=== PATIENT | male | born 1945 | race Caucasian/White ===

== ENCOUNTER → 2016-10-14 | Outpatient (CLI) | payer BC ==
[~2016-10-14] MED LIST: ACET-1256 PO; ATOR10TA88 PO; B-CO1CAP17 PO; CALC500C70 PO; CALCTAB5 PO; CARV6.252 PO; CEPH500C2 PO; CHOL1000 PO; CLON0.5T3 PO; DAPA1TAB2 PO; FENO145T26 PO; FISHOIL PO; FLUV100T12 PO; FRCT/ PO; HYOS1TAB PO; LCTX PO; MELA1TAB7 PO; OLME1TAB11 PO; OXYC-57 PO; PLV75 PO; PRED-301 PO; PRLSR20 PO; RIFA550T2 PO; SITA100T3 PO; SITA1TAB27 PO; TOPI1CAP PO; TRAM-10 PO
[2016-10-14 11:16] LABS: BASO % 0.6 %; BASO ABS # 0.04 K/uL (0-0.2); COMPLETE YES; EOS % 3.9 %; HEMATOCRIT 40.8 % (42-52); IG% 0.3 %; LYMPH % 34.9 %; LYMPH ABS # 2.16 K/uL (1.2-3.4); MEAN CORPUSCULAR HEMOGLOBIN 32.5 pg (25-34); MEAN CORPUSCULAR HGB CONC 33.8 g/dl (32-36); MEAN PLATELET VOLUME 11.2 fL (7.4-10.4); MONO % 11.6 %; NEUT % 48.7 %; PLATELET COUNT 189 K/uL (130-400); RED BLOOD COUNT 4.25 M/uL (4.7-6.1); WHITE BLOOD COUNT 6.19 K/uL (4.8-10.8)
[2016-10-14 11:25] LABS: ESTIMATED AVERAGE GLUCOSE 137 mg/dl; HA1C FLAG Normal (Normal)
[2016-10-14 11:30] LABS: BLOOD UREA NITROGEN 20 mg/dl (7-18); CREATININE 0.86 mg/dl (0.60-1.40); GLUCOSE 144 mg/dl (70-99)
[2016-10-14 11:31] LABS: ALT/SGPT 34 U/L (12-78); AST/SGOT 14 U/L (15-37); BUN/CREATININE RATIO 23.3 (10-20); CALCIUM 8.8 mg/dl (8.5-10.1); CARBON DIOXIDE 23 mmol/L (21-32); CHLORIDE 106 mmol/L (98-107); POTASSIUM 4.1 mmol/L (3.5-5.1); SODIUM 139 mmol/L (136-145)
[2016-10-14 11:49] LABS: ALB/GLOB RATIO 1.1 (0.9-2); ALKALINE PHOSPHATASE 41 U/L (45-117); CHOLESTEROL 157 mg/dl (0-200); CHOLESTEROL/HDL RATIO 2.9; HDL CHOLESTEROL 55 mg/dl; LDL CHOLESTEROL CALCULATED 62 mg/dl; PHOSPHORUS 3.7 mg/dl (2.5-4.9); TRIGLYCERIDES 202 mg/dl (0-150); URIC ACID 5.6 mg/dl (2.6-7.2); VERY LOW DENSITY LIPOPROT CALC 40 mg/dl
[2016-10-15 09:43] LABS: C-REACTIVE PROT HIGHSEN 2.4 MG/L
--- NOTE | 2016-10-18 12:34 | CODING QUERY MEDICAL NECESSITY ---
SUPPORTING DIAGNOSIS NEEDED A supporting diagnosis is required for the test/procedure performed on this patient in order for us to be reimbursed by the patient's insurance. Please provide a supporting diagnosis for the following test/procedure listed below next to the test name along with your signature. *If there is no additional diagnosis for this patient that would support the following test/procedure please document that below next to the test/procedure. Test(s)/Procedure(s) that require a supporting diagnosis: * VIT D 25, HYDROXY DIAGNOSIS: * VIT V-12 LEVEL DIAGNOSIS: * C REACTIVE PROTEIN DIAGNOSIS: * DOS: 10/14/16 Provider Signature: Date: Thank you Anu Kay [facility] Information Management Once completed, please kindly fax back to [phone] For questions please call [phone]
== END | disposition home or self-care (01) ==
LOC: C.LABBC 08:35
PROVIDERS: ATTEND Family Medicine
DX: E11.9 Type 2 diabetes mellitus without complications (principal)

== ENCOUNTER → 2016-11-19 | Outpatient (CLI) | payer BC ==
--- NOTE | 2016-11-19 11:30 | DIAGNOSTIC IMAGING REPORT ---
Limited abdominal ultrasound ABDOMEN FOR HERNIA CLINICAL HISTORY: LEFT INGUINAL HERNIA hernia TECHNIQUE: Real-time ultrasound COMPARISON STUDY: None FINDINGS: Small fat-containing left inguinal hernia. This is reducible. No evidence of bowel containment or incarceration. IMPRESSION: Reducible fat-containing left inguinal hernia. No evidence of bowel containment. Electronically signed by: Luis Mock M.D. 11/19/2016 11:28 AM Dictated Date/Time: 11/19/2016 11:28 AM
== END | disposition home or self-care (01) ==
LOC: C.ULTRBC 11:04
PROVIDERS: ATTEND Family Medicine
DX: K40.90 Unilateral inguinal hernia, without obstruction or gangrene, not specified as recurrent (principal)

== ENCOUNTER → 2016-12-06 | Outpatient (CLI) | payer BC ==
[~2016-12-06] MED LIST changes: +OPTIRAY 320 IV PRN
--- NOTE | 2016-12-06 09:16 | DIAGNOSTIC IMAGING REPORT ---
CT ABD/PELVIS IV AND ORAL CONT CLINICAL HISTORY: Umbilical hernia, left groin pain. COMPARISON STUDY: 08/11/2012 TECHNIQUE: Following the IV administration of 116 mL of Optiray-320, CT scan of the abdomen and pelvis was performed from the lung bases to the proximal femurs. Images are reviewed in the axial, sagittal, and coronal planes. IV contrast was administered without complication. CT DOSE: 1067.89 mGycm FINDINGS: Lower chest: There is evidence of pulmonary emphysema. There are no pleural effusions. Liver: There is a stable 5 mm hypodensity with thin the left lobe of the liver. There is no ductal dilatation. The portal veins appear patent. Gallbladder: Cholelithiasis Spleen: Normal in size and attenuation. Pancreas: Unremarkable. Adrenal glands: Unremarkable. Kidneys: There is a 27 mm left renal cyst. There is a 4 mm right renal cyst. Bowel: There are no transition zones to indicate bowel obstruction. The appendix appears normal. There is no acute diverticulitis. Peritoneum: There is no intraperitoneal free air or abdominal ascites. There is a small fat-containing umbilical hernia. There are small fat-containing inguinal hernias versus lipomatous inguinal canals. These remain unchanged the prior study. Vasculature: The abdominal aorta is normal in course and caliber. Adenopathy: None. Pelvic viscera: The bladder, and pelvic viscera are unremarkable. Skeletal structures: No destructive osseous lesions are seen. IMPRESSION: 1. Fat-containing umbilical hernia 2. Small fat-containing inguinal hernias versus lipomatous inguinal canals, unchanged from 2012 3. Cholelithiasis 4. No evidence of bowel obstruction. No evidence of free air 5. Normal appendix. No evidence of diverticulitis. Electronically signed by: Dylan Hobbs M.D. 12/06/2016 9:15 AM Dictated Date/Time: 12/06/2016 9:10 AM
== END | disposition home or self-care (01) ==
LOC: C.CTS 08:25
PROVIDERS: ATTEND Surgery
DX: K42.9 Umbilical hernia without obstruction or gangrene (principal); K80.20 Calculus of gallbladder without cholecystitis without obstruction

== ENCOUNTER 2017-02-04 07:45 | Day surgery (SDC) | payer BC ==
[2017-01-09 09:05] VITALS: BMI 31.0
--- NOTE | 2017-01-09 09:45 | PAT Medication Instructions ---
Service Date Jan 09, 2017. Current Home Medication List Acetamin/Butalbital/Caffeine (Fioricet), 2 TAB PO Q4-6HR PRN Acetaminophen (Tylenol), 1,000 MG PO Q8 PRN for HEADACHE Atorvastatin (Lipitor), 10 MG PO HS Carvedilol (Coreg), 6.25 MG PO BID Cholecalciferol (Vitamin D3), 1 TAB PO QAM Clonazepam (Klonopin), 1.5 TAB PO HS PRN Dapagliflozin Propanediol (Farxiga), 5 MG PO QAM Fenofibrate (Tricor), 145 MG PO HS Fluvoxamine Maleate (Luvox), 100 MG PO HS Hyoscyamine Sulfate (Levsin), 0.125 MG PO Q6 PRN for prn Lactobacillus Acidophilus (Lactinex), 1 TAB PO BID Melatonin-Pyridoxine (Melatin), 1 TAB PO HS PRN for Insomnia Olmesartan Medoxomil (Benicar), 20 MG PO QPM Omeprazole (Prilosec), 20 MG PO DAILY Prednisone (Prednisone), 5 MG PO UD PRN for PRN Rifaximin (Xifaxan), 550 MG PO QAM Topiramate (Trokendi Xr), 25 MG PO QAM Medication Instructions For Your Scheduled Surgery Acetamin/Butalbital/Caffeine (Fioricet), 2 TAB PO Q4-6HR PRN (Check with surgeon for instructions) Rifaximin (Xifaxan), 550 MG PO QAM (no longer taking per patient) - Hold the following medications the morning of surgery: Cholecalciferol (Vitamin D3), 1 TAB PO QAM Dapagliflozin Propanediol (Farxiga), 5 MG PO QAM Lactobacillus Acidophilus (Lactinex), 1 TAB PO BID Hyoscyamine Sulfate (Levsin), 0.125 MG PO Q6 PRN for prn - Take the following medications the morning of surgery with a sip of water: Topiramate (Trokendi Xr), 25 MG PO QAM Prednisone (Prednisone), 5 MG PO UD PRN for PRN Omeprazole (Prilosec), 20 MG PO DAILY Keflex 500mg PO DAILY Carvedilol (Coreg), 6.25 MG PO BID Acetaminophen (Tylenol), 1,000 MG PO Q8 PRN for HEADACHE - Hold the following medications as scheduled the night before surgery: Olmesartan Medoxomil (Benicar), 20 MG PO QPM Fenofibrate (Tricor), 145 MG PO HS - Take the following medications as scheduled the night before surgery: Prednisone (Prednisone), 5 MG PO UD PRN for PRN Melatonin-Pyridoxine (Melatin), 1 TAB PO HS PRN for Insomnia Clonazepam (Klonopin), 1.5 TAB PO HS PRN Carvedilol (Coreg), 6.25 MG PO BID Fluvoxamine Maleate (Luvox), 100 MG PO HS Acetaminophen (Tylenol), 1,000 MG PO Q8 PRN for HEADACHE Atorvastatin (Lipitor), 10 MG PO HS Lactobacillus Acidophilus (Lactinex), 1 TAB PO BID Hyoscyamine Sulfate (Levsin), 0.125 MG PO Q6 PRN for prn If you have any questions please call us at [phone] (Ashwini Helton PA-C) or [phone] or [phone]
--- NOTE | 2017-01-09 10:28 | DIAGNOSTIC IMAGING REPORT ---
CERVICAL SPINE 3 view VIEWS HISTORY: Preoperative evaluation. PREOP, RHEUMATOID ARTHRITIS COMPARISON: None. FINDINGS: The cervical spine is visualized from C1 through the superior endplate of T1. There is no fracture. No subluxation. Disc spaces are preserved. Prevertebral soft tissues and the atlantodens interval are intact. Mild degenerative disc change. No evidence for positional subluxation IMPRESSION: No evidence for positional subluxation. Electronically signed by: Luis Mock M.D. 01/09/2017 10:26 AM Dictated Date/Time: 01/09/2017 10:25 AM
[2017-01-09 10:32] LABS: BASO % 0.4 %; BASO ABS # 0.03 K/uL (0-0.2); COMPLETE YES; EOS % 2.3 %; HEMATOCRIT 43.2 % (42-52); IG% 0.3 %; LYMPH % 28.5 %; LYMPH ABS # 1.98 K/uL (1.2-3.4); MEAN CELL VOLUME 94.7 fL (80-100); MEAN CORPUSCULAR HEMOGLOBIN 31.6 pg (25-34); MEAN CORPUSCULAR HGB CONC 33.3 g/dl (32-36); MEAN PLATELET VOLUME 10.6 fL (7.4-10.4); MONO % 8.8 %; NEUT % 59.7 %; PLATELET COUNT 177 K/uL (130-400); RED BLOOD COUNT 4.56 M/uL (4.7-6.1); WHITE BLOOD COUNT 6.95 K/uL (4.8-10.8)
--- NOTE | 2017-01-09 10:34 | DIAGNOSTIC IMAGING REPORT ---
CHEST PREADMISSION(PA/LAT) HISTORY: Preop. COMPARISON: Chest 08/13/2012. FINDINGS: Punctate calcified granuloma within the left lung base. Otherwise, the lungs are clear. No pleural effusions. No pneumothorax. The heart is normal in size. IMPRESSION: No acute process. Electronically signed by: Lemuel Hernandez M.D. 01/09/2017 10:31 AM Dictated Date/Time: 01/09/2017 10:30 AM
[2017-01-09 11:21] LABS: ALT/SGPT 25 U/L (12-78); AST/SGOT 12 U/L (15-37); BLOOD UREA NITROGEN 19 mg/dl (7-18); CALCIUM 8.6 mg/dl (8.5-10.1); CARBON DIOXIDE 22 mmol/L (21-32); CHLORIDE 106 mmol/L (98-107); CREATININE 0.98 mg/dl (0.60-1.40); GLUCOSE 149 mg/dl (70-99); POTASSIUM 4.2 mmol/L (3.5-5.1); SODIUM 138 mmol/L (136-145)
[2017-01-09 11:23] LABS: ALKALINE PHOSPHATASE 47 U/L (45-117)
[~2017-02-04] VITALS: Ht 172.7 cm; Wt 94.5 kg
[~2017-02-04 07:45] MED LIST changes: +ATOR10TA82 PO; -ATOR10TA88 PO; -B-CO1CAP17 PO; -CALC500C70 PO; -CALCTAB5 PO; -DAPA1TAB2 PO; +DAPA1TAB8 PO; -FISHOIL PO; +LACTATED RINGER'S 1000ML 1,000 ML IV SCH; -OPTIRAY 320 IV PRN; -OXYC-57 PO; -PLV75 PO; -RIFA550T2 PO; -SITA100T3 PO; -SITA1TAB27 PO; -TRAM-10 PO
[2017-02-04] MEDS ORDERED: CALC500C70 PO (08:33)
[2017-02-04 08:40] VITALS: BP 137/69; PULSE 55; TEMP 36.7; O2SAT 97; Ht 172.7 cm; Wt 94.5 kg
[2017-02-04] MEDS ORDERED: PROPOFOL IV EMULSION 10 MG/ML 20 ML VIAL IV ONE (09:13)
[2017-02-04] MEDS ORDERED: ROCURONIUM BROMIDE 10 MG/ML 5 ML VIAL ONE ×2 (09:13→11:08)
[2017-02-04] MEDS ORDERED: GLYCOPYRROLATE INJ 0.2 MG/ML VIAL ONE (09:13)
[2017-02-04] MEDS ORDERED: MIDAZOLAM HCL 1 MG/ML 2ML VIAL ONE (09:13)
[2017-02-04] MEDS ORDERED: FENTANYL CITRATE INJ 50 MCG/1 ML 2 ML VIAL ONE (09:13)
[2017-02-04] MEDS ORDERED: LIDOCAINE HCL 2% 2 ML VIAL (20MG/ML) ONE (09:13)
[2017-02-04] MEDS ORDERED: NEOSTIGMINE METHYLSULFATE 5 MG/5 ML SYR ONE (09:13)
[2017-02-04] MEDS ORDERED: DEXAMETHASONE SOD INJ 4 MG/ML VIAL ONE (09:14)
[2017-02-04] MEDS ORDERED: ONDANSETRON INJ 2 MG/ML 2 ML VIAL ONE (09:14)
--- NOTE | 2017-02-04 09:46 | History and Physical ---
History & Physical Date February 04, 2017. History of Present Illness The patient is a 71 year old male with complaints of ccc and umbilical hernia seen in office annabelle 1 month ago and no chnage in h and p as documented in chart Past Medical/Surgical History Medical Problems: (1) Airway compromise (2) Cellulitis (3) DIVERTICULOSIS COLON (W/O MENT OF HEMORRHAGE) (4) HYPERLIPIDEMIA NEC/NOS (5) HYPERTENSION NOS (6) IMPAIRED GLUCOSE TOLERANCE TEST (ORAL) (7) Tonsillar abscess Additional History Hepatic Disease: No Endocrine Disorder: No Kidney Disease: No Hypertension: Yes Heart Disease: No Bleeding Tendencies: No Infectious Diseases: No Allergies Coded Allergies: Latex1 -Allergic Contact Dermititis (Verified Allergy, Mild, CONTACT DERMATITIS, 02/04/17) Home Medications Scheduled Acetamin/Butalbital/Caffeine (Fioricet), 2 TAB PO Q4-6HR PRN Atorvastatin (Lipitor), 10 MG PO HS Calcium/Vitamin D (Os-Mikel 500 Plus D), 1 TAB PO DAILY Carvedilol (Coreg), 6.25 MG PO BID Cephalexin Monohydrate (Keflex), 500 MG PO QAM Cholecalciferol (Vitamin D3), 1 TAB PO QAM Clonazepam (Klonopin), 1.5 TAB PO HS PRN Dapagliflozin Propanediol (Farxiga), 5 MG PO QAM Fenofibrate (Tricor), 145 MG PO HS Fluvoxamine Maleate (Luvox), 100 MG PO HS Lactobacillus Acidophilus (Lactinex), 1 TAB PO BID Olmesartan Medoxomil (Benicar), 20 MG PO QPM Topiramate (Trokendi Xr), 25 MG PO QAM Scheduled PRN Hyoscyamine Sulfate (Levsin), 0.125 MG PO Q6 PRN for prn Melatonin-Pyridoxine (Melatin), 1 TAB PO HS PRN for Insomnia Omeprazole (Prilosec), 20 MG PO DAILY PRN for Indigestion Prednisone (Prednisone), 5 MG PO UD PRN for PRN Physical Examination Skin: warm/dry, no rash Eyes: sclerae normal ENT: normal ENT inspection Head: normocephalic Neck: supple, trachea midline (carotid without bruit) Respiratory/Chest: normal breath sounds Cardiovascular: regular rate, rhythm, no murmur Abdomen / GI: non tender (partially reducible umbilical hernia) Extremities: normal inspection, normal range of motion Neurologic/Psych: alert, oriented x 3 Diagnosis symptomatic ccc and umbilical hernia Plan of Treatment laparoscopic trevor oden umbilical hernia repair
[2017-02-04] MEDS ORDERED: OXYC-57 PO (09:51)
--- NOTE | 2017-02-04 09:52 | Discharge Instructions ---
Discharge Instructions Date of Service February 04, 2017. Visit Reason for Visit: Cholelithiasis, Umbilical Hernia Discharge Discharge Diagnosis / Problem: laparoscopic cholecystectomy Discharge Goals Goal(s): Decrease discomfort Activity Recommendations Activity Limitations: as noted below Lifting Limitations: no more than 10 pounds Shower/Bathe: tomorrow (ok to shower with drain) Driving or Machine Use: resume 3 days after discharge (if not taking Percocety) Anesthesia . Post Anesthesia Instructions: If you have had General Anesthesia or IV Sedation: * Do not drive today. * Resume driving when surgeon permits. * Do not make important decisions or sign legal documents today. * Call surgeon for: 1. Temperature elevations greater than 101 degrees F. 2. Uncontrollable pain. 3. Excessive bleeding. 4. Persistent nausea and vomiting. 5. Medication intolerance (nausea, vomiting or rash). * For nausea and vomiting use only clear liquids such as: tea, soda, bouillon until nausea subsides, then gradually increase diet as tolerated. * If you have any concerns or questions, call your surgeon's office. If physician is unavailable and it is an emergency, call 911 or go to the nearest emergency room. . Instructions / Follow-Up Instructions / Follow-Up Dr. Estrada in 3-4 days ( or Fri) to have drain removed call [phone] to schedule if you do not already have an appt Empty drain 2-3 times daily as needed Diet Recommendations Recommended Home Diet: no limitations Pending Studies Studies pending at discharge: no Medical Emergencies . Who to Call and When: Medical Emergencies: If at any time you feel your situation is an emergency, please call 911 immediately. . Non-Emergent Contact Non-Emergency issues call your: Surgeon Call Non-Emergent contact if: you have a fever, temperature is above 101.5, your pain is not controlled . . "Provider Documentation" section prepared by Donis Feng. .
[2017-02-04] MEDS ORDERED: LIDOCAINE/EPINEPHRINE 1% 20 ML VIAL ONE (09:54)
[2017-02-04] MEDS ORDERED: CONRAY 60% 50 ML VIAL ONE (09:54)
[2017-02-04] MEDS ORDERED: BACITRACIN 50000 UNIT VIAL ONE (10:07)
[2017-02-04] MEDS ORDERED: LABETALOL HCL IV 5 MG/ML 20ML IV ONE (11:01)
--- NOTE | 2017-02-04 11:21 | DIAGNOSTIC IMAGING REPORT ---
INTRAOPERATIVE CHOLANGIOGRAM CLINICAL HISTORY: Cholangiogram. COMPARISON STUDY: CT of the abdomen and pelvis December 06, 2016. FLUOROSCOPY TIME: Resections. FINDINGS: 4 fluoroscopic images were obtained during an intraoperative cholangiogram. There is contrast within the duodenum. No biliary ductal dilatation is evident. No filling defect is identified to suggest choledocholithiasis. IMPRESSION: No evidence of choledocholithiasis. Electronically signed by: Angel Brown M.D. 02/04/2017 11:20 AM Dictated Date/Time: 02/04/2017 11:19 AM
--- NOTE | 2017-02-04 11:39 | [facility] Operative Report ---
Operative Report Operative Date February 04, 2017. Pre-Operative Diagnosis Chronic Cholelithiasis, Umbilical Hernia both symp Post-Operative Diagnosis same Procedure(s) Performed lap cholecystectomy, trevor, umbilical hernia repair Surgeon Dr. Estrada Dry Transfer Man Surgeon(s) VALERIE Szymanski Estimated Blood Loss 5 ml Findings significant adhesion to gallbladder and incarcerated umbilical hernia total defect annabelle 2 cm Specimens Routine culture and anaerobic cultures gallbladder bed sent to lab at 1128 Drains #19 ivory I attest to the content of the Intraoperative Record and any orders documented therein. Any exceptions are noted below.
[2017-02-04] MEDS ORDERED: MoRPHine SULFATE 2 MG/ML CARP ONE (11:44)
[2017-02-04] MEDS ORDERED: LACTATED RINGER'S 1000ML 1,000 ML IV SCH (11:46)
[2017-02-04] MEDS ORDERED: OXYCODONE/ACETAMINOPHEN 5-325 TAB PO PRN (12:00)
[2017-02-04] MEDS ORDERED: EpHEDrine SULFATE INJ 50 MG/ML AMP IV PRN (12:00)
[2017-02-04] MEDS ORDERED: PHENYLEPHRINE 100MCG/ML 5ML SYR IV PRN (12:00)
[2017-02-04] MEDS ORDERED: ATROPINE SULFATE 0.1 MG/ML 5ML SYR IV PRN (12:00)
[2017-02-04] MEDS ORDERED: HYDROmorphone INJ 2 MG/ML SYR/VIAL IV PRN (12:00)
[2017-02-04] MEDS ORDERED: MoRPHine SULFATE 4 MG/ML 1 ML CARP\\VIAL IV PRN (12:00)
[2017-02-04] MEDS ORDERED: ONDANSETRON INJ 2 MG/ML 2 ML VIAL IV PRN ×2 (12:00)
[2017-02-04] MEDS ORDERED: HYDROmorphone INJ 2 MG/ML SYR/VIAL ONE (12:02)
[2017-02-04] MEDS ORDERED: HYDROmorphone INJ 1 MG/ML SYR ONE (12:02)
--- NOTE | 2017-02-04 12:28 | Anesthesiology Progress Note ---
Anesthesia Post Op Note Date & Time February 04, 2017 at 12:28 Vital Signs Pain Intensity: 5 Vital Signs Past 12 Hours Date Time Temp Pulse Resp B/P Pulse Ox O2 Delivery O2 Flow Rate FiO2 02/04/17 12:20 67 13 139/68 93 Room Air 02/04/17 12:10 58 13 145/76 95 Mask 10 02/04/17 12:00 62 12 165/79 100 Mask 10 02/04/17 11:50 36.2 65 15 173/93 99 Mask 10 02/04/17 08:40 36.7 55 20 137/69 97 Room Air Notes Mental Status: alert / awake / arousable, participated in evaluation Pt Amnestic to Procedure: Yes Nausea / Vomiting: adequately controlled Pain: adequately controlled Airway Patency, RR, SpO2: stable & adequate BP & HR: stable & adequate Hydration State: stable & adequate Anesthetic Complications: no major complications apparent
[2017-02-04 13:00] VITALS: BP 149/63; PULSE 59; TEMP 37; O2SAT 95
[2017-02-04 13:30] VITALS: BP 140/68; PULSE 53; TEMP 36.6; O2SAT 92
[2017-02-04 14:00] VITALS: BP 150/63; PULSE 53; TEMP 36.4; O2SAT 92
--- NOTE | 2017-02-04 16:48 | OPERATIVE REPORT ---
DATE OF OPERATION: 02/04/2017 SURGEON: Dr. Estrada. AERIAL INSTALLER: Jm Feng. PREOPERATIVE DIAGNOSES: Chronic cholecystitis, cholelithiasis, symptomatic umbilical hernia. POSTOPERATIVE DIAGNOSES: Same with incarcerated umbilical hernia. PROCEDURE: Laparoscopic cholecystectomy, intraoperative cholangiogram and repair of incarcerated umbilical hernia. SUMMARY: The patient was brought into the operating room under general anesthesia, the patient was prepped with scrubbing solution and properly draped. Time-out was had and I made a small incision about transversely the umbilicus deep into subcutaneous tissue. We found incarcerated preperitoneal fat into the hernial sac, which once we freed it up from the umbilical tissue, we identified the defect approximately 2 cm. I used 0 Vicryl sutures to control the pneumoperitoneum as we entered the peritoneal cavity, we reduced all the incarcerated tissue into the abdomen and then CO2 insufflated, the stay sutures to control the pneumoperitoneum. CO2 insufflated, scope followed, point of entry inspected and no injury identified. Under direct visualization, we then turned our attention to right upper quadrant, we placed a 5 mm epigastric, two 5 mm subcostal ports with preemptive local analgesia 1% Xylocaine. The liver was round edged. We did not see the gallbladder, it was seen to be in the mid portion where we thought the gallbladder fossa would be. The omental adhesions to the liver were quite significant. We took these down using electrocautery as we took it off the liver edge and then we were able to identify the gallbladder, which we placed under track. There were significant adhesions of fatty tissue to the gallbladder on the undersurface of surrounding it. With the dissection took it all the way down to the neck of the gallbladder. We identified the cystic duct, created a window posteriorly to it, clipped it proximally. A #4 urethral catheter was brought into the abdominal wall to do a cholangiogram. We opened the cystic duct, some debris that came out of it, even though the size of the duct was small. We placed a cholangiocath flushed out more of what looked like a bilirubinate type of debris. Cholangiocath was then performed that showed a dilated duodenum. I was not sure what are the pictures may have been, either a filling defect or an artifact, in the distal common bile duct. Therefore, I irrigated again significantly and then took another cholangiogram which at this time I do not see any obstruction. There was free flow into the duodenum and no other evidence of any filling defect. The cholangiocath was then removed that was doubly clipped and divided. The artery was similarly identified, double clipped and divided. Gallbladder was taken out in antegrade fashion using the posterior peritoneum as much as possible using electrocautery. A few areas on the liver was quite adherent to be controlled. Once the gallbladder was removed from the liver bed, we placed in an Endopouch and taken out intact through the epigastric port. The patient had a one solitary significant stone. The patient had another some cholesterolosis of the gallbladder. I elected to drain the subhepatic area, which we did using a 19 Beka, taken out medially, taken out laterally subcostal port. We placed the scope in the subcostal area to visualize the umbilical opening, we identified that the fatty tissue that we returned intraabdominally, there was just an adhesion of the omentum coming into that area, but there were no other evidence of any bowel. At this point, individual trocars removed and lastly the umbilical trocar, the fascial defects on the umbilical area was then closed in the umbilical opening with interrupted [id number] #1 PDS x2, and I similarly used the same suture to close the epigastric area. 4-0 Monocryl, Steri-Strips applied. The procedure was tolerated well by the patient. Estimated blood loss approximately 5 mL. The patient was taken to recovery room in good condition. I attest to the content of the Intraoperative Record and any orders documented therein. Any exceptio ns are noted below.
[2017-02-18] MEDS ORDERED: SITA100T3 PO (11:23)
[2017-02-18] MEDS ORDERED: FRCT/ PO (11:31)
[2017-02-21] MEDS ORDERED: TRAM-10 PO (11:04)
== END 2017-02-04 16:15 | disposition home or self-care (01) ==
LOC: C.ACU 07:45
PROVIDERS: ATTEND Surgery
DX: K80.10 Calculus of gallbladder with chronic cholecystitis without obstruction (principal); K42.0 Umbilical hernia with obstruction, without gangrene; E78.5 Hyperlipidemia, unspecified; I10 Essential (primary) hypertension

== ENCOUNTER 2017-02-05 22:25 | Inpatient (IN) | payer BC, OTHER ==
[~2017-02-05] VITALS: Ht 172.7 cm; Wt 89.3 kg
[~2017-02-05 22:25] MED LIST changes: -ACET-1256 PO; +CALC500C70 PO; -FRCT/ PO; -LACTATED RINGER'S 1000ML 1,000 ML IV SCH; +OXYC-57 PO
[2017-02-05] MEDS ORDERED: SODIUM CHLORIDE 0.9% 1000ML 1,000 ML IV STA (23:09)
--- NOTE | 2017-02-05 23:21 | EMERGENCY ROOM VISIT NOTE ---
History Report prepared by Anna: Tee Timmons Under the Supervision of: Dr. Adela Fernandez M.D. First contact with patient: 23:07 Chief Complaint: NEURO SYMPTOMS Stated Complaint: S/P SURGERY, CONFUSION, STROKE LIKE SX Nursing Triage Summary: Pt arrives with family. c/o confusion, headache, vomiting last night. Ongoing since yesterday when pt was brought home from hospital. Pt had gallbladder removal, hernia repair yesterday. report taking pain meds, but not providing relief, "it makes me sick". Right hand "wants to try and do everything backwards", having difficulty doing everyday tasks like holding a cup. History of Present Illness The patient is a 71 year old male who presents to the Emergency Room with complaints of constant neuro symptoms starting yesterday around 1600. The patient states that he had a cholecystectomy, and he left the hospital yesterday , and after that he went home, and he states that he was acting funny. He states that he was mumbling, and he could not form full thoughts. Additionally, he states that he cannot remember things very well like he used to. He also states that his right hand has been acting "backwards" and is going the wrong way. He denies any trouble with walking. Source of History: patient Onset: yesterday around 1600 Position: other (global) Quality: other (neuro symptoms) Timing: constant Note: Associated symptoms: Mumbling, could not form thoughts, hand acting backwards Review of Systems See HPI for pertinent positives & negatives. A total of 10 systems reviewed and were otherwise negative. Past Medical & Surgical Medical Problems: (1) Acute CVA (cerebrovascular accident) (2) Acute right-sided weakness (3) Airway compromise (4) Cellulitis (5) DIVERTICULOSIS COLON (W/O MENT OF HEMORRHAGE) (6) HYPERLIPIDEMIA NEC/NOS (7) HYPERTENSION NOS (8) IMPAIRED GLUCOSE TOLERANCE TEST (ORAL) (9) Tonsillar abscess Social History Smoking Status: Current Every Day Smoker Drug Use: none Marital Status: Housing Status: lives with family Occupation Status: retired Current/Historical Medications Scheduled Atorvastatin (Lipitor), 10 MG PO HS Calcium/Vitamin D (Os-Mikel 500 Plus D), 1 TAB PO DAILY Carvedilol (Coreg), 6.25 MG PO BID Cephalexin Monohydrate (Keflex), 500 MG PO QAM Cholecalciferol (Vitamin D3), 1 TAB PO QAM Clonazepam (Klonopin), 1.5 TAB PO HS PRN Dapagliflozin Propanediol (Farxiga), 5 MG PO QAM Fenofibrate (Tricor), 145 MG PO HS Fluvoxamine Maleate (Luvox), 100 MG PO HS Lactobacillus Acidophilus (Lactinex), 1 TAB PO BID Olmesartan Medoxomil (Benicar), 20 MG PO QPM Topiramate (Trokendi Xr), 25 MG PO QAM Scheduled PRN Hyoscyamine Sulfate (Levsin), 0.125 MG PO Q6 PRN for prn Melatonin-Pyridoxine (Melatin), 1 TAB PO HS PRN for Insomnia Omeprazole (Prilosec), 20 MG PO DAILY PRN for Indigestion Oxycodone/Acetaminophen 5MG/325MG (Percocet 5MG/325MG), 1-2 TABLETS PO Q4H PRN for Pain Prednisone (Prednisone), 5 MG PO UD PRN for PRN Allergies Coded Allergies: Latex1 -Allergic Contact Dermititis (Verified Allergy, Mild, CONTACT DERMATITIS, 02/05/17) Physical Exam Vital Signs Date Time Temp Pulse Resp B/P Pulse Ox O2 Delivery O2 Flow Rate FiO2 02/06/17 01:30 54 17 143/70 02/06/17 01:25 63 17 02/06/17 01:20 64 16 02/06/17 01:15 32 17 82 02/06/17 01:10 63 16 02/06/17 01:05 61 17 02/06/17 01:00 64 20 148/90 02/06/17 00:55 61 16 02/06/17 00:50 69 20 02/06/17 00:45 59 15 02/06/17 00:40 62 22 02/06/17 00:35 52 16 94 02/06/17 00:30 54 18 161/66 92 02/06/17 00:25 55 17 95 02/06/17 00:20 59 17 96 02/06/17 00:10 58 17 95 02/06/17 00:05 63 14 95 02/06/17 00:01 151/67 02/06/17 00:00 66 20 02/05/17 23:55 63 19 02/05/17 23:52 165/70 5/10/17 23:40 62 16 02/05/17 23:35 64 21 02/05/17 23:31 151/84 02/05/17 23:30 61 26 02/05/17 23:25 59 25 02/05/17 23:21 66 02/05/17 23:20 61 21 02/05/17 23:15 73 18 02/05/17 23:15 94 Room Air 02/05/17 23:11 155/68 02/05/17 22:30 37.2 65 18 190/106 94 Room Air Physical Exam Vital signs reviewed. General: Well-appearing male, in no significant distress. HEENT: No scleral icterus, PERRLA, neck supple. Atraumatic. Cardiovascular: Regular rate and rhythm, no extra sounds. Pulmonary: Clear to auscultation bilaterally, normal work of breathing. Abdomen: Soft, nontender, nondistended, positive bowel sounds. Musculoskeletal: Atraumatic, no peripheral edema. Neurologic: Patient awake alert and oriented x 3, full strength in all 4 extremities. Patient does have subtle word finding difficulties. Cranial nerves 2 through 12 grossly intact. Skin: Warm, dry, no rash Medical Decision & Procedures ER Provider Diagnostic Interpretation: X-ray results as stated below per interpretation by me: Chest 1 View: Linear consolidation in the left mid lung main obscuring the heart border. Likely atelectasis. No evidence of failure. No pneumothorax. No free air under the diaphragm. Radiology results as stated below per my review and radiologist interpretation: CT HEAD: Comparison: MRI dated 08/11/2009. Recent appearing (acute of subacute) infarcts in the left parietal and left occipital lobes. Largest area of infarct measures approximately 3.3cm in greatest dimension. MRI can be obtained for further evaluation. No acute intracranial hemorrhage, mass effect or midline shift. Paranasal sinus disease. Laboratory Results 02/05/17 23:00 Red Blood Count 4.20, Mean Corpuscular Volume 96.9, Mean Corpuscular Hemoglobin 31.9, Mean Corpuscular Hemoglobin Concent 32.9, Mean Platelet Volume 11.0, Neutrophils (%) (Auto) 61.3, Lymphocytes (%) (Auto) 24.7, Monocytes (%) (Auto) 13.4, Eosinophils (%) (Auto) 0.3, Basophils (%) (Auto) 0.1, Neutrophils # (Auto ) 5.77, Lymphocytes # (Auto) 2.32, Monocytes # (Auto) 1.26, Eosinophils # (Auto ) 0.03, Basophils # (Auto) 0.01 02/05/17 23:00 Test 02/05/17 23:00 02/05/17 23:29 02/05/17 23:30 02/06/17 00:05 White Blood Count 9.41 K/uL (4.8-10.8) Red Blood Count 4.20 M/uL (4.7-6.1) Hemoglobin 13.4 g/dL (14.0-18.0) Hematocrit 40.7 % (42-52) Mean Corpuscular Volume 96.9 fL (80-100) Mean Corpuscular Hemoglobin 31.9 pg (25-34) Mean Corpuscular Hemoglobin Concent 32.9 g/dl (32-36) Platelet Count 190 K/uL (130-400) Mean Platelet Volume 11.0 fL (7.4-10.4) Neutrophils (%) (Auto) 61.3 % Lymphocytes (%) (Auto) 24.7 % Monocytes (%) (Auto) 13.4 % Eosinophils (%) (Auto) 0.3 % Basophils (%) (Auto) 0.1 % Neutrophils # (Auto) 5.77 K/uL (1.4-6.5) Lymphocytes # (Auto) 2.32 K/uL (1.2-3.4) Monocytes # (Auto) 1.26 K/uL (0.11-0.59) Eosinophils # (Auto) 0.03 K/uL (0-0.5) Basophils # (Auto) 0.01 K/uL (0-0.2) RDW Standard Deviation 48.5 fL (36.4-46.3) RDW Coefficient of Variation 13.7 % (11.5-14.5) Immature Granulocyte % (Auto) 0.2 % Immature Granulocyte # (Auto) 0.02 K/uL (0.00-0.02) Prothrombin Time 11.1 SECONDS (9.0-12.0) Prothromb Time International Ratio 1.0 (0.9-1.1) Activated Partial Thromboplast Time 25.4 SECONDS (21.0-31.0) Partial Thromboplastin Ratio 1.0 Anion Gap 8.0 mmol/L (3-11) Est Creatinine Clear Calc Drug Dose 99.4 ml/min Estimated GFR () 105.4 Estimated GFR (Non- 91.0 BUN/Creatinine Ratio 19.1 (10-20) Calcium Level 8.7 mg/dl (8.5-10.1) Total Creatine Kinase 177 U/L (39-308) Creatine Kinase MB < 0.5 ng/ml (0.5-3.6) Creatine Kinase MB Ratio (0-3.0) Troponin I < 0.015 ng/ml (0-0.045) Bedside Glucose 114 mg/dl (70-99) Bedside Prothrombin Time INR 1.1 (0.9-1.1) Urine Color YELLOW Urine Appearance CLEAR (CLEAR) Urine pH 6.5 (4.5-7.5) Urine Specific [place] 1.011 (1.000-1.030) Urine Protein NEG (NEG) Urine Glucose (UA) NEG (NEG) Urine Ketones NEG (NEG) Urine Occult Blood NEG (NEG) Urine Nitrite NEG (NEG) Urine Bilirubin NEG (NEG) Urine Urobilinogen NEG (NEG) Urine Leukocyte Esterase NEG (NEG) Laboratory results per my review. Medications Administered Medications (Trade) Dose Ordered Sig/Tin Route Start Time Stop Time Status Last Admin Dose Admin Sodium Chloride (Nss 1000ml) 1,000 ml @ 150 mls/hr Q6H40M STAT IV 02/05/17 23:09 02/06/17 04:46 DC 02/05/17 23:09 150 MLS/HR Morphine Sulfate (MoRPHine SULFATE INJ) 4 mg NOW STAT IV 02/06/17 00:56 02/06/17 00:58 DC 02/06/17 01:12 4 MG ECG Indication: other (neuro symptoms) Rate (beats per minute): 63 Rhythm: sinus rhythm Findings: PAC, no acute ischemic change ED Course 2307: Past medical records reviewed. The patient was evaluated in room B10. A complete history and physical examination was performed. 2309: Sodium Chloride 1000 ml @ 150 mls/hr IV 0030: I reevaluated the patient, and updated him on the treatment plan, and he is agreeable. 0042: I discussed the patient's case with Dr. Ramirez. He is going to evaluate the patient for further treatment 0056: Morphine Sulfate 4mg IV Medical Decision Differential diagnosis: Etiologies such as metabolic, infection, hypo/hyperglycemia, electrolyte abnormalities, cardiac sources, intracerebral event, toxicologic, neurologic, as well as others were entertained. This patient was evaluated and appeared to be in no significant distress. Physical examination is fairly unrevealing. The patient has very subtle word finding difficulties and a questionable dysarthria. CT scan of the head was performed and reveals several infarcts. The onset of the symptoms was yesterday , he is outside of the window for TPA. He was hydrated with normal saline solution. He was given morphine for pain. The patient was discussed with the hospitalist service for admission and further management. He is aware of the plan and agrees. Consults Time Called: 34 Consulting Physician: Dr. Ramirez Returned Call: 41 I discussed the patient's case with Dr. Ramirez. He is going to evaluate the patient for further treatment Impression Primary Impression: Stroke Scribe Attestation The scribe's documentation has been prepared under my direction and personally reviewed by me in its entirety. I confirm that the note above accurately reflects all work, treatment, procedures, and medical decision making performed by me. Departure Information Dispostion Being Evaluated By Hospitalist Referrals Wing William M.D. (PCP) Stroke History Stroke t-PA Criteria Reviewed Does NOT meet criteria for t-PA Reason t-PA Not Given Treatment not indicated (outside 3-4.5 hr window, infarcts seen on CT)
[2017-02-05 23:44] LABS: BASO % 0.1 %; BASO ABS # 0.01 K/uL (0-0.2); COMPLETE YES; EOS % 0.3 %; HEMATOCRIT 40.7 % (42-52); IG% 0.2 %; LYMPH % 24.7 %; LYMPH ABS # 2.32 K/uL (1.2-3.4); MEAN CELL VOLUME 96.9 fL (80-100); MEAN CORPUSCULAR HEMOGLOBIN 31.9 pg (25-34); MEAN CORPUSCULAR HGB CONC 32.9 g/dl (32-36); MONO % 13.4 %; NEUT % 61.3 %; PLATELET COUNT 190 K/uL (130-400); WHITE BLOOD COUNT 9.41 K/uL (4.8-10.8)
[2017-02-05 23:53] LABS: PROTHROMBIN TIME (PATIENT) 11.1 SECONDS (9.0-12.0)
[2017-02-06] VITALS (10 sets, daily range): BP systolic 144–176; BP diastolic 67–79; PULSE 52–64; TEMP 36.6–37.3; O2SAT 93–96; Ht 172.7 cm; Wt 89.3 kg
[2017-02-06 00:05] LABS: BLOOD UREA NITROGEN 15 mg/dl (7-18); BUN/CREATININE RATIO 19.1 (10-20); CALCIUM 8.7 mg/dl (8.5-10.1); CARBON DIOXIDE 27 mmol/L (21-32); CHLORIDE 106 mmol/L (98-107); CREATININE 0.79 mg/dl (0.60-1.40); GLUCOSE 112 mg/dl (70-99); POTASSIUM 3.6 mmol/L (3.5-5.1); SODIUM 141 mmol/L (136-145)
[2017-02-06 00:31] LABS: URINE APPEARANCE CLEAR (CLEAR); URINE BILIRUBIN NEG (NEG); URINE COLOR YELLOW; URINE NITRITE NEG (NEG); URINE PH 6.5 (4.5-7.5); URINE SPECIFIC GRAVITY 1.011 (1.000-1.030); UROBILINOGEN NEG (NEG); ZZUR CULT IF INDIC CLEAN CATCH NO
[2017-02-06 00:36] LABS: MANUAL MICROSCOPIC REQUIRED? NO; REVIEW REQ? NO
[2017-02-06] MEDS ORDERED: MoRPHine SULFATE 4 MG/ML 1 ML CARP\\VIAL IV STA (00:56)
[2017-02-06] MEDS ORDERED: ACETAMINOPHEN 325 MG TAB PO PRN (01:45)
[2017-02-06] MEDS ORDERED: CLONAZEPAM 0.5 MG TAB PO PRN (01:45)
[2017-02-06] MEDS ORDERED: PHARMACIST DISCHARGE MED REC CONSULT PRN (01:45)
--- NOTE | 2017-02-06 02:56 | DIAGNOSTIC IMAGING REPORT ---
ORBIT RADIOGRAPHS 3 VIEWS HISTORY: pre-MRI screening. COMPARISON: None. FINDINGS: There are no radiopaque foreign bodies identified within the orbits. IMPRESSION: No radiopaque foreign bodies identified within the orbits. Electronically signed by: Luis Mock M.D. 02/06/2017 2:54 AM Dictated Date/Time: 02/06/2017 2:53 AM
[2017-02-06] MEDS ORDERED: GADAVIST IV PRN (04:30)
--- NOTE | 2017-02-06 05:14 | History and Physical ---
History & Physical Date & Time of Service: February 06, 2017 at 04:49 Chief Complaint: Acute Cva, Acute Right-Sided Weakness Primary Care Physician: Wing William M.D. History of Present Illness Source: patient The patient is a 71-year-old male who underwent a cholecystectomy on February 05, and was then discharged to home later that day. He reports that on his way home he started acting oddly, and his daughter who was driving noted that as well. He was mumbling, not able to talk in complete sentences and complete his thoughts, and had difficulty with his long-term memory. He also describes his right hand as going backwards, and had difficulty controlling it even though it is dominant hand. He did not have any weakness or abnormalities in his lower extremities. He did have some nausea and vomiting upon returning home, but attributes that to having undergone a cholecystectomy earlier in the day. Past Medical/Surgical History Medical Problems: (1) Cellulitis Status: Chronic (2) DIVERTICULOSIS COLON (W/O MENT OF HEMORRHAGE) Status: Chronic (3) HYPERLIPIDEMIA NEC/NOS Status: Chronic (4) HYPERTENSION NOS Status: Chronic (5) IMPAIRED GLUCOSE TOLERANCE TEST (ORAL) Status: Chronic Social History Smoking Status: Current Every Day Smoker Smokeless Tobacco Use: No Alcohol Use: none Drug Use: none Marital Status: Housing status: lives with family Occupational Status: retired Multi-Drug Resistant Organisms History of MDRO: No Allergies Coded Allergies: Latex1 -Allergic Contact Dermititis (Verified Allergy, Mild, CONTACT DERMATITIS, 02/05/17) Home Medications Scheduled Atorvastatin (Lipitor), 10 MG PO HS Calcium/Vitamin D (Os-Mikel 500 Plus D), 1 TAB PO DAILY Carvedilol (Coreg), 6.25 MG PO BID Cephalexin Monohydrate (Keflex), 500 MG PO QAM Cholecalciferol (Vitamin D3), 1 TAB PO QAM Clonazepam (Klonopin), 1.5 TAB PO HS PRN Dapagliflozin Propanediol (Farxiga), 5 MG PO QAM Fenofibrate (Tricor), 145 MG PO HS Fluvoxamine Maleate (Luvox), 100 MG PO HS Lactobacillus Acidophilus (Lactinex), 1 TAB PO BID Olmesartan Medoxomil (Benicar), 20 MG PO QPM Topiramate (Trokendi Xr), 25 MG PO QAM Scheduled PRN Hyoscyamine Sulfate (Levsin), 0.125 MG PO Q6 PRN for prn Melatonin-Pyridoxine (Melatin), 1 TAB PO HS PRN for Insomnia Omeprazole (Prilosec), 20 MG PO DAILY PRN for Indigestion Oxycodone/Acetaminophen 5MG/325MG (Percocet 5MG/325MG), 1-2 TABLETS PO Q4H PRN for Pain Prednisone (Prednisone), 5 MG PO UD PRN for PRN Review of Systems Constitutional: + weakness (of right arm) Eyes: No diplopia, No discharge, No eye pain, No problem reported, No redness, No worsening of vision ENT: No dental problems, No hearing loss, No nasal symptoms, No problem reported, No sore throat, No tinnitus, No trouble swallowing, No unusual epistaxis Respiratory: No cough, No dyspnea at rest, No dyspnea on exertion, No hemoptysis, No problem reported, No shortness of breath, No sputum, No wheezing Cardiovascular: No PND, No chest pain, No claudication, No edema, No orthopnea , No palpitations, No problem reported Abdomen: + nausea, + vomiting, No GI bleeding, No constipation, No diarrhea, No pain Musculoskeletal: No calf pain, No joint pain, No muscle pain, No problem reported, No swelling Genitourinary - Male: No dysuria, No hematuria, No impotence, No lesions, No penile discharge, No problem reported, No urinary frequency, No urinary hesitancy, No urinary incontinence, No urinary retention, No urinary urgency Neurologic: + memory loss, + numbness/tingling, + weakness, No balance problems , No paralysis, No problem reported, No vertigo Psychiatric: No anhedonism, No anxiety, No depression symptoms, No insomnia, No problem reported, No substance abuse Endocrine: No excessive thirst, No excessive urination, No fatigue, No problem reported Hematologic / Lymphatic: No abnormal bleeding/bruising, No clotting problems, No night sweats, No problem reported, No swollen lymph nodes Allergic / Immunologic: No environmental allergies, No food allergies, No frequent infections, No hives, No pet sensitivities, No poor healing, No problem reported, No prolonged convalescence, No seasonal allergies Physical Exam Vital Signs Date Time Temp Pulse Resp B/P Pulse Ox O2 Delivery O2 Flow Rate FiO2 02/06/17 02:36 37.2 66 18 190/106 94 02/06/17 02:30 70 02/06/17 02:25 61 21 02/06/17 02:20 64 15 02/06/17 02:15 111 23 82 02/06/17 02:10 66 19 02/06/17 02:05 67 24 02/06/17 02:00 69 20 02/06/17 01:55 63 18 02/06/17 01:50 66 19 02/06/17 01:45 61 18 02/06/17 01:40 60 21 02/06/17 01:35 61 17 02/06/17 01:30 54 17 143/70 02/06/17 01:25 63 17 02/06/17 01:20 64 16 02/06/17 01:15 32 17 82 02/06/17 01:10 63 16 02/06/17 01:05 61 17 02/06/17 01:00 64 20 148/90 02/06/17 00:55 61 16 02/06/17 00:50 69 20 02/06/17 00:45 59 15 02/06/17 00:40 62 22 02/06/17 00:35 52 16 94 02/06/17 00:30 54 18 161/66 92 02/06/17 00:25 55 17 95 02/06/17 00:20 59 17 96 02/06/17 00:10 58 17 95 02/06/17 00:05 63 14 95 02/06/17 00:01 151/67 02/06/17 00:00 66 20 02/05/17 23:55 63 19 02/05/17 23:52 165/70 02/05/17 23:40 62 16 02/05/17 23:35 64 21 02/05/17 23:31 151/84 02/05/17 23:30 61 26 02/05/17 23:25 59 25 02/05/17 23:21 66 02/05/17 23:20 61 21 02/05/17 23:15 73 18 02/05/17 23:15 94 Room Air 02/05/17 23:11 155/68 02/05/17 22:30 37.2 65 18 190/106 94 Room Air General Appearance: WD/WN, no apparent distress Head: normocephalic, atraumatic Eyes: normal inspection, PERRL, EOMI, sclerae normal ENT: normal ENT inspection, hearing grossly normal, pharynx normal Neck: supple, no adenopathy, thyroid normal, no JVD, no carotid bruits, trachea midline Respiratory/Chest: chest non-tender, lungs clear, normal breath sounds, no respiratory distress, no accessory muscle use Cardiovascular: regular rate, rhythm, no edema, no gallop, no JVD, no murmur, normal peripheral pulses Abdomen/GI: normal bowel sounds, non tender, soft, no organomegaly, no pulsatile mass Back: normal inspection, no CVA tenderness, no muscle spasm, normal range of motion Extremities/Musculoskelatal: normal inspection, no calf tenderness, normal capillary refill, no pedal edema, normal range of motion, non-tender Neurologic/Psych: net sql developer II-XII nml as tested, alert, normal mood/affect, oriented x 3, + motor weakness (right upper extremity is 4+ out of 5), + sensory deficit (right upper extremity) Skin: normal color, warm/dry, no rash Lymphatic: no adenopathy Diagnostics Laboratory Results Results Past 24 Hours Test 02/05/17 23:00 02/05/17 23:29 02/05/17 23:30 02/06/17 00:05 Range/Units White Blood Count 9.41 4.8-10.8 K/uL Red Blood Count 4.20 4.7-6.1 M/uL Hemoglobin 13.4 14.0-18.0 g/dL Hematocrit 40.7 42-52 % Mean Corpuscular Volume 96.9 80-100 fL Mean Corpuscular Hemoglobin 31.9 25-34 pg Mean Corpuscular Hemoglobin Concent 32.9 32-36 g/dl Platelet Count 190 130-400 K/uL Mean Platelet Volume 11.0 7.4-10.4 fL Neutrophils (%) (Auto) 61.3 % Lymphocytes (%) (Auto) 24.7 % Monocytes (%) (Auto) 13.4 % Eosinophils (%) (Auto) 0.3 % Basophils (%) (Auto) 0.1 % Neutrophils # (Auto) 5.77 1.4-6.5 K/uL Lymphocytes # (Auto) 2.32 1.2-3.4 K/uL Monocytes # (Auto) 1.26 0.11-0.59 K/uL Eosinophils # (Auto) 0.03 0-0.5 K/uL Basophils # (Auto) 0.01 0-0.2 K/uL RDW Standard Deviation 48.5 36.4-46.3 fL RDW Coefficient of Variation 13.7 11.5-14.5 % Immature Granulocyte % (Auto) 0.2 % Immature Granulocyte # (Auto) 0.02 0.00-0.02 K/uL Prothrombin Time 11.1 9.0-12.0 SECONDS Prothromb Time International Ratio 1.0 0.9-1.1 Activated Partial Thromboplast Time 25.4 21.0-31.0 SECONDS Partial Thromboplastin Ratio 1.0 Sodium Level 141 136-145 mmol/L Potassium Level 3.6 3.5-5.1 mmol/L Chloride Level 106 98-107 mmol/L Carbon Dioxide Level 27 21-32 mmol/L Anion Gap 8.0 3-11 mmol/L Blood Urea Nitrogen 15 7-18 mg/dl Creatinine 0.79 0.60-1.40 mg/dl Est Creatinine Clear Calc Drug Dose 99.4 ml/min Estimated GFR () 105.4 Estimated GFR (Non- 91.0 BUN/Creatinine Ratio 19.1 10-20 Random Glucose 112 70-99 mg/dl Calcium Level 8.7 8.5-10.1 mg/dl Total Creatine Kinase 177 39-308 U/L Creatine Kinase MB < 0.5 0.5-3.6 ng/ml Creatine Kinase MB Ratio 0-3.0 Troponin I < 0.015 0-0.045 ng/ml Bedside Glucose 114 70-99 mg/dl Bedside Prothrombin Time INR 1.1 0.9-1.1 Urine Color YELLOW Urine Appearance CLEAR CLEAR Urine pH 6.5 4.5-7.5 Urine Specific [place] 1.011 1.000-1.030 Urine Protein NEG NEG Urine Glucose (UA) NEG NEG Urine Ketones NEG NEG Urine Occult Blood NEG NEG Urine Nitrite NEG NEG Urine Bilirubin NEG NEG Urine Urobilinogen NEG NEG Urine Leukocyte Esterase NEG NEG Test 02/06/17 01:55 02/06/17 02:15 Range/Units Diagnostic Radiology CT of the head without contrast shows acute/subacute left parietal and occipital lobe infarcts, with the largest being 3.3 cm in size. EKG EKG shows normal sinus rhythm at 63 bpm, with PACs, that are new compared to . Impression Assessment and Plan Acute/subacute left parietal and left occipital infarcts on CT of the head without contrast--the patient will be admitted to the telemetry unit for serial cardiac enzymes, cardiac rhythm monitoring and a 2-D echocardiogram with Dopplers. We will order an MRI the brain combo, MRA of the head without contrast, MRA of the neck combo. We will allow permissive hypertension systolic blood pressure around 170. Continue carvedilol 6.25 mg by mouth twice a day, Benicar 25 mg by mouth every afternoon, and have Lopressor 5 mg IV every 4 hours when necessary systolic blood pressure greater than 180 for the first 12 hours, and pending results of additional studies. We'll consult PT, OT, speech therapy, and neurology. Hypercholesterolemia--continue fenofibrate 145 mg by mouth at bedtime and atorvastatin 10 mg by mouth at bedtime. Will check a fasting lipid profile in the a.m. Diabetes mellitus--hold Farxiga, and place on Accu-Cheks before meals and at bedtime with NovoLog coverage per scale. Depression/anxiety/insomnia--continue fluvoxamine 100 mg by mouth at bedtime and clonazepam 0.75 mg by mouth at bedtime when necessary. Peripheral neuropathy--the patient is usually on Trokendi Xr 25 mg by mouth every morning, which is nonformulary, and will therefore substituted regular acting Topamax at 25 mg by mouth every morning. Level of Care Telemetry Advanced Directives Existing Advance Directive: No Existing Living Will: No Existing Power of Substation Operator Helper: No Resuscitation Status FULL RESUSCITATION VTE Prophylaxis VTE Risk Assessment Done? Y/N: Yes Risk Level: Moderate Given or contraindicated: SCD's
[2017-02-06] MEDS: NSS + 20MEQ KCL 1000ML 1,000 ML IV SCH ×2 (05:30→18:57)
[2017-02-06] MEDS: BUTALBITAL/ACETAMIN/CAFFEINE TAB PO PRN (06:23)
--- NOTE | 2017-02-06 06:37 | DIAGNOSTIC IMAGING REPORT ---
CT HEAD WITHOUT CONTRAST (CT) CLINICAL HISTORY: Stroke CONFUSION. CHANGE IN MENTAL STATUS. COMPARISON STUDY: No previous studies for comparison. TECHNIQUE: Axial CT of the brain is performed from the vertex to the skull base. IV contrast was not administered for this examination. CT DOSE: 687.98 mGy.cm FINDINGS: No intra or extra-axial mass lesions are visualized. There are foci of low attenuation involving both mckeon and white matter within the left parietal-occipital lobes, consistent with acute/subacute infarcts. There is no hemorrhage. There is no midline shift. There are patchy white matter hypodensities likely on a small vessel basis. There is no evidence of pathologic ventricular dilatation. There is extensive mucosal thickening within both maxillary sinuses. There is mucosal thickening within the sphenoid ethmoid sinuses and a hypoplastic left frontal sinus. IMPRESSION: 1. Acute/subacute infarcts involving the left parietal and occipital lobes 2. Pansinus disease Electronically signed by: Dylan Hobbs M.D. 02/06/2017 6:36 AM Dictated Date/Time: 02/06/2017 6:34 AM
--- NOTE | 2017-02-06 06:45 | DIAGNOSTIC IMAGING REPORT ---
MRI OF THE BRAIN WITHOUT AND WITH IV CONTRAST CLINICAL HISTORY: Stroke CONFUSION, SLURRED SPEECH. RIGHT HAND NUMBNESS AND WEAKNESS. HEADACHE. COMPARISON STUDY: No previous studies for comparison. TECHNIQUE: MRI of the brain was performed from the vertex to the skull base utilizing various T1 and T2 weighted sequences. Following the IV administration of 9.9 mL of Gadavist contrast, additional enhanced images were obtained. FINDINGS: Sagittal T1, axial diffusion, proton density and T2 weighted axial, coronal FLAIR, and pre and post axial T1-weighted images were acquired. These were supplemented with post gadolinium coronal T1 weighted images. No intra or extra-axial mass lesions are visualized. There are foci of reticular water diffusion involving the left occipital lobe, and left posterior parietal lobe. There are also a few punctate foci restricted water diffusion involving the left frontal lobe. The findings are consistent with acute/subacute infarcts. There is no evidence of ventricular dilatation. Proton density T2-weighted and FLAIR images reveal there are foci of increased T2 signal corresponding to the areas of acute/subacute infarction. There are also patchy foci of increased T2 signal, likely on a small vessel basis. There are no abnormal flow voids. There is subtle lung reperfusion the areas of infarction. There are no pathologically enhancing masses. There is paranasal sinus enhancement. 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 IMPRESSION: 1. Moderate acute/subacute infarcts involving the left posterior parietal left occipital lobes 2. Tiny acute/subacute infarcts involving the left frontal lobe 3. Pansinus disease Electronically signed by: Dylan Hobbs M.D. 02/06/2017 6:43 AM Dictated Date/Time: 02/06/2017 6:40 AM
--- NOTE | 2017-02-06 07:04 | DIAGNOSTIC IMAGING REPORT ---
CHEST ONE VIEW PORTABLE CLINICAL HISTORY: Stroke COMPARISON STUDY: No previous studies for comparison. FINDINGS: The heart is at the upper limits of normal in size. There is no failure. There is no lobar consolidation. There are linear bilateral perihilar opacities consistent with subsegmental atelectasis.[ IMPRESSION: Bilateral subsegmental atelectatic changes. No lobar consolidation. No evidence of failure. Electronically signed by: Dylan Hobbs M.D. 02/06/2017 7:03 AM Dictated Date/Time: 02/06/2017 7:02 AM
--- NOTE | 2017-02-06 07:16 | DIAGNOSTIC IMAGING REPORT ---
Brain MRA HISTORY: Slurred speech. Confusion. Stroke - Attention to [place] TECHNIQUE: 3-D [id number] MRA of the brain was performed without contrast. COMPARISON STUDY: None. FINDINGS: Visualized intracranial internal carotid arteries, distal left vertebral artery, and basilar artery are widely patent. There is no significant stenosis, occlusion, or aneurysm seen within the bilateral ACAs, MCAs, or automobile assembly supervisor. Distal right vertebral artery is not clear identified. IMPRESSION: The distal right vertebral artery is not clearly identified and could be severely hypoplastic or occluded. Otherwise, no significant stenosis, occlusion, or aneurysm within the [place]. Electronically signed by: Lemuel Hernandez M.D. 02/06/2017 7:15 AM Dictated Date/Time: 02/06/2017 7:09 AM
--- NOTE | 2017-02-06 07:21 | DIAGNOSTIC IMAGING REPORT ---
NECK MRA HISTORY: Confusion. Slurred speech. Stroke TECHNIQUE: [id number] and gadolinium-enhanced MRA of the neck was performed both before and after the intravenous administration of contrast. All measurements were calculated based on NASCET criteria. COMPARISON STUDY: None. FINDINGS: The aortic arch and proximal great vessels are widely patent. There is a 2.2 cm segment of moderate to severe narrowing involving the proximal to mid left internal carotid artery. This includes a focal area of approximately 80% stenosis. Mild irregularity within the proximal right internal carotid artery without significant stenosis. The right vertebral artery is appears to be severely hypoplastic and not well visualized. There is a dominant left vertebral artery which is widely patent. Bilateral common carotid arteries are widely patent. IMPRESSION: 1. A 2.2 cm segment of moderate to severe narrowing involving the proximal to mid left internal carotid artery. This includes a focal area of approximately 80% stenosis. 2. 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 Electronically signed by: Lemuel Hernandez M.D. 02/06/2017 7:20 AM Dictated Date/Time: 02/06/2017 7:15 AM
[2017-02-06 07:38] LABS: ESTIMATED AVERAGE GLUCOSE 140 mg/dl; HA1C FLAG Normal (Normal)
[2017-02-06 08:31] LABS: CKMB/CK RATIO 0.4 (0-3.0)
[2017-02-06] MEDS: CALCIUM 600MG + VIT D 400 IU TAB PO SCH (08:36)
[2017-02-06] MEDS: PANTOprazole SOD 40 MG TAB PO SCH (08:36)
[2017-02-06] MEDS: CARVEDILOL 6.25 MG TAB PO SCH ×2 (08:37→21:00)
[2017-02-06] MEDS: CHOLECALCIFEROL 1000 INTER.UNIT TAB PO SCH (08:37)
[2017-02-06] MEDS: TOPIRAMATE 25 MG TAB PO SCH (08:40)
[2017-02-06] MEDS ORDERED: ASPIRIN 81 MG ECTAB PO SCH (09:00)
[2017-02-06] MEDS ORDERED: ONDANSETRON INJ 2 MG/ML 2 ML VIAL IV PRN ×2 (12:15→23:34)
[2017-02-06] MEDS ORDERED: OXYCODONE/ACETAMINOPHEN 5-325 TAB PO PRN (12:15)
[2017-02-06] MEDS ORDERED: ONDANSETRON INJ 2 MG/ML 2 ML VIAL ONE (12:32)
--- NOTE | 2017-02-06 12:59 | Neurology Consultation ---
Neurology Consultation Date of Consultation: February 06, 2017. Attending Physician: Lisandro Ramirez M.D. Primary Care Physician: Wing William M.D. Reason for Consultation: Patient is a 71 year old, was I was asked to see at the request of Dr. Mariee, for neurologic consultation regarding stroke. History of Present Illness Source: patient, caregiver, hospital records I first saw this patient in June 1995 for migraine headaches. I treated him for these headaches over number of years and they improved. I last saw on June 2005. Patient has continued to have intermittent headaches. When the patient was 9 years old he fell off a silo 40 feet When he was 11 years old he was swinging on a Deal, it broke, and he hit his head on a stump which causes skull fracture. He had headaches ever since. On February 04 he underwent a cholecystectomy as an outpatient. On the right home he was mumbling and had trouble getting words out. His right hand seemed "backwards" to him and he was somewhat tired and sleepy. Patient really doesn' t have any recall of this. Family kept him on the because he was sleepy and felt that this was just the "effects of anesthesia". The next day on February 05 , he continued to have clumsiness in the right hand. He also had a bioccipital headache of a significant nature. He was a little less confused and his speech was a little bit better. Because of his persistent symptoms he was brought to the emergency room. On February 05 at 2-30 hours blood pressure was 190/106, temperature 37.2, pulse 65 and regular, respiratory rate 18, O2 saturation 94%. He was noted to have word finding difficulties on exam and possibly some right upper extremity weakness. A CT scan of the head showed some changes consistent with acute stroke in the left parietal and left occipital head regions. MR angiography of the head was unremarkable. 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 MRI of the brain showed acute stroke in the left posterior parietal head region and scattered up into the posterior frontal/anterior parietal head regions and what looks like the middle cerebral artery distribution on the left. Today the patient feels that his vision is not quite right and is not seeing things correctly. He has no pain in or weakness and he has no dizziness. He continues to have a significant headache bioccipital. Past Medical/Surgical History Medical Problems: (1) Stroke Status: Acute History of cellulitis in the legs Dyslipidemia Hypertension Glucose tolerance problems Long-standing history of headaches post head trauma age 11 Postcholecystectomy Left carpal tunnel syndrome surgery Family History Mother age 69 of stomach cancer Father age 77 with a stroke He had a brother who of stroke and a brother who of leukemia Social History Patient has been smoking cigarettes on off since age 17. He currently smokes 5- 8 cigarettes per day. He does not consume alcohol. 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 Smoking Status: Current every day smoker Smokeless Tobacco Use: No Alcohol Use: none Drug Use: none Marital Status: Housing Status: lives with family Occupation Status: retired Allergies Coded Allergies: Latex1 -Allergic Contact Dermititis (Verified Allergy, Mild, CONTACT DERMATITIS, 02/05/17) Current Inpatient Medications Current Inpatient Medications Medications (Trade) Dose Ordered Sig/Tin Route Start Time Stop Time Status Last Admin Dose Admin Miscellaneous Information 1 ea 1 ea UD PRN N/A 02/06/17 01:45 03/08/17 01:44 Potassium Chloride/Sodium Chloride (Nss + 20meq KCl 1000ml) 1,000 ml @ 75 mls/hr [id number] IV 02/06/17 05:00 03/08/17 04:59 02/06/17 05:30 75 MLS/HR Acetaminophen (Tylenol Tab) 650 mg Q4H PRN PO 02/06/17 01:45 03/08/17 01:44 02/06/17 11:05 650 MG Atorvastatin Calcium (Lipitor Tab) 10 mg HS PO 02/06/17 21:00 03/08/17 20:59 Calcium/Vitamin D (Caltrate Plus Tab) 1 tab DAILY PO 02/06/17 09:00 03/08/17 08:59 02/06/17 08:36 1 TAB Carvedilol (Coreg Tab) 6.25 mg BID PO 02/06/17 09:00 03/08/17 08:59 02/06/17 08:37 6.25 MG Cholecalciferol (Vitamin D Tab) 1,000 inter.unit QAM PO 02/06/17 09:00 03/08/17 08:59 02/06/17 08:37 1,000 INTER.UNIT Clonazepam (Klonopin Tab) 0.75 mg HS PRN PO 02/06/17 01:45 03/08/17 01:44 Fenofibrate (Tricor Tab) 145 mg HS PO 02/06/17 21:00 03/08/17 20:59 Fluvoxamine Maleate (Luvox Tab) 100 mg HS PO 02/06/17 21:00 03/08/17 20:59 Olmesartan (Benicar Tab) 20 mg QPM PO 02/06/17 21:00 03/08/17 20:59 Pantoprazole Sodium (Protonix Tab) 40 mg QAM PO 02/06/17 09:00 03/08/17 08:59 02/06/17 08:36 40 MG Topiramate (Topamax Tab) 25 mg QAM PO 02/06/17 09:00 03/08/17 08:59 02/06/17 08:40 25 MG Gadobutrol (Gadavist) 9.9 mmol UD PRN IV 02/06/17 04:30 02/10/17 04:29 Aspirin (Ecotrin Tab) 81 mg QAM PO 02/06/17 09:00 03/08/17 08:59 02/06/17 08:36 81 MG Acetaminophen/ Butalbital/ Caffeine (Fioricet Tab) 1 tab Q4H PRN PO 02/06/17 05:30 03/08/17 05:29 02/06/17 06:23 1 TAB Ondansetron HCl (Zofran Inj) 4 mg Q6H PRN IV 02/06/17 12:15 03/08/17 12:14 UNV Oxycodone/ Acetaminophen (Percocet 5-325mg Tab) 1 tab Q4H PRN PO 02/06/17 12:15 02/20/17 12:14 UNV Review of Systems Constitutional: + fatigue, + weakness Eyes: + worsening of vision, No diplopia ENT: No hearing loss, No trouble swallowing Respiratory: No cough, No shortness of breath Cardiovascular: No chest pain, No palpitations Abdomen: No nausea, No pain Musculoskeletal: No joint pain, No muscle pain Genitourinary - Male: No dysuria, No urinary incontinence Neurologic: + balance problems, + numbness/tingling, + weakness, No memory loss , No vertigo Psychiatric: No anxiety, No depression symptoms Endocrine: + fatigue Hematologic / Lymphatic: No abnormal bleeding/bruising Integumentary: No rash Allergic / Immunologic: No hives Physical Exam Vital Signs (Past 24 Hrs): Date Time Temp Pulse Resp B/P Pulse Ox O2 Delivery O2 Flow Rate FiO2 02/06/17 11:28 36.9 53 16 171/79 95 Room Air 02/06/17 08:00 96 Room Air 02/06/17 07:43 36.7 58 16 158/77 96 Room Air 02/06/17 05:00 36.8 64 20 144/67 94 Room Air 02/06/17 04:33 36.8 64 20 144/67 94 Room Air 02/06/17 02:36 37.2 66 18 190/106 94 02/06/17 02:30 70 02/06/17 02:25 61 21 02/06/17 02:20 64 15 02/06/17 02:15 111 23 82 02/06/17 02:10 66 19 02/06/17 02:05 67 24 02/06/17 02:00 69 20 02/06/17 01:55 63 18 02/06/17 01:50 66 19 02/06/17 01:45 61 18 02/06/17 01:40 60 21 02/06/17 01:35 61 17 02/06/17 01:30 54 17 143/70 02/06/17 01:25 63 17 02/06/17 01:20 64 16 02/06/17 01:15 32 17 82 02/06/17 01:10 63 16 02/06/17 01:05 61 17 02/06/17 01:00 64 20 148/90 02/06/17 00:55 61 16 02/06/17 00:50 69 20 02/06/17 00:45 59 15 02/06/17 00:40 62 22 02/06/17 00:35 52 16 94 02/06/17 00:30 54 18 161/66 92 02/06/17 00:25 55 17 95 02/06/17 00:20 59 17 96 02/06/17 00:10 58 17 95 02/06/17 00:05 63 14 95 02/06/17 00:01 151/67 02/06/17 00:00 66 20 02/05/17 23:55 63 19 02/05/17 23:52 165/70 02/05/17 23:40 62 16 02/05/17 23:35 64 21 02/05/17 23:31 151/84 02/05/17 23:30 61 26 02/05/17 23:25 59 25 02/05/17 23:21 66 02/05/17 23:20 61 21 02/05/17 23:15 73 18 02/05/17 23:15 94 Room Air 02/05/17 23:11 155/68 02/05/17 22:30 37.2 65 18 190/106 94 Room Air The patient is right-handed. The patient is awake and alert. Speech is normal without aphasia or dysarthria. Mentation and thought processes are reasonably intact with orientation and normal fund of knowledge. Mood and affect are normal and appropriate. Appearance and grooming are normal. The discs are sharp with positive venous pulsations. There are no exudates, hemorrhages, or blood vessel changes seen. Pupils are 4mm bilaterally and reactive to light. There is some mild cataract formation bilaterally. Extraocular eye muscles are intact without nystagmus. Visual acuity is approximately 20/100 bilaterally with corrective lenses. Although it is a little inconsistent he seems to have a homonymous hemianopsia to the right (not entirely complete) There are no deficits to sensation of the face bilaterally. Corneal reflexes are positive bilaterally. Facial strength and symmetry is normal bilaterally. Hearing seems intact grossly to voice and finger rub. Palate moves well without asymmetry. There is normal sternocleidomastoid and trapezius strength bilaterally. Tongue is midline with good strength bilaterally. Neck is with full range of motion without discomfort. There are no cervical bruits. There are no cranial or ocular bruits. Heart is without murmur. Cervical, thoracic, and lumbar spine are nontender to palpation. Gait is somewhat slow and cautious although he is narrow based. Turns are reasonable. Stance with eyes open is good. With outstretched arms there is no drift. There are no resting, postural, or action tremors. There is no ataxia with [id number] testing, although he pass points some on the right with eyes closed. There is good facility in the hands. There are no abnormal involuntary movements noted. Motor strength is 5/5 diffusely in the arms bilaterally including deltoids, biceps, brachioradialis, wrist flexors and extensors, product marketing consultant, and intrinsic hand muscles. Motor strength is 5/5 diffusely in the legs bilaterally including hip flexors, quadriceps, hamstring, gastrocnemius, tibialis anterior, tibialis posterior, and peroneii muscles bilaterally. Toe extensors are normal and there is good bulk in the extensor digitorum brevis muscle bilaterally. The limbs have good tone without rigidity or spasticity, and there is no atrophy noted. Muscle bulk is normal, there is no tenderness, no myotonia noted to percussion, and no fasciculations seen. Sensory examination is intact to pin and touch throughout all four limbs. Vibration seems to be normal bilaterally. Reflexes are 1/4 in the biceps, triceps, brachioradialis, quadriceps, and Achilles tendons bilaterally. Toes are downgoing with plantar stimulation bilaterally. Peripheral pulses are present and of normal quality distally in all four limbs. There is no peripheral edema noted. Laboratory Results Past 24 Hours: 02/05/17 23:00 Red Blood Count 4.20, Mean Corpuscular Volume 96.9, Mean Corpuscular Hemoglobin 31.9, Mean Corpuscular Hemoglobin Concent 32.9, Mean Platelet Volume 11.0, Neutrophils (%) (Auto) 61.3, Lymphocytes (%) (Auto) 24.7, Monocytes (%) (Auto) 13.4, Eosinophils (%) (Auto) 0.3, Basophils (%) (Auto) 0.1, Neutrophils # (Auto ) 5.77, Lymphocytes # (Auto) 2.32, Monocytes # (Auto) 1.26, Eosinophils # (Auto ) 0.03, Basophils # (Auto) 0.01 02/05/17 23:00 Test 02/05/17 23:00 02/05/17 23:29 02/05/17 23:30 02/06/17 00:05 White Blood Count 9.41 K/uL (4.8-10.8) Red Blood Count 4.20 M/uL (4.7-6.1) Hemoglobin 13.4 g/dL (14.0-18.0) Hematocrit 40.7 % (42-52) Mean Corpuscular Volume 96.9 fL (80-100) Mean Corpuscular Hemoglobin 31.9 pg (25-34) Mean Corpuscular Hemoglobin Concent 32.9 g/dl (32-36) Platelet Count 190 K/uL (130-400) Mean Platelet Volume 11.0 fL (7.4-10.4) Neutrophils (%) (Auto) 61.3 % Lymphocytes (%) (Auto) 24.7 % Monocytes (%) (Auto) 13.4 % Eosinophils (%) (Auto) 0.3 % Basophils (%) (Auto) 0.1 % Neutrophils # (Auto) 5.77 K/uL (1.4-6.5) Lymphocytes # (Auto) 2.32 K/uL (1.2-3.4) Monocytes # (Auto) 1.26 K/uL (0.11-0.59) Eosinophils # (Auto) 0.03 K/uL (0-0.5) Basophils # (Auto) 0.01 K/uL (0-0.2) RDW Standard Deviation 48.5 fL (36.4-46.3) RDW Coefficient of Variation 13.7 % (11.5-14.5) Immature Granulocyte % (Auto) 0.2 % Immature Granulocyte # (Auto) 0.02 K/uL (0.00-0.02) Prothrombin Time 11.1 SECONDS (9.0-12.0) Prothromb Time International Ratio 1.0 (0.9-1.1) Activated Partial Thromboplast Time 25.4 SECONDS (21.0-31.0) Partial Thromboplastin Ratio 1.0 Anion Gap 8.0 mmol/L (3-11) Est Creatinine Clear Calc Drug Dose 99.4 ml/min Estimated GFR () 105.4 Estimated GFR (Non- 91.0 BUN/Creatinine Ratio 19.1 (10-20) Calcium Level 8.7 mg/dl (8.5-10.1) Bedside Glucose 114 mg/dl (70-99) Bedside Prothrombin Time INR 1.1 (0.9-1.1) Urine Color YELLOW Urine Appearance CLEAR (CLEAR) Urine pH 6.5 (4.5-7.5) Urine Specific [place] 1.011 (1.000-1.030) Urine Protein NEG (NEG) Urine Glucose (UA) NEG (NEG) Urine Ketones NEG (NEG) Urine Occult Blood NEG (NEG) Urine Nitrite NEG (NEG) Urine Bilirubin NEG (NEG) Urine Urobilinogen NEG (NEG) Urine Leukocyte Esterase NEG (NEG) Test 02/06/17 01:55 02/06/17 02:15 02/06/17 07:35 Estimated Average Glucose 140 mg/dl Hemoglobin A1c 6.5 % (4.5-5.6) Total Creatine Kinase 147 U/L (39-308) Creatine Kinase MB 0.6 ng/ml (0.5-3.6) Creatine Kinase MB Ratio 0.4 (0-3.0) Troponin I < 0.015 ng/ml (0-0.045) Imaging MRI OF THE BRAIN WITHOUT AND WITH IV CONTRAST CLINICAL HISTORY: Stroke CONFUSION, SLURRED SPEECH. RIGHT HAND NUMBNESS AND WEAKNESS. HEADACHE. COMPARISON STUDY: No previous studies for comparison. TECHNIQUE: MRI of the brain was performed from the vertex to the skull base utilizing various T1 and T2 weighted sequences. Following the IV administration of 9.9 mL of Gadavist contrast, additional enhanced images were obtained. FINDINGS: Sagittal T1, axial diffusion, proton density and T2 weighted axial, coronal FLAIR, and pre and post axial T1-weighted images were acquired. These were supplemented with post gadolinium coronal T1 weighted images. No intra or extra-axial mass lesions are visualized. There are foci of reticular water diffusion involving the left occipital lobe, and left posterior parietal lobe. There are also a few punctate foci restricted water diffusion involving the left frontal lobe. The findings are consistent with acute/subacute infarcts. There is no evidence of ventricular dilatation. Proton density T2-weighted and FLAIR images reveal there are foci of increased T2 signal corresponding to the areas of acute/subacute infarction. There are also patchy foci of increased T2 signal, likely on a small vessel basis. There are no abnormal flow voids. There is subtle lung reperfusion the areas of infarction. There are no pathologically enhancing masses. There is paranasal sinus enhancement. 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 IMPRESSION: 1. Moderate acute/subacute infarcts involving the left posterior parietal left occipital lobes 2. Tiny acute/subacute infarcts involving the left frontal lobe 3. Pansinus disease Electronically signed by: Dylan Hobbs M.D. 02/06/2017 6:43 AM NECK MRA HISTORY: Confusion. Slurred speech. Stroke TECHNIQUE: [id number] and gadolinium-enhanced MRA of the neck was performed both before and after the intravenous administration of contrast. All measurements were calculated based on NASCET criteria. COMPARISON STUDY: None. FINDINGS: The aortic arch and proximal great vessels are widely patent. There is a 2.2 cm segment of moderate to severe narrowing involving the proximal to mid left internal carotid artery. This includes a focal area of approximately 80% stenosis. Mild irregularity within the proximal right internal carotid artery without significant stenosis. The right vertebral artery is appears to be severely hypoplastic and not well visualized. There is a dominant left vertebral artery which is widely patent. Bilateral common carotid arteries are widely patent. IMPRESSION: 1. A 2.2 cm segment of moderate to severe narrowing involving the proximal to mid left internal carotid artery. This includes a focal area of approximately 80% stenosis. 2. 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 Electronically signed by: Lemuel Hernandez M.D. Impression 1. 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 On examination there seems to be an incomplete right homonymous hemianopsia. He does not really have any speech problems today and I don't see any weakness or sensory deficits of any significance. The etiology of the stroke is likely ischemic although embolic from the carotid artery cannot be excluded. He does not have any known heart issues. He does have a history of hypertension and is a cigarette smoker which put him at risk for ischemic stroke as well. 2. Left carotid stenosis at approximate 80% on MR angiography 3. Hypertension, increased on admission 4. Headache Patient has a long-standing history of intermittent migrainous and non- migrainous headaches stemming back from head trauma at 11 years old. Plan 1. Unless we can find a source of embolus I would treat this patient with 75 mg Plavix daily. 2. Awaiting echocardiogram results. 3. Since he had a rather significant stroke, although we may get a vascular surgery consult for his carotid artery, we will wait for any possible surgical correction for now. 4. PT OT and speech therapy With his homonymous hemianopsia he needs to be very careful with his walking No driving for now. I spoke with Dr. Mehta, regarding this case including differential diagnosis and treatment options.
[2017-02-06] MEDS: CLOPIDOGREL BISULFATE 75 MG TAB PO SCH (14:21)
--- NOTE | 2017-02-06 16:41 | Progress Note ---
Subjective Date of Service: February 06, 2017. Subjective Pt evaluation today including: conversation w/ patient, conversation w/ family , physical exam, chart review, lab review, review of studies, conversation w/ testing consultant (dr jackson), review of inpatient medication list Pain: headache PO Intake: poor Voiding: no voiding problems complaint of headache. some new vision changes with blurring right eye. no weaknesses or slurred speech Problem List Medical Problems: (1) Stroke Status: Acute Review of Systems Constitutional: No chills, No fatigue, No fever, No problem reported, No see HPI, No sweats, No weakness, No weight loss Eyes: + worsening of vision ENT: No dental problems, No hearing loss, No nasal symptoms, No problem reported, No see HPI, No sore throat, No tinnitus, No trouble swallowing, No unusual epistaxis Respiratory: No cough, No dyspnea at rest, No dyspnea on exertion, No hemoptysis, No problem reported, No see HPI, No shortness of breath, No sputum, No wheezing Cardiac: No PND, No chest pain, No claudication, No edema, No orthopnea, No palpitations, No problem reported, No see HPI Abdomen: No GI bleeding, No constipation, No diarrhea, No nausea, No pain, No problem reported, No see HPI, No vomiting Musculoskeletal: No calf pain, No joint pain, No muscle pain, No problem reported, No see HPI, No swelling Neurologic: + problem reported (headache), No balance problems, No memory loss , No numbness/tingling, No paralysis, No see HPI, No vertigo, No weakness Skin: No bleeding, No color change, No itch, No new/changing skin lesions, No problem reported, No rash, No see HPI Medications reviewed Objective Vital Signs Date Time Temp Pulse Resp B/P Pulse Ox O2 Delivery O2 Flow Rate FiO2 02/06/17 12:37 169/67 02/06/17 12:00 Room Air 02/06/17 11:28 36.9 53 16 171/79 95 Room Air 02/06/17 08:00 96 Room Air 02/06/17 07:43 36.7 58 16 158/77 96 Room Air 02/06/17 05:00 36.8 64 20 144/67 94 Room Air 02/06/17 04:33 36.8 64 20 144/67 94 Room Air 02/06/17 02:36 37.2 66 18 190/106 94 02/06/17 02:30 70 02/06/17 02:25 61 21 02/06/17 02:20 64 15 02/06/17 02:15 111 23 82 02/06/17 02:10 66 19 02/06/17 02:05 67 24 02/06/17 02:00 69 20 02/06/17 01:55 63 18 02/06/17 01:50 66 19 02/06/17 01:45 61 18 02/06/17 01:40 60 21 02/06/17 01:35 61 17 02/06/17 01:30 54 17 143/70 02/06/17 01:25 63 17 02/06/17 01:20 64 16 02/06/17 01:15 32 17 82 02/06/17 01:10 63 16 02/06/17 01:05 61 17 02/06/17 01:00 64 20 148/90 02/06/17 00:55 61 16 02/06/17 00:50 69 20 02/06/17 00:45 59 15 02/06/17 00:40 62 22 02/06/17 00:35 52 16 94 02/06/17 00:30 54 18 161/66 92 02/06/17 00:25 55 17 95 02/06/17 00:20 59 17 96 02/06/17 00:10 58 17 95 02/06/17 00:05 63 14 95 02/06/17 00:01 151/67 02/06/17 00:00 66 20 02/05/17 23:55 63 19 02/05/17 23:52 165/70 02/05/17 23:40 62 16 02/05/17 23:35 64 21 02/05/17 23:31 151/84 02/05/17 23:30 61 26 02/05/17 23:25 59 25 02/05/17 23:21 66 02/05/17 23:20 61 21 02/05/17 23:15 73 18 02/05/17 23:15 94 Room Air 02/05/17 23:11 155/68 02/05/17 22:30 37.2 65 18 190/106 94 Room Air Physical Exam General Appearance: WD/WN Eyes: normal inspection, PERRL ENT: pharynx normal Neck: supple Respiratory/Chest: chest non-tender, lungs clear, normal breath sounds, no respiratory distress Cardiovascular: regular rate, rhythm, no edema, no gallop, no JVD, no murmur Abdomen: normal bowel sounds, non tender, soft, no organomegaly Extremities: normal range of motion, non-tender, normal inspection, no pedal edema Neurologic/Psychiatric: no motor/sensory deficits, alert, oriented x 3 Skin: normal color Laboratory Results Last 24 Hours Test 02/05/17 23:00 02/05/17 23:29 02/05/17 23:30 02/06/17 00:05 White Blood Count 9.41 K/uL Red Blood Count 4.20 M/uL Hemoglobin 13.4 g/dL Hematocrit 40.7 % Mean Corpuscular Volume 96.9 fL Mean Corpuscular Hemoglobin 31.9 pg Mean Corpuscular Hemoglobin Concent 32.9 g/dl Platelet Count 190 K/uL Mean Platelet Volume 11.0 fL Neutrophils (%) (Auto) 61.3 % Lymphocytes (%) (Auto) 24.7 % Monocytes (%) (Auto) 13.4 % Eosinophils (%) (Auto) 0.3 % Basophils (%) (Auto) 0.1 % Neutrophils # (Auto) 5.77 K/uL Lymphocytes # (Auto) 2.32 K/uL Monocytes # (Auto) 1.26 K/uL Eosinophils # (Auto) 0.03 K/uL Basophils # (Auto) 0.01 K/uL RDW Standard Deviation 48.5 fL RDW Coefficient of Variation 13.7 % Immature Granulocyte % (Auto) 0.2 % Immature Granulocyte # (Auto) 0.02 K/uL Prothrombin Time 11.1 SECONDS Prothromb Time International Ratio 1.0 Activated Partial Thromboplast Time 25.4 SECONDS Partial Thromboplastin Ratio 1.0 Sodium Level 141 mmol/L Potassium Level 3.6 mmol/L Chloride Level 106 mmol/L Carbon Dioxide Level 27 mmol/L Anion Gap 8.0 mmol/L Blood Urea Nitrogen 15 mg/dl Creatinine 0.79 mg/dl Est Creatinine Clear Calc Drug Dose 99.4 ml/min Estimated GFR () 105.4 Estimated GFR (Non- 91.0 BUN/Creatinine Ratio 19.1 Random Glucose 112 mg/dl Calcium Level 8.7 mg/dl Total Creatine Kinase 177 U/L Creatine Kinase MB < 0.5 ng/ml Creatine Kinase MB Ratio Troponin I < 0.015 ng/ml Bedside Glucose 114 mg/dl Bedside Prothrombin Time INR 1.1 Urine Color YELLOW Urine Appearance CLEAR Urine pH 6.5 Urine Specific [place] 1.011 Urine Protein NEG Urine Glucose (UA) NEG Urine Ketones NEG Urine Occult Blood NEG Urine Nitrite NEG Urine Bilirubin NEG Urine Urobilinogen NEG Urine Leukocyte Esterase NEG Test 02/06/17 01:55 02/06/17 02:15 02/06/17 07:35 Estimated Average Glucose 140 mg/dl Hemoglobin A1c 6.5 % Total Creatine Kinase 147 U/L Creatine Kinase MB 0.6 ng/ml Creatine Kinase MB Ratio 0.4 Troponin I < 0.015 ng/ml Assessment and Plan 1. 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 start Plavix - stop ASA. speech, pt, ot. await ECHO. uncertain ischemic vs embolic. 2. 80% stenosis of left carotid artery - outpt surgery eval 3. Hypertension, increased on admission. currently 169 systolic which I am okay with. Can be more agressive at lowering tomorrow if need to. cont BB/JEANNE 4. Headache - long standing history - tylenol ineffective. Morphine didn't help. Already getting fluids and had Zofran/ fiorinal with no relief. Add Vicodin. 5. Hypercholesterolemia--continue fenofibrate 145 and atorvastatin 10 mg - check a fasting lipid profile in the a.m. 6. Diabetes mellitus--Accu-Cheks before meals and at bedtime with NovoLog coverage per scale. 7. possible d/c tomorow if does well with PT/OT/Speech
--- NOTE | 2017-02-06 16:41 | Medical Student: [facility] ---
Med Student History & Physical Date & Time of Service: February 06, 2017 at 16:22 Chief Complaint: Acute Cva, Acute Right-Sided Weakness Primary Care Physician: Wing William M.D. History of Present Illness Source: patient, partner This is a 71-year-old right-handed male who presents with stroke symptoms on his right side. Patient states that he was in the car on the way home from having an outpatient cholecystectomy on 02/04/2017, and his noticed that he was slurring his words, unable to properly use his right hand (said it was "backwards"), and "acting not quite right." The patient remembers being tired but does not remember any specific symptoms. Both he and his attributed these symptoms to the anesthesia from the surgery. The next morning (02/05), he was still unable to grasp things with his right hand, and he described instances that he reached for something and missed his target. His brought him into the ED that afternoon at 1600, where it was confirmed through MRI that he suffered a 3.3-cm left parietal/occipital CVA. MRA was also done at this time and showed 80% stenosis of the left internal carotid artery, along with significant right vertebral artery hypodensity. At this time the patient reports an occipital headache, nausea, and vision changes, though it is unclear how much of this is related to his cataracts and how much is new. Also states that his right hand.arm feels "clumsy" and "weak" ( although his strength is 5/5 on physical exam). Pt is a current smoker and has roughly a 30 pack-year history but denies alcohol and other drug use. Medical hx is + migraines, +HTN, +hyperlipidemia, +elevated fasting blood sugars and glucose tolerance test, and numerous childhood head injuries that the patient states caused his hx of headaches. Family hx is +stroke in father and sibling. Past Medical/Surgical History Medical Problems: (1) Stroke Status: Acute Family History Father: stroke Mother: cancer (gastric) Sibling(s): stroke Social History Smoking Status: Current Every Day Smoker (about 30 pack-years) Smokeless Tobacco Use: No Alcohol Use: none Drug Use: none Marital Status: Housing status: lives with family Occupational Status: retired Allergies Coded Allergies: Latex1 -Allergic Contact Dermititis (Verified Allergy, Mild, CONTACT DERMATITIS, 02/05/17) Medications Atorvastatin (Lipitor), 10 MG PO HS Calcium/Vitamin D (Os-Mikel 500 Plus D), 1 TAB PO DAILY Carvedilol (Coreg), 6.25 MG PO BID Cephalexin Monohydrate (Keflex), 500 MG PO QAM Cholecalciferol (Vitamin D3), 1 TAB PO QAM Clonazepam (Klonopin), 1.5 TAB PO HS PRN Dapagliflozin Propanediol (Farxiga), 5 MG PO QAM Fenofibrate (Tricor), 145 MG PO HS Fluvoxamine Maleate (Luvox), 100 MG PO HS Hyoscyamine Sulfate (Levsin), 0.125 MG PO Q6 PRN for prn Lactobacillus Acidophilus (Lactinex), 1 TAB PO BID Melatonin-Pyridoxine (Melatin), 1 TAB PO HS PRN for Insomnia Olmesartan Medoxomil (Benicar), 20 MG PO QPM Omeprazole (Prilosec), 20 MG PO DAILY PRN for Indigestion Oxycodone/Acetaminophen 5MG/325MG (Percocet 5MG/325MG), 1-2 TABLETS PO Q4H PRN for Pain Prednisone (Prednisone), 5 MG PO UD PRN for PRN Topiramate (Trokendi Xr), 25 MG PO QAM Review of Systems Constitutional: + weakness Eyes: + worsening of vision ENT: No hearing loss Cardiovascular: No chest pain Abdomen: + nausea Genitourinary - Male: No urinary incontinence Neurologic: + balance problems, + numbness/tingling, + weakness Physical Exam Vital Signs (24 Hours) Date Time Temp Pulse Resp B/P Pulse Ox O2 Delivery O2 Flow Rate FiO2 02/06/17 15:25 36.6 52 20 176/76 95 Room Air 02/06/17 12:37 169/67 02/06/17 12:00 Room Air 02/06/17 11:28 36.9 53 16 171/79 95 Room Air 02/06/17 08:00 96 Room Air 02/06/17 07:43 36.7 58 16 158/77 96 Room Air 02/06/17 05:00 36.8 64 20 144/67 94 Room Air 02/06/17 04:33 36.8 64 20 144/67 94 Room Air 02/06/17 02:36 37.2 66 18 190/106 94 02/06/17 02:30 70 02/06/17 02:25 61 21 02/06/17 02:20 64 15 02/06/17 02:15 111 23 82 02/06/17 02:10 66 19 02/06/17 02:05 67 24 02/06/17 02:00 69 20 02/06/17 01:55 63 18 02/06/17 01:50 66 19 02/06/17 01:45 61 18 02/06/17 01:40 60 21 02/06/17 01:35 61 17 02/06/17 01:30 54 17 143/70 02/06/17 01:25 63 17 02/06/17 01:20 64 16 02/06/17 01:15 32 17 82 02/06/17 01:10 63 16 02/06/17 01:05 61 17 02/06/17 01:00 64 20 148/90 02/06/17 00:55 61 16 02/06/17 00:50 69 20 02/06/17 00:45 59 15 02/06/17 00:40 62 22 02/06/17 00:35 52 16 94 02/06/17 00:30 54 18 161/66 92 02/06/17 00:25 55 17 95 02/06/17 00:20 59 17 96 02/06/17 00:10 58 17 95 02/06/17 00:05 63 14 95 02/06/17 00:01 151/67 02/06/17 00:00 66 20 02/05/17 23:55 63 19 02/05/17 23:52 165/70 02/05/17 23:40 62 16 02/05/17 23:35 64 21 02/05/17 23:31 151/84 02/05/17 23:30 61 26 02/05/17 23:25 59 25 02/05/17 23:21 66 02/05/17 23:20 61 21 02/05/17 23:15 73 18 02/05/17 23:15 94 Room Air 02/05/17 23:11 155/68 02/05/17 22:30 37.2 65 18 190/106 94 Room Air Head: normocephalic, atraumatic Eyes: PERRL, EOMI Extremities/Musculoskelatal: normal range of motion Neuro/psych exam: Patient is pleasant, alert and oriented to person, time, and place, and appears to be in no acute distress. Speech is clear, although there are times that he cannot remember words or form his thoughts fully into sentences. CN I - not tested CN II - Pupils round and reactive to light and accommodation; visual field testing revealed what seemed to be right homonymous hemianopsia, although it was not complete. CN III,IV, - EOMI CN V - Sensation to light touch intact bilaterally; masseter 5/5 bilaterally CN VII - Symmetrical; facial strength is normal and equal bilaterally CN VIII - Hearing is grossly intact bilaterally CN IX,X - Palate elevates symmetrically; voice is normal w/o hoarseness CN XI - SCMs and shoulder shrug strong and intact CN XII - Tongue protrudes midline with normal strength and movement bilaterally Sensation: Sensation is intact bilaterally to pain, vibration, and light touch DTRs: Biceps, triceps, brachioradialis, patellar, and ankle reflexes are 1/4 bilaterally Babinski is absent Motor: Tone is normal in UE and LE bilaterally Strength is 5/5 in biceps, triceps, wrist flexors and extensors, finger abduction, quadriceps, hamstrings, plantar flexors and dorsiflexors and bilaterally There is no pronator drift Cerebellar: [id number] normal bilaterally, though he does miss slightly with his right hand when his eyes are closed [id number]-[id number] normal bilaterally LOULOU symmetric and intact Gait is steady with normal base Diagnostics Laboratory Results Results Past 24 Hours Test 02/05/17 23:00 02/05/17 23:29 02/05/17 23:30 02/06/17 00:05 Range/Units White Blood Count 9.41 4.8-10.8 K/uL Red Blood Count 4.20 4.7-6.1 M/uL Hemoglobin 13.4 14.0-18.0 g/dL Hematocrit 40.7 42-52 % Mean Corpuscular Volume 96.9 80-100 fL Mean Corpuscular Hemoglobin 31.9 25-34 pg Mean Corpuscular Hemoglobin Concent 32.9 32-36 g/dl Platelet Count 190 130-400 K/uL Mean Platelet Volume 11.0 7.4-10.4 fL Neutrophils (%) (Auto) 61.3 % Lymphocytes (%) (Auto) 24.7 % Monocytes (%) (Auto) 13.4 % Eosinophils (%) (Auto) 0.3 % Basophils (%) (Auto) 0.1 % Neutrophils # (Auto) 5.77 1.4-6.5 K/uL Lymphocytes # (Auto) 2.32 1.2-3.4 K/uL Monocytes # (Auto) 1.26 0.11-0.59 K/uL Eosinophils # (Auto) 0.03 0-0.5 K/uL Basophils # (Auto) 0.01 0-0.2 K/uL RDW Standard Deviation 48.5 36.4-46.3 fL RDW Coefficient of Variation 13.7 11.5-14.5 % Immature Granulocyte % (Auto) 0.2 % Immature Granulocyte # (Auto) 0.02 0.00-0.02 K/uL Prothrombin Time 11.1 9.0-12.0 SECONDS Prothromb Time International Ratio 1.0 0.9-1.1 Activated Partial Thromboplast Time 25.4 21.0-31.0 SECONDS Partial Thromboplastin Ratio 1.0 Sodium Level 141 136-145 mmol/L Potassium Level 3.6 3.5-5.1 mmol/L Chloride Level 106 98-107 mmol/L Carbon Dioxide Level 27 21-32 mmol/L Anion Gap 8.0 3-11 mmol/L Blood Urea Nitrogen 15 7-18 mg/dl Creatinine 0.79 0.60-1.40 mg/dl Est Creatinine Clear Calc Drug Dose 99.4 ml/min Estimated GFR () 105.4 Estimated GFR (Non- 91.0 BUN/Creatinine Ratio 19.1 10-20 Random Glucose 112 70-99 mg/dl Calcium Level 8.7 8.5-10.1 mg/dl Total Creatine Kinase 177 39-308 U/L Creatine Kinase MB < 0.5 0.5-3.6 ng/ml Creatine Kinase MB Ratio 0-3.0 Troponin I < 0.015 0-0.045 ng/ml Bedside Glucose 114 70-99 mg/dl Bedside Prothrombin Time INR 1.1 0.9-1.1 Urine Color YELLOW Urine Appearance CLEAR CLEAR Urine pH 6.5 4.5-7.5 Urine Specific [place] 1.011 1.000-1.030 Urine Protein NEG NEG Urine Glucose (UA) NEG NEG Urine Ketones NEG NEG Urine Occult Blood NEG NEG Urine Nitrite NEG NEG Urine Bilirubin NEG NEG Urine Urobilinogen NEG NEG Urine Leukocyte Esterase NEG NEG Test 02/06/17 01:55 02/06/17 02:15 02/06/17 07:35 02/06/17 15:30 Range/Units Estimated Average Glucose 140 mg/dl Hemoglobin A1c 6.5 4.5-5.6 % Total Creatine Kinase 147 154 39-308 U/L Creatine Kinase MB 0.6 < 0.5 0.5-3.6 ng/ml Creatine Kinase MB Ratio 0.4 0-3.0 Troponin I < 0.015 < 0.015 0-0.045 ng/ml Impression Assessment and Plan Assessment 1. Acute left parietal and occipital CVA His MRI shows a 3.3-cm lesion in this area that is new, and his physical exam shows what seems to be right homonymous hemianopsia. The patient also stated that he had some weakness and clumsiness in his right hand and that he has missed his target when reaching for it with this hand. There are several significant risk factors for CVA as well, including his smoking hx, HTN, hyperlipidemia, high blood glucose levels, internal carotid artery stenosis, and family hx of stroke. These things together lead to the conclusion of acute CVA. 2. Internal carotid artery stenosis, right vertebral artery occlusion MRA was done upon admission and showed 80% stenosis in his left internal carotid artery. 3. Headaches, migraine/chronic Patient believes these are the result of several head injuries during his childhood. 4. Hypertension BP was noted to be elevated upon arrival. Echocardiogram results pending. Plan: 1. Start anti-platelet therapy for CVA prophylaxis (clopidogrel and/or aspirin) 2. PT/OT for residual right UE weakness and clumsiness 3. Consult vascular surgery for left ICA stenosis and right vertebral artery occlusion 4. Refer to PCP for BP medication adjustment 5. Long-term prophylaxis for headaches added to his current topiramate Advanced Directives Existing Advance Directive: No Existing Living Will: No Existing Power of Dinkey Engineer: No Resuscitation Status FULL RESUSCITATION
[2017-02-06] MEDS: HYDROCODONE/ACETAMOPHEN 5/325MG TAB PO PRN ×2 (17:11→21:14)
--- NOTE | 2017-02-06 18:20 | ECHOCARDIOGRAM REPORT ---
*NOTICE TO RECEIVING REPUBLICAN AGENCY This information is strictly Confidential and protected under [place] law. [place] law prohibits you from making any further disclosure of this information unless further disclosure is expressly permitted by the written consent of the person to whom it pertains or is authorized by law. A general authorization for the release of medical or other information is not sufficient for this purpose. Hospital accepts no responsibility if the information is made available to any other person, INCLUDING THE PATIENT. Interpretation Summary * Name: JOVITA REYES Study Date: 02/06/2017 09:40 AM BP: 158/77 mmHg * Patient Location: [facility]\S\N288\S\1 HR: 58 * : 1945 (M/d/yyyy) Gender: Male Height: 68 in * Age: 71 yrs Ethnicity: [place] Weight: 218 lb * Ordering Physician: Lisandro Ramirez * Referring Physician: Self, Referred * Performed By: Meenakshi Stanton RDCS * * Reason For Study: Cerebral ischemia/embolus * BSA: 2.1 m2 * -- Conclusions -- * 1. Normal LV size with borderline concentric LVH. * 2. Normal LV systolic funtion. LVEF 60-65%. No regional wall motion abnormalities. * 3. Normal RV size and function. * 4. Mild biatrial enlargement. * 5. No significant valvular pathology. * 6. Compared with prior study on 10/02/2009: No significant changes. Procedure Details * A complete two-dimensional transthoracic echocardiogram was performed (2D, M-mode, Doppler and color flow Doppler). * A saline contrast injection was performed to assess for cardiac shunting. * The injection was performed through an intravenous line in the right arm. * The attending nurse who injected the saline contrast was Tena Rausch RN. * A total of 20 cc of agitated saline was given. Left Ventricle * The left ventricle is grossly normal size. * There is borderline concentric left ventricular hypertrophy. * The basal septum is thickened and angulated consistent with sigmoid septum. * Ejection Fraction = 60-65%. * No regional wall motion abnormalities noted. Right Ventricle * The right ventricle is grossly normal size. * The right ventricular systolic function is normal as assessed by tricuspid annular plane systolic excursion (TAPSE) (normal >1.5 cm). Atria * The left atrium is mildly dilated. * The right atrium is mildly dilated. * Injection of contrast documented no interatrial shunt. Mitral Valve * There is mild to moderate mitral annular calcification. * The mitral valve is grossly normal. * There is no mitral valve stenosis. * Significant mitral regurgitation is absent. Tricuspid Valve * The tricuspid valve is not well visualized, but is grossly normal. * Significant tricuspid regurgitation is absent. Aortic Valve * The aortic valve opens well. * The aortic valve is trileaflet. * No hemodynamically significant valvular aortic stenosis. * There is no significant aortic regurgitation. Pulmonic Valve * The pulmonic valve is not well seen, but is grossly normal. * There is no pulmonic valvular stenosis. * There is no significant pulmonary regurgitation. Great Vessels * The aortic root and proximal ascending aorta are normal sized. Pericardium/Pleural * There is no pericardial effusion. MMode 2D Measurements and Calculations IVSd 1.2 cm LVIDd 4.2 cm LVIDs 2.7 cm LVPWd 1.1 cm IVS/LVPW 1.1 FS 35.2 % EDV(Teich) 79.6 ml ESV(Teich) 28.0 ml EF(Teich) 64.9 % EDV(cubed) 75.3 ml ESV(cubed) 20.5 ml EF(cubed) 72.7 % LV mass(C)d 165.1 grams LV mass(C)dI 77.9 grams/m\S\2 CO(Teich) 3.7 l/min CI(Teich) 1.7 l/min/m\S\2 SV(Teich) 51.6 ml SI(Teich) 24.4 ml/m\S\2 CO(cubed) 3.9 l/min CI(cubed) 1.8 l/min/m\S\2 SV(cubed) 54.8 ml SI(cubed) 25.8 ml/m\S\2 Ao root diam 3.6 cm Ao root area 10.1 cm\S\2 ACS 2.1 cm LA dimension 2.8 cm asc Aorta Diam 3.5 cm LA/Ao 0.77 LVOT diam 2.0 cm LVOT area 3.2 cm\S\2 LVAd ap4 22.3 cm\S\2 LVLd ap4 7.4 cm EDV(MOD-sp4) 55.8 ml LVAs ap4 11.5 cm\S\2 LVLs ap4 6.1 cm ESV(MOD-sp4) 18.0 ml EF(MOD-sp4) 67.7 % LVAd ap2 25.5 cm\S\2 LVLd ap2 8.6 cm EDV(MOD-sp2) 62.4 ml LVAs ap2 13.2 cm\S\2 LVLs ap2 6.2 cm ESV(MOD-sp2) 23.6 ml EF(MOD-sp2) 62.2 % CO(MOD-sp4) 2.7 l/min CI(MOD-sp4) 1.3 l/min/m\S\2 SV(MOD-sp4) 37.8 ml SI(MOD-sp4) 17.8 ml/m\S\2 CO(MOD-sp2) 2.8 l/min CI(MOD-sp2) 1.3 l/min/m\S\2 SV(MOD-sp2) 38.8 ml SI(MOD-sp2) 18.3 ml/m\S\2 Doppler Measurements and Calculations MV E max estefany 95.6 cm/sec MV A max estefany 119.3 cm/sec MV E/A 0.80 MV dec time 0.27 sec Ao V2 max 164.1 cm/sec Ao max PG 10.8 mmHg Ao max PG (full) 4.0 mmHg LEILA(V,A) 2.5 cm\S\2 LEILA(V,D) 2.5 cm\S\2 LV V1 max PG 6.8 mmHg LV V1 max 130.4 cm/sec PA V2 max 129.0 cm/sec PA max PG 6.7 mmHg PA acc slope 586.5 cm/sec\S\2 PA acc time 0.12 sec PA pr(Accel) 23.5 mmHg
[2017-02-06] MEDS ORDERED: FENOFIBRATE 145 MG TAB PO SCH (21:00)
[2017-02-06] MEDS ORDERED: FLUVOXAMINE MALEATE 50 MG TAB PO SCH (21:00)
[2017-02-06] MEDS ORDERED: OLMESARTAN MEDOXOMIL 20 MG TAB PO SCH (21:00)
[2017-02-06] MEDS ORDERED: ATORVASTATIN 10 MG TAB PO SCH (21:00)
[2017-02-06] MEDS ORDERED: GUAIFENESIN 600 MG TABCR PO ONE (22:00)
[2017-02-06] MEDS ORDERED: PROMETHAZINE HCL INJ 12.5 MG in SODIUM CHLORIDE 0.9% 50ML 50 ML IV PRN (23:45)
[2017-02-07] MEDS: BUTALBITAL/ACETAMIN/CAFFEINE TAB PO PRN (00:03)
[2017-02-07 00:11] VITALS: BP 155/80; PULSE 59; TEMP 36.8; O2SAT 94
[2017-02-07 04:31] VITALS: BP 165/85; PULSE 59; TEMP 36.9; O2SAT 94
[2017-02-07 06:49] LABS: BASO % 0.4 %; BASO ABS # 0.03 K/uL (0-0.2); COMPLETE YES; EOS % 1.1 %; HEMATOCRIT 39.5 % (42-52); IG% 0.2 %; LYMPH % 29.1 %; LYMPH ABS # 2.42 K/uL (1.2-3.4); MEAN CELL VOLUME 97.1 fL (80-100); MEAN CORPUSCULAR HEMOGLOBIN 32.2 pg (25-34); MEAN CORPUSCULAR HGB CONC 33.2 g/dl (32-36); MEAN PLATELET VOLUME 10.7 fL (7.4-10.4); MONO % 14.1 %; NEUT % 55.1 %; PLATELET COUNT 177 K/uL (130-400); RED BLOOD COUNT 4.07 M/uL (4.7-6.1); WHITE BLOOD COUNT 8.32 K/uL (4.8-10.8)
[2017-02-07 07:26] LABS: BUN/CREATININE RATIO 15.9 (10-20); CALCIUM 8.9 mg/dl (8.5-10.1); CREATININE 0.66 mg/dl (0.60-1.40); POTASSIUM 4.1 mmol/L (3.5-5.1)
[2017-02-07 07:28] LABS: CHOLESTEROL/HDL RATIO 4.3
[2017-02-07 07:44] VITALS: BP_SYST 152; PULSE 59; TEMP 36.7; O2SAT 94
[2017-02-07] MEDS: NSS + 20MEQ KCL 1000ML 1,000 ML IV SCH (08:04)
[2017-02-07] MEDS ORDERED: FLUTICASONE PROPIONATE NA SPR 16 GM BTL SCH (09:00)
[2017-02-07] MEDS ORDERED: GUAIFENESIN 600 MG TABCR PO SCH (09:00)
[2017-02-07] MEDS: PANTOprazole SOD 40 MG TAB PO SCH (09:11)
[2017-02-07] MEDS: CARVEDILOL 6.25 MG TAB PO SCH (09:11)
[2017-02-07] MEDS: CALCIUM 600MG + VIT D 400 IU TAB PO SCH (09:11)
[2017-02-07] MEDS: CLOPIDOGREL BISULFATE 75 MG TAB PO SCH (09:11)
[2017-02-07] MEDS: CHOLECALCIFEROL 1000 INTER.UNIT TAB PO SCH (09:12)
[2017-02-07] MEDS: TOPIRAMATE 25 MG TAB PO SCH (09:12)
--- NOTE | 2017-02-07 10:52 | Neurology Progress Notes ---
Neurology Progress Note Date of Service February 07, 2017. Subjective Patient still has some mild occipital headache but it is not severe. He feels that he is seeing a little bit better using his right hand a little bit better functionally. Echocardiogram was performed and showed no change from the previous study of 2009. Objective Date Time Temp Pulse Resp B/P Pulse Ox O2 Delivery O2 Flow Rate FiO2 02/07/17 08:00 Room Air 02/07/17 07:44 36.7 59 20 152/ 94 Room Air 02/07/17 04:31 36.9 59 16 165/85 94 Room Air 02/07/17 04:00 Room Air 02/07/17 00:11 36.8 59 16 155/80 94 Room Air 02/07/17 00:00 Room Air 02/06/17 20:35 37.3 53 16 176/70 93 Room Air 02/06/17 20:00 95 Room Air 02/06/17 16:00 95 Room Air 02/06/17 15:25 36.6 52 20 176/76 95 Room Air 02/06/17 12:37 169/67 02/06/17 12:00 Room Air 02/06/17 11:28 36.9 53 16 171/79 95 Room Air Last 24 Hours Test 02/06/17 15:30 02/07/17 06:10 Total Creatine Kinase 154 U/L Creatine Kinase MB < 0.5 ng/ml Creatine Kinase MB Ratio Troponin I < 0.015 ng/ml White Blood Count 8.32 K/uL Red Blood Count 4.07 M/uL Hemoglobin 13.1 g/dL Hematocrit 39.5 % Mean Corpuscular Volume 97.1 fL Mean Corpuscular Hemoglobin 32.2 pg Mean Corpuscular Hemoglobin Concent 33.2 g/dl Platelet Count 177 K/uL Mean Platelet Volume 10.7 fL Neutrophils (%) (Auto) 55.1 % Lymphocytes (%) (Auto) 29.1 % Monocytes (%) (Auto) 14.1 % Eosinophils (%) (Auto) 1.1 % Basophils (%) (Auto) 0.4 % Neutrophils # (Auto) 4.59 K/uL Lymphocytes # (Auto) 2.42 K/uL Monocytes # (Auto) 1.17 K/uL Eosinophils # (Auto) 0.09 K/uL Basophils # (Auto) 0.03 K/uL RDW Standard Deviation 47.7 fL RDW Coefficient of Variation 13.4 % Immature Granulocyte % (Auto) 0.2 % Immature Granulocyte # (Auto) 0.02 K/uL Sodium Level 142 mmol/L Potassium Level 4.1 mmol/L Chloride Level 108 mmol/L Carbon Dioxide Level 26 mmol/L Anion Gap 8.0 mmol/L Creatinine 0.66 mg/dl Est Creatinine Clear Calc Drug Dose 113.1 ml/min Estimated GFR () 113.5 Estimated GFR (Non- 98.0 BUN/Creatinine Ratio 15.9 Random Glucose 115 mg/dl Calcium Level 8.9 mg/dl Triglycerides Level 223 mg/dl Cholesterol Level 169 mg/dl HDL Cholesterol 39 mg/dl LDL Cholesterol, Calculated 85 mg/dl VLDL Cholesterol, Calculated 45 mg/dl Cholesterol/HDL Ratio 4.3 Exam: He is awake and alert. Speech is unremarkable without aphasia or dysarthria. Mood and affect are normal and appropriate. Thought processes are intact. Extraocular muscles are intact without nystagmus. He is no facial droop. He has good facility in the hands and no ataxia. Strength is 5/5 diffusely in his good facility in the hands. There are some slight drift with outstretched arms on the right. Current Inpatient Medications Medications (Trade) Dose Ordered Sig/Tin Route Start Time Stop Time Status Last Admin Dose Admin Potassium Chloride/Sodium Chloride (Nss + 20meq KCl 1000ml) 1,000 ml @ 75 mls/hr [id number] IV 02/06/17 05:00 03/08/17 04:59 02/07/17 08:04 75 MLS/HR Acetaminophen (Tylenol Tab) 650 mg Q4H PRN PO 02/06/17 01:45 03/08/17 01:44 02/06/17 11:05 650 MG Atorvastatin Calcium (Lipitor Tab) 10 mg HS PO 02/06/17 21:00 03/08/17 20:59 02/06/17 20:57 10 MG Calcium/Vitamin D (Caltrate Plus Tab) 1 tab DAILY PO 02/06/17 09:00 03/08/17 08:59 02/07/17 09:11 1 TAB Carvedilol (Coreg Tab) 6.25 mg BID PO 02/06/17 09:00 03/08/17 08:59 02/07/17 09:11 6.25 MG Cholecalciferol (Vitamin D Tab) 1,000 inter.unit QAM PO 02/06/17 09:00 03/08/17 08:59 02/07/17 09:12 1,000 INTER.UNIT Clonazepam (Klonopin Tab) 0.75 mg HS PRN PO 02/06/17 01:45 03/08/17 01:44 Fenofibrate (Tricor Tab) 145 mg HS PO 02/06/17 21:00 03/08/17 20:59 02/06/17 21:11 145 MG Fluvoxamine Maleate (Luvox Tab) 100 mg HS PO 02/06/17 21:00 03/08/17 20:59 02/06/17 20:58 100 MG Olmesartan (Benicar Tab) 20 mg QPM PO 02/06/17 21:00 03/08/17 20:59 02/06/17 20:57 20 MG Pantoprazole Sodium (Protonix Tab) 40 mg QAM PO 02/06/17 09:00 03/08/17 08:59 02/07/17 09:11 40 MG Topiramate (Topamax Tab) 25 mg QAM PO 02/06/17 09:00 03/08/17 08:59 02/07/17 09:12 25 MG Gadobutrol (Gadavist) 9.9 mmol UD PRN IV 02/06/17 04:30 02/10/17 04:29 Acetaminophen/ Butalbital/ Caffeine (Fioricet Tab) 1 tab Q4H PRN PO 02/06/17 05:30 03/08/17 05:29 02/07/17 00:03 1 TAB Clopidogrel Bisulfate (plAVix TAB) 75 mg QAM PO 02/06/17 13:30 03/08/17 13:29 02/07/17 09:11 75 MG Acetaminophen/ Hydrocodone Bitart (Berlin 5/325 Tab) 1 tab Q4H PRN PO 02/06/17 15:00 02/20/17 14:59 02/06/17 21:14 1 TAB Guaifenesin (Mucinex Contr Rel Tab) 600 mg Q12 PO 02/07/17 09:00 03/09/17 08:59 02/07/17 09:11 600 MG Ondansetron HCl (Zofran Inj) 4 mg Q4H PRN IV 02/06/17 23:34 03/08/17 23:33 Fluticasone Propionate 2 sprays 2 sprays BID NA 02/07/17 09:00 03/09/17 08:59 02/07/17 09:12 2 SPRAYS Promethazine HCl/ Sodium Chloride (Phenergan Inj/ Nss 50ml) 50.5 ml @ 204 mls/hr Q6H PRN IV 02/06/17 23:45 03/08/17 23:44 02/07/17 00:02 204 MLS/HR Impression 1. 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 On examination there seems to be an incomplete right homonymous hemianopsia. He does not really have any speech problems today and I don't see any weakness or sensory deficits of any significance. The etiology of the stroke is likely ischemic although embolic from the carotid artery cannot be excluded. He does not have any known heart issues. He does have a history of hypertension and is a cigarette smoker which put him at risk for ischemic stroke as well. 2. Left carotid stenosis at approximate 80% on MR angiography 3. Hypertension, increased on admission 4. Headache, stable. 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 Plan 1. Continue 75 mg Plavix daily. 2. Since he had a rather significant stroke, although we may get a vascular surgery consult for his carotid artery, we will wait for any possible surgical correction for now. 3. PT OT and speech therapy. 4. With his homonymous hemianopsia he needs to be very careful with his walking and no driving for now. He should get formal visual field testing as an outpatient by ophthalmology
[2017-02-07 11:47] VITALS: BP 131/73; PULSE 57; TEMP 36.8; O2SAT 95
--- NOTE | 2017-02-07 12:34 | Surgery Consultation ---
Consultation Date of Service February 07, 2017. Chief Complaint L hemispheric CVA, LICAS History of Present Illness The patient is a 71 year old male admitted with L hemispheric CVA and LICAS, seen in consultation today. Pt without previous CVA hx. States he underwent cholecystectomy as outpt on 02/04, but had some lethargy and difficulty word finding at home post op. Sx improved for about 1 day, then occurred again, and family brought to ED. Pt states speech problem resolved and R hand weakness improved as well. Has cataracts and did not notice any new vision changes. Admits occipital LOPEZ. Denies balance problems, leg weakness, fever, chills, chest pain, SOB, abd pain, N/V, rest pain, claudication, other complaints. Vitals Vital Signs Past 12 Hours Date Time Temp Pulse Resp B/P Pulse Ox O2 Delivery O2 Flow Rate FiO2 02/07/17 08:00 Room Air 02/07/17 07:44 36.7 59 20 152/ 94 Room Air 02/07/17 04:31 36.9 59 16 165/85 94 Room Air 02/07/17 04:00 Room Air 02/07/17 00:11 36.8 59 16 155/80 94 Room Air 02/07/17 00:00 Room Air Allergies Coded Allergies: Latex1 -Allergic Contact Dermititis (Verified Allergy, Mild, CONTACT DERMATITIS, 02/05/17) Home Medications Scheduled Atorvastatin (Lipitor), 10 MG PO HS Calcium/Vitamin D (Os-Mikel 500 Plus D), 1 TAB PO DAILY Carvedilol (Coreg), 6.25 MG PO BID Cephalexin Monohydrate (Keflex), 500 MG PO QAM Cholecalciferol (Vitamin D3), 1 TAB PO QAM Clonazepam (Klonopin), 1.5 TAB PO HS PRN Dapagliflozin Propanediol (Farxiga), 5 MG PO QAM Fenofibrate (Tricor), 145 MG PO HS Fluvoxamine Maleate (Luvox), 100 MG PO HS Lactobacillus Acidophilus (Lactinex), 1 TAB PO BID Olmesartan Medoxomil (Benicar), 20 MG PO QPM Topiramate (Trokendi Xr), 25 MG PO QAM Scheduled PRN Hyoscyamine Sulfate (Levsin), 0.125 MG PO Q6 PRN for prn Melatonin-Pyridoxine (Melatin), 1 TAB PO HS PRN for Insomnia Omeprazole (Prilosec), 20 MG PO DAILY PRN for Indigestion Oxycodone/Acetaminophen 5MG/325MG (Percocet 5MG/325MG), 1-2 TABLETS PO Q4H PRN for Pain Prednisone (Prednisone), 5 MG PO UD PRN for PRN Problem List Medical Problems: (1) Acute CVA (cerebrovascular accident) (2) Acute right-sided weakness (3) Airway compromise (4) Cellulitis (5) DIVERTICULOSIS COLON (W/O MENT OF HEMORRHAGE) (6) HYPERLIPIDEMIA NEC/NOS (7) HYPERTENSION NOS (8) IMPAIRED GLUCOSE TOLERANCE TEST (ORAL) (9) Tonsillar abscess Surgical / Medical History Hx Cardiac Surgery: No Hx Abdominal Surgery: Yes (Gallbladder) Hx Cancer Surgery: No Hx Thoracic Surgery: No Hx Orthopedic: No Hx Urinary Tract Surgery: No Past Medical/Surgical History: High Cholesterol, Hypertension Family History brother and father CVA with hemiplegia, sister with seizures Social History Smoking Status: Current Every Day Smoker (about 30 pack-years) Hx Tobacco Use In Past Year?: Yes (Cigarettes) Hx Alcohol Use - Type & Amnt: No Hx Substance Use -Type & Amnt: No Review of Systems Constitutional: + malaise, No chills, No fever Skin: No change in color Eyes: No visual changes ENMT: No sore throat Respiratory: No PEPPER, No cough, No hemoptysis, No short of breath Cardiovascular: No chest pain, No edema, No intermittent claudication, No palpitations, No syncope Gastrointestinal: No abdominal pain, No nausea, No vomiting Neurologic: + headache, No dizziness, No lethargy, No numbness, No tingling Physical Exam Constitutional: General Apperance: heathly-appearing, well-nourished, well-developed Level of Distress: NAD Ambulation: ambulating normally Psychiatric: Mental Status: active & alert, normal mood, normal affect Orientation: oriented except where noted, to time, to place, to person Memory: recent memory normal, remote memory normal Head: normocephalic, atraumatic Eyes: EOM: EOMI ENMT: normal ENT inspection, hearing grossly normal Neck: supple, trachea midline Lungs: Respiratory effort: no dyspnea Auscultation: no wheezing, no rales/crackles, no rhonchi, decreased breath sounds Cardiovascular: Apical Impulse: not displaced Heart Auscultation: RRR, no rubs, no gallops Peripheral Pulses: Pulses: full and equal, in all extremities except if noted Bruits: carotid bruit on the left (faint) Carotid Pulse: normal on the right Brachial Pulses: normal on the left, normal on the right Radial Pulse: normal on the left, normal on the right Femoral Pulse: decreased on the left, decreased on the right Posterior Tibialis Pulse: decreased on the left, absent on the right Dorsalis Pedis Pulse: decreased on the left, decreased on the right Abdomen: Bowel Sounds: normal Inspection & Palpation: soft, non-distended, pertinent finding (tenderness RUQ, surgical site dressing in place) Musculoskeletal: normal strength (5/5 throughout), normal tone Extremities: Upper Right: no cyanosis, no edema, no varicosities Upper Left: no cyanosis, no edema, no varicosities Lower Right: no cyanosis, no edema, no varicosities Lower Left: no cyanosis, no edema, no varicosities Neurologic: Gait & Station: normal gait, normal station, pertinent finding (no focal deficits) Cranial Nerves: grossly intact Sensation: grossly intact Assessment and Plan ASSESSMENT and PLAN: LICAS L hemispheric CVA Pt with noted 90% symptomatic stenosis of LICA on MRA. Recommend L CEA in near future to reduce risk of future CVA. Pt discussed at length with Dr Joyce, will see in office next week to discuss L CEA. Pt will bring family members along. OK for d/c from vascular standpoint on PLAVIX if no contraindications.
--- NOTE | 2017-02-07 13:50 | Surgery Progress Note ---
Surgery Progress Note Date of Service February 07, 2017. Subjective Post OP Day: 3 POD 3 [facility] [place], readmitted for CVA, had appt today to have drain removed, tolerating diet Objective Vital Signs: Date Time Temp Pulse Resp B/P Pulse Ox O2 Delivery O2 Flow Rate FiO2 02/07/17 12:00 Room Air 02/07/17 11:47 36.8 57 20 131/73 95 02/07/17 08:00 Room Air 02/07/17 07:44 36.7 59 20 152/ 94 Room Air 02/07/17 04:31 36.9 59 16 165/85 94 Room Air 02/07/17 04:00 Room Air 02/07/17 00:11 36.8 59 16 155/80 94 Room Air 02/07/17 00:00 Room Air 02/06/17 20:35 37.3 53 16 176/70 93 Room Air 02/06/17 20:00 95 Room Air 02/06/17 16:00 95 Room Air 02/06/17 15:25 36.6 52 20 176/76 95 Room Air Physical Exam: Beka drainage (10 cc overnight, nonbilious) Abdomen: non distended, soft Laboratory Results: Results Past 24 Hours Test 02/06/17 15:30 02/07/17 06:10 Range/Units Total Creatine Kinase 154 39-308 U/L Creatine Kinase MB < 0.5 0.5-3.6 ng/ml Creatine Kinase MB Ratio 0-3.0 Troponin I < 0.015 0-0.045 ng/ml White Blood Count 8.32 4.8-10.8 K/uL Red Blood Count 4.07 4.7-6.1 M/uL Hemoglobin 13.1 14.0-18.0 g/dL Hematocrit 39.5 42-52 % Mean Corpuscular Volume 97.1 80-100 fL Mean Corpuscular Hemoglobin 32.2 25-34 pg Mean Corpuscular Hemoglobin Concent 33.2 32-36 g/dl Platelet Count 177 130-400 K/uL Mean Platelet Volume 10.7 7.4-10.4 fL Neutrophils (%) (Auto) 55.1 % Lymphocytes (%) (Auto) 29.1 % Monocytes (%) (Auto) 14.1 % Eosinophils (%) (Auto) 1.1 % Basophils (%) (Auto) 0.4 % Neutrophils # (Auto) 4.59 1.4-6.5 K/uL Lymphocytes # (Auto) 2.42 1.2-3.4 K/uL Monocytes # (Auto) 1.17 0.11-0.59 K/uL Eosinophils # (Auto) 0.09 0-0.5 K/uL Basophils # (Auto) 0.03 0-0.2 K/uL RDW Standard Deviation 47.7 36.4-46.3 fL RDW Coefficient of Variation 13.4 11.5-14.5 % Immature Granulocyte % (Auto) 0.2 % Immature Granulocyte # (Auto) 0.02 0.00-0.02 K/uL Sodium Level 142 136-145 mmol/L Potassium Level 4.1 3.5-5.1 mmol/L Chloride Level 108 98-107 mmol/L Carbon Dioxide Level 26 21-32 mmol/L Anion Gap 8.0 3-11 mmol/L Creatinine 0.66 0.60-1.40 mg/dl Est Creatinine Clear Calc Drug Dose 113.1 ml/min Estimated GFR () 113.5 Estimated GFR (Non- 98.0 BUN/Creatinine Ratio 15.9 10-20 Random Glucose 115 70-99 mg/dl Calcium Level 8.9 8.5-10.1 mg/dl Triglycerides Level 223 0-150 mg/dl Cholesterol Level 169 0-200 mg/dl HDL Cholesterol 39 mg/dl LDL Cholesterol, Calculated 85 mg/dl VLDL Cholesterol, Calculated 45 mg/dl Cholesterol/HDL Ratio 4.3 Assessment & Plan s/p lap cecille Beka drain removed, daily dressing change until dry ok to shower has f/u 02/19
[2017-02-07] MEDS: HYDROCODONE/ACETAMOPHEN 5/325MG TAB PO PRN (14:26)
[2017-02-07] MEDS ORDERED: PLV75 PO (14:59)
[2017-02-07 15:08] VITALS: BP 143/63; PULSE 64; TEMP 36.5; O2SAT 95
--- NOTE | 2017-02-07 15:15 | Discharge Instructions ---
Discharge Instructions Date of Service February 07, 2017. Admission Reason for Admission: Acute Cva, Acute Right-Sided Weakness Discharge Discharge Diagnosis / Problem: acute CVA right parietal/occipital Discharge Goals Goal(s): Improve function, Increase independence, Learn about illness, Prevent Disease Progression Activity Recommendations Activity Limitations: per Instructions/Follow-up section Lifting Limitations: gradually increase as tolerated Exercise/Sports Limitations: as tolerated Shower/Bathe: no limitations Driving or Machine Use: no driving until cleared by neurology home physical therapy . Instructions / Follow-Up Instructions / Follow-Up Risk Factors for Stroke: You can reduce your chances of stroke by working with your medical provider to adopt a healthy lifestyle. Some specific ways to lower your chance of stroke are: * If you are a smoker, now is the time to stop smoking cigarettes * If you are diabetic, improve the control of your blood sugars * Avoid excessive amounts of alcohol * Control high blood pressure * Lose weight if you are overweight * Be sure to lead an active lifestyle * Eat a healthy diet low in salt, cholesterol and fat You should know about other risk factors for stroke that you are unable to control. These include: * Age 55 years or older * Male gender * Certain racial groups: , or / * Family History of Stroke, Mini stroke or Heart Attack * Sickle Cell Disease Follow Up: It is important for you to keep your follow up appointments with your medical provider. You will be started on a new medication called Plavix which things the blood and increased risk of bleeding. There was 80 to 90% narrowing of the left internal carotid artery and Dr. Joyce wants to follow up with you next week to discus further options. You will go home with home nursing and physical therapy. Speech therapy did not feel you needed to make any modifications to the consistency of your food. Current Hospital Diet Patient's current hospital diet: AHA Diet (Heart Healthy) Discharge Diet Recommended Diet: AHA Diet (Heart Healthy) Pending Studies Studies pending at discharge: no Laboratory Results Hemoglobin A1c Test 02/06/17 01:55 Range/Units Estimated Average Glucose 140 mg/dl Hemoglobin A1c 6.5 H 4.5-5.6 % Lipid Panel Test 02/07/17 06:10 Range/Units Triglycerides Level 223 H 0-150 mg/dl Cholesterol Level 169 0-200 mg/dl HDL Cholesterol 39 mg/dl Cholesterol/HDL Ratio 4.3 LDL Cholesterol, Calculated 85 mg/dl Medical Emergencies . Who to Call and When: Medical Emergencies: Call 911 immediately if you experience any of the following warning signs and symptoms of Stroke: * Sudden numbness or weakness of the face, arm or leg, especially on one side of the body * Sudden confusion, trouble speaking or understanding * Sudden trouble seeing in one or both eyes * Sudden trouble walking, dizziness, loss of balance or coordination * Sudden severe headache with no cause Do not delay calling 911 if you experience any warning signs or symptoms of a stroke. Delay in seeking medical attention may affect what treatments can be given to you. . Non-Emergent Contact Non-Emergency issues call your: Primary Care Provider Call Non-Emergent contact if: temperature is above 101.5, your pain is not controlled, your pain is worsening . Past History Medical & Surgical History: (1) Acute CVA (cerebrovascular accident) (2) Acute right-sided weakness . "Provider Documentation" section prepared by Rigoberto Mehta. Presented to the emergency department with acute right sided weakness. S/P cholecystectomy 02/04. Found to have acute, scattered left middle cerebral artery stroke mostly posterior parietal. Started on Plavix. Seen by speech, physical therapy and occupational therapy. Will continue with home PT. Has some right sided vision changes which are improving, but otherwise no residual deficits. ECHO unchanged. Found to have 80 to 90% stenosis of left internal carotid artery seen by Dr. Joyce with plans to have outpatient follow-up for possible carotid endarterectomy. Blood pressure has been controlled. Has long standing history of migraines which have been worse since stroke. Does not tolerate hydrocodone or oxycodone well due to nausea. Fioricet helps headaches and can continue to use at home. 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 Joyce for consideration for left carotid endarterectomy Stroke Core Measures Reason no t-PA for Stroke: Treatment not indicated Reason no antithrom by day 2: Treatment provided - N/A Reason no antithrom at D/C: Treatment provided - N/A Reason no statin at D/C: Treatment provided - N/A Reason no anticoag w/a fib: Treatment not indicated VTE Core Measure Inpt VTE Proph given/why not?: Unfractionated heparin SQ, T.E.D. Stockings, SCD 's
[2017-02-07 15:35] VITALS: BP 143/63; PULSE 64; TEMP 36.5; O2SAT 95
--- NOTE | 2017-02-07 22:32 | Discharge Summary ---
Discharge Summary Date of Service February 07, 2017. 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 Marrero - neurology Dr. Joyce - vascular surgery Medication Reconciliation New Medications: Clopidogrel Bisulfate (Clopidogrel) 75 Mg Tab 75 MG PO QAM, #30 TAB Continued Medications: Atorvastatin (Lipitor) 10 Mg Tab 10 MG PO HS, TAB Calcium/Vitamin D (Os-Mikel 500 Plus D) Tab 1 TAB PO DAILY, TAB Carvedilol (Coreg) 6.25 Mg Tab 6.25 MG PO BID, TAB Cephalexin Monohydrate (Keflex) 500 Mg Cap 500 MG PO QAM, CAP Cholecalciferol (Vitamin D3) 1,000 Unit Tab 1 TAB PO QAM for 90 Days, #90 TAB 3 Refills Clonazepam (Klonopin) 0.5 Mg Tab 1.5 TAB PO HS PRN, TAB Dapagliflozin Propanediol (Farxiga) 10 Mg Tab 5 MG PO QAM Fenofibrate (Tricor) 145 Mg Tab 145 MG PO HS, TAB Fluvoxamine Maleate (Luvox) 100 Mg Tab 100 MG PO HS, TAB Hyoscyamine Sulfate (Levsin) 0.125 Mg Tab 0.125 MG PO Q6 PRN for prn, TAB Lactobacillus Acidophilus (Lactinex) Tab 1 TAB PO BID, TAB Melatonin-Pyridoxine (Melatin) 1 Tab Tab 1 TAB PO HS PRN for Insomnia Olmesartan Medoxomil (Benicar) 20 Mg Tab 20 MG PO QPM, TAB Omeprazole (Prilosec) 20 Mg Capcr 20 MG PO DAILY PRN for Indigestion, CAP Oxycodone/Acetaminophen 5MG/325MG (Percocet 5MG/325MG) Tab 1-2 TABLETS PO Q4H PRN for Pain, #30 TAB Prednisone (Prednisone) 5 Mg Tab 5 MG PO UD PRN for PRN, TAB Topiramate (Trokendi Xr) 25 Mg Cap 25 MG PO QAM Discharge Exam Review of Systems: Constitutional: No chills, No fatigue, No fever, No problem reported, No sweats, No weakness, No weight loss Eyes: + worsening of vision ENT: No dental problems, No hearing loss, No nasal symptoms, No problem reported, No sore throat, No tinnitus, No trouble swallowing, No unusual epistaxis Respiratory: No cough, No dyspnea at rest, No dyspnea on exertion, No hemoptysis, No problem reported, No shortness of breath, No sputum, No wheezing Cardiovascular: No PND, No chest pain, No claudication, No edema, No orthopnea, No palpitations, No problem reported Abdomen: + pain Musculoskeletal: No calf pain, No joint pain, No muscle pain, No problem reported, No swelling Neurologic: No balance problems, No memory loss, No numbness/tingling, No paralysis, No problem reported, No vertigo, No weakness Psychiatric: No anhedonism, No anxiety, No depression symptoms, No insomnia , No problem reported, No substance abuse Endocrine: No excessive thirst, No excessive urination, No fatigue, No problem reported Physical Exam: Eyes: EOMI, sclerae normal ENT: pharynx normal Neck: supple, no JVD Respiratory/Chest: chest non-tender, lungs clear, normal breath sounds, no respiratory distress Cardiovascular: regular rate, rhythm, no edema, no JVD Abdomen / GI: normal bowel sounds, soft, + tenderness (had drain removed by GI) Extremities: normal inspection, no pedal edema, normal range of motion Neurologic/Psychiatric: no motor/sensory deficits, alert, normal mood/affect , oriented x 3 Skin: normal color, warm/dry, no rash Hospital Course The patient is a 71-year-old male who underwent a cholecystectomy on February 05, and was then discharged to home later that day. He reports that on his way home he started acting oddly, and his daughter who was driving noted that as well. He was mumbling, not able to talk in complete sentences and complete his thoughts, and had difficulty with his long-term memory. He also describes his right hand as going backwards, and had difficulty controlling it even though it is dominant hand. He did not have any weakness or abnormalities in his lower extremities. He did have some nausea and vomiting upon returning home, but attributes that to having undergone a cholecystectomy earlier in the day. Acute/ subacute left parietal and left occipital infarcts on CT of the head without contrast. Patient was placed under the hospitalist service. 1. 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 Patient was seen by Dr. Janes elizabeth who recommended Plavix, but no aspirin. Lipids were checked and he was continued on Lipitor. Patient was seen by speech, PT and OT with no significant deficits/ weaknesses. He is tolerating PO without difficulty. 2. Left internal carotid stenosis - 80 to 90% stenosis and was seen by Dr. Joyce of vascular surgery. He will have appointment next week to consider carotid endarterectomy. 3. Migraine - long standing history - Since acute CVA his headaches have been worse. He takes Fioricet daily for headaches at home. Tylenol and Morphine were ineffective. He received Zofran and IV fluids but Fioricet seemed to help headache the most. Today headache is much less. 4. Hypercholesterolemia--continue fenofibrate 145 and atorvastatin 10 mg 5. Patient was discharged home with home nursing and PT. Total Time Spent: Greater than 30 minutes This includes examination of the patient, discharge planning, medication reconciliation, and communication with other providers. Discharge Instructions Please refer to the electronic Patient Visit Report (Discharge Instructions) for additional information. Follow-Up PCP next week Dr. Marrero Neurology 1-[address] Joyce next week Dr. Estrada - already has a follow-up.
--- NOTE | 2017-02-10 21:47 | EDITING REQUIRED CODING QUERY ---
CODING QUERY To promote full compliance with coding requirements relating to patient care, provider participation is requested in all cases of hcc coders uncertainty. Please assist us with the question(s) below: Coding Question(s): PATIENT HAS SEPSIS SECONDARY TO UTI . PATIENT ALSO HAS INDWELLING BENITEZ CATH. PLEASE INDICATE WHETHER THERE IS A CAUSE AND EFFECT RELATIONSHIP BETWEEN THE IDWELLING BENITEZ CATH AND SEPTIC UTI Physician's Response(s): Yes, the indwelling benitez is the cause for sepsis secondary to UTI Thank you Cori Lundberg Principal Diagnosis: "_that condition established after study, to be chiefly responsible for occasioning the admission of the patient to the hospital for care." Co-Existing Principal Diagnosis: "_when two or more diagnoses equally meet the criteria for principal diagnosis as determined by the circumstances of admission, diagnostic work up, and/or therapy provided, and the Alphabetic Index, Tabular List, or another coding guideline does not provide sequencing direction, any one of the diagnoses may be sequenced first." "When the physician has documented what appears to be a current diagnosis in the body of the record, but has not included the diagnosis in the final diagnostic statement, the physician should be asked whether the diagnosis should be added." (Source Coding [facility] 2 QTR90. p3-4)
[2017-02-11 12:35] LABS: B2 GLYCOPROTEIN IGA <9 SAU (<=20); B2 GLYCOPROTEIN IGG <9 SGU (<=20); B2 GLYCOPROTEIN IGM <9 SMU (<=20); LUPUS ANTICOAGULANT** TC36573X Negative (Negative)
[2017-02-18] MEDS ORDERED: SITA100T3 PO (11:23)
[2017-02-18] MEDS ORDERED: FRCT/ PO (11:31)
[2017-02-21] MEDS ORDERED: TRAM-10 PO (11:04)
== END 2017-02-07 17:03 | disposition home or self-care (01) | DRG 982 ==
LOC: ENRESERVTM → ENRESERVDT → C.EDB 22:25 → C.MED 02-06 01:33
PROVIDERS: ADMIT Hospitalist; ATTEND Hospitalist
PROC: 0WQF4ZZ Repair Abdominal Wall, Percutaneous Endoscopic Approach (ICD-10-PCS; principal; 2017-02-04)
PROC: 0FT44ZZ Resection of Gallbladder, Percutaneous Endoscopic Approach (ICD-10-PCS; principal; 2017-02-04)
DX: I63.9 Cerebral infarction, unspecified (principal); K57.30 Diverticulosis of large intestine without perforation or abscess without bleeding; E78.5 Hyperlipidemia, unspecified; I10 Essential (primary) hypertension; F17.210 Nicotine dependence, cigarettes, uncomplicated; E78.00 Pure hypercholesterolemia, unspecified; F41.9 Anxiety disorder, unspecified; F32.9 Major depressive disorder, single episode, unspecified; E11.40 Type 2 diabetes mellitus with diabetic neuropathy, unspecified; G47.00 Insomnia, unspecified; G43.909 Migraine, unspecified, not intractable, without status migrainosus; I65.22 Occlusion and stenosis of left carotid artery; H53.469 Homonymous bilateral field defects, unspecified side; Z91.040 Latex allergy status; Z79.899 Other long term (current) drug therapy; Z90.49 Acquired absence of other specified parts of digestive tract; Z82.0 Family history of epilepsy and other diseases of the nervous system; Z80.8 Family history of malignant neoplasm of other organs or systems; Z82.3 Family history of stroke; Z80.6 Family history of leukemia; K80.10 Calculus of gallbladder with chronic cholecystitis without obstruction; K42.0 Umbilical hernia with obstruction, without gangrene

== ENCOUNTER 2017-02-16 23:52 | Emergency (ER) | payer BC, OTHER ==
[~2017-02-16] VITALS: Ht 172.7 cm; Wt 92.2 kg
[~2017-02-16 23:52] MED LIST changes: +PLV75 PO
[2017-02-16 23:55] VITALS: TEMP 36.5; Ht 172.7 cm; Wt 92.2 kg
--- NOTE | 2017-02-17 00:15 | EMERGENCY ROOM VISIT NOTE ---
History Report prepared by Anna: Praneeth Mcconnell Under the Supervision of: Dr. Fabio Serrano D.O. First contact with patient: 00:04 Chief Complaint: CONSTIPATION Stated Complaint: CONSTIPATION,ABD PAIN History of Present Illness The patient is a 71 year old male who presents to the Emergency Room with complaints of constipation and abdominal "bloating." The patient states that he has not had a bowel movement in over two days, and he notes that he has a very "full" feeling in his abdomen. The patient had his Gallbladder removed on February 04, 13 days ago, and had a stroke a few days after his cholecystectomy. He notes that he had bowel movement issues before having his gallbladder removed when he had constant diarrhea. He currently has two hernias in his abdomen as well. 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 Review of Systems See HPI for pertinent positives and negatives. A total of ten systems were reviewed and were otherwise negative. Past Medical & Surgical Medical Problems: (1) Acute CVA (cerebrovascular accident) (2) Acute right-sided weakness (3) Airway compromise (4) Cellulitis (5) DIVERTICULOSIS COLON (W/O MENT OF HEMORRHAGE) (6) HYPERLIPIDEMIA NEC/NOS (7) HYPERTENSION NOS (8) IMPAIRED GLUCOSE TOLERANCE TEST (ORAL) (9) Tonsillar abscess Family History No pertinent family history secondary to age. Social History Smoking Status: Current Every Day Smoker Drug Use: none Marital Status: Housing Status: lives with family Occupation Status: retired Current/Historical Medications Scheduled Atorvastatin (Lipitor), 10 MG PO HS Calcium/Vitamin D (Os-Mikel 500 Plus D), 1 TAB PO DAILY Carvedilol (Coreg), 6.25 MG PO BID Cephalexin Monohydrate (Keflex), 500 MG PO QAM Cholecalciferol (Vitamin D3), 1,000 UNIT PO QAM Clopidogrel Bisulfate (Clopidogrel), 75 MG PO QAM Dapagliflozin Propanediol (Farxiga), 5 MG PO QAM Fenofibrate (Tricor), 145 MG PO HS Fluvoxamine Maleate (Luvox), 100 MG PO HS Lactobacillus Acidophilus (Lactinex), 1 TAB PO BID Olmesartan Medoxomil (Benicar), 20 MG PO QPM Topiramate (Trokendi Xr), 25 MG PO QAM Scheduled PRN Clonazepam (Klonopin), 1.5 TAB PO HS PRN for Sleep Hyoscyamine Sulfate (Levsin), 0.125 MG PO Q6 PRN for prn Melatonin-Pyridoxine (Melatin), 1 TAB PO HS PRN for Insomnia Omeprazole (Prilosec), 20 MG PO DAILY PRN for Indigestion Prednisone (Prednisone), 5 MG PO UD PRN for PRN Allergies Coded Allergies: Oxycodone (Verified Allergy, Severe, GI SYMPTOMS, 02/17/17) Latex1 -Allergic Contact Dermititis (Verified Allergy, Mild, CONTACT DERMATITIS, 02/17/17) Physical Exam Vital Signs Date Time Temp Pulse Resp B/P Pulse Ox O2 Delivery O2 Flow Rate FiO2 02/16/17 23:55 36.5 63 18 151/69 94 Room Air Physical Exam GENERAL: Awake, alert, well-appearing, in no distress HENT: Normocephalic, atraumatic. Oropharynx unremarkable. EYES: Normal conjunctiva. Sclera non-icteric. NECK: Supple. No nuchal rigidity. FROM. No JVD. RESPIRATORY: Clear to auscultation. CARDIAC: Regular rate, normal rhythm. Extremities warm and well perfused. Pulses equal. ABDOMEN: Surgical sites look well. belly is slightly distended. Soft. No tenderness to palpation. No rebound or guarding. No masses. Decreased bowel sounds to auscultation, some tympani to percussion. RECTAL: Deferred. MUSCULOSKELETAL: Chest examination reveals no tenderness. The back is symmetrical on inspection without obvious abnormality. There is no CVA tenderness to palpation. No joint edema. LOWER EXTREMITIES: Calves are equal size bilaterally and non-tender. No edema. No discoloration. NEURO: Normal sensorium. No sensory or motor deficits noted. SKIN: No rash or jaundice noted. Medical Decision & Procedures ER Provider Diagnostic Interpretation: X ray results as stated below per my interpretation and radiologist interpretation. Other radiology results as stated below per my review and radiologist interpretation X-RAY CHEST/ABDOMEN: X-ray shows increased stool. No obvious free air, no obvious obstruction. Consistent with constipation. ED Course 0006: The patient was evaluated in room B6. A complete history and physical exam was performed. 0043: Ordered Magnesium Citrate 300 mL PO. 0048: I reevaluated the patient. He is in no distress on reexamination. I discussed results and discharge instructions with he and his : He verbalized understanding and agreement. The patient is ready for discharge. Medical Decision Differential diagnosis include: Constipation, partial small bowel obstruction, small bowel obstruction, post operative changes. Impression Primary Impression: Constipation Scribe Attestation The scribe's documentation has been prepared under my direction and personally reviewed by me in its entirety. I confirm that the note above accurately reflects all work, treatment, procedures, and medical decision making performed by me. Departure Information Dispostion Home / Self-Care Referrals Wing William M.D. (PCP) Patient Instructions My [facility]
[2017-02-17] MEDS ORDERED: MAGNESIUM CITRATE 296 ML/BTL PO STA (00:42)
[2017-02-17 01:00] VITALS: BP 145/76; PULSE 60; O2SAT 95
--- NOTE | 2017-02-17 07:53 | DIAGNOSTIC IMAGING REPORT ---
PA CHEST WITH ABDOMINAL SERIES CLINICAL HISTORY: Generalized abdominal pain. Constipation. FINDINGS: A PA chest radiograph is compared to study dated 02/05/2017. The heart is top normal for projection and there is mild atherosclerotic calcification of the thoracic aorta. There is mild bibasilar atelectasis. The lungs and pleural spaces are otherwise clear. No pneumothorax is seen. The skeletal structures are osteopenic. Mild degenerative change is noted in the thoracic spine. Supine and erect abdominal radiographs are correlated with abdominal CT dated 12/06/2016. There is a nonobstructed abdominal bowel gas pattern. No evidence of intraperitoneal free air is seen. There is mild to moderate colonic fecal retention. Cholecystectomy clips are noted in the right upper quadrant. Vascular calcifications are observed in the pelvis. There is mild lumbosacral spondylosis. The bony pelvis appears intact. IMPRESSION: 1. No active disease in the chest. 2. Nonobstructed abdominal bowel gas pattern noting mild to moderate colonic fecal retention. Electronically signed by: Carlitos Vargas M.D. 02/17/2017 7:52 AM Dictated Date/Time: 02/17/2017 7:50 AM
[2017-02-18] MEDS ORDERED: SITA100T3 PO (11:23)
[2017-02-18] MEDS ORDERED: FRCT/ PO (11:31)
[2017-02-21] MEDS ORDERED: TRAM-10 PO (11:04)
== END 2017-02-17 01:01 | disposition home or self-care (01) ==
LOC: C.EDB 23:54
DX: K59.00 Constipation, unspecified (principal); I10 Essential (primary) hypertension; E78.5 Hyperlipidemia, unspecified; K57.90 Diverticulosis of intestine, part unspecified, without perforation or abscess without bleeding; F17.200 Nicotine dependence, unspecified, uncomplicated; Z86.73 Personal history of transient ischemic attack (TIA), and cerebral infarction without residual deficits; Z86.19 Personal history of other infectious and parasitic diseases; Z79.899 Other long term (current) drug therapy; Z88.5 Allergy status to narcotic agent; Z91.040 Latex allergy status

== ENCOUNTER 2017-02-19 05:54 | Inpatient (IN) | payer BC, OTHER ==
[2017-02-19] VITALS (10 sets, daily range): BP systolic 97–138; BP diastolic 51–69; PULSE 51–63; TEMP 36.5–36.7; O2SAT 92–98; Ht 172.7 cm; Wt 92.9 kg
[~2017-02-19] VITALS: Ht 172.7 cm; Wt 92.9 kg
--- NOTE | 2017-02-19 05:49 | History and Physical ---
History & Physical Date of Service February 19, 2017. History & Physical Chief Complaint L hemispheric CVA, LICAS History of Present Illness The patient is a 71 year old male admitted with L hemispheric CVA and LICAS, seen in consultation today. Pt without previous CVA hx. States he underwent cholecystectomy as outpt on 02/04, but had some lethargy and difficulty word finding at home post op. Sx improved for about 1 day, then occurred again, and family brought to ED. Pt states speech problem resolved and R hand weakness improved as well. Has cataracts and did not notice any new vision changes. Admits occipital LOPEZ. Denies balance problems, leg weakness, fever, chills, chest pain, SOB, abd pain, N/V, rest pain, claudication, other complaints. Allergies Coded Allergies: Latex1 -Allergic Contact Dermititis (Verified Allergy, Mild, CONTACT DERMATITIS, 02/05/17) Home Medications Scheduled Atorvastatin (Lipitor), 10 MG PO HS Calcium/Vitamin D (Os-Mikel 500 Plus D), 1 TAB PO DAILY Carvedilol (Coreg), 6.25 MG PO BID Cephalexin Monohydrate (Keflex), 500 MG PO QAM Cholecalciferol (Vitamin D3), 1 TAB PO QAM Clonazepam (Klonopin), 1.5 TAB PO HS PRN Dapagliflozin Propanediol (Farxiga), 5 MG PO QAM Fenofibrate (Tricor), 145 MG PO HS Fluvoxamine Maleate (Luvox), 100 MG PO HS Lactobacillus Acidophilus (Lactinex), 1 TAB PO BID Olmesartan Medoxomil (Benicar), 20 MG PO QPM Topiramate (Trokendi Xr), 25 MG PO QAM Scheduled PRN Hyoscyamine Sulfate (Levsin), 0.125 MG PO Q6 PRN for prn Melatonin-Pyridoxine (Melatin), 1 TAB PO HS PRN for Insomnia Omeprazole (Prilosec), 20 MG PO DAILY PRN for Indigestion Oxycodone/Acetaminophen 5MG/325MG (Percocet 5MG/325MG), 1-2 TABLETS PO Q4H PRN for Pain Prednisone (Prednisone), 5 MG PO UD PRN for PRN Problem List Medical Problems: (1) Acute CVA (cerebrovascular accident) (2) Acute right-sided weakness (3) Airway compromise (4) Cellulitis (5) DIVERTICULOSIS COLON (W/O MENT OF HEMORRHAGE) (6) HYPERLIPIDEMIA NEC/NOS (7) HYPERTENSION NOS (8) IMPAIRED GLUCOSE TOLERANCE TEST (ORAL) (9) Tonsillar abscess Surgical / Medical History Hx Cardiac Surgery: No Hx Abdominal Surgery: Yes (Gallbladder) Hx Cancer Surgery: No Hx Thoracic Surgery: No Hx Orthopedic: No Hx Urinary Tract Surgery: No Past Medical/Surgical History: High Cholesterol, Hypertension Family History brother and father CVA with hemiplegia, sister with seizures Social History Smoking Status: Current Every Day Smoker (about 30 pack-years) Hx Tobacco Use In Past Year?: Yes (Cigarettes) Hx Alcohol Use - Type & Amnt: No Hx Substance Use -Type & Amnt: No ROS: Vascular Con v2 Review of Systems Constitutional: + malaise, No chills, No fever Skin: No change in color Eyes: No visual changes ENMT: No sore throat Respiratory: No PEPPER, No cough, No hemoptysis, No short of breath Cardiovascular: No chest pain, No edema, No intermittent claudication, No palpitations, No syncope Gastrointestinal: No abdominal pain, No nausea, No vomiting Neurologic: + headache, No dizziness, No lethargy, No numbness, No tingling Exam: Vascular Con v2 Physical Exam Constitutional: General Apperance: heathly-appearing, well-nourished, well-developed Level of Distress: NAD Ambulation: ambulating normally Psychiatric: Mental Status: active & alert, normal mood, normal affect Orientation: oriented except where noted, to time, to place, to person Memory: recent memory normal, remote memory normal Head: normocephalic, atraumatic Eyes: EOM: EOMI ENMT: normal ENT inspection, hearing grossly normal Neck: supple, trachea midline Lungs: Respiratory effort: no dyspnea Auscultation: no wheezing, no rales/crackles, no rhonchi, decreased breath sounds Cardiovascular: Apical Impulse: not displaced Heart Auscultation: RRR, no rubs, no gallops Peripheral Pulses: Pulses: full and equal, in all extremities except if noted Bruits: carotid bruit on the left (faint) Carotid Pulse: normal on the right Brachial Pulses: normal on the left, normal on the right Radial Pulse: normal on the left, normal on the right Femoral Pulse: decreased on the left, decreased on the right Posterior Tibialis Pulse: decreased on the left, absent on the right Dorsalis Pedis Pulse: decreased on the left, decreased on the right Abdomen: Bowel Sounds: normal Inspection & Palpation: soft, non-distended, pertinent finding (tenderness RUQ, surgical site dressing in place) Musculoskeletal: normal strength (5/5 throughout), normal tone Extremities: Upper Right: no cyanosis, no edema, no varicosities Upper Left: no cyanosis, no edema, no varicosities Lower Right: no cyanosis, no edema, no varicosities Lower Left: no cyanosis, no edema, no varicosities Neurologic: Gait & Station: normal gait, normal station, pertinent finding (no focal deficits) Cranial Nerves: grossly intact Sensation: grossly intact A&P: Vascular Con v2 Assessment and Plan ASSESSMENT and PLAN: LICAS L hemispheric CVA Pt with noted 90% symptomatic stenosis of LICA on MRA. Recommend L CEA in near future to reduce risk of future CVA. Pt discussed at length with Dr Joyce, will see in office next week to discuss L CEA. Pt will bring family members along. OK for d/c from vascular standpoint on PLAVIX if no contraindications.
[~2017-02-19 05:54] MED LIST changes: -ATOR10TA82 PO; +ATOR10TA88 PO; +DAPA1TAB2 PO; -DAPA1TAB8 PO; +FRCT/ PO; -LCTX PO; -OXYC-57 PO; +SITA100T3 PO
[2017-02-19] MEDS ORDERED: CEFAZOLIN 1000MG/55 ML D5W IV SCH (06:00)
[2017-02-19] MEDS ORDERED: LACTATED RINGER'S 1000ML 1,000 ML IV SCH ×2 (06:00)
[2017-02-19] MEDS ORDERED: MIDAZOLAM HCL 1 MG/ML 2ML VIAL ONE (07:08)
[2017-02-19] MEDS ORDERED: THROMBIN FOR SOLN 20000 UNIT KIT ONE (07:08)
[2017-02-19] MEDS ORDERED: FENTANYL CITRATE INJ 50 MCG/1 ML 2 ML VIAL ONE ×3 (07:08→11:29)
[2017-02-19] MEDS ORDERED: CEFAZOLIN SOD 1 GM VIAL ONE (07:09)
[2017-02-19] MEDS ORDERED: KETAMINE HCL INJ 50 MG/ML 10 ML VIAL ONE (07:09)
[2017-02-19] MEDS ORDERED: BUPIVACAINE/EPINEPHRINE 0.5% MPF 1:200,000 30 ML VIAL ONE (07:09)
[2017-02-19] MEDS ORDERED: HEPARIN SOD (PORCINE) 1000 UNIT/ML 10 ML VIAL ONE ×2 (07:09→09:37)
[2017-02-19] MEDS ORDERED: GELATIN SPONGE 12-7MM ONE ×3 (07:09→11:55)
[2017-02-19] MEDS ORDERED: LIDOCAINE HCL 1% 20 ML VIAL ONE (07:09)
--- NOTE | 2017-02-19 08:13 | History & Physical Bridge Note ---
H&P Re-Evaluation Bridge Note: I have examined the patient, reviewed the History & Physical and in the interval since the performance of the History & Physical I have noted the following changes of clinical significance: No changes noted
[2017-02-19] MEDS ORDERED: SUCCINYLCHOLINE CHLORIDE 20 MG/ML 10 ML VIAL IV ONE (09:04)
[2017-02-19] MEDS ORDERED: GLYCOPYRROLATE INJ 0.2 MG/ML VIAL ONE ×2 (09:04→10:05)
[2017-02-19] MEDS ORDERED: PROPOFOL IV EMULSION 10 MG/ML 20 ML VIAL IV ONE (09:04)
[2017-02-19] MEDS ORDERED: CISATRACURIUM BESYLATE IV SOLN 2 MG/ML 10 ML VIAL ONE (09:04)
[2017-02-19] MEDS ORDERED: DEXAMETHASONE SOD INJ 4 MG/ML VIAL ONE (09:04)
[2017-02-19] MEDS ORDERED: LIDOCAINE HCL 2% 2 ML VIAL (20MG/ML) ONE (09:04)
[2017-02-19] MEDS ORDERED: EpHEDrine SULFATE 50MG/5ML SYR ONE (09:04)
[2017-02-19] MEDS ORDERED: ONDANSETRON INJ 2 MG/ML 2 ML VIAL ONE ×2 (09:04→12:24)
[2017-02-19] MEDS ORDERED: NITROGLYCERIN/D5W 100 MCG/ML BTL ONE (09:04)
[2017-02-19] MEDS ORDERED: ETOMIDATE 2 MG/ML 20 ML VIAL IV ONE (09:04)
[2017-02-19] MEDS ORDERED: LARYING-O-JET KIT (LTA) EXT ONE ×2 (09:45)
[2017-02-19] MEDS ORDERED: NEOSTIGMINE METHYLSULFATE 5 MG/5 ML SYR ONE (10:05)
[2017-02-19] MEDS ORDERED: SODIUM CHLORIDE 0.9% INJ 10 ML VIAL ONE (10:45)
[2017-02-19] MEDS ORDERED: SODIUM NITROPRUSSIDE SOLN INJ 50 MG in DEXTROSE 5% 500ML 500 ML IV PRN (11:34)
[2017-02-19] MEDS ORDERED: NITROGLYCERIN/D5W 100 MCG/ML 250 ML IV PRN (11:34)
[2017-02-19] MEDS ORDERED: PHENYLEPHRINE HCL INJ 20 MG in DEXTROSE 5% 500ML 500 ML IV PRN (11:34)
--- NOTE | 2017-02-19 11:34 | [facility] Post Operative Brief Note ---
Immediate Operative Summary Operative Date February 19, 2017. Pre-Operative Diagnosis Left hemispheric Cerebrovascular Accident, LICAS Post-Operative Diagnosis Left hemispheric Cerebrovascular Accident, LICAS Procedure(s) Performed Left Carotid Endarterectomy Surgeon Dr. Joyce Bulk Loader Surgeon(s) Alina Wiseman MD, Elen Cunningham PA-C Estimated Blood Loss 100 cc Findings severe stenosis with ulceration Specimens A: Left Carotid Plaque Anesthesia Gen Complication(s) None Disposition Recovery Room / PACU
[2017-02-19] MEDS ORDERED: ONDANSETRON INJ 2 MG/ML 2 ML VIAL IV PRN (11:45)
[2017-02-19] MEDS ORDERED: HYOSCYAMINE SULFATE 0.125 MG SL TAB PO PRN (11:45)
[2017-02-19] MEDS ORDERED: CLONAZEPAM 0.5 MG TAB PO PRN (11:45)
[2017-02-19] MEDS ORDERED: MoRPHine SULFATE 4 MG/ML 1 ML CARP\\VIAL IV PRN (11:45)
[2017-02-19] MEDS ORDERED: PANTOprazole SOD 40 MG TAB PO PRN (11:45)
[2017-02-19] MEDS ORDERED: METOPROLOL TARTRATE 1 MG/ML VIAL IV PRN (11:45)
[2017-02-19] MEDS ORDERED: MELATONIN PYRIDOXINE PO PRN (11:45)
[2017-02-19] MEDS ORDERED: ONDANSETRON INJ 2 MG/ML 2 ML VIAL IV STA (12:24)
[2017-02-19] MEDS ORDERED: ATROPINE SULFATE 0.1 MG/ML 5ML SYR IV PRN (12:30)
[2017-02-19] MEDS ORDERED: EpHEDrine SULFATE INJ 50 MG/ML AMP IV PRN (12:30)
[2017-02-19] MEDS ORDERED: HYDROmorphone INJ 1 MG/ML SYR ONE (12:38)
[2017-02-19] MEDS ORDERED: HYDROmorphone INJ 2 MG/ML SYR/VIAL IV PRN (12:45)
--- NOTE | 2017-02-19 13:29 | Anesthesiology Progress Note ---
Anesthesia Post Op Note Date & Time February 19, 2017 at 13:29 Vital Signs Pain Intensity: 2 Vital Signs Past 12 Hours Date Time Temp Pulse Resp B/P Pulse Ox O2 Delivery O2 Flow Rate FiO2 02/19/17 13:13 72 18 02/19/17 13:13 69 18 125/56 95 02/19/17 13:13 69 18 125/56 95 02/19/17 13:13 72 18 02/19/17 13:11 132/58 02/19/17 13:11 132/58 02/19/17 13:08 62 10 02/19/17 13:08 62 10 02/19/17 13:08 62 10 114/49 95 02/19/17 13:08 62 10 114/49 95 02/19/17 13:06 147/67 02/19/17 13:06 147/67 02/19/17 13:03 64 31 02/19/17 13:03 66 31 117/55 95 02/19/17 13:03 64 31 02/19/17 13:03 66 31 117/55 95 02/19/17 13:01 129/68 02/19/17 13:01 129/68 02/19/17 12:58 70 23 114/54 96 02/19/17 12:58 70 23 02/19/17 12:58 70 23 02/19/17 12:58 70 23 114/54 96 02/19/17 12:56 132/65 02/19/17 12:56 132/65 02/19/17 12:53 82 20 124/57 96 02/19/17 12:53 80 20 02/19/17 12:53 80 20 02/19/17 12:53 82 20 124/57 96 02/19/17 12:51 37.0 83 21 132/65 96 Nasal Cannula 3 110/54 02/19/17 12:51 141/63 02/19/17 12:51 141/63 02/19/17 12:48 80 18 121/55 96 02/19/17 12:48 80 18 121/55 96 02/19/17 12:48 80 18 02/19/17 12:48 80 18 02/19/17 12:46 138/66 02/19/17 12:46 138/66 02/19/17 12:43 81 24 118/55 95 02/19/17 12:43 81 24 118/55 95 02/19/17 12:43 82 24 02/19/17 12:43 82 24 02/19/17 12:41 138/69 02/19/17 12:41 138/69 02/19/17 12:38 78 17 118/53 95 02/19/17 12:38 78 17 02/19/17 12:38 78 17 118/53 95 02/19/17 12:38 78 17 02/19/17 12:36 135/71 02/19/17 12:36 135/71 02/19/17 12:33 80 15 118/57 94 02/19/17 12:33 80 15 118/57 94 02/19/17 12:33 80 15 02/19/17 12:33 80 15 02/19/17 12:31 136/69 02/19/17 12:31 136/69 02/19/17 12:28 83 21 114/50 95 02/19/17 12:28 83 21 114/50 95 02/19/17 12:28 83 21 02/19/17 12:28 83 21 02/19/17 12:27 115/84 02/19/17 12:27 115/84 02/19/17 12:24 80 23 114/49 95 02/19/17 12:24 80 23 02/19/17 12:24 80 23 02/19/17 12:24 80 23 114/49 95 02/19/17 12:21 153/71 02/19/17 12:21 153/71 02/19/17 12:19 81 17 114/51 96 02/19/17 12:19 79 17 02/19/17 12:19 81 17 114/51 96 02/19/17 12:19 79 17 02/19/17 12:16 130/70 02/19/17 12:16 130/70 02/19/17 12:14 76 21 113/51 98 02/19/17 12:14 75 21 02/19/17 12:14 75 21 02/19/17 12:14 76 21 113/51 98 02/19/17 12:11 132/90 02/19/17 12:11 132/90 02/19/17 12:09 83 19 02/19/17 12:09 83 19 117/56 97 02/19/17 12:09 83 19 02/19/17 12:09 83 19 117/56 97 02/19/17 12:06 156/91 02/19/17 12:06 156/91 02/19/17 11:54 36.5 85 16 184/69 94 Mask 10 144/67 02/19/17 11:54 36.5 85 16 184/69 94 Mask 10 02/19/17 07:00 111/58 02/19/17 06:17 36.5 54 20 97/62 95 Room Air Notes Mental Status: alert / awake / arousable, participated in evaluation Pt Amnestic to Procedure: Yes Nausea / Vomiting: adequately controlled Pain: adequately controlled Airway Patency, RR, SpO2: stable & adequate BP & HR: stable & adequate Hydration State: stable & adequate Anesthetic Complications: no major complications apparent
[2017-02-19] MEDS: HYDROCODONE/ACETAMOPHEN 5/325MG TAB PO PRN ×2 (14:02→18:39)
[2017-02-19] MEDS ORDERED: GLUCAGON FOR INJ 1 MG VIAL SQ PRN (14:30)
[2017-02-19] MEDS ORDERED: GLUCOSE 40% GEL 15 GM TUBE PO PRN (14:30)
[2017-02-19] MEDS ORDERED: GLUCOSE 10 TABS/TUBE PO PRN (14:30)
[2017-02-19] MEDS ORDERED: DEXTROSE 50% 50 ML SYR IV PRN (14:30)
[2017-02-19] MEDS: D5W AND 1/2NSS 1,000 ML IV SCH ×2 (15:21→19:54)
[2017-02-19 15:39] LABS: HEMATOCRIT 37.3 % (42-52); MEAN CELL VOLUME 96.9 fL (80-100); MEAN CORPUSCULAR HEMOGLOBIN 32.5 pg (25-34); MEAN CORPUSCULAR HGB CONC 33.5 g/dl (32-36); MEAN PLATELET VOLUME 10.6 fL (7.4-10.4); PLATELET COUNT 210 K/uL (130-400); RED BLOOD COUNT 3.85 M/uL (4.7-6.1)
[2017-02-19 15:50] LABS: PARTIAL THROMBOPLASTIN RATIO 1.1; PROTHROMBIN TIME (PATIENT) 10.5 SECONDS (9.0-12.0)
[2017-02-19] MEDS: CEFAZOLIN IV 1,000 MG in DEXTROSE 5% 50ML 50 ML IV SCH (15:52)
[2017-02-19 15:58] LABS: CREATININE 0.82 mg/dl (0.60-1.40)
[2017-02-19] MEDS: INSULIN ASPART 100 UNITS/ML 3 ML PEN SC SCH ×2 (16:00→21:00)
[2017-02-19] MEDS: ENOXAPARIN 30 MG/0.3 ML SYR SQ SCH (17:03)
--- NOTE | 2017-02-19 17:35 | Critical Care Consultation ---
Critical Care Consultation Date of Consultation: February 19, 2017. Attending Physician: Armando Joyce M.D. Reason for Consultation: Perioperative management for left carotid endarterectomy by Dr. Joyce History of Present Illness Attending: Dr. Collado This is a 71-year-old male who presents postoperatively from a left carotid endarterectomy performed by Dr. Joyce. Surgery was generally unremarkable with an estimated blood loss of 100 mL. Patient is seen at bedside sitting up in the chair. He does have some difficulty with word finding secondary to recent stroke but is able to give an accurate history. He is eating just prior to my examination and shows no evidence of dysphagia or aspiration. Carotid ultrasound in January 2016 revealed 50% stenosis of the left internal carotid artery with moderate plaque formation bilaterally. At the time of his most recent presentation February 06, 2017 MRA of the neck revealed 80% stenosis of the left carotid artery as well as moderate acute/subacute infarcts involving left posterior parietal left occipital lobes as well as tiny infarcts involving the left frontal lobe. Most recent was discharged home 02/07/17 on Plavix and no aspirin. The patient was discharged on Lipitor and clopidogrel. The patient also reports a history of headaches for several years and takes Fioricet and Topiramate as prescribed. Other medical problems include hypertension, hyperlipidemia, anxiety, GERD, diabetes mellitus versus impaired glucose tolerance. Hemoglobin A1c has been below 7 since 2005 with no home insulin. Patient currently has mild pain at the incision site with no feeling of fullness. He denies any difficulty with swallowing. He has no current headache or change in acute vision. He denies fever or chills. He has no nausea or vomiting. He has no abdominal pain. He has no back pain. He does have chronic edema of the left lower extremity secondary to fracture in the past but states that he does not notice any unusual edema at this time. He has no history of thromboembolic disease, blood dyscrasia, or coagulopathy. He has no acute complaints. 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 Tonsillar abscess History of left lower showing fracture with chronic edema in that leg Chronic sinusitis and throat infection for 20 years Current every day smoker Arthritis on chronic prednisone Hx gastric bleeding ulcers PAST SURGICAL HISTORY: Cholecystectomy Repair of incarcerated umbilical hernia EGD and Colonoscopy March 31 2015 History of throat resection 20 years ago Family History Brother with leukemia Mother and father with diabetes Mother at age 67 of stomach cancer Father age 76 of CVA Brother with hypertension One brother of stomach cancer at age 70 One sister of epilepsy complications at age 37 Patient had 10 brothers and sisters Social History Smoking Status: Current Every Day Smoker Alcohol Use: occasionally Drug Use: none Marital Status: Housing Status: lives with family 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[employer]) Allergies Coded Allergies: Latex1 -Allergic Contact Dermititis (Verified Allergy, Mild, CONTACT DERMATITIS, 02/19/17) Oxycodone (Verified Adverse Reaction, Severe, GI SYMPTOMS, 02/19/17) Home Medications Scheduled Acetamin/Butalbital/Caffeine (Fioricet), 1 TAB PO UD Atorvastatin (Lipitor), 10 MG PO HS Calcium/Vitamin D (Os-Mikel 500 Plus D), 1 TAB PO DAILY Carvedilol (Coreg), 6.25 MG PO BID Cephalexin Monohydrate (Keflex), 500 MG PO QAM Cholecalciferol (Vitamin D3), 1,000 UNIT PO QAM Clopidogrel Bisulfate (Clopidogrel), 75 MG PO QAM Dapagliflozin Propanediol (Farxiga), 5 MG PO QAM Fenofibrate (Tricor), 145 MG PO HS Fluvoxamine Maleate (Luvox), 100 MG PO BID Olmesartan Medoxomil (Benicar), 20 MG PO QPM Prednisone (Prednisone), 5 MG PO BID Sitagliptin Phosphate (Januvia), 100 MG PO QPM Topiramate (Trokendi Xr), 25 MG PO QAM Scheduled PRN Clonazepam (Klonopin), 1.5 TAB PO HS PRN for Sleep Hyoscyamine Sulfate (Levsin), 0.125 MG PO Q6 PRN for prn Melatonin-Pyridoxine (Melatin), 1 TAB PO HS PRN for Insomnia Omeprazole (Prilosec), 20 MG PO DAILY PRN for Indigestion Current Inpatient Medications Current Inpatient Medications Medications (Trade) Dose Ordered Sig/Tin Route Start Time Stop Time Status Last Admin Dose Admin Lactated Ringer's 1,000 ml @ 15 mls/hr Q24H IV 02/19/17 06:00 02/20/17 05:59 Lactated Ringer's 1,000 ml @ 80 mls/hr [id number] IV 02/19/17 06:00 02/19/17 18:00 02/19/17 06:15 80 MLS/HR Cefazolin Sodium (Ancef 1000mg/55 ml D5W) 55 ml @ 100 mls/hr PREOP IV 02/19/17 06:00 02/19/17 18:00 02/19/17 08:17 100 MLS/HR Morphine Sulfate (MoRPHine SULFATE INJ) 4 mg Q4H PRN IV 02/19/17 11:45 03/05/17 11:44 02/19/17 15:52 4 MG Ondansetron HCl 4 mg 4 mg Q6H PRN IV 02/19/17 11:45 03/21/17 11:44 02/19/17 15:52 4 MG Cefazolin Sodium/ Dextrose (Ancef Iv/D5 50ml) 55 ml @ 100 mls/hr Q8H IV 02/19/17 16:00 02/20/17 00:32 02/19/17 15:52 100 MLS/HR Metoprolol Tartrate 5 mg 5 mg Q10M PRN IV 02/19/17 11:45 03/21/17 11:44 Nitroglycerin/ Dextrose 250 ml @ 0 mls/hr Q0M PRN IV 02/19/17 11:34 03/21/17 11:33 Sodium Nitroprusside 50 mg/Dextrose 502 ml @ 0 mls/hr Q0M PRN IV 02/19/17 11:34 03/21/17 11:33 Dextrose/Sodium Chloride (D5W And 1/2nss) 1,000 ml @ 125 mls/hr Q8H IV 02/19/17 11:34 03/21/17 11:33 02/19/17 15:21 125 MLS/HR Acetaminophen/ Hydrocodone Bitart FOR MODERATE PAIN ... Q4H PRN PO 02/19/17 11:45 03/05/17 11:44 02/19/17 14:02 2 TAB Phenylephrine HCl/ Dextrose (Paramjit-Synephrine Inj/D5W 500ml) 502 ml @ 0 mls/hr Q0M PRN IV 02/19/17 11:34 03/21/17 11:33 Enoxaparin Sodium (Lovenox Inj) 30 mg Q12H SQ 02/19/17 16:00 03/21/17 15:59 Miscellaneous Information (Order Awaiting Action) 1 ea QS N/A 02/19/17 16:00 03/21/17 15:59 Atorvastatin Calcium (Lipitor Tab) 10 mg HS PO 02/19/17 21:00 03/21/17 20:59 Calcium/Vitamin D (Caltrate Plus Tab) 1 tab DAILY PO 02/20/17 09:00 03/22/17 08:59 Carvedilol (Coreg Tab) 6.25 mg BID PO 02/19/17 21:00 03/21/17 20:59 Cholecalciferol (Vitamin D Tab) 1,000 inter.unit QAM PO 02/20/17 09:00 03/22/17 08:59 Clonazepam (Klonopin Tab) 0.75 mg HS PRN PO 02/19/17 11:45 03/21/17 11:44 Clopidogrel Bisulfate (plAVix TAB) 75 mg QAM PO 02/20/17 09:00 03/22/17 08:59 Fenofibrate (Tricor Tab) 145 mg HS PO 02/19/17 21:00 03/21/17 20:59 Fluvoxamine Maleate (Luvox Tab) 100 mg BID PO 02/19/17 21:00 03/21/17 20:59 Hyoscyamine Sulfate (Levsin Tab) 0.125 mg Q6 PRN PO 02/19/17 11:45 03/21/17 11:44 Olmesartan (Benicar Tab) 20 mg QPM PO 02/19/17 21:00 03/21/17 20:59 Prednisone (PredniSONE TAB) 5 mg BID PO 02/19/17 21:00 03/21/17 20:59 Sitagliptin Phosphate (Januvia Tab) 100 mg QPM PO 02/19/17 21:00 03/21/17 20:59 Miscellaneous Information (Order Awaiting Action) 1 ea QS N/A 02/19/17 16:00 03/21/17 15:59 Pantoprazole Sodium (Protonix Tab) 40 mg DAILY PRN PO 02/19/17 11:45 03/21/17 11:44 Miscellaneous Information (Order Awaiting Action) 1 ea QS N/A 02/19/17 16:00 03/21/17 15:59 Ephedrine Sulfate (EpHEDrine SULFATE INJ) 5 mg Q5M PRN IV 02/19/17 12:30 02/19/17 17:30 Atropine Sulfate (Atropine Sulfate 0.1MG/Ml Inj) 0.5 mg Q1M PRN IV 02/19/17 12:30 02/19/17 17:30 Hydromorphone HCl (Dilaudid Inj) 0.25 mg UD PRN IV 02/19/17 12:45 02/19/17 17:45 Insulin Aspart (novoLOG ASPART) SLIDING SCALE G... ACHS SC 02/19/17 16:00 03/21/17 15:59 Glucose (Glucose 40% Gel) 15-30 GRAMS 15 GRAMS... UD PRN PO 02/19/17 14:30 03/21/17 14:29 Glucose (Glucose Chew Tab) 4-8 Tablets 4 Tabl... UD PRN PO 02/19/17 14:30 03/21/17 14:29 Dextrose (Dextrose 50% 50ML Syringe) 25-50ML OF 50% DW IV FOR... UD PRN IV 02/19/17 14:30 03/21/17 14:29 Glucagon (Glucagon Inj) 1 mg UD PRN SQ 02/19/17 14:30 03/21/17 14:29 Review of Systems A total of 12 systems was reviewed and is negative other than as listed above in the HPI Physical Exam Date Time Temp Pulse Resp B/P Pulse Ox O2 Delivery O2 Flow Rate FiO2 02/19/17 16:00 97 Nasal Cannula 2.0 02/19/17 16:00 36.6 63 20 119/56 92 Nasal Cannula 2.0 02/19/17 15:01 51 16 117/66 97 Nasal Cannula 3.0 02/19/17 14:31 61 17 122/69 95 Nasal Cannula 3.0 02/19/17 14:20 60 19 109/51 96 Nasal Cannula 3.0 02/19/17 14:01 59 19 116/65 96 Nasal Cannula 3.0 02/19/17 13:31 36.6 56 16 120/63 94 Nasal Cannula 3.0 02/19/17 13:13 72 18 02/19/17 13:13 69 18 125/56 95 02/19/17 13:13 69 18 125/56 95 02/19/17 13:13 72 18 02/19/17 13:11 132/58 02/19/17 13:11 132/58 02/19/17 13:08 62 10 02/19/17 13:08 62 10 02/19/17 13:08 62 10 114/49 95 02/19/17 13:08 62 10 114/49 95 02/19/17 13:06 147/67 02/19/17 13:06 147/67 02/19/17 13:03 64 31 02/19/17 13:03 66 31 117/55 95 02/19/17 13:03 64 31 02/19/17 13:03 66 31 117/55 95 02/19/17 13:01 129/68 02/19/17 13:01 129/68 02/19/17 12:58 70 23 114/54 96 02/19/17 12:58 70 23 02/19/17 12:58 70 23 02/19/17 12:58 70 23 114/54 96 02/19/17 12:56 132/65 02/19/17 12:56 132/65 02/19/17 12:53 82 20 124/57 96 02/19/17 12:53 80 20 02/19/17 12:53 80 20 02/19/17 12:53 82 20 124/57 96 02/19/17 12:51 37.0 83 21 132/65 96 Nasal Cannula 3 110/54 02/19/17 12:51 141/63 02/19/17 12:51 141/63 02/19/17 12:48 80 18 121/55 96 02/19/17 12:48 80 18 121/55 96 02/19/17 12:48 80 18 02/19/17 12:48 80 18 02/19/17 12:46 138/66 02/19/17 12:46 138/66 02/19/17 12:43 81 24 118/55 95 02/19/17 12:43 81 24 118/55 95 02/19/17 12:43 82 24 02/19/17 12:43 82 24 02/19/17 12:41 138/69 02/19/17 12:41 138/69 02/19/17 12:38 78 17 118/53 95 02/19/17 12:38 78 17 02/19/17 12:38 78 17 118/53 95 02/19/17 12:38 78 17 02/19/17 12:36 135/71 02/19/17 12:36 135/71 02/19/17 12:33 80 15 118/57 94 02/19/17 12:33 80 15 118/57 94 02/19/17 12:33 80 15 02/19/17 12:33 80 15 02/19/17 12:31 136/69 02/19/17 12:31 136/69 02/19/17 12:28 83 21 114/50 95 02/19/17 12:28 83 21 114/50 95 02/19/17 12:28 83 21 02/19/17 12:28 83 21 02/19/17 12:27 115/84 02/19/17 12:27 115/84 02/19/17 12:24 80 23 114/49 95 02/19/17 12:24 80 23 02/19/17 12:24 80 23 02/19/17 12:24 80 23 114/49 95 02/19/17 12:21 153/71 02/19/17 12:21 153/71 02/19/17 12:19 81 17 114/51 96 02/19/17 12:19 79 17 02/19/17 12:19 81 17 114/51 96 02/19/17 12:19 79 17 02/19/17 12:16 130/70 02/19/17 12:16 130/70 02/19/17 12:14 76 21 113/51 98 02/19/17 12:14 75 21 02/19/17 12:14 75 21 02/19/17 12:14 76 21 113/51 98 02/19/17 12:11 132/90 02/19/17 12:11 132/90 02/19/17 12:09 83 19 02/19/17 12:09 83 19 117/56 97 02/19/17 12:09 83 19 02/19/17 12:09 83 19 117/56 97 02/19/17 12:06 156/91 02/19/17 12:06 156/91 02/19/17 11:54 36.5 85 16 184/69 94 Mask 10 144/67 02/19/17 11:54 36.5 85 16 184/69 94 Mask 10 02/19/17 07:00 111/58 02/19/17 06:17 36.5 54 20 97/62 95 Room Air GENERAL : No acute distress. Sitting in bedside chair EYES: No icterus, gaze conjugate. PERRL NOSE: No evidence of epistaxis MOUTH: No lesions or candidiasis. Slight deviation of tongue to the left. Slight slurring of speech. NECK: Supple. Well approximated incision and left carotid area of the anterior triangle of the neck. No active bleeding or discharge. No evidence of dehiscence or hematoma. No appreciation of carotid bruits on the right LUNGS: Breath sounds are equal with fine rales at the bilateral bases. No wheezes or rhonchi HEART: Regular with ectopy, rate controlled. Telemetry shows sinus arrhythmia consistent with previous EKG 02/07/17 which revealed sinus rhythm with occasional premature ventricular complexes and premature atrial complex. ABDOMEN: Soft, NT, ND, BS Present EXTREMITIES: No LE edema, pedal pulses intact NEURO: A&OX3 Laboratory Results Last 24 Hours Test 02/19/17 06:13 02/19/17 12:01 02/19/17 15:23 02/19/17 15:57 Bedside Glucose 125 mg/dl 216 mg/dl 162 mg/dl White Blood Count 11.90 K/uL Red Blood Count 3.85 M/uL Hemoglobin 12.5 g/dL Hematocrit 37.3 % Mean Corpuscular Volume 96.9 fL Mean Corpuscular Hemoglobin 32.5 pg Mean Corpuscular Hemoglobin Concent 33.5 g/dl RDW Standard Deviation 48.6 fL RDW Coefficient of Variation 13.6 % Platelet Count 210 K/uL Mean Platelet Volume 10.6 fL Prothrombin Time 10.5 SECONDS Prothromb Time International Ratio 1.0 Activated Partial Thromboplast Time 27.8 SECONDS Partial Thromboplastin Ratio 1.1 Creatinine 0.82 mg/dl Est Creatinine Clear Calc Drug Dose 92.7 ml/min Estimated GFR () 103.8 Estimated GFR (Non- 89.6 Diagnostic Results NECK MRA HISTORY: Confusion. Slurred speech. Stroke TECHNIQUE: [id number] and gadolinium-enhanced MRA of the neck was performed both before and after the intravenous administration of contrast. All measurements were calculated based on NASCET criteria. COMPARISON STUDY: None. FINDINGS: The aortic arch and proximal great vessels are widely patent. There is a 2.2 cm segment of moderate to severe narrowing involving the proximal to mid left internal carotid artery. This includes a focal area of approximately 80% stenosis. Mild irregularity within the proximal right internal carotid artery without significant stenosis. The right vertebral artery is appears to be severely hypoplastic and not well visualized. There is a dominant left vertebral artery which is widely patent. Bilateral common carotid arteries are widely patent. IMPRESSION: 1. A 2.2 cm segment of moderate to severe narrowing involving the proximal to mid left internal carotid artery. This includes a focal area of approximately 80% stenosis. 2. 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 Electronically signed by: Lemuel Hernandez M.D. 02/06/2017 7:20 AM Assessment & Plan LEFT CAROTID STENOSIS POD #0 left carotid endarterectomy with Dr. Joyce Well approximated incision to left side of neck No evidence of hematoma, dehiscence, bleeding Patient's pain generally controlled Monitor overnight in ICU Ice as tolerated for swelling Further management by Dr. 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 Walls and Dr. 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 Level III inpatient consult Thank you for including us in the care of this patient. Please refer to Dr. Collado's addendum for further recommendations. I have personally evaluated and examined this patient. I agree with assessment and plan of Jacques Dejesus PA-C.
[2017-02-19] MEDS: ATORVASTATIN 10 MG TAB PO SCH (20:25)
[2017-02-19] MEDS: SITAGLIPTIN 100 MG TAB PO SCH (20:25)
[2017-02-19] MEDS: OLMESARTAN MEDOXOMIL 20 MG TAB PO SCH (20:25)
[2017-02-19] MEDS: CARVEDILOL 6.25 MG TAB PO SCH (20:25)
[2017-02-19] MEDS: FLUVOXAMINE MALEATE 50 MG TAB PO SCH (20:26)
[2017-02-19] MEDS: FENOFIBRATE 145 MG TAB PO SCH (20:26)
[2017-02-20] VITALS (9 sets, daily range): BP systolic 103–158; BP diastolic 44–78; PULSE 51–64; TEMP 36.5–36.7; O2SAT 91–96
[2017-02-20] MEDS: CEFAZOLIN IV 1,000 MG in DEXTROSE 5% 50ML 50 ML IV SCH ×2
[2017-02-20] MEDS: D5W AND 1/2NSS 1,000 ML IV SCH ×2 (03:17→15:00)
[2017-02-20] MEDS: ENOXAPARIN 30 MG/0.3 ML SYR SQ SCH ×2 (03:21→15:58)
[2017-02-20] MEDS: HYDROCODONE/ACETAMOPHEN 5/325MG TAB PO PRN (03:21)
[2017-02-20 06:02] LABS: HEMATOCRIT 34.1 % (42-52); MEAN CELL VOLUME 97.2 fL (80-100); MEAN CORPUSCULAR HEMOGLOBIN 31.1 pg (25-34); MEAN PLATELET VOLUME 10.1 fL (7.4-10.4); PLATELET COUNT 192 K/uL (130-400); RED BLOOD COUNT 3.51 M/uL (4.7-6.1); WHITE BLOOD COUNT 8.64 K/uL (4.8-10.8)
[2017-02-20 06:37] LABS: BUN/CREATININE RATIO 14.6 (10-20); CREATININE 0.63 mg/dl (0.60-1.40); MAGNESIUM 2.1 mg/dl (1.8-2.4); PHOSPHORUS 2.6 mg/dl (2.5-4.9); POTASSIUM 3.8 mmol/L (3.5-5.1)
[2017-02-20] MEDS ORDERED: NURSING VERBAL MED ORDER ONE ×4 (08:30→18:15)
[2017-02-20] MEDS: POTASSIUM CHLORIDE 20 MEQ TABCR PO SCH ×2 (08:54→11:47)
[2017-02-20] MEDS: CHOLECALCIFEROL 1000 INTER.UNIT TAB PO SCH (08:55)
[2017-02-20] MEDS: CLOPIDOGREL BISULFATE 75 MG TAB PO SCH (08:55)
[2017-02-20] MEDS: CALCIUM 600MG + VIT D 400 IU TAB PO SCH (08:55)
[2017-02-20] MEDS: CARVEDILOL 6.25 MG TAB PO SCH ×2 (08:55→21:00)
[2017-02-20] MEDS: FLUVOXAMINE MALEATE 50 MG TAB PO SCH ×2 (08:56→21:09)
[2017-02-20] MEDS: FARXIGA PO SCH (08:57)
[2017-02-20] MEDS: INSULIN ASPART 100 UNITS/ML 3 ML PEN SC SCH ×5 (09:02→21:00)
--- NOTE | 2017-02-20 11:27 | Critical Care Progress Note ---
Critical Care Progress Note Date of Service February 20, 2017. ICU Day ICU Day Number: [address] Collado Subjective Doing well Notes some pain at incision site but overall pain is well controlled Slept well overnight Mild left-sided headache which is chronic No blurred vision, double vision Current SOFA Score SOFA Score Response (Comments) Value Platelets (x10) > 150 0 Bilirubin (mg/dL) < 1.2 0 Katarina Coma Score 15 0 Level of Hypotension No Hypotension 0 Creatinine (mg/dL) < 1.2 0 Total 0 Assessment & Plan (1) History of CVA (cerebrovascular accident) (2) S/P carotid endarterectomy (3) HYPERTENSION NOS (4) HYPERLIPIDEMIA NEC/NOS (5) IMPAIRED GLUCOSE TOLERANCE TEST (ORAL) (6) Depression NEUROLOGICAL - GCS: 15; Alert and oriented x 3 Depression: Resume Fluvoxamine Migraine Headache - Fioricet PRN History of CVA - Continue Clopidogrel - Pain regimen: Morphine, [place] CARDIOVASCULAR - BP: MAP 60-80 - HR 50s - No vasopressors or IV fluid resusitation indicated at this time Hypertension - Continue Coreg - Continue Olmesartan Hyperlipidemia - Continue Fenofibrate - Continue Atorvastatin 10 mg RESPIRATORY - RR: 14-16, SpO2 > 94% GASTROINTESTINAL - Diet: AHA heart healthy diet - GI Prophylaxis: Pantoprazole 40 mg PO PRN for GERD RENAL//ENDOCRINE - Globally + 3271 ml - 24-hour UO: at goal of > 0.45 ml/kg/hr - Cr: 0.63 - Electrolytes: Grossly normal, no repletion indicated at this time - IV Fluids: None - BSG: AC/HS checks 120-160; 1 measurement in the 260 Continue SSI Resume Sitagliptin HEMATOLOGY/INFECTIOUS DISEASES - Afebrile; no leukocytosis - Hb/Hct 10.9/34 - DVT Prophylaxis: Lovenox 30 mg BID LINES/IV ACCESS - Left wrist 18 G peripheral IV CODE STATUS - Full Code DISPOSITION - OT/PT: Per primary team's plan for disposition - Stable for transfer out of ICU Resident Physician Supervision Note: Dr. Hernadez was resident physician during care of patient. I separately evaluated patient and did history and exam. I discussed the case with the resident and generally agree with the findings and plan. Likely will be discharged home, discussed prednisone usage on rounds. Not noted in H&P, and further review of medical record it was written as a when necessary medication. When ICU team discussed this with the patient, patient was unclear of exact reason for the glucocorticoids. Patient follow-up with primary care provider as well as vascular surgery regarding chronic medications. Documented By: Fernie Collado DO Consults & Procedures Consultants: Vascular Surgery Procedures: s/p left carotid endarterectomy Data Medications: Current Inpatient Medications Medications (Trade) Dose Ordered Sig/Tin Route Start Time Stop Time Status Last Admin Dose Admin Morphine Sulfate (MoRPHine SULFATE INJ) 4 mg Q4H PRN IV 02/19/17 11:45 03/05/17 11:44 02/19/17 15:52 4 MG Ondansetron HCl (Zofran Inj) 4 mg Q6H PRN IV 02/19/17 11:45 03/21/17 11:44 02/19/17 15:52 4 MG Metoprolol Tartrate 5 mg 5 mg Q10M PRN IV 02/19/17 11:45 03/21/17 11:44 Nitroglycerin/ Dextrose 250 ml @ 0 mls/hr Q0M PRN IV 02/19/17 11:34 03/21/17 11:33 Sodium Nitroprusside 50 mg/Dextrose 502 ml @ 0 mls/hr Q0M PRN IV 02/19/17 11:34 03/21/17 11:33 Dextrose/Sodium Chloride (D5W And 1/2nss) 1,000 ml @ 125 mls/hr Q8H IV 02/19/17 11:34 03/21/17 11:33 02/20/17 03:17 125 MLS/HR Acetaminophen/ Hydrocodone Bitart FOR MODERATE PAIN ... Q4H PRN PO 02/19/17 11:45 03/05/17 11:44 02/20/17 03:21 2 TAB Phenylephrine HCl/ Dextrose (Paramjit-Synephrine Inj/D5W 500ml) 502 ml @ 0 mls/hr Q0M PRN IV 02/19/17 11:34 03/21/17 11:33 Enoxaparin Sodium (Lovenox Inj) 30 mg Q12H SQ 02/19/17 16:00 03/21/17 15:59 02/20/17 03:21 30 MG Miscellaneous Information (Order Awaiting Action) 1 ea QS N/A 02/19/17 16:00 03/21/17 15:59 02/20/17 09:17 1 EA Atorvastatin Calcium (Lipitor Tab) 10 mg HS PO 02/19/17 21:00 03/21/17 20:59 02/19/17 20:25 10 MG Calcium/Vitamin D (Caltrate Plus Tab) 1 tab DAILY PO 02/20/17 09:00 03/22/17 08:59 02/20/17 08:55 1 TAB Carvedilol (Coreg Tab) 6.25 mg BID PO 02/19/17 21:00 03/21/17 20:59 02/20/17 08:55 6.25 MG Cholecalciferol (Vitamin D Tab) 1,000 inter.unit QAM PO 02/20/17 09:00 03/22/17 08:59 02/20/17 08:55 1,000 INTER.UNIT Clonazepam (Klonopin Tab) 0.75 mg HS PRN PO 02/19/17 11:45 03/21/17 11:44 02/19/17 22:25 0.75 MG Clopidogrel Bisulfate (plAVix TAB) 75 mg QAM PO 02/20/17 09:00 03/22/17 08:59 02/20/17 08:55 75 MG Fenofibrate (Tricor Tab) 145 mg HS PO 02/19/17 21:00 03/21/17 20:59 02/19/17 20:26 145 MG Fluvoxamine Maleate (Luvox Tab) 100 mg BID PO 02/19/17 21:00 03/21/17 20:59 02/20/17 08:56 100 MG Hyoscyamine Sulfate (Levsin Tab) 0.125 mg Q6 PRN PO 02/19/17 11:45 03/21/17 11:44 Olmesartan (Benicar Tab) 20 mg QPM PO 02/19/17 21:00 03/21/17 20:59 02/19/17 20:25 20 MG Prednisone (PredniSONE TAB) 5 mg BID PO 02/19/17 21:00 03/21/17 20:59 Future Hold Sitagliptin Phosphate (Januvia Tab) 100 mg QPM PO 02/19/17 21:00 03/21/17 20:59 02/19/17 20:25 100 MG Pantoprazole Sodium (Protonix Tab) 40 mg DAILY PRN PO 02/19/17 11:45 03/21/17 11:44 Miscellaneous Information (Order Awaiting Action) 1 ea QS N/A 02/19/17 16:00 03/21/17 15:59 Insulin Aspart (novoLOG ASPART) SLIDING SCALE G... ACHS SC 02/19/17 16:00 03/21/17 15:59 Glucose (Glucose 40% Gel) 15-30 GRAMS 15 GRAMS... UD PRN PO 02/19/17 14:30 03/21/17 14:29 Glucose (Glucose Chew Tab) 4-8 Tablets 4 Tabl... UD PRN PO 02/19/17 14:30 03/21/17 14:29 Dextrose (Dextrose 50% 50ML Syringe) 25-50ML OF 50% DW IV FOR... UD PRN IV 02/19/17 14:30 03/21/17 14:29 Glucagon (Glucagon Inj) 1 mg UD PRN SQ 02/19/17 14:30 03/21/17 14:29 Non-Formulary Medication (Non-Formulary Patient'S Own Med) 1 ea QAM PO 02/20/17 09:00 03/22/17 08:59 02/20/17 08:57 1 EA Acetaminophen/ Butalbital/ Caffeine (Fioricet Tab) 1 tab Q8H PRN PO 02/20/17 09:00 03/22/17 08:59 I & O: 24-Hour Column 02/20/17 08:00 Intake Total 6771 ml Output Total 3500 ml Balance 3271 ml Vital Signs: Date Time Temp Pulse Resp B/P Pulse Ox O2 Delivery O2 Flow Rate FiO2 02/20/17 08:00 91 Room Air 02/20/17 06:00 53 130/72 91 Room Air 02/20/17 04:00 96 Nasal Cannula 2.0 02/20/17 04:00 36.7 52 14 120/46 96 Nasal Cannula 2.0 02/20/17 02:00 51 13 106/44 96 Nasal Cannula 2.0 02/20/17 00:00 96 Nasal Cannula 2.0 02/20/17 00:00 36.7 53 15 110/46 96 Nasal Cannula 2.0 02/19/17 22:00 59 15 138/56 98 Nasal Cannula 2.0 02/19/17 20:00 Room Air 02/19/17 20:00 36.7 54 15 136/54 98 Nasal Cannula 2.0 02/19/17 18:00 60 16 136/58 96 02/19/17 16:00 97 Nasal Cannula 2.0 02/19/17 16:00 36.6 63 20 119/56 92 Nasal Cannula 2.0 02/19/17 15:01 51 16 117/66 97 Nasal Cannula 3.0 02/19/17 14:31 61 17 122/69 95 Nasal Cannula 3.0 02/19/17 14:20 60 19 109/51 96 Nasal Cannula 3.0 02/19/17 14:01 59 19 116/65 96 Nasal Cannula 3.0 02/19/17 13:31 36.6 56 16 120/63 94 Nasal Cannula 3.0 02/19/17 13:13 72 18 02/19/17 13:13 69 18 125/56 95 02/19/17 13:13 69 18 125/56 95 02/19/17 13:13 72 18 02/19/17 13:11 132/58 02/19/17 13:11 132/58 02/19/17 13:08 62 10 02/19/17 13:08 62 10 02/19/17 13:08 62 10 114/49 95 02/19/17 13:08 62 10 114/49 95 02/19/17 13:06 147/67 02/19/17 13:06 147/67 02/19/17 13:03 64 31 02/19/17 13:03 66 31 117/55 95 02/19/17 13:03 64 31 02/19/17 13:03 66 31 117/55 95 02/19/17 13:01 129/68 02/19/17 13:01 129/68 02/19/17 12:58 70 23 114/54 96 02/19/17 12:58 70 23 02/19/17 12:58 70 23 02/19/17 12:58 70 23 114/54 96 02/19/17 12:56 132/65 02/19/17 12:56 132/65 02/19/17 12:53 82 20 124/57 96 02/19/17 12:53 80 20 02/19/17 12:53 80 20 02/19/17 12:53 82 20 124/57 96 02/19/17 12:51 37.0 83 21 132/65 96 Nasal Cannula 3 110/54 02/19/17 12:51 141/63 02/19/17 12:51 141/63 02/19/17 12:48 80 18 121/55 96 02/19/17 12:48 80 18 121/55 96 02/19/17 12:48 80 18 02/19/17 12:48 80 18 02/19/17 12:46 138/66 02/19/17 12:46 138/66 02/19/17 12:43 81 24 118/55 95 02/19/17 12:43 81 24 118/55 95 02/19/17 12:43 82 24 02/19/17 12:43 82 24 02/19/17 12:41 138/69 02/19/17 12:41 138/69 02/19/17 12:38 78 17 118/53 95 02/19/17 12:38 78 17 02/19/17 12:38 78 17 118/53 95 02/19/17 12:38 78 17 02/19/17 12:36 135/71 02/19/17 12:36 135/71 02/19/17 12:33 80 15 118/57 94 02/19/17 12:33 80 15 118/57 94 02/19/17 12:33 80 15 02/19/17 12:33 80 15 02/19/17 12:31 136/69 02/19/17 12:31 136/69 02/19/17 12:28 83 21 114/50 95 02/19/17 12:28 83 21 114/50 95 02/19/17 12:28 83 21 02/19/17 12:28 83 21 02/19/17 12:27 115/84 02/19/17 12:27 115/84 02/19/17 12:24 80 23 114/49 95 02/19/17 12:24 80 23 02/19/17 12:24 80 23 02/19/17 12:24 80 23 114/49 95 02/19/17 12:21 153/71 02/19/17 12:21 153/71 02/19/17 12:19 81 17 114/51 96 02/19/17 12:19 79 17 02/19/17 12:19 81 17 114/51 96 02/19/17 12:19 79 17 02/19/17 12:16 130/70 02/19/17 12:16 130/70 02/19/17 12:14 76 21 113/51 98 02/19/17 12:14 75 21 02/19/17 12:14 75 21 02/19/17 12:14 76 21 113/51 98 02/19/17 12:11 132/90 02/19/17 12:11 132/90 02/19/17 12:09 83 19 02/19/17 12:09 83 19 117/56 97 02/19/17 12:09 83 19 02/19/17 12:09 83 19 117/56 97 02/19/17 12:06 156/91 02/19/17 12:06 156/91 02/19/17 11:54 36.5 85 16 184/69 94 Mask 10 144/67 02/19/17 11:54 36.5 85 16 184/69 94 Mask 10 Laboratory Results: Last 24 Hours Test 02/19/17 12:01 02/19/17 15:23 02/19/17 15:57 02/19/17 20:43 Bedside Glucose 216 mg/dl 162 mg/dl 125 mg/dl White Blood Count 11.90 K/uL Red Blood Count 3.85 M/uL Hemoglobin 12.5 g/dL Hematocrit 37.3 % Mean Corpuscular Volume 96.9 fL Mean Corpuscular Hemoglobin 32.5 pg Mean Corpuscular Hemoglobin Concent 33.5 g/dl RDW Standard Deviation 48.6 fL RDW Coefficient of Variation 13.6 % Platelet Count 210 K/uL Mean Platelet Volume 10.6 fL Prothrombin Time 10.5 SECONDS Prothromb Time International Ratio 1.0 Activated Partial Thromboplast Time 27.8 SECONDS Partial Thromboplastin Ratio 1.1 Creatinine 0.82 mg/dl Est Creatinine Clear Calc Drug Dose 92.7 ml/min Estimated GFR () 103.8 Estimated GFR (Non- 89.6 Test 02/20/17 05:40 02/20/17 06:31 White Blood Count 8.64 K/uL Red Blood Count 3.51 M/uL Hemoglobin 10.9 g/dL Hematocrit 34.1 % Mean Corpuscular Volume 97.2 fL Mean Corpuscular Hemoglobin 31.1 pg Mean Corpuscular Hemoglobin Concent 32.0 g/dl RDW Standard Deviation 47.7 fL RDW Coefficient of Variation 13.5 % Platelet Count 192 K/uL Mean Platelet Volume 10.1 fL Sodium Level 141 mmol/L Potassium Level 3.8 mmol/L Chloride Level 107 mmol/L Carbon Dioxide Level 28 mmol/L Anion Gap 6.0 mmol/L Blood Urea Nitrogen 9 mg/dl Creatinine 0.63 mg/dl Est Creatinine Clear Calc Drug Dose 120.7 ml/min Estimated GFR () 115.7 Estimated GFR (Non- 99.8 BUN/Creatinine Ratio 14.6 Random Glucose 138 mg/dl Calcium Level 8.0 mg/dl Phosphorus Level 2.6 mg/dl Magnesium Level 2.1 mg/dl Hepatitis C Antibody Screen NEG Bedside Glucose 138 mg/dl
--- NOTE | 2017-02-20 13:23 | Anesthesiology Progress Note ---
Anesthesia Post Op Note Date & Time February 20, 2017 at 13:20 Vital Signs Pain Intensity: 6.0 Vital Signs Past 12 Hours Date Time Temp Pulse Resp B/P Pulse Ox O2 Delivery O2 Flow Rate FiO2 02/20/17 12:00 36.7 56 15 109/45 92 Room Air 02/20/17 12:00 91 Room Air 02/20/17 08:00 36.7 57 23 103/78 91 Room Air 02/20/17 08:00 91 Room Air 02/20/17 06:00 53 130/72 91 Room Air 02/20/17 04:00 96 Nasal Cannula 2.0 02/20/17 04:00 36.7 52 14 120/46 96 Nasal Cannula 2.0 02/20/17 02:00 51 13 106/44 96 Nasal Cannula 2.0 Notes Mental Status: alert / awake / arousable, participated in evaluation Pt Amnestic to Procedure: Yes Nausea / Vomiting: adequately controlled Pain: adequately controlled Airway Patency, RR, SpO2: stable & adequate BP & HR: stable & adequate Hydration State: stable & adequate Anesthetic Complications: no major complications apparent Pt is neurologically intact , save for a slight left sided perioral/lip droop.Extremity(UE/LE) strength and motor function intact.Tongue is midline and moves to R and L equally.
--- NOTE | 2017-02-20 14:12 | Progress Note ---
Progress Note Date of Service: February 20, 2017. Subjective Awake and alert. No swallowing difficulty. Slight nauseousness Problem List Medical Problems: (1) Constipation Status: Acute (2) Stroke Status: Acute Objective Vital Signs Vital Signs Past 12 Hours Date Time Temp Pulse Resp B/P Pulse Ox O2 Delivery O2 Flow Rate FiO2 02/20/17 12:00 36.7 56 15 109/45 92 Room Air 02/20/17 12:00 91 Room Air 02/20/17 08:00 36.7 57 23 103/78 91 Room Air 02/20/17 08:00 91 Room Air 02/20/17 06:00 53 130/72 91 Room Air 02/20/17 04:00 96 Nasal Cannula 2.0 02/20/17 04:00 36.7 52 14 120/46 96 Nasal Cannula 2.0 Exam VSS Afebrile Incision dry and clean Minimal swelling Slight right lower lip droop when smiling tongue midline Intake & Output 8-Hour Column 02/19/17 02/19/17 02/20/17 15:59 23:59 07:59 Intake Total 4300 ml 1312 ml 1159 ml Output Total 300 ml 1300 ml 1900 ml Balance 4000 ml 12 ml -741 ml 24-Hour Column 02/20/17 07:59 Intake Total 6771 ml Output Total 3500 ml Balance 3271 ml Laboratory and Microbiology Results Past 24 Hours Test 02/19/17 15:23 02/19/17 15:57 02/19/17 20:43 02/20/17 05:40 Range/Units White Blood Count 11.90 8.64 4.8-10.8 K/uL Red Blood Count 3.85 3.51 4.7-6.1 M/uL Hemoglobin 12.5 10.9 14.0-18.0 g/dL Hematocrit 37.3 34.1 42-52 % Mean Corpuscular Volume 96.9 97.2 80-100 fL Mean Corpuscular Hemoglobin 32.5 31.1 25-34 pg Mean Corpuscular Hemoglobin Concent 33.5 32.0 32-36 g/dl RDW Standard Deviation 48.6 47.7 36.4-46.3 fL RDW Coefficient of Variation 13.6 13.5 11.5-14.5 % Platelet Count 210 192 130-400 K/uL Mean Platelet Volume 10.6 10.1 7.4-10.4 fL Prothrombin Time 10.5 9.0-12.0 SECONDS Prothromb Time International Ratio 1.0 0.9-1.1 Activated Partial Thromboplast Time 27.8 21.0-31.0 SECONDS Partial Thromboplastin Ratio 1.1 Creatinine 0.82 0.63 0.60-1.40 mg/dl Est Creatinine Clear Calc Drug Dose 92.7 120.7 ml/min Estimated GFR () 103.8 115.7 Estimated GFR (Non- 89.6 99.8 Bedside Glucose 162 125 70-99 mg/dl Sodium Level 141 136-145 mmol/L Potassium Level 3.8 3.5-5.1 mmol/L Chloride Level 107 98-107 mmol/L Carbon Dioxide Level 28 21-32 mmol/L Anion Gap 6.0 3-11 mmol/L Blood Urea Nitrogen 9 7-18 mg/dl BUN/Creatinine Ratio 14.6 10-20 Random Glucose 138 70-99 mg/dl Calcium Level 8.0 8.5-10.1 mg/dl Phosphorus Level 2.6 2.5-4.9 mg/dl Magnesium Level 2.1 1.8-2.4 mg/dl Hepatitis C Antibody Screen NEG NEG Test 02/20/17 06:31 02/20/17 11:26 Range/Units Bedside Glucose 138 114 70-99 mg/dl Imp: Left CEA Plan: Doing well Will have Speech therapy see for facial exercises
[2017-02-20] MEDS ORDERED: ACETAMINOPHEN 325 MG TAB PO PRN (15:00)
[2017-02-20] MEDS: BUTALBITAL/ACETAMIN/CAFFEINE TAB PO PRN (19:43)
[2017-02-20] MEDS: OLMESARTAN MEDOXOMIL 20 MG TAB PO SCH (21:06)
[2017-02-20] MEDS: SITAGLIPTIN 100 MG TAB PO SCH (21:07)
[2017-02-20] MEDS: FENOFIBRATE 145 MG TAB PO SCH (21:07)
[2017-02-20] MEDS: ATORVASTATIN 10 MG TAB PO SCH (21:08)
[2017-02-21] MEDS: BUTALBITAL/ACETAMIN/CAFFEINE TAB PO PRN ×2 (04:03→12:22)
[2017-02-21] MEDS: ENOXAPARIN 30 MG/0.3 ML SYR SQ SCH (04:04)
[2017-02-21 04:08] VITALS: BP 133/65
[2017-02-21 06:52] VITALS: BP 150/82; PULSE 64; TEMP 36.7; O2SAT 95
[2017-02-21 07:36] VITALS: O2SAT 95
[2017-02-21] MEDS: CALCIUM 600MG + VIT D 400 IU TAB PO SCH (08:53)
[2017-02-21] MEDS: CHOLECALCIFEROL 1000 INTER.UNIT TAB PO SCH (08:54)
[2017-02-21] MEDS: FARXIGA PO SCH (08:54)
[2017-02-21] MEDS: CLOPIDOGREL BISULFATE 75 MG TAB PO SCH (08:54)
[2017-02-21] MEDS: CARVEDILOL 6.25 MG TAB PO SCH (08:54)
[2017-02-21] MEDS: FLUVOXAMINE MALEATE 50 MG TAB PO SCH (08:55)
[2017-02-21] MEDS: INSULIN ASPART 100 UNITS/ML 3 ML PEN SC SCH ×2 (09:00→12:00)
[2017-02-21] MEDS ORDERED: TRAM-10 PO (11:04)
--- NOTE | 2017-02-21 11:06 | Discharge Instructions ---
Discharge Instructions Date of Service February 21, 2017. Admission Reason for Admission: Left Internal Carotid Artery Stenosis Discharge Discharge Diagnosis / Problem: Left carotid stenosis Discharge Goals Goal(s): Therapeutic intervention Activity Recommendations Activity Limitations: per Instructions/Follow-up section . Instructions / Follow-Up Instructions / Follow-Up Call [phone] to schedule a follow up appointment if one not already scheduled. SPECIAL CARE INSTRUCTIONS: Medications: * Continue to take Aspirin as directed. Incision Care: * You may shower, but do not rub incision. You may let the warm soapy water run over it. Be sure to dry the incision well after bathing. * Do not shave directly over the incision until it is healed. * DO NOT IMMERSE THE INCISION IN A TUB/POOL/etc. UNTIL HEALED. Restrictions: * Do not drive for at least one week or if you are still taking any narcotic pain medication. * Do not lift anything heavier than a gallon of milk for one week after going home. Possible Complications: * Numbness - It is normal to have some numbness around the incision. Numbness can extend beyond the incision to areas of the neck, ear and face. The numbness is due to bruising of nerves during the surgery and will gradually improve over a period of months. * Hoarseness/Difficulty Speaking and Swallowing - The bruising of nerves in the neck can also cause a hoarse voice, difficulty speaking or swallowing. This may improve over time, HOWEVER, if it continues for more than a few days please contact our office ([phone]). * Excessive Swelling - There will be some swelling immediately after surgery which usually resolves within one week. If you notice that the swelling is getting worse, notify your surgeon ([phone]). * Drainage/Bleeding - If there is any drainage or bleeding, it should be a very small amount (less than a teaspoon per day). If you have excessive bleeding or drainage from the incision, call your surgeon ([phone]) right away. ACTIVATION OF EMERGENCY MEDICAL SYSTEM: Call [phone], immediately, if you experience any of the following: Warning Signs and Symptoms of Stroke: * Sudden numbness or weakness of the face, arm or leg, especially on one side of the body * Sudden confusion, trouble speaking or understanding * Sudden trouble seeing in one or both eyes * Sudden trouble walking, dizziness, loss of balance or coordination * Sudden severe headache with no cause Do not delay calling 911 if you experience any warning signs or symptoms of a stroke. Delay in seeking medical attention may affect what treatments can be given to you. Risk Factors for Stroke: You can reduce your chances of stroke by working with your medical provider to adopt a healthy lifestyle. Some specific ways to lower your chance of stroke are: * If you are a smoker, now is the time to stop smoking cigarettes * If you are diabetic, improve the control of your blood sugars * Avoid excessive amounts of alcohol * Control high blood pressure * Lose weight if you are overweight * Be sure to lead an active lifestyle * Eat a healthy diet low in salt, cholesterol and fat You should know about other risk factors for stroke that you are unable to control. These include: * Age 55 years or older * Male gender * Certain racial groups: , or / * Family History of Stroke, Mini stroke or Heart Attack * Sickle Cell Disease You will be receiving a call from the Vascular Surgery Nurse after you are discharged. FOLLOW UP VISIT: It is important for you to keep your follow up appointments with your medical provider. Keep any scheduled doctor appointments. Current Hospital Diet Patient's current hospital diet: AHA Diet (Heart Healthy) Discharge Diet Recommended Diet: AHA Diet (Heart Healthy) Procedures Procedures Performed: Left Carotid Endarterectomy Pending Studies Studies pending at discharge: no Laboratory Results Hemoglobin A1c Test 02/06/17 01:55 Range/Units Estimated Average Glucose 140 mg/dl Hemoglobin A1c 6.5 H 4.5-5.6 % Lipid Panel Test 02/07/17 06:10 Range/Units Triglycerides Level 223 H 0-150 mg/dl Cholesterol Level 169 0-200 mg/dl HDL Cholesterol 39 mg/dl Cholesterol/HDL Ratio 4.3 LDL Cholesterol, Calculated 85 mg/dl Medical Emergencies . Who to Call and When: Medical Emergencies: If at any time you feel your situation is an emergency, please call 911 immediately. . Non-Emergent Contact Non-Emergency issues call your: Surgeon . "Provider Documentation" section prepared by Armando Joyce. . VTE Core Measure Inpt VTE Proph given/why not?: Enoxaparin (Lovenox)SQ, SCD's
[2017-02-21 12:06] VITALS: BP 150/82; PULSE 64; TEMP 36.7; O2SAT 95
--- NOTE | 2017-02-26 19:08 | DISCHARGE SUMMARY ---
ADMISSION DIAGNOSIS: Severe left internal carotid artery stenosis with CVA. DISCHARGE DIAGNOSES: 1. Status post left carotid endarterectomy with patch. 2. Severe left internal carotid artery stenosis with CVA. DISCHARGE CONDITION: Stable. CONSULTATIONS IN THE HOSPITAL: Critical care. PROCEDURES IN THE HOSPITAL: Left carotid endarterectomy patch which was performed on 02/19/2017 with an EBL of 100 mL and no significant complications. HISTORY OF PRESENT ILLNESS: Mr. Bruner is a 71-year-old male who presented to [facility] due to generalized lethargy and difficulty word finding at home on day 1 postop from a cholecystectomy. His symptoms resolved and then recurred again the next day and he came to [facility] for evaluation. The second episode also involved some right hand weakness. He was evaluated and found to have a left hemispheric CVA. Imaging then demonstrated over 90% stenosis of his left internal carotid artery. Due to the severity of his stenosis as well as his recurrent symptoms, it was recommended that the patient consider undergoing a left carotid endarterectomy. The procedure, risks, benefits, alternatives were discussed with the patient and he expressed understanding and agreement to proceed. HOSPITAL COURSE: Mr. Bruner underwent his left carotid endarterectomy without any significant complications. He had an EBL of 100 mL and a postop hemoglobin of 10.9. Vital signs remained essentially stable. He did complain of some mild nausea as well as mild chronic headache for which he took Tylenol. Other labs remained stable as well. Postoperatively, he was noted to have a very slight droop to the lower right side of his lip; however, that had improved by day of discharge as well. The patient was felt to be stable enough for discharge on postop day 2 as well as his nausea and headache had resolved. He had no neurological symptoms at that time. PHYSICAL EXAMINATION: VITAL SIGNS: On day of discharge, his vital signs were as follows: A temperature of 36.7, pulse of 64, respiratory rate of 16 and blood pressure 150/82 with pulse oximetry of 95% on room air. CONSTITUTIONAL: The patient is a mildly chronically ill appearing elderly male in no acute distress. He ambulated without assistance. Is active, alert and oriented x4 with normal recent and remote memory. HEAD: Normocephalic and atraumatic. EYES: EOMI. ENT: No hearing loss, rhinorrhea or pharyngeal erythema. NECK: Supple right side. Left side was tender due to his surgical incision. Surgical incision is well approximated and healing appropriately. There was moderate local edema and some ecchymosis. There is no erythema. There is a small hematoma under the skin. Trachea is midline. LUNGS: Clear. CARDIOVASCULAR: Demonstrated a nondisplaced apical impulse with a regular rate and rhythm. His peripheral pulses are full and equal in all extremities unless otherwise noted, specifically they were normal in his carotid, brachial, radial and femoral pulses. Bilateral lower extremity distal pulses were +1 with brisk capillary refill and no sign of distal ischemia. ABDOMEN: Soft, nontender with normoactive bowel sounds in all 4 quadrants without guarding or rebound. There was no flank or CVA tenderness. MUSCULOSKELETAL: Demonstrated normal tone and strength for age and no weakness. NEUROLOGIC: The patient had no focal deficits besides his mild right lower lip droop. His face was symmetric and his strength was equal. DIET UPON DISCHARGE: Should be a low-cholesterol AHA diet. MEDICATIONS UPON DISCHARGE: Reconciled in the chart and are as per his discharge instructions with the continuation of his Plavix. FOLLOWUP: Should be with Dr. Joyce or his MINERVA Norris within 2 weeks for reevaluation of the surgical site. The patient was advised to call the office with any other questions or concerns.
--- NOTE | 2017-04-16 07:30 | [facility] Operative Report ---
Operative Report Operative Date 02/19/17 Pre-Operative Diagnosis Left hemispheric Cerebrovascular Accident, LICAS Post-Operative Diagnosis Left hemispheric Cerebrovascular Accident, LICAS Procedure(s) Performed Left Carotid Endarterectomy Surgeon Dr. Joyce [employer] Surgeon(s) Alina Wiseman MD, Elen Cunningham PA-C Estimated Blood Loss 100 cc Findings severe stenosis of left internal carotid with intra plaque hemorrhage noted Specimens A: Left Carotid Plaque Anesthesia Gen Complication(s) None Disposition Recovery Room / PACU Indications This is a 71-year-old white male who had a left hemispheric CVA. This was post cholecystectomy. He was found to have severe preocclusive lesion of his left internal carotid artery. Endarterectomy was recommended. He understood the risks options and benefits and agrees to go ahead with this procedure.. Description of Procedure Patient was taken to the operating room placed supine position. After left side of the neck was prepped and draped in the usual fashion a longitudinal neck incision was then made medial to the sternocleidomastoid muscle. This was carried down through the platysmal layer. The facial vein was identified ligated and divided. Dissection was carried down and the common carotid artery identified. This was dissected upward to the bifurcation. The internal and external carotid arteries were then isolated. The internal carotid was isolated beyond the lesion. The hypoglossal nerve was seen as well as the ansa and both were preserved. At that point the patient was adequately heparinized. After adequate heparinization was accomplished, the internal, external, and common carotid arteries were clamped. A longitudinal arteriotomy was started on the common carotid artery and extended upward along the internal carotid artery. This was carried up to beyond the lesion. A Doppler shunt was then placed in the internal followed by the common carotid artery and held in place with Rad clamps. There was flow noted through the shunt at that time. The flow surface of the internal carotid showed a severe stenosis at the origin of the internal carotid artery with intraplaque hemorrhage noted. Using a spatula the endarterectomy was started on the common carotid artery in the appropriate plane. Dissection was carried upward. The external carotid was everted and endarterectomized. The endarterectomy was then carried upward along the internal carotid origin and a nice feathered breakoff point was accomplished in the internal carotid artery beyond the area of narrowing. Under loop magnification, all loose debris and flaps were removed. Irrigation was used to inspect the flow surface. After no further loose pieces of plaque were noted, the arteriotomy was closed using an AcuSeal patch. This was done in the usual vascular fashion using a CV 6 gortex suture. Prior to completing the closure this shunt was removed. Back bleeding and fore bleeding was allowed to occur. The flow surface was then irrigated with heparinized saline. The final few sutures were then placed and securely tied. Clamps removed from the external and common carotid arteries followed by the internal carotid artery. Good flow was seen and there is no palpable thrill noted in the internal carotid artery. Adequate hemostasis was then obtained of the suture line and the wound. After adequate hemostasis was noted, the wound was then closed in the usual fashion using a running 3-0 Vicryl suture for the platysmal layer and a running 4-0 subcuticular Vicryl suture for the skin edges. Dermabond was used for dressing. The patient left the operating room in good condition and tolerated the procedure well. She had no neurological deficits at the end of the procedure. I attest to the content of the Intraoperative Record and any orders documented therein. Any exceptions are noted below.
== END 2017-02-21 13:24 | disposition home or self-care (01) | DRG 38 ==
LOC: ENRESERVTM → ENRESERVDT → CANRESERV → C.ACU 05:54 → C.MSICU 11:40 → C.MSW 02-20 15:48
PROVIDERS: ADMIT Surgery Vascular Surgery; ATTEND Surgery Vascular Surgery
PROC: 03UL0JZ Supplement Left Internal Carotid Artery with Synthetic Substitute, Open Approach (ICD-10-PCS; principal; 2017-02-19 08:00)
PROC: 03CL0ZZ Extirpation of Matter from Left Internal Carotid Artery, Open Approach (ICD-10-PCS; principal; 2017-02-19 08:00)
DX: I63.232 Cerebral infarction due to unspecified occlusion or stenosis of left carotid arteries (principal); G81.91 Hemiplegia, unspecified affecting right dominant side; I10 Essential (primary) hypertension; E78.5 Hyperlipidemia, unspecified; E78.00 Pure hypercholesterolemia, unspecified; M19.90 Unspecified osteoarthritis, unspecified site; K21.9 Gastro-esophageal reflux disease without esophagitis; E11.9 Type 2 diabetes mellitus without complications; F17.210 Nicotine dependence, cigarettes, uncomplicated; K57.30 Diverticulosis of large intestine without perforation or abscess without bleeding; Z79.899 Other long term (current) drug therapy; Z91.040 Latex allergy status; Z90.49 Acquired absence of other specified parts of digestive tract; Z79.52 Long term (current) use of systemic steroids; Z87.11 Personal history of peptic ulcer disease; Z88.5 Allergy status to narcotic agent; Z82.0 Family history of epilepsy and other diseases of the nervous system; Z80.6 Family history of leukemia; Z80.52 Family history of malignant neoplasm of bladder

== ENCOUNTER → 2017-05-08 | Outpatient (CLI) | payer BC ==
[~2017-05-08] MED LIST changes: +TRAM-10 PO
[2017-05-08 11:25] LABS: BASO % 0.5 %; BASO ABS # 0.04 K/uL (0-0.2); COMPLETE YES; EOS % 2.8 %; HEMATOCRIT 45.4 % (42-52); IG% 0.3 %; LYMPH % 23.5 %; LYMPH ABS # 1.88 K/uL (1.2-3.4); MEAN CELL VOLUME 96.6 fL (80-100); MEAN CORPUSCULAR HGB CONC 34.1 g/dl (32-36); MEAN PLATELET VOLUME 11.2 fL (7.4-10.4); MONO % 10.6 %; NEUT % 62.3 %; PLATELET COUNT 197 K/uL (130-400); WHITE BLOOD COUNT 7.99 K/uL (4.8-10.8)
[2017-05-08 11:40] LABS: BLOOD UREA NITROGEN 18 mg/dl (7-18); CREATININE 0.83 mg/dl (0.60-1.40); GLUCOSE 121 mg/dl (70-99)
[2017-05-08 11:41] LABS: ALB/GLOB RATIO 1.1 (0.9-2); ALT/SGPT 53 U/L (12-78); AST/SGOT 18 U/L (15-37); CARBON DIOXIDE 26 mmol/L (21-32); CHLORIDE 108 mmol/L (98-107); CHOLESTEROL 181 mg/dl (0-200); POTASSIUM 4.7 mmol/L (3.5-5.1); SODIUM 138 mmol/L (136-145); TRIGLYCERIDES 201 mg/dl (0-150); URIC ACID 4.8 mg/dl (2.6-7.2); VERY LOW DENSITY LIPOPROT CALC 40 mg/dl
[2017-05-08 11:50] LABS: ALKALINE PHOSPHATASE 65 U/L (45-117); CHOLESTEROL/HDL RATIO 3.9; HDL CHOLESTEROL 46 mg/dl; LDL CHOLESTEROL CALCULATED 95 mg/dl; THYROID STIMULATING HORMONE 0.908 uIu/ml (0.300-4.500); TOTAL IRON BINDING CAPACITY 310 mcg/dl (250-450)
[2017-05-08 12:15] LABS: ESTIMATED AVERAGE GLUCOSE 131 mg/dl; HA1C FLAG Normal (Normal)
== END | disposition home or self-care (01) ==
LOC: C.LABBC 08:50
PROVIDERS: ATTEND Family Medicine
DX: R73.09 Other abnormal glucose (principal); E55.9 Vitamin D deficiency, unspecified; D51.9 Vitamin B12 deficiency anemia, unspecified; E78.9 Disorder of lipoprotein metabolism, unspecified; R53.83 Other fatigue

== ENCOUNTER 2017-05-28 18:40 | Emergency (ER) | payer BC ==
[~2017-05-28] VITALS: Ht 172.7 cm; Wt 91.6 kg
[2017-05-28 18:44] VITALS: TEMP 36.7; Ht 172.7 cm; Wt 91.6 kg
[2017-05-28] MEDS ORDERED: TRAMADOL HCL 50 MG TAB PO STA (19:14)
[2017-05-28] MEDS ORDERED: ACETAMINOPHEN 500 MG TAB PO STA (19:14)
--- NOTE | 2017-05-28 19:43 | DIAGNOSTIC IMAGING REPORT ---
LEFT TIBIA/FIBULA 2 VIEWS ROUTINE CLINICAL HISTORY: 71 years-old Male presenting with L leg pain, fall yesterday, history of fracture. TECHNIQUE: Frontal and lateral views of the left lower leg were obtained. COMPARISON: None. FINDINGS: Post traumatic deformity of the mid to distal fibular diaphysis, where there is a minimally evident fracture plane may be present. Suspected posttraumatic deformity of the medial malleolus. Ankle mortise and knee joint grossly intact. No malalignment. Diffuse subcutaneous edema noted. Prominent inferior calcaneal bone spur. IMPRESSION: Post traumatic deformities of the fibula and medial malleolus. Minimally evident fracture plane at the mid to distal fibular diaphysis. This may be chronic. Electronically signed by: Kaushik Yusuf M.D. 05/28/2017 7:42 PM Dictated Date/Time: 05/28/2017 7:39 PM
[2017-05-28] MEDS ORDERED: TRAM-10 PO (20:08)
--- NOTE | 2017-05-28 20:12 | EMERGENCY ROOM VISIT NOTE ---
ED Visit Note First contact with patient: 18:49 I have personally seen and evaluated the patient with the physician assistant analyst. I agree with the diagnostic/management decisions and have personally been involved in these decisions and agree with the diagnosis.
[2017-05-28] MEDS ORDERED: TRAMADOL HCL 50 MG HOME PACK PO ONE (20:15)
[2017-05-28 20:48] VITALS: BP 130/62; PULSE 61; O2SAT 95
--- NOTE | 2017-06-04 14:52 | EMERGENCY ROOM VISIT NOTE ---
History First contact with patient: 18:49 Chief Complaint: LEG PAIN,LEG INJURY Stated Complaint: L LEG PAIN History of Present Illness The patient is a 71 year old male who presents to the Emergency Room with complaints of an injury to his left leg yesterday morning while attempting to remove a mowing deck from a tractor. He reports that the deck fell against his left leg. 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 The patient is on chronic Keflex prophylactic antibiotics daily. Weightbearing worsens his pain to a 5 out of 10. The patient is also on Plavix and baby aspirin, and reports notable bruising of the leg. Tetanus immunization is up-to -date. 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 (12) Tonsillar abscess Surgical Problems: (1) S/P carotid endarterectomy Family History Unremarkable Social History Smoking Status: Never Smoker Drug Use: none Marital Status: Housing Status: lives with family Occupation Status: retired Current/Historical Medications Scheduled Acetamin/Butalbital/Caffeine (Fioricet), 1 TAB PO UD Atorvastatin (Lipitor), 10 MG PO HS Calcium/Vitamin D (Os-Mikel 500 Plus D), 1 TAB PO DAILY Carvedilol (Coreg), 6.25 MG PO BID Cephalexin Monohydrate (Keflex), 500 MG PO QAM Cholecalciferol (Vitamin D3), 1,000 UNIT PO QAM Clopidogrel Bisulfate (Clopidogrel), 75 MG PO QAM Dapagliflozin Propanediol (Farxiga), 5 MG PO QAM Fenofibrate (Tricor), 145 MG PO HS Fluvoxamine Maleate (Luvox), 100 MG PO BID Olmesartan Medoxomil (Benicar), 20 MG PO QPM Prednisone (Prednisone), 5 MG PO BID Sitagliptin Phosphate (Januvia), 100 MG PO QPM Topiramate (Trokendi Xr), 25 MG PO QAM Scheduled PRN Clonazepam (Klonopin), 1.5 TAB PO HS PRN for Sleep Hyoscyamine Sulfate (Levsin), 0.125 MG PO Q6 PRN for prn Melatonin-Pyridoxine (Melatin), 1 TAB PO HS PRN for Insomnia Omeprazole (Prilosec), 20 MG PO DAILY PRN for Indigestion Tramadol (Ultram), 50 MG PO Q4H PRN for Pain Tramadol (Ultram), 1 TAB PO Q4H PRN for Pain Physical Exam Vital Signs Date Time Temp Pulse Resp B/P (MAP) Pulse Ox O2 Delivery O2 Flow Rate FiO2 05/28/17 20:48 61 18 130/62 95 05/28/17 18:44 36.7 71 20 125/70 94 Room Air Physical Exam CONSTITUTIONAL: Healthy and well nourished. Alert and oriented X 3 with positive affect. HEENT: Normocephalic, atraumatic. Pupils equal, round and reactive. NECK: Full active range of motion without discomfort. MUSCULOSKELETAL: Examination of the left lower extremity shows notable edema, which the patient reports is also chronic. He also has notable ecchymosis and hematoma over the anterolateral leg. There are no lacerations. Patient has mild tenderness to palpation through the lateral ankle as well. He has no focal tenderness over the knee joint. Pedal pulses are intact. INTEGUMENTARY: No rash or other significant dermatologic conditions noted. NEUROLOGIC: Left foot and toes are grossly sensory intact. Medical Decision & Procedures ER Provider Diagnostic Interpretation: My interpretation of left tib-fib x-rays shows an old healed mid fibular fracture without any evidence for acute fracture or ankle subluxation/ dislocation. Radiologist report is as follows: LEFT TIBIA/FIBULA 2 VIEWS ROUTINE CLINICAL HISTORY: 71 years-old Male presenting with L leg pain, fall yesterday, history of fracture. TECHNIQUE: Frontal and lateral views of the left lower leg were obtained. COMPARISON: None. FINDINGS: Post traumatic deformity of the mid to distal fibular diaphysis, where there is a minimally evident fracture plane may be present. Suspected posttraumatic deformity of the medial malleolus. Ankle mortise and knee joint grossly intact. No malalignment. Diffuse subcutaneous edema noted. Prominent inferior calcaneal bone spur. IMPRESSION: Post traumatic deformities of the fibula and medial malleolus. Minimally evident fracture plane at the mid to distal fibular diaphysis. This may be chronic. Medications Administered Medications (Trade) Dose Ordered Sig/Tin Route Start Time Stop Time Status Last Admin Dose Admin Tramadol HCl (Ultram Tab) 50 mg ONE STAT PO 05/28/17 19:14 05/28/17 19:15 DC 05/28/17 19:22 50 MG Acetaminophen (Tylenol Tab) 1,000 mg NOW STAT PO 05/28/17 19:14 05/28/17 19:15 DC 05/28/17 19:21 1,000 MG Tramadol HCl (Ultram Home Pack) 1 homepack UD ONCE PO 05/28/17 20:15 05/28/17 20:20 DC 05/28/17 20:18 1 HOMEPACK ED Course Patient history and physical exam were performed. Nurse's notes were reviewed. Vital signs were reviewed and normal. The patient did request something for pain, reporting that he is sensitive to most narcotic analgesics. Review of the patient's prior medical history shows that he has taken tramadol in the past. The patient was dispensed Ultram 50 mg and Tylenol 1 g orally. X-rays of the left leg does not show any obvious acute fractures; however, there does appear to be a faint line a lucency through the patient's previous fibular fracture. Without having prior x-rays for comparison, I explained to the patient that he really should follow up with orthopedics for further reevaluation. In the meantime, the patient will be treated with a fracture boot. He was encouraged to take Tylenol for baseline pain relief. He was provided a prescription for Ultram as needed for breakthrough pain. He was instructed to follow-up with [facility] for further reevaluation and management. The patient was happy with plan of care, voiced understanding of all discharge instructions, and denied any significant discomfort at the time of discharge. The patient was also seen and examined by Dr. Flanagan, ED attending physician, who agrees with workup and plan of care. Medical Decision [place] Drug Monitoring Program Search Results: patient reviewed within database, no issues identified Medication Reconcilliation Current Medication List: was personally reviewed by me Blood Pressure Screening Patient's blood pressure: Normal blood pressure Impression Primary Impression: Traumatic hematoma of left lower leg Additional Impression: History of fibula fracture Departure Information Prescriptions Tramadol (Ultram) 50 Mg Tab 1 TAB PO Q4H Y for Pain, #20 TAB For Initial Treatment Prov: Dany Mendes PA 05/28/17 Referrals Wing William M.D. (PCP) Patient Instructions My [facility] Problem Qualifiers Primary Impression: Traumatic hematoma of left lower leg Encounter type: initial encounter Qualified Codes: S80.12XA - Contusion of left lower leg, initial encounter
== END 2017-05-28 20:51 | disposition home or self-care (01) ==
LOC: C.EDB 18:41 → C.EDD 20:51
DX: S80.12XA Contusion of left lower leg, initial encounter (principal); W22.8XXA Striking against or struck by other objects, initial encounter; Y93.89 Activity, other specified; Y99.8 Other external cause status; I10 Essential (primary) hypertension; E78.5 Hyperlipidemia, unspecified; F32.9 Major depressive disorder, single episode, unspecified; Z86.73 Personal history of transient ischemic attack (TIA), and cerebral infarction without residual deficits; Z98.890 Other specified postprocedural states; Z79.02 Long term (current) use of antithrombotics/antiplatelets; Z79.82 Long term (current) use of aspirin; Z79.899 Other long term (current) drug therapy

== ENCOUNTER → 2017-06-04 | Outpatient (CLI) | payer BC ==
--- NOTE | 2017-06-04 12:36 | DIAGNOSTIC IMAGING REPORT ---
BILATERAL LOWER EXTREMITY VENOUS DOPPLER HISTORY: Acute left lower extremity pain and swelling. LEFT LEG PAIN/SWELLING/INJURY COMPARISON STUDY: None. FINDINGS: There is normal compressibility, flow, and augmentation within the left lower extremity deep venous system. IMPRESSION: No sonographic evidence of deep venous thrombosis within the left lower extremity. Electronically signed by: Mitchel Anand M.D. 06/04/2017 12:35 PM Dictated Date/Time: 06/04/2017 12:34 PM
== END | disposition home or self-care (01) ==
LOC: C.ULTRBC 12:04
PROVIDERS: ATTEND Family Medicine
DX: M79.605 Pain in left leg (principal); M79.89 Other specified soft tissue disorders

== ENCOUNTER → 2017-10-28 | Outpatient (CLI) | payer BC ==
[~2017-10-28] MED LIST changes: +ATOR10TA82 PO; -ATOR10TA88 PO; -CEPH500C2 PO; -DAPA1TAB2 PO; +DAPA1TAB8 PO; -MELA1TAB7 PO; -TOPI1CAP PO; -TRAM-10 PO
[2017-10-28 10:57] LABS: BASO % 0.5 %; BASO ABS # 0.03 K/uL (0-0.2); EOS % 2.3 %; EOS ABS # 0.14 K/uL (0-0.5); HEMATOCRIT 45.6 % (42-52); HEMOGLOBIN 14.8 g/dL (14.0-18.0); IG# 0.02 K/uL (0.00-0.02); LYMPH % 25.9 %; LYMPH ABS # 1.59 K/uL (1.2-3.4); MEAN CELL VOLUME 97.2 fL (80-100); MEAN CORPUSCULAR HEMOGLOBIN 31.6 pg (25-34); MEAN CORPUSCULAR HGB CONC 32.5 g/dl (32-36); MEAN PLATELET VOLUME 10.9 fL (7.4-10.4); MONO % 12.8 %; MONO ABS # 0.79 K/uL (0.11-0.59); NEUT % 58.2 %; NEUT ABS # 3.58 K/uL (1.4-6.5); PLATELET COUNT 178 K/uL (130-400); RED CELL DISTRIBUTION WIDTH CV 13.6 % (11.5-14.5); RED CELL DISTRIBUTION WIDTH SD 47.8 fL (36.4-46.3); WHITE BLOOD COUNT 6.15 K/uL (4.8-10.8)
[2017-10-28 11:23] LABS: ALBUMIN 4.1 gm/dl (3.4-5.0); ALKALINE PHOSPHATASE 58 U/L (45-117); ALT/SGPT 47 U/L (12-78); AST/SGOT 21 U/L (15-37); BLOOD UREA NITROGEN 12 mg/dl (7-18); CALCIUM 9.1 mg/dl (8.5-10.1); CARBON DIOXIDE 24 mmol/L (21-32); CHOLESTEROL 191 mg/dl (0-200); CREATININE 0.91 mg/dl (0.60-1.40); GLUCOSE 138 mg/dl (70-99); LDL CHOLESTEROL CALCULATED 76 mg/dl; POTASSIUM 4.3 mmol/L (3.5-5.1); SODIUM 136 mmol/L (136-145); TOTAL PROTEIN 7.5 gm/dl (6.4-8.2); URIC ACID 3.8 mg/dl (2.6-7.2)
[2017-10-28 11:29] LABS: HEMOGLOBIN A1C 6.5 % (4.5-5.6)
[2017-10-28 11:33] LABS: TRANSFERRIN 238 mg/dl (200-360)
== END | disposition home or self-care (01) ==
LOC: C.LABBC 08:16
PROVIDERS: ATTEND Family Medicine
DX: E88.81 Metabolic syndrome and other insulin resistance (principal); E55.9 Vitamin D deficiency, unspecified; D51.9 Vitamin B12 deficiency anemia, unspecified; E78.9 Disorder of lipoprotein metabolism, unspecified; R53.83 Other fatigue

== ENCOUNTER → 2018-05-20 | Day surgery (SDC) | payer BC ==
[2018-05-14 09:17] VITALS: Ht 172.7 cm; Wt 90.9 kg
[~2018-05-20] VITALS: Ht 172.7 cm; Wt 90.9 kg
[~2018-05-20] MED LIST changes: +500ML BSS 0.3ML EPI 1:1000PF IRRIG ONE; +ACETAMINOPHEN 325 MG TAB PO PRN; +AMVISC PLUS 0.8ML SYRINGE INT OCU ONE; +ASPI81TA28 PO; +ATROPINE SULFATE 0.1 MG/ML 5ML SYR IV PRN; +AcetaZOLAMIDE 250 MG TAB PO SCH; +BETAXOLOL HCL 0.25% OP SUSP PER DROP CHARGE OPR SCH; +BNC/20 PO; +BRIMONIDINE TART 0.2% OP SOLN PER DROP CHARGE ONE; +BSS FLUSH ONE; -CALC500C70 PO; +CEPH500C2 PO; -CLON0.5T3 PO; +CLON0.5T9 PO; +CYAN100020 PO; +ENDOCOAT 0.85ML SYRINGE INT OCU ONE; +EpHEDrine SULFATE INJ 50 MG/ML AMP IV PRN; +EpINEphrine INJ 1MG/ML AMP 1 MG/ML AMP ONE; +FAMO1TAB48 PO; -FENO145T26 PO; -HYOS1TAB PO; +LACTATED RINGER'S 1000ML 500 ML IV SCH; +LIDOCAINE 4% OP SOLN DROP CHARGE ONE; +LIDOCAINE 4% OP SOLN DROP CHARGE OPR SCH; +LIDOCAINE HCL 1% MPF 2 ML VIAL ONE; +MIDAZOLAM HCL 1 MG/ML 2ML VIAL ONE; +MIX: 4ML BSS 1ML EPI 1:1000 PF INSTIL ONE; +MOXIFLOXACIN OPH SOLN PER DROP CHARGE ONE; +OCUCOAT 1 ML SOLN IO ONE; -OLME1TAB11 PO; +POVIDONE-IODINE OP SOLN 30 ML BTL ONE; -PRLSR20 PO; +PROPARACAINE 0.5% OP SOLN PER DROP CHARGE OPR SCH; +TOBRAMYCIN/DEXAMETHASONE OPH OINT PER APPLN CHARGE ONE
[2018-05-20] MEDS: PHENYLEPHRINE HCL 2.5% OP SOLN PER DROP CHARGE OPR SCH ×2 (06:44→06:49)
[2018-05-20] MEDS: TROPICAMIDE 1% OP SOLN PER DROP CHARGE OPR SCH ×2 (06:45→06:50)
[2018-05-20] MEDS: CYCLOPENTOLATE HCL 1% OP SOLN PER DROP CHARGE OPR SCH ×2 (06:46→06:51)
[2018-05-20] MEDS: MOXIFLOXACIN OPH SOLN PER DROP CHARGE OPR SCH ×2 (06:47→06:57)
--- NOTE | 2018-05-20 07:35 | [facility] Operative Report ---
Operative Report Date of Service May 20, 2018. Operative Report 1. PREOPERATIVE DIAGNOSIS: Senile nuclear cataract, right eye. 2. POSTOPERATIVE DIAGNOSIS: Senile nuclear cataract, right eye. 3. PROCEDURE: Phacoemulsification of right cataract with posterior chamber lens implant, type [employer], model MX60E, power +23.0 diopters. ANESTHESIA: Local standby. SURGEON: Dr. Nolan. COMPLICATIONS: None. OPERATING TIME: 10 minutes. 4. OPERATION AND FINDINGS: DESCRIPTION OF PROCEDURE: The right pupil was dilated. The anesthetic was administered using a topical technique. The righ eye was prepped and draped. A speculum was placed. A clear corneal incision was formed. The chamber was filled with Amvisc Plus and Endocoat. Epinephrine solution was used. A paracentesis was placed. A capsulorrhexis was performed. The nucleus was hydrodissected. The lens was removed with phacoemulsification. Time was 3.06 seconds. The aspiration unit was used to remove the cortex. The capsule was filled with Amvisc Plus. The lens implant was folded and placed into the capsule. The incision was hydrated. The Amvisc was aspirated. The wound was secure. The chamber was deep. The pupil was round. Brimonidine, TobraDex ointment and Vigamox solution were placed. The speculum was removed. The patient was returned to the Recovery Room in stable condition. I attest to the content of the Intraoperative Record and any orders documented therein. Any exceptions are noted below. The scribe's documentation has been prepared in my presence, under my direction and personally reviewed by me in its entirety. I confirm that the note above accurately reflects all work, treatment, procedures, and medical decision making performed by me. I personally scribed for Anthony Nolan M.D. ([email or web address]) on 05/20/18 at 07:35. Electronically submitted by Mary Jane Green ([email or web address]).
--- NOTE | 2018-05-20 07:39 | Discharge Instructions-SurgCtr ---
Discharge Instructions Date of Service May 20, 2018. Visit Reason for Visit: Cataract Right Eye Discharge Discharge Diagnosis / Problem: lens implant right eye Discharge Goals Goal(s): Improve function Activity Recommendations Activity Limitations: resume your previous activity Lifting Limitations: no more than 10 pounds Exercise/Sports Limitations: gradually increase as tolerated May Resume Sexual Activity: when tolerated Shower/Bathe: tomorrow Driving or Machine Use: resume 1 day after discharge Anesthesia . Post Anesthesia Instructions: If you have had General Anesthesia or IV Sedation: * Do not drive today. * Resume driving when surgeon permits. * Do not make important decisions or sign legal documents today. * Call surgeon for: 1. Temperature elevations greater than 101 degrees F. 2. Uncontrollable pain. 3. Excessive bleeding. 4. Persistent nausea and vomiting. 5. Medication intolerance (nausea, vomiting or rash). * For nausea and vomiting use only clear liquids such as: tea, soda, bouillon until nausea subsides, then gradually increase diet as tolerated. * If you have any concerns or questions, call your surgeon's office. If physician is unavailable and it is an emergency, call 911 or go to the nearest emergency room. . Instructions / Follow-Up Instructions / Follow-Up ACTIVITY RECOMMENDATIONS: * Light activities. * Mild irritation and blurred vision are common for the first few days. * You may walk outside, read, watch television. * Redness around the white part of the eye is common. MEDICATIONS: Resume previous medications unless instructed otherwise by your surgeon. * Take white Diamox (Acetazolamide) tablet at 1 pm today. Start all eye drops at 1 pm today: * Eye drops (today and tomorrow): Prednisone - one drop in operative eye every 3 hours while awake Ofloxacin - one drop in operative eye every 3 hours while awake SPECIAL CARE INSTRUCTIONS: * Tape plastic shield over eye to sleep at night. Call your doctor at with any concerns or problems. FOLLOW UP VISIT: Follow-up with Dr Nolan at [facility] as scheduled. Diet Recommendations Home Diet: no limitations Procedures Procedures Performed: Right Cataract Phacoemulsification With Intraocular Lens Implant Pending Studies Studies pending at discharge: no Medical Emergencies . Who to Call and When: Medical Emergencies: If at any time you feel your situation is an emergency, please call 911 immediately. . Non-Emergent Contact Non-Emergency issues call your: Skin Installer Call Non-Emergent contact if: your pain is not controlled [phone] . . "Provider Documentation" section prepared by Anthony Nolan. .
--- NOTE | 2018-05-20 07:39 | Anesthesia Progress Nt - [facility] ---
Anesthesia Post Op Note Date & Time May 20, 2018 at 07:39 Vital Signs Pain Intensity: 0 Vital Signs Past 12 Hours Date Time Temp Pulse Resp B/P (MAP) Pulse Ox O2 Delivery O2 Flow Rate FiO2 05/20/18 06:34 36.5 67 18 137/73 (94) 94 Room Air Notes Mental Status: alert / awake / arousable, participated in evaluation Pt Amnestic to Procedure: Yes Nausea / Vomiting: adequately controlled Pain: adequately controlled Airway Patency, RR, SpO2: stable & adequate BP & HR: stable & adequate Hydration State: stable & adequate Anesthetic Complications: no major complications apparent
[2018-05-20 07:40] VITALS: TEMP 36.8
[2018-05-20 08:03] VITALS: BP 117/64; PULSE 56; O2SAT 94
== END | disposition home or self-care (01) ==
LOC: X.SURG 06:16
PROVIDERS: ATTEND Specialist
DX: E11.36 Type 2 diabetes mellitus with diabetic cataract (principal); H25.11 Age-related nuclear cataract, right eye; I10 Essential (primary) hypertension; J44.9 Chronic obstructive pulmonary disease, unspecified; Z86.73 Personal history of transient ischemic attack (TIA), and cerebral infarction without residual deficits; I25.10 Atherosclerotic heart disease of native coronary artery without angina pectoris; F17.200 Nicotine dependence, unspecified, uncomplicated; Z91.040 Latex allergy status; Z88.5 Allergy status to narcotic agent; Z79.82 Long term (current) use of aspirin; Z79.899 Other long term (current) drug therapy; Z79.02 Long term (current) use of antithrombotics/antiplatelets; Z79.01 Long term (current) use of anticoagulants

== ENCOUNTER 2024-03-10 17:07 | Observation (INO) ==
[2024-03-10 17:54] LABS: Basophils # (auto) 0.05 K/uL (0.00-0.20); Basophils % (auto) 0.7 %; Eosinophils # (auto) 0.06 K/uL (0.00-0.50); Eosinophils % (auto) 0.9 %; Hematocrit (blood only) 42.2 % (42.0-52.0); Hemoglobin 13.5 g/dl (14.0-18.0); Immature Granulocytes # (auto) 0.04 K/uL (0.01-0.20); Immature Granulocytes % (auto) 0.6 %; Lymphocytes # (auto) 1.19 K/uL (1.20-3.40); Lymphocytes % (auto) 17.6 %; Mean Corpuscular Hemoglobin 29.5 pg (25.0-34.0); Mean Corpuscular Volume 92.1 fL (80.0-100.0); Mean Platelet Volume 10.3 fL (9.4-12.4); Monocytes # (auto) 0.46 K/uL (0.11-0.59); Monocytes % (auto) 6.8 %; Neutrophils # (auto) 4.98 K/uL (1.40-6.50); Neutrophils % (auto) 73.4 %; Platelet Count 212 K/uL (130-400); RDW Coefficient of Variation 14.6 % (11.5-14.5); RDW Standard Deviation 49.2 fL (36.4-46.3); Red Blood Count 4.58 M/uL (4.70-6.10); White Blood Count 6.78 K/ul (4.8-10.8)
--- NOTE | 2024-03-10 18:17 | XRay Report ---
XR chest 1V not portable CLINICAL HISTORY: weakness TECHNIQUE: Single frontal radiograph of the chest was obtained. Comparison: Comparison is made to rib series 04/15/2022 FINDINGS: No lines and tubes are seen. Calcified aortic knob is seen. The lungs are clear. There is blunting of the left costophrenic angle. IMPRESSION: Blunting of the left costophrenic angle may represent trace effusion or scarring. Otherwise no acute abnormality. ACT 112: Negative or not required by law. Electronically signed by: Rolan Campbell M.D. 03/10/2024 6:14 PM
[2024-03-10 18:33] LABS: Alanine Aminotransferase 15 U/L (7-52); Albumin Globulin Ratio 1.5 (0.9-2); Albumin Level 4.7 gm/dl (3.4-5.0); Alkaline Phosphatase 56 U/L (34-104); BUN Creatinine Ratio 15.8 (10-20); Bilirubin,Total 0.3 mg/dl (0.2-1.0); Blood Urea Nitrogen 16 mg/dl (6-23); Calcium 9.7 mg/dl (8.6-10.3); Carbon Dioxide 27 mmol/L (21-32); Chloride 104 mmol/L (98-107); Est GFR (African American) 82.8 ml/min; Est GFR (Non-African American) 71.4 ml/min; Globulin 3.2 gm/dl (2.5-4.0); Glucose 104 mg/dl (70-99(Fasting)); Thyroid Stimulating Hormone 0.995 uIu/ml (0.300-4.500); Total Protein 7.9 gm/dl (6.0-8.3); Troponin I High Sensitivity 4.9 pg/ml (0-20)
[2024-03-10 19:36] LABS: Appearance Urine Clear (Clear); Bilirubin Urine Negative (Negative); Blood Urine Negative (Negative); Color Urine Yellow; Glucose Urine UA 2+ (Negative); Ketones Urine Negative (Negative); Leukocyte Esterase Urine Negative (Negative); Nitrite Urine Negative (Negative); Protein Urine Negative (Negative); Specific Gravity Urine 1.013 (1.000-1.030); Urobilinogen Urine Negative (Negative); pH Urine 8.5 (4.5-7.5)
[2024-03-10 20:10] LABS: Potassium 5.7 mmol/L (3.5-5.1)
--- NOTE | 2024-03-10 20:38 | CT Scan Report ---
CT head/brain wo con CLINICAL HISTORY: weakness, unable to walk Technique: Contiguous axial CT images of the head were acquired from the base of the skull to the floridalma bro without intravenous contrast administration. Images were viewed in brain, subdural and bone [place]. Automated dose lowering techniques and/or adjustment according to patient size were utilized for this exam. Comparison: None available at the time of this dictation. Findings: The ventricles, basal cisterns, and cerebral sulci are normal. There is no acute intracranial hemorrh age or evidence of acute territorial infarction. Neither mass effect, shift of the midline structures , nor abnormal extra-axial fluid collections are shown. Encephalomalacia in the left posterior water shed is unchanged. Mucous retention cysts are seen in the left maxillary sinus. The orbits appear normal. There are no a cute fractures of the calvaria or scalp swelling. Impression: No acute intracranial hemorrhage, no evidence of acute territorial infarction or other acute intracra nial disease process. ACT 112: Negative or not required by law. Electronically signed by: Rolan Campbell M.D. 03/10/2024 8:36 PM
[2024-03-10] MEDS: SODIUM CHLORIDE 0.9% 1,000 ML IV SCH (20:56)
--- NOTE | 2024-03-10 22:37 | Emergency Department Note ---
Impression & Plan Stroke-like symptoms, Fall, Generalized muscle weakness ED Provider Note CHIEF COMPLAINT: Weakness HISTORY OF PRESENT ILLNESS: This 78-year-old male patient past medical history stroke, GERD, lumbar disc disease, polymyalgia, type 2 diabetes, hypertension, tobacco smoking presents to the emergency department with complaints of generalized weakness. The patient states he was outside working for most of the day yesterday, today was "exhausted." His states he could not really get up without assistance. She noticed that he was stumbling more than usual. He admits that his stroke 8 years ago left him with some difficulty turning quickly and he will lose his balance periodically. His grandson thought that his eyes were "going in different directions" and maybe he had a facial droop. Family called the ambulance for evaluation. Patient denies any pain, visual changes, speech deficits. He states he is quite fatigued and dizzy. His daughter at the bedside is concerned that perhaps he is dehydrated. REVIEW OF SYSTEMS: A review of systems was performed with positives and pertinent negatives listed in the history of present illness. 10 systems were reviewed and are otherwise negative. ALLERGIES: see below MEDICATIONS: see below PMH: see below SOCIAL HISTORY: see below DDx: Stroke, intracranial hemorrhage, dehydration, hyponatremia, UTI, pneumonia, acute coronary syndrome among others. PHYSICAL EXAM: Vital signs reviewed. General: Generally well-appearing 78-year-old male, somnolent but arousable, in no significant distress. HEENT: No scleral icterus, PERRLA, neck supple. Atraumatic. moist mucous membranes. Cardiovascular: Regular rate and rhythm, no extra sounds. Pulmonary: Clear to auscultation bilaterally, normal work of breathing. Abdomen: Soft, nontender, nondistended, positive bowel sounds. Musculoskeletal: Atraumatic, no peripheral edema. Neurologic: Patient awake alert and oriented x 3, speech is clear. Equal meter and service line inspector strength in all 4 extremities, cranial nerves II through XII are grossly intact. Skin: Warm, dry, no rash EMERGENCY DEPARTMENT COURSE/MDM: This patient was evaluated and appeared to be in no significant distress. IV access was obtained and laboratory work was drawn. The patient was placed on monitoring analyst and noted to be in a sinus bradycardia. Head CT was performed and reveals an old stroke with encephalomalacia, chest x-ray is largely clear with a possible trace left pleural effusion. EKG reveals a sinus bradycardia with normal ST segments, no sign of acute ischemia. Patient's neurologic exam is largely negative however an ambulatory trial was performed and per nursing staff the patient stumbled and nearly fell into the bathroom door. He and his state that he has some difficulty with sudden turns and ambulation since his stroke however I do feel it is in the patient's best interest to be monitored in the hospital and likely have further testing. The hospitalist service was consulted for admission and further management. Patient and agree. MONITORING: An order for cardiac monitoring was placed and the patient is noted to be in a sinus bradycardia 48 beats per minute. RADIOLOGY: chest x-ray:Blunting of the left costophrenic angle may represent trace effusion or scarring. Otherwise no acute abnormality. Head CT per radiology reveals evidence of prior stroke with encephalomalacia but no evidence of acute process. EKG: To my interpretation reveals a sinus bradycardia at [address] segments. No PVC, no PAC. QTc is 364. DISPOSITION: Admission Past Med/Surg History Problem List (Updated 03/12/24 @ 12:15 by Adela Fernandez MD) Generalized muscle weakness (Acute) Fall (Acute) Stroke-like symptoms (Acute) Stroke-like symptoms Rash Impacted cerumen, bilateral Sinusitis Rotator cuff syndrome Gait instability Chronic daily headache Stroke GERD (gastroesophageal reflux disease) Mood disorder Restless leg syndrome Lumbar disc disease with radiculopathy Polymyalgia Diabetes mellitus, type 2 Mixed hyperlipidemia Hypertension Carpal tunnel syndrome, right Ulnar neuropathy at elbow of right upper extremity Tobacco abuse, episodic Nocturnal hypoxemia Depression 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 Migraine MIGRANES AND CLUSTER HEADACHES S/T SKULL FX A CHILD. Murmur, cardiac MONITORED BY PCP Stroke HX OF 02/04/17, SOME RESIDUAL WEAKNESS IN RT ARM, SHORT TERM MEMORY LOSS, UNSTEADY GAID, FOLLOWS WITH DR. ONEAL. Chronic steroid use Hyperlipidemia GERD (gastroesophageal reflux disease) Anxiety Osteoarthritis Tonsillar abscess History of fibula fracture History of CVA (cerebrovascular accident) Airway compromise Surgical History History of nasal septoplasty THROAT/NOSE SURGERY History of carpal tunnel release History of herniorrhaphy UMBILICAL HERNIA REPAIR History of cholecystectomy History of carotid endarterectomy LEFT Family History Mother Gallbladder cancer Father Diabetes Stroke Brother Leukemia Sister Epilepsia Aneurysm of gastric artery Liver disease Social History Smoking Status: Current some day smoker Tobacco Type: Cigarettes Age Started Using Tobacco: 20; Cigarettes Per Day: 10; Second Hand Exposure: No; Do You Dip or Chew Tobacco: No; Hx Alcohol Use: Yes Alcohol type: beer Hx Substance Use: No Preferred Language: [place] Communication Ability: Effective Visual Impairment: Diminished Hearing Ability: Normal Nonprofit Fundraiser Required: No Beliefs That Will Affect Care: None marital status: Current Living Situation: Spouse Current Living Situation Comment: With spouse, children and grandchildren nearby current occupational status: retired How many Children do You have: 2 Feels Safe at Home: Yes Childhood Exposure to Second-Hand Smoke: Yes Diet: regular caffeine: No Dental Care, Regularly: Yes Physical Activity Frequency: Does not Exercise Physical Activity Frequency Comment: active lifestyle Seatbelt Use: always Sunscreen Use: No Do you think of yourself as: straight/heterosexual Assistive Devices: Walker Allergies Allergies Allergy/AdvReac Type Severity Reaction Status Date / Time latex Allergy Mild CONTACT Verified 02/16/24 16:24 DERMATITIS oxycodone AdvReac Severe GI SYMPTOMS Verified 02/16/24 16:24 Home Meds Home Medications Medication Instructions Recorded Confirmed cyanocobalamin (vitamin B-12) 1,000 mcg PO NOON ##0 05/14/18 03/10/24 1,000 mcg capsule cholecalciferol (vitamin D3) 25 25 mcg PO DAILY 11/16/21 03/10/24 mcg (1,000 unit) capsule aspirin 81 mg chewable tablet 81 mg PO DAILY 03/10/24 03/10/24 [id number] 2 tab PO Q4H PRN headaches 03/10/24 03/10/24 50 mg-325 mg-40 mg tablet prednisone 5 mg tablet 10 mg PO BID 03/10/24 03/10/24 Previous Rx's Medication Instructions Recorded Wheeled Walker #1 ea 06/25/22 omeprazole 20 mg capsule,delayed 20 mg PO DAILY #90 caps 05/01/23 release atorvastatin 10 mg tablet 10 mg PO DAILY #90 tabs 07/29/23 cephalexin 500 mg capsule 500 mg PO DAILY #60 caps 07/29/23 canagliflozin 300 mg tablet 300 mg PO DAILY #90 tabs 08/01/23 (Invokana) famotidine 40 mg tablet 40 mg PO 1200 #90 tabs 08/01/23 metformin 500 mg tablet 500 mg PO DAILY #90 tabs 08/07/23 fluvoxamine 100 mg tablet 100 mg PO TID #90 tabs 09/23/23 tramadol 50 mg tablet 50 mg PO Q6H PRN pain #120 tabs 12/02/23 clopidogrel 75 mg tablet 75 mg PO DAILY #90 tabs 01/15/24 valsartan 160 mg tablet 160 mg PO DAILY #90 tabs 02/06/24 clonazepam 0.5 mg tablet 1 mg (2 x 0.5 mg) PO HS PRN 02/16/24 Anxiety/sleep #180 tabs Results & Data (ED) Vital Signs Vital Signs - 24 hr 03/10/24 17:18 03/10/24 19:24 03/10/24 19:36 Temperature 36.6 C Temperature Source Skin Pulse Rate 50 L 45 L Pulse Rate [Apical] Pulse Rhythm Pulse Rhythm [Apical] Pulse Strength [Apical] Respiratory Rate 16 Respiratory Effort / Characteristics Non-Labored Spontaneous Respiratory Depth Normal Respiratory Pattern Blood Pressure 144/66 H Blood Pressure [Left Arm] Blood Pressure Mean 92 Blood Pressure Mean [Left Arm] Pulse Oximetry 98 98 Oxygen Delivery Method Room Air Room Air Sepsis Recent Fever Within 48 Hours No Sepsis New/Unexplained Change in Mental Status No Sepsis Action Taken by Nursing No Action Required 03/10/24 19:36 03/10/24 19:36 Temperature Temperature Source Pulse Rate 48 L Pulse Rate [Apical] 48 L Pulse Rhythm Regular Pulse Rhythm [Apical] Regular Pulse Strength [Apical] Normal Respiratory Rate 18 18 Respiratory Effort / Characteristics Non-Labored Spontaneous Respiratory Depth Normal Respiratory Pattern Regular Blood Pressure Blood Pressure [Left Arm] 143/62 H Blood Pressure Mean Blood Pressure Mean [Left Arm] 89 Pulse Oximetry 98 98 Oxygen Delivery Method Room Air Room Air Sepsis Recent Fever Within 48 Hours Sepsis New/Unexplained Change in Mental Status Sepsis Action Taken by [facility] Medications Current Medication List: was personally reviewed by me Laboratory Data Attestation: I reviewed the patient's lab results. 03/11/24 07:05 03/11/24 07:05 Lab Results 03/10/24 03/10/24 03/10/24 Range/Units 17:37 18:31 19:00 WBC 6.78 (4.8-10.8) K/ul RBC 4.58 L (4.70-6.10) M/uL Hgb 13.5 L (14.0-18.0) g/dl Hct 42.2 (42.0-52.0) % MCV 92.1 (80.0-100.0) fL MCH 29.5 (25.0-34.0) pg MCHC 32.0 (32.0-36.0) g/dL RDW Std Deviation 49.2 H (36.4-46.3) fL RDW Coeff of Chandrakant 14.6 H (11.5-14.5) % Plt Count 212 (130-400) K/uL MPV 10.3 (9.4-12.4) fL Immature Gran % (Auto) 0.6 % Neut % (Auto) 73.4 % Lymph % (Auto) 17.6 % Dougherty % (Auto) 6.8 % Eos % (Auto) 0.9 % Baso % (Auto) 0.7 % Neut # (Auto) 4.98 (1.40-6.50) K/uL Lymph # (Auto) 1.19 L (1.20-3.40) K/uL Dougherty # (Auto) 0.46 (0.11-0.59) K/uL Eos # (Auto) 0.06 (0.00-0.50) K/uL Baso # (Auto) 0.05 (0.00-0.20) K/uL Immature Gran # (Auto) 0.04 (0.01-0.20) K/uL Sodium TNP 136 Potassium TNP 5.7 H Chloride 104 (98-107) mmol/L Carbon Dioxide 27 (21-32) mmol/L Anion Gap TNP BUN 16 (6-23) mg/dl Creatinine 1.01 (0.6-1.4) mg/dl Est Cr Clr Drug Dosing Not Reportable Est GFR ( Amer) 82.8 ml/min Est GFR (Non-Af Amer) 71.4 ml/min BUN/Creatinine Ratio 15.8 (10-20) Glucose 104 H (70-99(Fasting)) mg/dl Calcium 9.7 (8.6-10.3) mg/dl Total Bilirubin 0.3 (0.2-1.0) mg/dl AST TNP 13 ALT 15 (7-52) U/L Alkaline Phosphatase 56 (34-104) U/L Total Creatine Kinase 66 (30-223) U/L Troponin I High Sens 4.9 (0-20) pg/ml C-Reactive Protein (0-0.5) mg/dl Total Protein 7.9 (6.0-8.3) gm/dl Albumin 4.7 (3.4-5.0) gm/dl Globulin 3.2 (2.5-4.0) gm/dl Albumin/Globulin Ratio 1.5 (0.9-2) Procalcitonin (0-0.5) ng/ml TSH 0.995 (0.300-4.500) uIu/ml Urine Color Yellow Urine Appearance Clear (Clear) Urine pH 8.5 H (4.5-7.5) Ur Specific [place] 1.013 (1.000-1.030) Urine Protein Negative (Negative) Urine Glucose (UA) 2+ H (Negative) Urine Ketones Negative (Negative) Urine Blood Negative (Negative) Urine Nitrite Negative (Negative) Urine Bilirubin Negative (Negative) Urine Urobilinogen Negative (Negative) Ur Leukocyte Esterase Negative (Negative) Anaplasma Smear Babesia Smear Lyme Disease Screen (Negative) 03/10/24 Range/Units 23:43 WBC (4.8-10.8) K/ul RBC (4.70-6.10) M/uL Hgb (14.0-18.0) g/dl Hct (42.0-52.0) % MCV (80.0-100.0) fL MCH (25.0-34.0) pg MCHC (32.0-36.0) g/dL RDW Std Deviation (36.4-46.3) fL RDW Coeff of Chandrakant (11.5-14.5) % Plt Count (130-400) K/uL MPV (9.4-12.4) fL Immature Gran % (Auto) % Neut % (Auto) % Lymph % (Auto) % Doug[place] % (Auto) % Eos % (Auto) % Baso % (Auto) % Neut # (Auto) (1.40-6.50) K/uL Lymph # (Auto) (1.20-3.40) K/uL [place] # (Auto) (0.11-0.59) K/uL Eos # (Auto) (0.00-0.50) K/uL Baso # (Auto) (0.00-0.20) K/uL Immature Gran # (Auto) (0.01-0.20) K/uL Sodium 136 Potassium 5.0 Chloride 104 (98-107) mmol/L Carbon Dioxide 25 (21-32) mmol/L Anion Gap 7 BUN 17 (6-23) mg/dl Creatinine 0.93 (0.6-1.4) mg/dl Est Cr Clr Drug Dosing 64.4 Est GFR ( Amer) 91.5 ml/min Est GFR (Non-Af Amer) 78.9 ml/min BUN/Creatinine Ratio 18.3 (10-20) Glucose 87 (70-99(Fasting)) mg/dl Calcium 9.5 (8.6-10.3) mg/dl Total Bilirubin (0.2-1.0) mg/dl AST ALT (7-52) U/L Alkaline Phosphatase (34-104) U/L Total Creatine Kinase (30-223) U/L Troponin I High Sens (0-20) pg/ml C-Reactive Protein < 0.50 (0-0.5) mg/dl Total Protein (6.0-8.3) gm/dl Albumin (3.4-5.0) gm/dl Globulin (2.5-4.0) gm/dl Albumin/Globulin Ratio (0.9-2) Procalcitonin < 0.02 (0-0.5) ng/ml TSH (0.300-4.500) uIu/ml Urine Color Urine Appearance (Clear) Urine pH (4.5-7.5) Ur Specific [place] (1.000-1.030) Urine Protein (Negative) Urine Glucose (UA) (Negative) Urine Ketones (Negative) Urine Blood (Negative) Urine Nitrite (Negative) Urine Bilirubin (Negative) Urine Urobilinogen (Negative) Ur Leukocyte Esterase (Negative) Anaplasma Smear See Comment Babesia Smear See Comment Lyme Disease Screen Negative (Negative) Administered Medications Acetaminophen (Acetaminophen 500 Mg Tab) 1,000 mg PO Q8H PRN PRN Reason: Pain or Fever Stop: 04/09/24 23:48 Last Admin: 03/11/24 02:03 Dose: 1,000 mg Documented By: AZALIA Acetaminophen/Butalbital/Caffeine (Butalbital/Acetamin/Caffeine Tab) 2 tab PO Q4H PRN PRN Reason: headaches Stop: 04/10/24 02:23 Last Admin: 03/11/24 08:33 Dose: 2 tab Documented By: MELANIE Aspirin (Aspirin 81 Mg Chew) 81 mg PO DAILY [facility] Stop: 04/10/24 08:59 Last Admin: 03/12/24 08:16 Dose: 81 mg Documented By: Admin: 03/11/24 08:34 Dose: 81 mg Documented By: MELANIE Atorvastatin Calcium (Atorvastatin 10 Mg Tab) 10 mg PO DAILY [facility] Stop: 04/10/24 08:59 Last Admin: 03/12/24 08:17 Dose: 10 mg Documented By: Admin: 03/11/24 08:34 Dose: 10 mg Documented By: MELANIE Cephalexin HCl (Cephalexin 500 Mg Cap) 500 mg PO DAILY [facility]; Protocol Stop: 04/10/24 08:59 Last Admin: 03/12/24 08:17 Dose: 500 mg Documented By: Admin: 03/11/24 08:34 Dose: 500 mg Documented By: MELANIE Clopidogrel Bisulfate (Clopidogrel Bisulfate 75 Mg Tab) 75 mg PO DAILY [facility] Stop: 04/10/24 08:59 Last Admin: 03/12/24 08:17 Dose: 75 mg Documented By: Admin: 03/11/24 08:34 Dose: 75 mg Documented By: MELANIE Doxycycline Hyclate (Doxycycline Hyclate 100 Mg Cap) 100 mg PO BID [facility] Stop: 03/25/24 08:59 Last Admin: 03/12/24 08:56 Dose: 100 mg Documented By: Admin: 03/11/24 20:21 Dose: 100 mg Documented By: Admin: 03/11/24 08:34 Dose: 100 mg Documented By: MELANIE Famotidine (Famotidine 40 Mg Tablet) 40 mg PO DAILY@1200 [facility] Stop: 04/10/24 11:59 Last Admin: 03/12/24 10:56 Dose: 40 mg Documented By: Admin: 03/11/24 13:10 Dose: 40 mg Documented By: YAYOK Fluvoxamine Maleate (Fluvoxamine Maleate 50 Mg Tab) 100 mg PO TID KATIE Stop: 04/10/24 08:59 Last Admin: 03/12/24 08:16 Dose: 100 mg Documented By: Admin: 03/11/24 20:21 Dose: 100 mg Documented By: Admin: 03/11/24 13:10 Dose: 100 mg Documented By: Admin: 03/11/24 08:33 Dose: 100 mg Documented By: MELANIE Insulin Aspart (Insulin Aspart Per Unit Charge) 0 units SC ACHS [facility] Stop: 04/10/24 07:29 Last Admin: 03/12/24 08:50 Dose: Not Given Documented By: Admin: 03/11/24 21:16 Dose: Not Given Documented By: Admin: 03/11/24 18:08 Dose: Not Given Documented By: Admin: 03/11/24 13:57 Dose: 2 units Documented By: JOEY Co-signed By: HAIR Admin: 03/11/24 10:10 Dose: 3 units Documented By: MELANIE Co-signed By: WINSTON Pantoprazole Sodium (Pantoprazole 40 Mg Tab) 40 mg PO DAILY [facility] Stop: 04/10/24 08:59 Last Admin: 03/12/24 08:16 Dose: 40 mg Documented By: Admin: 03/11/24 08:33 Dose: 40 mg Documented By: YAYOK Polyethylene Glycol (Polyethylene (Miralax) 17 Gm Pack) 17 gm PO DAILY [facility] Stop: 04/10/24 08:59 Last Admin: 03/12/24 08:17 Dose: 17 gm Documented By: Admin: 03/11/24 08:38 Dose: Not Given Documented By: MELANIE Prednisone (Prednisone 20 Mg Tab) 20 mg PO BIDM [facility] Stop: 04/10/24 07:59 Last Admin: 03/12/24 08:16 Dose: 20 mg Documented By: Admin: 03/11/24 17:09 Dose: 20 mg Documented By: Admin: 03/11/24 08:34 Dose: 20 mg Documented By: MELANIE Discontinued Medications Doxycycline Hyclate (Doxycycline Hyclate 100 Mg Cap) 100 mg PO NOW STA Stop: 03/11/24 01:12 Last Admin: 03/11/24 02:03 Dose: 100 mg Documented By: AZALIA Gadobutrol (Gadobutrol 65ml Vial) 7.5 ml IV ONCE ONE Stop: 03/10/24 23:13 Last Admin: 03/10/24 23:12 Dose: 7.5 ml Documented By: ADRIANNE Sodium Chloride (Nss) 1,000 mls @ 125 mls/hr IV .Q8H KATIE Stop: 03/11/24 20:44 Last Infusion: 03/11/24 15:55 Dose: Infused Documented By: Admin: 03/11/24 15:42 Dose: Not Given Documented By: Admin: 03/11/24 07:45 Dose: 125 mls/hr Documented By: Infusion: 03/11/24 07:45 Dose: Infused Documented By: Infusion: 03/11/24 04:44 Dose: 125 mls/hr Documented By: Admin: 03/10/24 20:56 Dose: 125 mls/hr Documented By: KIANA Prednisone (Prednisone 20 Mg Tab) 20 mg PO NOW STA Stop: 03/11/24 02:35 Last Admin: 03/11/24 02:44 Dose: 20 mg Documented By: AZALIA Imaging Data Radiologist's Impression: Chest X-Ray 03/10/24 17:26 XR chest 1V not portable CLINICAL HISTORY: weakness TECHNIQUE: Single frontal radiograph of the chest was obtained. Comparison: Comparison is made to rib series 04/15/2022 FINDINGS: No lines and tubes are seen. Calcified aortic knob is seen. The lungs are clear. There is blunting of the left costophrenic angle. IMPRESSION: Blunting of the left costophrenic angle may represent trace effusion or scarring. Otherwise no acute abnormality. ACT 112: Negative or not required by law. Electronically signed by: Rolan Campbell M.D. 03/10/2024 6:[address] 03/10/24 18:37 CT head/brain wo con CLINICAL HISTORY: weakness, unable to walk Technique: Contiguous axial CT images of the head were acquired from the base of the skull to the vertex without intravenous contrast administration. Images were viewed in brain, subdural and bone windows. Automated dose lowering techniques and/or adjustment according to patient size were utilized for this exam. Comparison: None available at the time of this dictation. Findings: The ventricles, basal cisterns, and cerebral sulci are normal. There is no acute intracranial hemorrhage or evidence of acute territorial infarction. Neither mass effect, shift of the midline structures, nor abnormal extra-axial fluid collections are shown. Encephalomalacia in the left posterior watershed is unchanged. Mucous retention cysts are seen in the left maxillary sinus. The orbits appear normal. There are no acute fractures of the calvaria or scalp swelling. Impression: No acute intracranial hemorrhage, no evidence of acute territorial infarction or other acute intracranial disease process. ACT 112: Negative or not required by law. Electronically signed by: Rolan Campbell M.D. 03/10/2024 8:36 PM Discharge Plan Visit Data Chief Complaint: Weakness Stated Complaint: WEAKNESS, FALL ED Provider: Adela Fernandez Discharge Problem: Stroke-like symptoms, Fall, Generalized muscle weakness Patient Disposition: Admitted As Inpatient Discharge Instructions Interventions: ED Discharge Assessment Last Done: 03/11/24 02:23 Discharge Problem: Fall Qualifiers: Encounter type: initial encounter Qualified Code(s): W19.XXXA - Unspecified fall, initial encounter
[2024-03-10] MEDS: GADOBUTROL 65ML VIAL IV ONE (23:12)
[2024-03-10] MEDS ORDERED: DEXTROSE 50% 50 ML SYRINGE IV PRN (23:49)
[2024-03-10] MEDS ORDERED: CARBOHYDRATES FOR HYPOGLYCEMIA PO PRN (23:49)
[2024-03-10] MEDS ORDERED: GLUCOSE 40% GEL 15 GM TUBE PO PRN (23:49)
[2024-03-10] MEDS ORDERED: ALUMINUM/MAGNESIUM SUSP 30 ML UDC PO PRN (23:49)
[2024-03-10] MEDS ORDERED: GLUCOSE 10 TAB/TUBE PO PRN (23:49)
[2024-03-10] MEDS ORDERED: MAGNESIUM HYDROXIDE SUSP 30 ML UDC PO PRN (23:49)
[2024-03-10] MEDS ORDERED: ONDANSETRON INJ 2 MG/ML 2 ML VIAL IV PRN (23:49)
[2024-03-10] MEDS ORDERED: GLUCAGON FOR INJ 1 MG VIAL SQ PRN (23:49)
--- NOTE | 2024-03-10 23:56 | History & Physical Report ---
Date of Service March 10, 2024 Assessment & Plan (1) Gait instability: Plan: Neuro: Hx of CVA - on ASA and plavix. Headaches - tylenol 1000 mg Q8H as needed Stroke like symptoms - CT head without acute findings. MRI brain per my read with probable old infarct that was present on prior CT - awaiting formal read. Patient neurologically intact on my exam. Ordered diet and continued home meds. Continue to monitor on tele unit CV: Carotid artery stenosis - 50-69% on last US. Repeat US to eval for progression of stenosis HTN - patient on valsartan 160 mg daily at home. K elevated on admit. Hold for now. HLD - continue statin, recheck lipids Resp: Satting well on RA. ?trace effusion on CXR. PRN albuterol ordered for reactive airway disease ID: Rash/Malaise/Headache - exam and presentation concerning for tick borne illness, +rash with central clearing, tick studies pending, started on empiric doxycycline x14 days Endo: DM - BSG 104 in the ED. Does have glucose in his urine. Hold canagliflozin therapy for now. SSI while inpatient. No basal dosing Rheum: Polymyalgia rheumatica - patient on chronic prednisone. Likely a component of adrenal insufficiency. Double home pred to 20 mg BID. If hypotensive would switch to IV hydrocortisone 100 mg load, then 50 mg Q8H FENGI: Heart health diet. Continue home H2/PPI therapy for reflux symptoms. PT/OT consulted Renal/Lytes: No concerns at present. Continue to monitor Heme/Onc: Mild anemia. Continue to monitor : UA 3+ glucose. No urinary complaints. Continue to monitor. Psych: Continue home meds MSK: Does have chronic pain. Continue home tramadol as needed. Code status: full DVT ppx: ASA plavix SCDs ambulation FENGI: heart healthy, carb consistent Dispo: tele unit (2) Stroke: (3) Rash: (4) GERD (gastroesophageal reflux disease): (5) Mood disorder: (6) Restless leg syndrome: (7) Lumbar disc disease with radiculopathy: (8) Polymyalgia: (9) Diabetes mellitus, type 2: (10) Mixed hyperlipidemia: (11) Hypertension: (12) Stroke-like symptoms: History of Present Illness Chief Complaint: weakness Primary Care Provider: Wing William MD 78 y/o male with a PMHx of CVA on ASA and plavix, HTN, HLD, DM, anxiety/depression, polymyalgia rheumatic on chronic pred 10 mg BID, and GERD presents after a change in activity level/mental status and a fall. Patient reportedly more fatigued and generally feeling unwell over the last 24 hours. Has a headache. Did have a busy day prior with lots of outdoor work. Fell down onto his knees today. Witnessed fall. Did not hit his head. CT Head without acute findings. Labs largely unremarkable. Patient was noted to be unsteady walking to the bathroom. Patient has known carotid artery stenosis and a prior CVA. There was concern for acute stroke so hospitalist team was contact for admission. No fevers or chills. No CP or SOB. No abdominal pain, nausea, or vomiting. Last BM about 24 hours prior. No difficult with urination. Allergies Allergy/AdvReac Type Severity Reaction Status Date / Time latex Allergy Mild CONTACT Verified 02/16/24 16:24 DERMATITIS oxycodone AdvReac Severe GI SYMPTOMS Verified 02/16/24 16:24 Home Medications Medication Instructions Recorded Confirmed Type cyanocobalamin (vitamin B-12) 1,000 mcg PO NOON ##0 05/14/18 03/10/24 History 1,000 mcg capsule cholecalciferol (vitamin D3) 25 25 mcg PO DAILY 11/16/21 03/10/24 History mcg (1,000 unit) capsule Wheeled Walker #1 ea 06/25/22 03/10/24 Rx omeprazole 20 mg capsule,delayed 20 mg PO DAILY #90 caps 05/01/23 03/10/24 Rx release atorvastatin 10 mg tablet 10 mg PO DAILY #90 tabs 07/29/23 03/10/24 Rx cephalexin 500 mg capsule 500 mg PO DAILY #60 caps 07/29/23 03/10/24 Rx canagliflozin 300 mg tablet 300 mg PO DAILY #90 tabs 08/01/23 03/10/24 Rx (Invokana) famotidine 40 mg tablet 40 mg PO 1200 #90 tabs 08/01/23 03/10/24 Rx metformin 500 mg tablet 500 mg PO DAILY #90 tabs 08/07/23 03/10/24 Rx fluvoxamine 100 mg tablet 100 mg PO TID #90 tabs 09/23/23 03/10/24 Rx tramadol 50 mg tablet 50 mg PO Q6H PRN pain #120 tabs 12/02/23 03/10/24 Rx clopidogrel 75 mg tablet 75 mg PO DAILY #90 tabs 01/15/24 03/10/24 Rx valsartan 160 mg tablet 160 mg PO DAILY #90 tabs 02/06/24 03/10/24 Rx clonazepam 0.5 mg tablet 1 mg (2 x 0.5 mg) PO HS PRN 02/16/24 03/10/24 Rx Anxiety/sleep #180 tabs aspirin 81 mg chewable tablet 81 mg PO DAILY 03/10/24 03/10/24 History ybrgcnzcvi-mlpymrfriytwf-dhbezfus 2 tab PO Q4H PRN headaches 03/10/24 03/10/24 History 50 mg-325 mg-40 mg tablet prednisone 5 mg tablet 10 mg PO BID 03/10/24 03/10/24 History Past Med/Surg History Problem List (Updated 03/11/24 @ 01:42 by Mary Forte MD) Stroke-like symptoms Rash Impacted cerumen, bilateral Sinusitis Rotator cuff syndrome Gait instability Chronic daily headache Stroke GERD (gastroesophageal reflux disease) Mood disorder Restless leg syndrome Lumbar disc disease with radiculopathy Polymyalgia Diabetes mellitus, type 2 Mixed hyperlipidemia Hypertension Carpal tunnel syndrome, right Ulnar neuropathy at elbow of right upper extremity Tobacco abuse, episodic Nocturnal hypoxemia Depression 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 Migraine MIGRANES AND CLUSTER HEADACHES S/T SKULL FX A CHILD. Murmur, cardiac MONITORED BY PCP Stroke HX OF 02/04/17, SOME RESIDUAL WEAKNESS IN RT ARM, SHORT TERM MEMORY LOSS, UNSTEADY GAID, FOLLOWS WITH DR. ONEAL. Chronic steroid use Hyperlipidemia GERD (gastroesophageal reflux disease) Anxiety Osteoarthritis Tonsillar abscess History of fibula fracture History of CVA (cerebrovascular accident) Airway compromise Surgical History History of nasal septoplasty THROAT/NOSE SURGERY History of carpal tunnel release History of herniorrhaphy UMBILICAL HERNIA REPAIR History of cholecystectomy History of carotid endarterectomy LEFT Family History Mother Gallbladder cancer Father Diabetes Stroke Brother Leukemia Sister Epilepsia Aneurysm of gastric artery Liver disease Social History Smoking Status: Current some day smoker Tobacco Type: Cigarettes Age Started Using Tobacco: 20; Cigarettes Per Day: 10; Second Hand Exposure: No; Do You Dip or Chew Tobacco: No; Hx Alcohol Use: Yes Alcohol type: beer Hx Substance Use: No Preferred Language: Mongolian Communication Ability: Effective Visual Impairment: Diminished Hearing Ability: Normal Client Portfolio Manager Required: No Beliefs That Will Affect Care: None marital status: Current Living Situation: Spouse Current Living Situation Comment: With spouse, children and grandchildren nearby current occupational status: retired How many Children do You have: 2 Feels Safe at Home: Yes Childhood Exposure to Second-Hand Smoke: Yes Diet: regular caffeine: No Dental Care, Regularly: Yes Physical Activity Frequency: Does not Exercise Physical Activity Frequency Comment: active lifestyle Seatbelt Use: always Sunscreen Use: No Do you think of yourself as: straight/heterosexual Assistive Devices: Walker Review of Systems 2 Review of Systems: See HPI Physical Exam 2 Physical Exam: Gen: well appearing patient in NAD HEENT: AT NC MMM Resp: CTAB no wheezing no increased work of breathing CV: bradycardic, regular rhythm, 2+ peripheral pulses radial and DP, no edema, clinically well perfused Abd: +BS, soft, non-tender, non-distended MSK: no obvious deformities Skin: diffuse bruising, large erythematous area with central clearing on the right upper arm Neuro: alert and oriented Psych: appropriate mood and affect Results & Data Results & Data Vital Signs (Past 12 Hours) Vital Signs Temp Pulse Pulse Resp BP BP Pulse Ox 03/10/24 23:34 49 L 03/10/24 21:00 46 L 18 157/64 H 97 03/10/24 19:36 48 L 18 98 03/10/24 19:36 48 L 18 143/62 H 98 03/10/24 19:36 98 03/10/24 19:24 45 L 06/12/24 17:18 36.6 C 50 L 16 144/66 H 98 O2 Del Method 03/10/24 23:34 03/10/24 21:00 Room Air 03/10/24 19:36 Room Air 03/10/24 19:36 Room Air 03/10/24 19:36 Room Air 03/10/24 19:24 03/10/24 17:18 Room Air Laboratory Results 03/10/24 17:37 03/10/24 23:43 Diagnostic Findings Chest X-Ray 03/10/24 17:26 FINDINGS: No lines and tubes are seen. Calcified aortic knob is seen. The lungs are clear. There is blunting of the left costophrenic angle. IMPRESSION: Blunting of the left costophrenic angle may represent trace effusion or scarring. Otherwise no acute abnormality. ACT 112: Negative or not required by law. Head CT 03/10/24 18:37 Findings: The ventricles, basal cisterns, and cerebral sulci are normal. There is no acute intracranial hemorrhage or evidence of acute territorial infarction. Neither mass effect, shift of the midline structures, nor abnormal extra-axial fluid collections are shown. Encephalomalacia in the left posterior watershed is unchanged. Mucous retention cysts are seen in the left maxillary sinus. The orbits appear normal. There are no acute fractures of the calvaria or scalp swelling. Impression: No acute intracranial hemorrhage, no evidence of acute territorial infarction or other acute intracranial disease process. Code Status & VTE Plan VTE Prophylaxis Plan VTE Prophylaxis will be ordered: Yes Supervising Physician Co-Signing Physician Notes Attending addendum: I have physically seen this patient, have supervised the medical residents activities, and agree with the H&P unless as otherwise noted. Assessment and Plan: Generalized weakness with falls/strokelike symptoms- Ambulatory dysfunction History of CVA without residual deficits, will continue aspirin and clopidogrel Stroke without thrombolytics order set CT head without contrast negative MRI brain ordered suggestion of old infarct as compared to CT above The patient will be admitted to telemetry for serial cardiac enzymes, serial EKG's, cardiac rhythm monitoring and a 2-D echocardiogram with Dopplers. Consult PT/OT/speech Allow permissive hypertension, holding valsartan Diabetes mellitus- Hold canagliflozin, metformin Placed on Accu-Cheks with NovoLog SSI Suspicious rash- Suggestive of possible line Empiric doxycycline 100 mg p.o. twice daily for 14 days PMR- On prednisone 10 mg p.o. twice daily Increase prednisone to 20 mg p.o. twice daily for stress dosing If fatigue persistent or progressive placed on hydrocortisone 100 mg IV every 8 hours Resident Activity Tracking Resident Involvement: Resident Care Provided Care Provided: [facility] Medicine
[2024-03-11 00:15] LABS: Anion Gap 7 (3-11); BUN Creatinine Ratio 18.3 (10-20); Blood Urea Nitrogen 17 mg/dl (6-23); C Reactive Protein < 0.50 mg/dl (0-0.5); Calcium 9.5 mg/dl (8.6-10.3); Carbon Dioxide 25 mmol/L (21-32); Chloride 104 mmol/L (98-107); Creatinine Clr Calc Pharmacy 64.4 ml/min; Est GFR (African American) 91.5 ml/min; Est GFR (Non-African American) 78.9 ml/min; Glucose 87 mg/dl (70-99(Fasting)); Sodium 136 mmol/L (136-145)
[2024-03-11 00:27] LABS: Procalcitonin < 0.02 ng/ml (0-0.5)
[2024-03-11 00:53] LABS: Lyme Screen Rflx Confirmation Negative (Negative)
--- NOTE | 2024-03-11 01:36 | Magnetic Resonance Report ---
Exam(s): MRI HEAD W/WO Contrast IV Amt: 7.5cc gadavist EXAM: MR Head Without and With Intravenous Contrast CLINICAL HISTORY: Reason for exam: stroke like symptoms. TECHNIQUE: Magnetic resonance images of the head/brain without and with intravenous contrast in multiple planes. CONTRAST: Patient received 7.5cc gadavist of IV contrast COMPARISON: Head CT 04-15-2022. FINDINGS: Brain: Remote ischemic injury of the left temporal, parietal and occipital lobes with encephalomalacia and gliosis. Mild nonspecific white matter changes. No mass. No hemorrhage. No acute infarct. No evidence of abnormal enhancement. The dural venous sinuses are patent. Ventricles: Unremarkable. No ventriculomegaly. Bones/joints: Unremarkable. No acute fracture. Sinuses: Chronic ethmoid sinusitis. No acute sinusitis. Mastoid air cells: Unremarkable as visualized. No mastoid effusion. Orbits: Bilateral lens replacements. IMPRESSION: No evidence of acute intracranial pathology. Electronically signed by: Elaenor Peoples MD 03/11/24 01:35 AM
[2024-03-11] MEDS: DOXYCYCLINE HYCLATE 100 MG CAP PO STA (02:03)
[2024-03-11] MEDS: ACETAMINOPHEN 500 MG TAB PO PRN (02:03)
[2024-03-11] MEDS ORDERED: clonazePAM 1 MG TAB PO PRN (02:24)
[2024-03-11] MEDS ORDERED: traMADol HCL 50 MG TABLET PO PRN (02:24)
[2024-03-11] MEDS: predniSONE 20 MG TAB PO STA (02:44)
--- NOTE | 2024-03-11 07:27 | Hospitalist Progress Note ---
Date of Service March 11, 2024 Assessment & Plan (1) Gait instability: (2) Stroke: (3) Rash: (4) GERD (gastroesophageal reflux disease): (5) Mood disorder: (6) Restless leg syndrome: (7) Lumbar disc disease with radiculopathy: (8) Polymyalgia: (9) Diabetes mellitus, type 2: (10) Mixed hyperlipidemia: (11) Hypertension: (12) Stroke-like symptoms: Plan Patient is a 78 yo M w/ a PMHx of stroke, GERD, restless leg syndrome, chronic cellulitis, mood disorder, lumbar disc dz w/ radiculopathy, polymyalgia, HTN, HLD, Hx of tobacco use, carpal tunnel syndrome. 1) Weakness/headache/rash of l. axilla and upper l. arm - not a target lesion rash, but concerning from Hx for possible Lyme disease - Lyme disease: negative - doxycycline, 100 mg, PO, BID 2) History of stroke - Carotid artery stenosis - 50-69% on last US. Repeat US to of r. internal carotid artery still shows 50-69% stenosis. No hemodynamically significant stenoses w/in l. carotid arteries - CT-Head: No acute intracranial hemorrhage, no evidence of acute territorial infarction or other acute intracranial disease process. - MRI-Brain: no evidence of acute intracranial pathology. Evidence of old infarct of l. temporal, l. parietal, and l. occipital lobes w. encephalomalacia and gliosis. - continue statin, aspirin 3) Hypertension - patient on valsartan 160 mg daily at home. K elevated on admit. Hold for now. 4)Hyperlipidemia - continue statin - Lipid panel: TChol, 188; LDL, 93; HDL, 66; Trig, 146 5) Reactive airway disease - left trace pulmonary effusion noted on CXR. - PRN albuterol ordered 6) Rash/Malaise/Headache - exam and presentation concerning for tick borne illness, +rash with possible central clearing, - Babesia microti and Anaplasma phagocytophilum DNA pending - tick studies pending, started on empiric doxycycline x14 days 7) Type II Diabetes - glucose in urine; - Hold canagliflozin therapy for now. SSI while inpatient. No basal dosing 8) Polymyalgia rheumatica - patient on chronic prednisone. Likely a component of adrenal insufficiency. - Double home pred to 20 mg BID. (If hypotensive would switch to IV hydrocortisone 100 mg load, then 50 mg Q8H) 9) GERD - Continue home H2/PPI therapy for reflux symptoms. 10) Mild anemia. - Continue to monitor w/ CBC 11) Anxiety/depression - continue fluvoxamine, 100 mg, PO, TID 12) MSK/lumbar disc dz w/ radiculopathy - Does have chronic pain. Continue home tramadol as needed. - PT/OT consulted 13) Chronic cellulitis - Continue cephalexin, 500 mg, PO, daily Code status: full DVT ppx: ASA, plavix, SCDs ambulation FENGI: heart healthy, carb consistent Dispo: tele unit Admission and Anticipated Discharge Date Admission Date: March 10, 2024 Supervising Physician Co-Signing Physician Notes ATTESTATION I also saw the patient and confirmed robbins portions of the history and exam. I agree with the impression and plan in the resident documentation, and as summarized below. Overall, feeling better today. Upon our exam, remains in the emergency department awaiting an inpatient room. EXAM 146/96, 62, 18, 36.7, 97% on room air Alert and oriented. No distress appreciated. Heart regular rate and rhythm Lungs clear with nonlabored respirations Faint circular rash right lateral chest wall looks more chronic in nature. Right inner upper arm he does have a petechial rash that looks to be secondary to mild, perhaps incidental trauma. DATA Labs Hemoglobin 13 A1c 6.6% Imaging Carotid Doppler shows 50-69% stenosis of the proximal right internal carotid artery, mildly increased since ultrasound 05/17/2020 Echocardiogram completed today shows preserved left ventricular function. Atrial septal aneurysm incidentally noted with small, hemodynamically insignificant shunt. Micro No cultures collected IMPRESSION & PLAN Weakness, largely resolved Prior history of CVA Suspect may just be a combination of his underlying medical diagnoses and overexertion. Not highly suspicious for Lyme as Lyme titers are negative and the rash is not consistent with EM. That being said, given his exposure risk, I think it is reasonable to continue doxycycline, especially awaiting PCR for other tickborne illnesses. PT/OT evaluation Suspect will be able to discharge in a.m. 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 Patient did not hit his head. Patient states that he feels more alert, less confused, marginally less tired this morning. Patient is AAO x 3 this morning. Review of Systems Constitutional: + fatigue; no fever, no chills and no we akness Eyes: + worsening vision (baseline blurriness in l. eye) Respiratory: no cough, no chest congestion and no dyspnea Cardiovascular: no chest pain and no palpitations Gastrointestinal: no abdominal pain, no nausea, no vomiting, no constipation and no diarrhea/loose stools Integumentary: + rash and + erythema Neurologic: + tingling (baseline in hands/wrists due to carpal tunnel), + nu mbness and + headache(s) Physical Exam Constitutional: well developed, well nourished, cooperative and comfortable Respiratory: Auscultation: + wheezes (left side of lungs, posteriorly) Cardiovascular: Rate/Rhythm: regular rhythm and + bradycardic Extremities: normal capillary refill; no calf tenderness and no pedal edema Gastrointestinal (Abdomen): normal bowel sounds, soft, nontender, no hepatosplenomegaly Neurologic: Cranial Nerves: PERRL, normal accommodation, EOM intact bilaterally, normal facial strength, tongue midline, able to rotate head bilaterally and able to elevate shoulders bilaterally Psychiatric: A+Ox3, euthymic affect Results & Data Results & Data Vital Signs (Past 12 Hours) Vital Signs Pulse Pulse Resp BP BP Pulse Ox O2 Del Method 03/11/24 07:07 63 03/11/24 05:51 52 L 14 141/65 H 03/11/24 05:30 50 L 17 03/11/24 05:21 52 L 96 03/11/24 05:15 53 L 16 03/11/24 05:03 16 03/11/24 04:51 64 16 97 03/11/24 04:06 53 L 16 03/11/24 03:57 51 L 12 03/11/24 03:38 Room Air 03/11/24 03:30 52 L 13 163/66 H 03/11/24 03:12 52 L 20 03/11/24 03:03 53 L 16 03/11/24 02:57 47 L 18 03/11/24 02:45 53 L 17 03/11/24 02:30 46 L 22 95 03/11/24 02:12 50 L 13 96 03/11/24 02:00 48 L 13 96 03/11/24 02:00 163/66 H 03/11/24 01:57 56 L 14 03/11/24 01:42 51 L 18 95 03/11/24 01:39 48 L 15 93 03/11/24 01:15 50 L 13 140/79 95 03/11/24 00:45 47 L 16 95 03/11/24 00:30 47 L 16 96 03/11/24 00:21 47 L 14 96 03/11/24 00:06 52 L 20 03/10/24 23:54 46 L 15 98 03/10/24 23:49 98 Room Air 03/10/24 23:49 49 L 16 167/70 H 98 Room Air 03/10/24 23:49 Room Air 03/10/24 23:36 48 L 12 98 03/10/24 23:34 49 L 03/10/24 22:27 47 L 15 96 03/10/24 22:12 46 L 12 95 03/10/24 22:09 45 L 18 97 03/10/24 21:51 43 L 17 96 03/10/24 21:42 44 L 16 96 03/10/24 21:39 46 L 13 97 03/10/24 21:27 48 L 12 95 03/10/24 21:12 46 L 12 96 03/10/24 21:00 46 L 18 157/64 H 97 Room Air 03/10/24 20:30 47 L 13 97 03/10/24 19:57 48 L 16 98 03/10/24 19:42 45 L 13 97 03/10/24 19:36 48 L 18 98 Room Air 03/10/24 19:36 48 L 18 143/62 H 98 Room Air 03/10/24 19:36 98 Room Air Resident Activity Tracking Resident Involvement: Resident Care Provided Care Provided: Adult Hospital Medicine
[2024-03-11 07:31] LABS: Basophils # (auto) 0.04 K/uL (0.00-0.20); Basophils % (auto) 0.6 %; Eosinophils # (auto) 0.02 K/uL (0.00-0.50); Eosinophils % (auto) 0.3 %; Hematocrit (blood only) 39.9 % (42.0-52.0); Immature Granulocytes # (auto) 0.02 K/uL (0.01-0.20); Immature Granulocytes % (auto) 0.3 %; Mean Corpuscular Hemoglobin 29.7 pg (25.0-34.0); Mean Corpuscular Hgb Conc 32.6 g/dL (32.0-36.0); Mean Corpuscular Volume 91.3 fL (80.0-100.0); Mean Platelet Volume 10.1 fL (9.4-12.4); Monocytes # (auto) 0.28 K/uL (0.11-0.59); Monocytes % (auto) 4.5 %; Neutrophils % (auto) 78.3 %; Platelet Count 190 K/uL (130-400); RDW Coefficient of Variation 14.5 % (11.5-14.5); RDW Standard Deviation 48.9 fL (36.4-46.3); Red Blood Count 4.37 M/uL (4.70-6.10); White Blood Count 6.26 K/ul (4.8-10.8)
[2024-03-11 07:39] LABS: Estimated Average Glucose 143 mg/dl; Hemoglobin A1C 6.6 % (4.5-5.6)
[2024-03-11 07:50] LABS: Albumin Globulin Ratio 1.5 (0.9-2); Albumin Level 4.1 gm/dl (3.4-5.0); BUN Creatinine Ratio 19.3 (10-20); Bilirubin,Total 0.4 mg/dl (0.2-1.0); Calcium 9.2 mg/dl (8.6-10.3); Chol HDL Ratio 2.8 (0-5); Est GFR (Non-African American) 82.9 ml/min; Globulin 2.8 gm/dl (2.5-4.0); Potassium 4.6 mmol/L (3.5-5.1); Total Protein 6.9 gm/dl (6.0-8.3)
[2024-03-11] MEDS: PANTOprazole 40 MG TAB PO SCH (08:33)
[2024-03-11] MEDS: fluvoxaMINE MALEATE 50 MG TAB PO SCH (08:33)
[2024-03-11] MEDS: BUTALBITAL/ACETAMIN/CAFFEINE TAB PO PRN (08:33)
[2024-03-11] MEDS: ATORVASTATIN 10 MG TAB PO SCH (08:34)
[2024-03-11] MEDS: CLOPIDOGREL BISULFATE 75 MG TAB PO SCH (08:34)
[2024-03-11] MEDS: predniSONE 20 MG TAB PO SCH (08:34)
[2024-03-11] MEDS: DOXYCYCLINE HYCLATE 100 MG CAP PO SCH (08:34)
[2024-03-11] MEDS: ASPIRIN 81 MG CHEW PO SCH (08:34)
[2024-03-11] MEDS: cephALEXin 500 MG CAP PO SCH (08:34)
[2024-03-11] MEDS: POLYETHYLENE (MIRALAX) 17 GM PACK PO SCH (08:38)
[2024-03-11] MEDS: INSULIN ASPART PER UNIT CHARGE SC SCH (10:10)
--- NOTE | 2024-03-11 11:42 | Ultrasound Report ---
CAROTID ARTERY ULTRASOUND CLINICAL HISTORY: stroke like symptoms COMPARISON STUDY: MRA of the neck February 06, 2017. Carotid ultrasound May 17, 2020. TECHNIQUE: Real-time, grayscale, and color Doppler sonography of the carotid and vertebral arteries w as performed. Images were viewed in the transverse and longitudinal planes. FINDINGS: There is moderate atherosclerotic plaque. Velocity measurements are listed below. COMMON CAROTID PEAK SYSTOLIC VELOCITY (CM/S): RIGHT 72 LEFT 76 ICA PEAK SYSTOLIC VELOCITY (CM/S): RIGHT 195 LEFT 79 The systolic ratio between the right internal to common carotid artery was elevated at 2.7. Antegrade flow is seen in the vertebral arteries. The external carotid arteries are patent. IMPRESSION: 1. Findings suggestive of 50-69% stenosis of the proximal right internal carotid artery, mildly incre ased in degree since ultrasound of May 17, 2020. 2. No hemodynamically significant stenoses within the left carotid arteries. ACT 112: Negative or not required by law. Electronically signed by: Angel Brown M.D. 03/11/2024 11:41 AM
[2024-03-11] MEDS: FAMOTIDINE 40 MG TABLET PO SCH (13:10)
--- NOTE | 2024-03-11 13:12 | XCELERA ---
[id number] [id number]
--- NOTE | 2024-03-11 17:34 | Electrocardiogram Report ---
Test Reason : Blood Pressure : / mmHG Vent. Rate : 048 BPM Atrial Rate : 048 BPM P-R Int : 160 ms QRS Dur : 098 ms QT Int : 408 ms P-R-T Axes : 059 -05 052 degrees QTc Int : 364 ms Sinus bradycardia Otherwise normal ECG When compared with ECG of 25-JUL-2021 15:57, Vent. rate has decreased BY [address] no longer depressed in Anterior leads QT has shortened Confirmed by Vaughn Bruner ([id number]) on 03/11/2024 5:34:00 PM Referred By: REFERRED SELF Confirmed By:Jace Bruner
--- NOTE | 2024-03-12 06:22 | Billing Data ---
Date of Service March 12, 2024 Coding Level of Care Code 30669 INT INP/OBS CARE
--- NOTE | 2024-03-12 09:00 | Discharge Summary ---
Date of Service March 12, 2024 Admission HPI Per Admitting Provider 78 y/o male with a PMHx of CVA on ASA and plavix, HTN, HLD, DM, anxiety/depression, polymyalgia rheumatic on chronic pred 10 mg BID, and GERD presents after a change in activity level/mental status and a fall. Patient reportedly more fatigued and generally feeling unwell over the last 24 hours. Has a headache. Did have a busy day prior with lots of outdoor work. Fell down onto his knees today. Witnessed fall. Did not hit his head. CT Head without acute findings. Labs largely unremarkable. Patient was noted to be unsteady walking to the bathroom. Patient has known carotid artery stenosis and a prior CVA. There was concern for acute stroke so hospitalist team was contact for admission. No fevers or chills. No CP or SOB. No abdominal pain, nausea, or vomiting. Last BM about 24 hours prior. No difficult with urination. Admission Exam Per Admitting Provider Gen: well appearing patient in NAD HEENT: AT NC MMM Resp: CTAB no wheezing no increased work of breathing CV: bradycardic, regular rhythm, 2+ peripheral pulses radial and DP, no edema, clinically well perfused Abd: +BS, soft, non-tender, non-distended MSK: no obvious deformities Skin: diffuse bruising, large erythematous area with central clearing on the right upper arm Neuro: alert and oriented Psych: appropriate mood and affect Principal Diagnosis weakness, overexertion Discharge Exam Constitutional well developed, well nourished, cooperative and comfortable Respiratory Auscultation: + wheezes (left side of lungs, posteriorly) Cardiovascular Rate/Rhythm: regular rhythm and + bradycardic Extremities: normal capillary refill; no calf tenderness and no pedal edema Gastrointestinal (Abdomen) normal bowel sounds, soft, nontender, no hepatosplenomegaly Neurologic Cranial Nerves: PERRL, normal accommodation, EOM intact bilaterally, normal facial strength, tongue midline, able to rotate head bilaterally and able to elevate shoulders bilaterally Psychiatric A+Ox3, euthymic affect Discharge Data Allergies Allergy/AdvReac Type Severity Reaction Status Date / Time latex Allergy Mild CONTACT Verified 02/16/24 16:24 DERMATITIS oxycodone AdvReac Severe GI SYMPTOMS Verified 02/16/24 16:24 Consultations 03/10/24 22:35 ED Decision to Admit Stat Ordered Studies 03/10/24 18:37 CT head/brain wo con Stat 03/10/24 22:04 MRI Brain [MR brain wo/w con] Stat 03/11/24 US carotid doppler [facility] Urgent Hospital Course (1) Gait instability: (2) Stroke: (3) Rash: (4) GERD (gastroesophageal reflux disease): (5) Mood disorder: (6) Restless leg syndrome: (7) Lumbar disc disease with radiculopathy: (8) Polymyalgia: (9) Diabetes mellitus, type 2: (10) Mixed hyperlipidemia: (11) Hypertension: (12) Stroke-like symptoms: Plan Patient is a 78 yo M w/ a PMHx of stroke, GERD, restless leg syndrome, chronic cellulitis, mood disorder, lumbar disc dz w/ radiculopathy, polymyalgia, HTN, HLD, Hx of tobacco use, carpal tunnel syndrome. 1) Weakness/headache/rash of l. axilla and upper l. arm - not a target lesion rash, but concerning from patient's Hx and exposure for possible Lyme disease - Lyme disease: negative - doxycycline, 100 mg, PO, BID prescribed for 12 more days as outpt 2) History of stroke - Carotid artery stenosis - 50-69% on last US. Repeat US to of r. internal carotid artery still shows 50-69% stenosis. No hemodynamically significant stenoses w/in l. carotid arteries - CT-Head: No acute intracranial hemorrhage, no evidence of acute territorial infarction or other acute intracranial disease process. - MRI-Brain: no evidence of acute intracranial pathology. Evidence of old infarct of l. temporal, l. parietal, and l. occipital lobes w. encephalomalacia and gliosis. - continue statin, aspirin 3) Hypertension - patient on valsartan 160 mg daily at home. K elevated on admit and during hospital stay. - continue patient's valsartan, 160 mg, daily upon discharge 4)Hyperlipidemia - continue statin - Lipid panel: TChol, 188; LDL, 93; HDL, 66; Trig, 146 5) Reactive airway disease - left trace pulmonary effusion noted on CXR. - PRN albuterol ordered 6) Rash/Malaise/Headache - exam and presentation concerning for tick borne illness, +rash with possible central clearing, - Babesia microti and Anaplasma phagocytophilum DNA pending - Lyme studies negative (but doesn't exclude early infection as pt may be in window before IgM Abs develop) - started on empiric doxycycline x14 days, discharged on 12 more days: doxycycline, 100 mg, BID, PO 7) Type II Diabetes - glucose in urine; - Hold canagliflozin therapy for now. SSI while inpatient. No basal dosing 8) Polymyalgia rheumatica - patient on chronic prednisone. Likely a component of adrenal insufficiency. - Double home pred to 20 mg BID. (If hypotensive would switch to IV hydrocortisone 100 mg load, then 50 mg Q8H) - Continue prednisone, 20 mg, BID for 3 days then resume prednisone, 10 mg, BID. 9) GERD - Continue home H2/PPI therapy for reflux symptoms. 10) Mild anemia. - Continue to monitor w/ CBC 11) Anxiety/depression - continue fluvoxamine, 100 mg, PO, TID 12) MSK/lumbar disc dz w/ radiculopathy - Does have chronic pain. Continue home tramadol as needed. - PT/OT consulted 13) Chronic cellulitis - Continue cephalexin, 500 mg, PO, daily Total Time Total Time Spent Total Time Spent (In Minutes): 36 minutes Discharge Plan Discharge Items Patient Disposition: Home - Self-Care Reason For Visit: WEAKNESS Discharge Diagnosis: weakness, overexertion Activity: Resume your previous activity Non-emergency contact: Primary Care Provider Call non-emergency contact if: you have any medication questions, your symptoms worsen and your temperature is above 101.5 Follow-up/Referrals: Wing William MD [Primary Care Provider] - 03/18/24 2:15 pm Diet: Carb Consistent or DM2 Addtl Attending Provider Instructions: A discharge summary will be sent to your primary care physician to ensure continuity of care. Please bring this discharge summary with you to your next office appointment so that your provider can review it at that time. Follow-up appointments: We have requested a follow-up appointment with your primary care physician within one week of discharge. Please call their office if you do not hear from them. Keep all your follow-up appointments as already scheduled. If you cannot make an appointment, notify your provider. Medications: Your medication list has been reviewed and reconciled upon discharge to ensure accuracy and continuity of care. An updated list of all your medications is included with your hospital discharge paperwork. Please review this list closely, and make note of any changes. We sent a new medication called doxycycline to your pharmacy. Take doxycycline, 100 mg/1 tablet, twice a day, for 12 more days. We sent a new dosage of an old medication called prednisone to your pharmacy. Take prednisone, 20 mg/1 tablet, twice a day, for 3 more days, then resume your home regimen of prednisone, 10 mg/1 tablet, twice a day, regularly. Take your medications as instructed; do not skip a dose of your medicines. Make sure all of your doctors know every medicine you are taking (including ojkq-sca-resrosl medicines, vitamins, and supplements). Call your primary care provider before taking any new medicines (including tamb-nse-sfttgul medicines, vitamins, and supplements), because some of these may interact with your current medications, or may make your symptoms worse. Tell your primary care provider if you cannot afford your medications. CONTACT YOUR PRIMARY CARE PROVIDER if you experience any of the following: fevers, chills, new onset muscle aches or joint pain weakness, increased fatigue Difficulty following your treatment plan, or difficulty taking medications CALL 911 OR GO TO THE EMERGENCY DEPARTMENT if you experience any of the following: Sudden, severe abdominal pain or nausea/vomiting Severe chest pain, or chest pain that radiates (moves) to your jaw or arm Sudden, severe shortness of breath or difficulty breathing Thank you for allowing us to participate in your care Pending Studies at Discharge: Yes Studies:: PCR DNA for Anaplasma and Babesia Stand-Alone Forms: My [facility], Smoking Cessation Medications and DC Order Prescriptions: New doxycycline hyclate 100 mg capsule 100 mg PO BID 12 Days Qty: 24 0RF prednisone 20 mg tablet 20 mg PO BID Qty: 6 0RF Continued cyanocobalamin (vitamin B-12) 1,000 mcg Capsule 1,000 mcg PO NOON Qty: 0 cephalexin 500 mg capsule 500 mg PO DAILY Qty: 60 11RF atorvastatin 10 mg tablet 10 mg PO DAILY Qty: 90 3RF metformin 500 mg tablet 500 mg PO DAILY Qty: 90 3RF fluvoxamine 100 mg tablet 100 mg PO TID Qty: 90 11RF tramadol 50 mg tablet 50 mg PO Q6H PRN (Reason: pain) Qty: 120 5RF clopidogrel 75 mg tablet 75 mg PO DAILY Qty: 90 3RF (DME) Wheeled Walker Misc See Rx Instructions .Route Qty: 1 0RF Rx Instructions: with seat and hand brakes. Duration 999 omeprazole 20 mg capsule,delayed release(DR/EC) 20 mg PO DAILY Qty: 90 3RF cholecalciferol (vitamin D3) 25 mcg (1,000 unit) capsule 25 mcg PO DAILY Invokana 300 mg tablet 300 mg PO DAILY Qty: 90 3RF famotidine 40 mg tablet 40 mg PO 1200 Qty: 90 3RF valsartan 160 mg tablet 160 mg PO DAILY Qty: 90 3RF clonazepam 0.5 mg tablet 1 mg PO HS PRN (Reason: Anxiety/sleep) Qty: 180 1RF aspirin 81 mg Tablet,Chewable 81 mg PO DAILY prednisone 5 mg tablet 10 mg PO BID [id number] 50-325-40 mg tablet 2 tab PO Q4H MDD 6 tabs PRN (Reason: headaches) Discharge Orders: Discharge Order (Routine); Ordered 03/12/24 Ordered By: Vaughn Huerta/Other Patient Handouts: Managing Type 2 Diabetes, Prevent Falls Make Health Priority Admission Data Admit Date/Time: 03/10/24 23:49 Attending Provider: Triny Quach Admit Provider: Mary Forte Primary Care Provider: Wing William Other Providers: Lisandro Ramirez Other Interventions: Discharge Summary Assessment (RN) Last Done: 03/12/24 14:25 Supervising Physician Co-Signing Physician Notes I personally examined the patient and verified robbins points of history and exam, discussed case, and agree with decision making and plan documented by Dr. Bro. Patient states he is feeling much better, his and daughter were at bedside during exam today. Denies weakness on exam today, states he did really well with physical therapy, physical therapy notes reviewed. Patient reports he was working outside prior to admission, that his tractor got stuck in the mud and that he was exerting himself a lot prior to coming in. Discussed likely improvement in setting of increased prednisone. Reviewed labs and initial negative tickborne illness screens, awaiting PCR results, will continue doxycycline due to suspicion of possible underlying tickborne illness, reviewed at length the importance of maintaining coverage on skin to avoid consequence of phototoxicity. Patient appears comfortable, lungs clear b/l to auscultation, regular rate and rhythm, no acute distress, petechial appearing diffuse rash on right medial upper arm. Advised tapering of steroid medication. Patient will follow-up with PCP.
[2024-03-14 20:12] LABS: Babesia microti DNA Not Detected (Not Detected)
== END 2024-03-12 16:18 | disposition home or self-care (01) ==
LOC: ED 17:07 → EDINP 17:07 → SUATTDRO 23:49 → 2N 03-11 02:23

== ENCOUNTER 2024-09-30 20:50 | Inpatient (IN) ==
[2024-09-30 21:41] LABS: Basophils # (auto) 0.05 K/uL (0.00-0.20); Basophils % (auto) 0.7 %; Eosinophils # (auto) 0.04 K/uL (0.00-0.50); Eosinophils % (auto) 0.5 %; Hematocrit (blood only) 40.8 % (42.0-52.0); Hemoglobin 13.1 g/dl (14.0-18.0); Immature Granulocytes # (auto) 0.03 K/uL (0.01-0.20); Immature Granulocytes % (auto) 0.4 %; Lymphocytes # (auto) 2.87 K/uL (1.20-3.40); Lymphocytes % (auto) 37.6 %; Mean Corpuscular Hemoglobin 27.9 pg (25.0-34.0); Mean Corpuscular Hgb Conc 32.1 g/dL (32.0-36.0); Mean Platelet Volume 9.9 fL (9.4-12.4); Monocytes # (auto) 0.67 K/uL (0.11-0.59); Monocytes % (auto) 8.8 %; Neutrophils # (auto) 3.98 K/uL (1.40-6.50); Platelet Count 266 K/uL (130-400); RDW Coefficient of Variation 15.9 % (11.5-14.5); RDW Standard Deviation 49.8 fL (36.4-46.3); Red Blood Count 4.69 M/uL (4.70-6.10); White Blood Count 7.64 K/ul (4.8-10.8)
--- NOTE | 2024-09-30 21:51 | Emergency Department Note ---
Impression & Plan Recurrent falls, Subdural hematoma ED Provider Note HISTORY OF PRESENT ILLNESS: Patient is a 79-year-old male presenting with an abnormal CT of his head. Patient and patient's provide history. Reports that the patient felt lightheaded 2 weeks ago and fell, striking his head on the ground. No reported loss of consciousness. He has been having ongoing headaches and some blurry vision in his left eye, so they went to his primary care provider. CT imaging of his head was performed today that showed a subdural hematoma and he was referred to the emergency department for further evaluation. reports the patient has some baseline dementia. Reports that he has been acting his normal self. He is on aspirin and Plavix for previous history of a CVA. Patient denies any numbness, tingling or weakness in his extremities. Patient has not had any recent falls since his fall 2 weeks ago. ROS: as above PHYSICAL EXAM: Constitutional: Patient appears in no acute distress. HENT: Head: Normocephalic and atraumatic. Eyes: EOMI, PERRL Mouth/Throat: Mucous membranes moist. Neck: Trachea midline. Neck supple. No midline cervical spine tenderness to palpation. No cervical collar in place. Cardiovascular: Bradycardic with regular rhythm. No murmurs, rubs or gallops. Intact distal pulses. Pulmonary/Chest: No respiratory distress. Breath sounds clear and equal bilaterally. No wheezes or rales. Abdominal: Abdomen soft, no tenderness, rebound or guarding. Musculoskeletal: No edema, tenderness or deformity noted. Skin: Warm and dry. No rash, erythema, pallor or cyanosis Psychiatric: Appropriate mood and affect for situation. Neurological: Alert and keenly responsive. CN II-XII grossly intact, moving all extremities equally and fully. Strength 4 out of 5 in the bilateral upper and lower extremities. Sensation intact light touch throughout the nerve distributions of the upper and lower extremities. MDM: - Vitals signs showed hypertension. - History obtained via patient and patient's , given patient's dementia. History as above. - Chronic conditions affecting care: depression; vascular dementia; HTN; HLD; DM-2; GERD; CVA - Differential diagnoses include, but are not limited to: intracranial hemorrhage; ACS; pneumonia; electrolyte abnormality; ACS; dysrhythmia - Order placed for continuous cardiac monitoring. At this time, monitor showed rate of 51 bpm with normal sinus rhythm, per my interpretation. - External medical records reviewed. Primary care visit note from 09/30/2024 was reviewed. Patient was seen in clinic for headaches and multiple falls. Reports his most recent fall was 1.5 weeks ago hitting the left side of his forehead but he did not seek treatment until today. He had another fall 1 month ago when he passed out and hit his head and nose. - EKG interpreted by myself showed normal sinus rhythm. Rate bradycardic at 53 bpm. QT 424. No acute ischemic changes. - Laboratory workup interpreted by myself showed normal WBC; anemia (Hgb 13.1); normal PT/INR; stable electrolytes; normal troponin - CXR negative for pneumonia, per my interpretation. - CT head wo contrast obtained at 2205 showed a right convexity subdural collection measuring up to 7 mm with predominantly chronic contents. Noted to have what appears to be trace amounts of acute blood products within the collection per radiology. No midline shift or herniation. - Discussed case with neurosurgeon at [facility], Dr. Mazariegos, at 23:47. Discussed the patient's two CT imaging findings. He reports that the patient would not need any acute surgical intervention at this time. He reports the patient can be managed conservatively and there is no indication for transfer for surgical intervention. He recommended that the patient follow-up in neurosurgery clinic at [facility]. Patient is to call neurosurgery clinic at [phone] to schedule appointment, - Discussed results with patient and his . He has not fallen in the last 2 weeks, but reports he is quite unsteady on his feet. He is normally ambulatory with a walker at baseline. They would prefer he be evaluated by physical therapy/Occupational Therapy and are agreeable to potential placement if necessary. - Discussion was had with shoe caser about patient's case and need for admission - Hospitalist, Dr. Ramirez, consulted for admission - Patient admitted to [facility] service for further evaluation and management. 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) Lyme disease Generalized muscle weakness (Acute) Fall (Acute) Stroke-like symptoms (Acute) Stroke-like symptoms Rash Impacted cerumen, bilateral Sinusitis Rotator cuff syndrome Gait instability Chronic daily headache Stroke GERD (gastroesophageal reflux disease) Mood disorder Restless leg syndrome Lumbar disc disease with radiculopathy Polymyalgia Diabetes mellitus, type 2 Mixed hyperlipidemia Hypertension Carpal tunnel syndrome, right Ulnar neuropathy at elbow of right upper extremity Tobacco abuse, episodic Nocturnal hypoxemia Depression 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 Medical History Fall Diverticulosis (08/10/12) Wedge compression fracture of t11-T12 vertebra, subsequent encounter for fracture with delayed healing Closed fracture of multiple ribs of left side Unintentional weight loss Hemopneumothorax on left Cellulitis Migraine Murmur, cardiac Stroke Chronic steroid use Hyperlipidemia GERD (gastroesophageal reflux disease) Anxiety Osteoarthritis Tonsillar abscess History of fibula fracture History of CVA (cerebrovascular accident) Airway compromise Surgical History History of nasal septoplasty History of carpal tunnel release History of herniorrhaphy History of cholecystectomy History of carotid endarterectomy Family History Mother Gallbladder cancer Father Diabetes Stroke Brother Leukemia Sister Epilepsia Aneurysm of gastric artery Liver disease Social History Smoking Status: Never smoker Tobacco Type: Cigarettes Age Started Using Tobacco: 20; packs per day: 0.50; Cigarettes Per Day: 10; Second Hand Exposure: No; Do You Dip or Chew Tobacco: No; Hx Alcohol Use: Yes Alcohol type: beer Hx Substance Use: No Preferred Language: Kinyarwanda Communication Ability: Effective Visual Impairment: Diminished Hearing Ability: Normal Bilingual Hr Generalist Required: No Beliefs That Will Affect Care: None marital status: Current Living Situation: Spouse Current Living Situation Comment: With spouse, children and grandchildren nearby current occupational status: retired How many Children do You have: 2 Feels Safe at Home: Yes Childhood Exposure to Second-Hand Smoke: Yes Diet: regular caffeine: No Dental Care, Regularly: Yes Physical Activity Frequency: Does not Exercise Physical Activity Frequency Comment: active lifestyle Seatbelt Use: always Sunscreen Use: No Do you think of yourself as: straight/heterosexual Assistive Devices: Walker Allergies Allergies Allergy/AdvReac Type Severity Reaction Status Date / Time latex Allergy Mild CONTACT Verified 09/30/24 14:34 DERMATITIS oxycodone AdvReac Severe GI SYMPTOMS Verified 09/30/24 14:34 Home Meds Home Medications Medication Instructions Recorded Confirmed cyanocobalamin (vitamin B-12) 1,000 mcg PO NOON ##0 05/14/18 09/30/24 1,000 mcg capsule cholecalciferol (vitamin D3) 25 25 mcg PO QAM 11/16/21 09/30/24 mcg (1,000 unit) capsule aspirin 81 mg chewable tablet 81 mg PO DAILY 03/10/24 09/30/24 clonazepam 0.5 mg tablet 0.5 mg PO UD 07/08/24 09/30/24 mupirocin 2 % topical ointment 1 applic topical BID PRN skin tears 07/08/24 09/30/24 canagliflozin 300 mg tablet 300 mg PO [facility] 09/30/24 09/30/24 (Invokana) cephalexin 500 mg capsule 500 mg PO [facility] 09/30/24 09/30/24 clopidogrel 75 mg tablet 75 mg PO [facility] 09/30/24 09/30/24 fluvoxamine 100 mg tablet 100 mg PO 09/30/24 09/30/24 omeprazole 20 mg capsule,delayed 20 mg PO [facility] 09/30/24 09/30/24 release prednisone 5 mg tablet 10 mg PO [facility] 09/30/24 09/30/24 quetiapine 25 mg tablet (Seroquel) 25 mg PO Q OTHER DAY 09/30/24 09/30/24 Previous Rx's Medication Instructions Recorded Wheeled Walker #1 ea 06/25/22 famotidine 40 mg tablet 40 mg PO 1200 #90 tabs 08/01/23 tramadol 50 mg tablet 50 mg PO Q6H PRN pain #120 tabs 04/22/24 valsartan 40 mg tablet 40 mg PO HS #90 tabs 07/08/24 [id number]-oeaaxplwluiui-[id number] 2 tab PO Q4H PRN headaches #1,080 08/31/24 50 mg-325 mg-40 mg tablet tabs Results & Data (ED) Vital Signs Vital Signs - 24 hr 01/02/25 20:54 09/30/24 21:10 09/30/24 21:19 Temperature 37 C Temperature Source Temporal Artery Scan Pulse Rate 61 55 L Pulse Rate [Apical] Pulse Rhythm [Apical] Pulse Strength [Apical] Pulse Strength [Carotid] Respiratory Rate 16 Respiratory Effort / Characteristics Non-Labored Respiratory Depth Normal Respiratory Pattern Blood Pressure 181/78 H Blood Pressure [Left Arm] Blood Pressure Mean 112 Blood Pressure Mean [Left Arm] Blood Pressure Position [Left Arm] Pulse Oximetry 97 99 Oxygen Delivery Method Room Air Room Air Oxygen Flow Rate Sepsis Recent Fever Within 48 Hours No Sepsis New/Unexplained Change in Mental Status No Sepsis Action Taken by Nursing No Action Required 09/30/24 21:22 09/30/24 21:22 09/30/24 21:22 Temperature 36.8 C Temperature Source Pulse Rate 55 L Pulse Rate [Apical] 55 L 55 L Pulse Rhythm [Apical] Regular Regular Pulse Strength [Apical] Normal Normal Pulse Strength [Carotid] Normal Respiratory Rate 18 18 18 Respiratory Effort / Characteristics Non-Labored Spontaneous Non-Labored Spontaneous Respiratory Depth Normal Normal Respiratory Pattern Regular Regular Blood Pressure 160/72 H Blood Pressure [Left Arm] 160/72 H 160/72 H Blood Pressure Mean Blood Pressure Mean [Left Arm] 101 101 Blood Pressure Position [Left Arm] Semi-fowlers Semi-fowlers Pulse Oximetry 98 98 98 Oxygen Delivery Method Room Air Room Air Room Air Oxygen Flow Rate 0 Sepsis Recent Fever Within 48 Hours Sepsis New/Unexplained Change in Mental Status Sepsis Action Taken by Nursing 09/30/24 22:00 09/30/24 23:00 09/30/24 23:00 Temperature Temperature Source Pulse Rate Pulse Rate [Apical] 51 L 52 L 52 L Pulse Rhythm [Apical] Regular Regular Regular Pulse Strength [Apical] Normal Normal Normal Pulse Strength [Carotid] Respiratory Rate 18 18 18 Respiratory Effort / Characteristics Non-Labored Spontaneous Non-Labored Spontaneous Non-Labored Spontaneous Respiratory Depth Normal Normal Normal Respiratory Pattern Regular Regular Regular Blood Pressure Blood Pressure [Left Arm] 148/77 H 143/78 H 143/78 H Blood Pressure Mean Blood Pressure Mean [Left Arm] 100 99 99 Blood Pressure Position [Left Arm] Semi-fowlers Semi-fowlers Semi-fowlers Pulse Oximetry 97 98 98 Oxygen Delivery Method Room Air Room Air Room Air Oxygen Flow Rate Sepsis Recent Fever Within 48 Hours Sepsis New/Unexplained Change in Mental Status Sepsis Action Taken by Nursing Laboratory Data 09/30/24 21:20 09/30/24 21:20 Lab Results 09/30/24 Range/Units 21:20 WBC 7.64 (4.8-10.8) K/ul RBC 4.69 L (4.70-6.10) M/uL Hgb 13.1 L (14.0-18.0) g/dl Hct 40.8 L (42.0-52.0) % MCV 87.0 (80.0-100.0) fL MCH 27.9 (25.0-34.0) pg MCHC 32.1 (32.0-36.0) g/dL RDW Std Deviation 49.8 H (36.4-46.3) fL RDW Coeff of Chandrakant 15.9 H (11.5-14.5) % Plt Count 266 (130-400) K/uL MPV 9.9 (9.4-12.4) fL Immature Gran % (Auto) 0.4 % Neut % (Auto) 52.0 % Lymph % (Auto) 37.6 % [place] % (Auto) 8.8 % Eos % (Auto) 0.5 % Baso % (Auto) 0.7 % Neut # (Auto) 3.98 (1.40-6.50) K/uL Lymph # (Auto) 2.87 (1.20-3.40) K/uL [place] # (Auto) 0.67 H (0.11-0.59) K/uL Eos # (Auto) 0.04 (0.00-0.50) K/uL Baso # (Auto) 0.05 (0.00-0.20) K/uL Immature Gran # (Auto) 0.03 (0.01-0.20) K/uL PT 10.8 (9.0-12.0) Seconds INR 1.0 (0.9-1.1) Sodium 137 (136-145) mmol/L Potassium 3.9 (3.5-5.1) mmol/L Chloride 102 (98-107) mmol/L Carbon Dioxide 24 (21-32) mmol/L Anion Gap 11 (3-11) BUN 19 (6-23) mg/dl Creatinine 1.10 (0.6-1.4) mg/dl Est Cr Clr Drug Dosing 53.5 ml/min eGFR 68.71 BUN/Creatinine Ratio 17.3 (10-20) Glucose 86 (70-99(Fasting)) mg/dl Calcium 10.0 (8.6-10.3) mg/dl Magnesium 2.2 (1.7-2.4) mg/dl Total Bilirubin 0.4 (0.2-1.0) mg/dl AST 11 L (13-39) U/L ALT 9 (7-52) U/L Alkaline Phosphatase 61 (34-104) U/L Troponin I High Sens 8.6 (0-20) pg/ml Total Protein 8.0 (6.0-8.3) gm/dl Albumin 4.9 (3.4-5.0) gm/dl Globulin 3.1 (2.5-4.0) gm/dl Albumin/Globulin Ratio 1.6 (0.9-2) Imaging Data Radiologist's Impression: Head CT 09/30/24 21:22 CR Exam(s): CT HEAD Without Contrast EXAM: CT Head Without Intravenous Contrast CLINICAL HISTORY: Reason for exam: SDH; fall 2 weeks ago. TECHNIQUE: Axial computed tomography images of the head/brain without intravenous contrast. CTDI is 65.5 mGy and DLP is 1098.96 mGy-cm. Automated exposure control was utilized for the study. A dose lowering technique was utilized adhering to the principles of ALARA. COMPARISON: CT 03/10/2024 FINDINGS: Brain: Right convexity subdural collection measuring up to 7 mm. Predominantly chronic contents. There appears to be a trace amount of acute blood products within the collection. No midline shift or herniation. Global parenchymal atrophy. Chronic infarcts involving the left parietal and left occipital lobes. Ventricles: Unremarkable. Bones/joints: Unremarkable. No fracture. Soft tissues: Unremarkable. Sinuses: No acute sinusitis. Mastoid air cells: Unremarkable as visualized. IMPRESSION: Right convexity subdural collection measuring up to 7 mm. Predominantly chronic contents. There appears to be a trace amount of acute blood products within the collection. No midline shift or herniation. Communications: Verify Receipt Electronically signed by: Lester Moncada MD 09/30/24 23:15 PM Chest X-Ray 09/30/24 21:29 Exam(s): XR CXR 1 VIEW EXAM: XR Chest, 1 View CLINICAL HISTORY: Reason for exam: Fall. TECHNIQUE: Frontal view of the chest. COMPARISON: Chest x-ray 04/22/2024 FINDINGS: Lungs: No consolidation. No overt edema. Pleural space: No pleural effusion. No pneumothorax. Heart: Unremarkable. No cardiomegaly. IMPRESSION: No acute cardiopulmonary process. Electronically signed by: Lester Moncada MD 09/30/24 23:36 PM Discharge Plan Visit Data Chief Complaint: Trauma Stated Complaint: HAD CT FOR HEAD, PCP, WANTED EVALUATION ED Provider: Christina Tavarez Discharge Problem: Recurrent falls, Subdural hematoma Forms Stand Alone Forms: [facility] [facility] Click Contact Prescriptions Prescriptions: No Action cyanocobalamin (vitamin B-12) 1,000 mcg Capsule 1,000 mcg PO NOON Qty: 0 (DME) Wheeled Walker Misc See Rx Instructions .Route Qty: 1 0RF Rx Instructions: with seat and hand brakes. Duration 999 cholecalciferol (vitamin D3) 25 mcg (1,000 unit) capsule 25 mcg PO QAM famotidine 40 mg tablet 40 mg PO 1200 Qty: 90 3RF tramadol 50 mg tablet 50 mg PO Q6H PRN (Reason: pain) Qty: 120 5RF mupirocin 2 % ointment 1 applic topical BID PRN (Reason: skin tears) clonazepam 0.5 mg tablet 0.5 mg PO UD Rx Instructions: take 1 tablet at noon and take 2 tablets at bedtime valsartan 40 mg tablet 40 mg PO HS Qty: 90 3RF lywetkdvjz-ymfavpkmqcuqo-hwzl 50-325-40 mg tablet 2 tab PO Q4H PRN (Reason: headaches) Qty: 1080 1RF quetiapine [Seroquel] 25 mg tablet 25 mg PO Q OTHER DAY Rx Instructions: take at 6pm cephalexin 500 mg capsule 500 mg PO QAM Invokana 300 mg tablet 300 mg PO QAM clopidogrel 75 mg tablet 75 mg PO QAM fluvoxamine 100 mg tablet 100 mg PO UD Rx Instructions: take 1 tablet in afternoon and 2 tablets at bedtime prednisone 5 mg tablet 10 mg PO QAM omeprazole 20 mg capsule,delayed release(DR/EC) 20 mg PO QAM aspirin 81 mg Tablet,Chewable 81 mg PO DAILY Referrals Referrals: Wing William MD [Primary Care Provider] -
[2024-09-30 22:02] LABS: Troponin I High Sensitivity 8.6 pg/ml (0-20)
[2024-09-30 22:04] LABS: Albumin Globulin Ratio 1.6 (0.9-2); Albumin Level 4.9 gm/dl (3.4-5.0); BUN Creatinine Ratio 17.3 (10-20); Bilirubin,Total 0.4 mg/dl (0.2-1.0); Creatinine Clr Calc Pharmacy 53.5 ml/min; Globulin 3.1 gm/dl (2.5-4.0); Magnesium 2.2 mg/dl (1.7-2.4); Potassium 3.9 mmol/L (3.5-5.1)
[2024-09-30 22:06] LABS: Prothrombin Time 10.8 Seconds (9.0-12.0)
--- NOTE | 2024-09-30 23:15 | CT Scan Report ---
Exam(s): CT HEAD Without Contrast EXAM: CT Head Without Intravenous Contrast CLINICAL HISTORY: Reason for exam: SDH; fall 2 weeks ago. TECHNIQUE: Axial computed tomography images of the head/brain without intravenous contrast. CTDI is 65.5 mGy and DLP is 1098.96 mGy-cm. Automated exposure control was utilized for the study. A dose lowering technique was utilized adhering to the principles of ALARA. COMPARISON: CT 03/10/2024 FINDINGS: Brain: Right convexity subdural collection measuring up to 7 mm. Predominantly chronic contents. There appears to be a trace amount of acute blood products within the collection. No midline shift or herniation. Global parenchymal atrophy. Chronic infarcts involving the left parietal and left occipital lobes. Ventricles: Unremarkable. Bones/joints: Unremarkable. No fracture. Soft tissues: Unremarkable. Sinuses: No acute sinusitis. Mastoid air cells: Unremarkable as visualized. IMPRESSION: Right convexity subdural collection measuring up to 7 mm. Predominantly chronic contents. There appears to be a trace amount of acute blood products within the collection. No midline shift or herniation. Communications: Verify Receipt Electronically signed by: Lester Moncada MD 09/30/24 23:15 PM
--- NOTE | 2024-09-30 23:36 | XRay Report ---
Exam(s): XR CXR 1 VIEW EXAM: XR Chest, 1 View CLINICAL HISTORY: Reason for exam: Fall. TECHNIQUE: Frontal view of the chest. COMPARISON: Chest x-ray 04/22/2024 FINDINGS: Lungs: No consolidation. No overt edema. Pleural space: No pleural effusion. No pneumothorax. Heart: Unremarkable. No cardiomegaly. IMPRESSION: No acute cardiopulmonary process. Electronically signed by: Lester Moncada MD 09/30/24 23:36 PM
[2024-10-01] MEDS: hydrALAZINE HCL 20 MG/ML VIAL IV SCH (01:59)
[2024-10-01] MEDS: NSS + 20MEQ KCL 20 MEQ/1,000 ML BAG IV SCH (02:00)
[2024-10-01] MEDS: DESMOPRESSIN ACETATE 30 MCG in SODIUM CHLORIDE 0.9% 50 ML IV ONE (02:00)
--- NOTE | 2024-10-01 05:06 | History & Physical Report ---
Date of Service October 01, 2024 Assessment & Plan (1) Subdural hematoma: (2) Recurrent falls: (3) Vascular dementia: (4) Mild cognitive impairment: (5) Gait disturbance: Plan The patient is a 79-year-old male with past medical history including mild cognitive impairment, gait disturbance, mood disorder, Lyme disease, stroke, GERD, restless leg syndrome, lumbar disc disease with radiculopathy, polymyalgia, diabetes mellitus type 2, stenosis of left ICA, depression and history of episodic tobacco abuse. Patient had a CT scan of the head which showed a subdural hematoma, with trace amount of acute blood, and was referred for evaluation for admission to [facility] service after [facility] neurosurgery reported that the patient did not need to be transferred because no procedure would be indicated. #Right convexity subdural hematoma up to 7 mm in size, predominantly chronic, with trace amount of acute blood products- Patient had several falls, with most recent significant fall apparently about 2 weeks ago [facility] neurosurgery was contacted by the ED, and felt that the patient would not need any transfer, due to no procedure being indicated at this time Hold aspirin and Plavix The patient will be admitted to telemetry for serial cardiac enzymes, serial EKG's, cardiac rhythm monitoring and a 2-D echocardiogram with Dopplers. Give DDAVP x [address] scan in the a.m. for stability Consult neurology Neurochecks Patient appears to be at his baseline mental state at this time Hold all antiplatelets and anticoagulation N.p.o. for now Give adequate control blood pressure: Hydralazine 10 mg IV every 4 hours hold for systolic blood pressure less than 110 NSS + KCl 20 mill equivalents at 80 mL/h x 1 L Acetaminophen 1 g IV every 8 hours as needed for mild pain or fever Zofran 4 mg IV every 6 hours as needed Admission and Anticipated Discharge Date Admission Date: October 01, 2024 History of Present Illness Chief Complaint: The patient was referred to the emergency department by his PCP, after presenting to the outpatient office with concerns regarding ongoing headaches, some blurry vision of the left eye after falling and striking his head about 2 weeks ago. The patient has been having increased frequency falls recently. CT scan of the head showed a subdural hematoma, and he was referred to the emergency department for further evaluation. Patient is noted to have some baseline dementia, and family reports that he has not had any change in mental functioning. He is presently on aspirin and Plavix for previous history of CVA Primary Care Provider: Wing William MD The patient is a 79-year-old male with past medical history including mild cognitive impairment, gait disturbance, mood disorder, Lyme disease, stroke, GERD, restless leg syndrome, lumbar disc disease with radiculopathy, polymyalgia, diabetes mellitus type 2, stenosis of left ICA, depression and history of episodic tobacco abuse. Patient had a CT scan of the head which showed a subdural hematoma, with trace amount of acute blood, and was referred for evaluation for admission to [facility] service after [facility] neurosurgery reported that the patient did not need to be transferred because no procedure would be indicated. Allergies Allergy/AdvReac Type Severity Reaction Status Date / Time latex Allergy Mild CONTACT Verified 09/30/24 14:34 DERMATITIS oxycodone AdvReac Severe GI SYMPTOMS Verified 09/30/24 14:34 Home Medications Medication Instructions Recorded Confirmed Type cyanocobalamin (vitamin B-12) 1,000 mcg PO NOON ##0 05/14/18 09/30/24 History 1,000 mcg capsule cholecalciferol (vitamin D3) 25 25 mcg PO QAM 11/16/21 09/30/24 History mcg (1,000 unit) capsule Wheeled Walker #1 ea 06/25/22 09/30/24 Rx famotidine 40 mg tablet 40 mg PO 1200 #90 tabs 08/01/23 09/30/24 Rx aspirin 81 mg chewable tablet 81 mg PO DAILY 03/10/24 09/30/24 History tramadol 50 mg tablet 50 mg PO Q6H PRN pain #120 tabs 04/22/24 09/30/24 Rx clonazepam 0.5 mg tablet 0.5 mg PO UD 07/08/24 09/30/24 History mupirocin 2 % topical ointment 1 applic topical BID PRN skin tears 07/08/24 09/30/24 History valsartan 40 mg tablet 40 mg PO HS #90 tabs 07/08/24 09/30/24 Rx lttjdrhmqg-ailiztmazfyko-fjfbkonz 2 tab PO Q4H PRN headaches #1,080 08/31/24 09/30/24 Rx 50 mg-325 mg-40 mg tablet tabs canagliflozin 300 mg tablet 300 mg PO QAM 09/30/24 09/30/24 History (Invokana) cephalexin 500 mg capsule 500 mg PO QAM 09/30/24 09/30/24 History clopidogrel 75 mg tablet 75 mg PO QAM 09/30/24 09/30/24 History fluvoxamine 100 mg tablet 100 mg PO UD 09/30/24 09/30/24 History omeprazole 20 mg capsule,delayed 20 mg PO QAM 09/30/24 09/30/24 History release prednisone 5 mg tablet 10 mg PO QAM 09/30/24 09/30/24 History quetiapine 25 mg tablet (Seroquel) 25 mg PO Q OTHER DAY 09/30/24 09/30/24 History Past Med/Surg History Problem List (Updated 10/01/24 @ 00:44 by Christina Tavarez MD) Subdural hematoma (Acute) Recurrent falls (Acute) Vascular dementia Fall Mild cognitive impairment Gait disturbance Rib injury Postconcussion syndrome 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) Lyme disease Generalized muscle weakness (Acute) Fall (Acute) Stroke-like symptoms (Acute) Stroke-like symptoms Rash Impacted cerumen, bilateral Sinusitis Rotator cuff syndrome Gait instability Chronic daily headache Stroke GERD (gastroesophageal reflux disease) Mood disorder Restless leg syndrome Lumbar disc disease with radiculopathy Polymyalgia Diabetes mellitus, type 2 Mixed hyperlipidemia Hypertension Carpal tunnel syndrome, right Ulnar neuropathy at elbow of right upper extremity Tobacco abuse, episodic Nocturnal hypoxemia Depression 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 Medical History Fall Diverticulosis (08/10/12) Wedge compression fracture of t11-T12 vertebra, subsequent encounter for fracture with delayed healing Closed fracture of multiple ribs of left side Unintentional weight loss Hemopneumothorax on left Cellulitis Migraine Murmur, cardiac Stroke Chronic steroid use Hyperlipidemia GERD (gastroesophageal reflux disease) Anxiety Osteoarthritis Tonsillar abscess History of fibula fracture History of CVA (cerebrovascular accident) Airway compromise Surgical History History of nasal septoplasty History of carpal tunnel release History of herniorrhaphy History of cholecystectomy History of carotid endarterectomy Family History Mother Gallbladder cancer Father Diabetes Stroke Brother Leukemia Sister Epilepsia Aneurysm of gastric artery Liver disease Social History Smoking Status: Never smoker Tobacco Type: Cigarettes Age Started Using Tobacco: 20; packs per day: 0.50; Cigarettes Per Day: 10; Second Hand Exposure: No; Do You Dip or Chew Tobacco: No; Hx Alcohol Use: Yes Alcohol type: beer Hx Substance Use: No Preferred Language: Surinamese Communication Ability: Effective Visual Impairment: Diminished Hearing Ability: Normal Telephone Repairer Required: No Beliefs That Will Affect Care: None marital status: Current Living Situation: Spouse Current Living Situation Comment: With spouse, children and grandchildren nearby current occupational status: retired How many Children do You have: 2 Feels Safe at Home: Yes Childhood Exposure to Second-Hand Smoke: Yes Diet: regular caffeine: No Dental Care, Regularly: Yes Physical Activity Frequency: Does not Exercise Physical Activity Frequency Comment: active lifestyle Seatbelt Use: always Sunscreen Use: No Do you think of yourself as: straight/heterosexual Assistive Devices: Walker Review of Systems Review of Systems: The patient denies chest pain, palpitations, shortness of breath, dyspnea on exertion, cough, lower extremity swelling, sore throat, fevers, chills, sweats, weight change, fatigue, nausea, vomiting, diarrhea , constipation, abdominal pain, pelvic pain, blood in urine or stool, dysuria, urinary frequency or urgency, loss of consciousness, rash, abnormal bruising or bleeding, imbalance, focal or generalized weakness, numbness or tingling in arms or legs, generalized arthralgias or myalgias, back or neck pain, or night sweats. The review of systems is otherwise negative other than for that already noted above, and at least 10 systems have been reviewed. Physical Exam Physical Exam: The patient is awake, alert and oriented 3, well developed and well nourished, normocephalic and atraumatic, lying in bed and in no acute distress. HEENT--PERRL, EOMI, mucous membranes and oropharynx normal Neck--supple. No JVD. No bruits. Thyroid normal, trachea midline, no adenopathy. Heart--normal S1 and S2. No murmurs, rubs or gallops. Lungs--clear bilaterally, no respiratory distress, no accessory muscle use. Abdomen--normal bowel sounds and soft. Nontender. Nondistended, no hernias or masses, no organomegaly. Extremities--no cyanosis or clubbing. No edema. There are good distal pulses b/l. Dermatologic--normal skin turgor, normal color, no abnormal lymph nodes, no rash. Neurologic--cranial nerves II through XII grossly intact. Rheumatologic--normal range of motion. Psychiatric--normal affect. Results & Data Results & Data Vital Signs (Past 12 Hours) Vital Signs Temp Pulse Pulse Resp BP BP Pulse Ox 10/01/24 04:30 137/66 10/01/24 04:00 76 18 120/58 L 95 10/01/24 02:42 75 14 131/61 95 10/01/24 02:11 54 L 10/01/24 02:00 54 L 18 136/104 H 94 10/01/24 01:58 53 L 18 136/104 H 96 10/01/24 01:00 53 L 18 156/72 H 98 10/01/24 01:00 57 L 18 156/72 H 98 10/01/24 00:00 55 L 18 149/79 H 97 09/30/24 23:00 52 L 18 143/78 H 98 09/30/24 23:00 52 L 18 143/78 H 98 09/30/24 22:00 51 L 18 148/77 H 97 09/30/24 21:22 55 L 18 160/72 H 98 09/30/24 21:22 36.8 C 55 L 18 160/72 H 98 09/30/24 21:22 55 L 18 160/72 H 98 09/30/24 21:19 55 L 09/30/24 21:10 99 09/30/24 20:54 37 C 61 16 181/78 H 97 O2 Del Method O2 Flow Rate 10/01/24 04:30 10/01/24 04:00 10/01/24 02:42 10/01/24 02:11 10/01/24 02:00 Room Air 10/01/24 01:58 Room Air 10/01/24 01:00 Room Air 10/01/24 01:00 Room Air 10/01/24 00:00 Room Air 09/30/24 23:00 Room Air 09/30/24 23:00 Room Air 09/30/24 22:00 Room Air 09/30/24 21:22 Room Air 09/30/24 21:22 Room Air 0 09/30/24 21:22 Room Air 09/30/24 21:19 09/30/24 21:10 Room Air 09/30/24 20:54 Room Air Laboratory Results Laboratory Results WBC 7.64 K/ul (4.8-10.8) 09/30/24 21:20 RBC 4.69 M/uL (4.70-6.10) L 09/30/24 21:20 Hgb 13.1 g/dl (14.0-18.0) L 09/30/24 21:20 Hct 40.8 % (42.0-52.0) L 09/30/24 21:20 MCV 87.0 fL (80.0-100.0) 09/30/24 21:20 MCH 27.9 pg (25.0-34.0) 09/30/24 21:20 MCHC 32.1 g/dL (32.0-36.0) 09/30/24 21:20 RDW Std Deviation 49.8 fL (36.4-46.3) H 09/30/24 21:20 RDW Coeff of Chandrakant 15.9 % (11.5-14.5) H 09/30/24 21:20 Plt Count 266 K/uL (130-400) 09/30/24 21:20 MPV 9.9 fL (9.4-12.4) 09/30/24 21:20 Immature Gran % (Auto) 0.4 % 09/30/24 21:20 Neut % (Auto) 52.0 % 09/30/24 21:20 Lymph % (Auto) 37.6 % 09/30/24 21:20 [place] % (Auto) 8.8 % 09/30/24 21:20 Eos % (Auto) 0.5 % 09/30/24 21:20 Baso % (Auto) 0.7 % 09/30/24 21:20 Neut # (Auto) 3.98 K/uL (1.40-6.50) 09/30/24 21:20 Lymph # (Auto) 2.87 K/uL (1.20-3.40) 09/30/24 21:20 [place] # (Auto) 0.67 K/uL (0.11-0.59) H 09/30/24 21:20 Eos # (Auto) 0.04 K/uL (0.00-0.50) 09/30/24 21:20 Baso # (Auto) 0.05 K/uL (0.00-0.20) 09/30/24 21:20 Immature Gran # (Auto) 0.03 K/uL (0.01-0.20) 09/30/24 21:20 PT 10.8 Seconds (9.0-12.0) 09/30/24 21:20 INR 1.0 (0.9-1.1) 09/30/24 21:20 Sodium 137 mmol/L (136-145) 09/30/24 21:20 Potassium 3.9 mmol/L (3.5-5.1) 09/30/24 21:20 Chloride 102 mmol/L (98-107) 09/30/24 21:20 Carbon Dioxide 24 mmol/L (21-32) 09/30/24 21:20 Anion Gap 11 (3-11) 09/30/24 21:20 BUN 19 mg/dl (6-23) 09/30/24 21:20 Creatinine 1.10 mg/dl (0.6-1.4) 09/30/24 21:20 Est Cr Clr Drug Dosing 53.5 ml/min 09/30/24 21:20 eGFR 68.71 09/30/24 21:20 BUN/Creatinine Ratio 17.3 (10-20) 09/30/24 21:20 Glucose 86 mg/dl (70-99(Fasting)) 09/30/24 21:20 Calcium 10.0 mg/dl (8.6-10.3) 09/30/24 21:20 Magnesium 2.2 mg/dl (1.7-2.4) 09/30/24 21:20 Total Bilirubin 0.4 mg/dl (0.2-1.0) 09/30/24 21:20 AST 11 U/L (13-39) L 09/30/24 21:20 ALT 9 U/L (7-52) 09/30/24 21:20 Alkaline Phosphatase 61 U/L (34-104) 09/30/24 21:20 Troponin I High Sens 8.6 pg/ml (0-20) 09/30/24 21:20 Total Protein 8.0 gm/dl (6.0-8.3) 09/30/24 21:20 Albumin 4.9 gm/dl (3.4-5.0) 09/30/24 21:20 Globulin 3.1 gm/dl (2.5-4.0) 09/30/24 21:20 Albumin/Globulin Ratio 1.6 (0.9-2) 09/30/24 21:[address] 09/30/24 21:22 CR Exam(s): CT HEAD Without Contrast EXAM: CT Head Without Intravenous Contrast CLINICAL HISTORY: Reason for exam: SDH; fall 2 weeks ago. TECHNIQUE: Axial computed tomography images of the head/brain without intravenous contrast. CTDI is 65.5 mGy and DLP is 1098.96 mGy-cm. Automated exposure control was utilized for the study. A dose lowering technique was utilized adhering to the principles of ALARA. COMPARISON: CT 03/10/2024 FINDINGS: Brain: Right convexity subdural collection measuring up to 7 mm. Predominantly chronic contents. There appears to be a trace amount of acute blood products within the collection. No midline shift or herniation. Global parenchymal atrophy. Chronic infarcts involving the left parietal and left occipital lobes. Ventricles: Unremarkable. Bones/joints: Unremarkable. No fracture. Soft tissues: Unremarkable. Sinuses: No acute sinusitis. Mastoid air cells: Unremarkable as visualized. IMPRESSION: Right convexity subdural collection measuring up to 7 mm. Predominantly chronic contents. There appears to be a trace amount of acute blood products within the collection. No midline shift or herniation. Communications: Verify Receipt Electronically signed by: Lester Moncada MD 09/30/24 23:15 PM Chest X-Ray 09/30/24 21:29 Exam(s): XR CXR 1 VIEW EXAM: XR Chest, 1 View CLINICAL HISTORY: Reason for exam: Fall. TECHNIQUE: Frontal view of the chest. COMPARISON: Chest x-ray 04/22/2024 FINDINGS: Lungs: No consolidation. No overt edema. Pleural space: No pleural effusion. No pneumothorax. Heart: Unremarkable. No cardiomegaly. IMPRESSION: No acute cardiopulmonary process. Electronically signed by: Lester Moncada MD 09/30/24 23:36 PM Code Status & VTE Plan Code Status Full code VTE Prophylaxis Plan VTE Prophylaxis will be ordered: Yes PG Care Time/CCT Total # of Minutes Spent Total Time Spent with Patient: Total time spent is greater than 50% in coordination of care (as documented) at patient's floor/unit and/or counseling patient: Coding Level of Care Code 11518 INT INP/OBS CARE 3/75MIN Diagnoses Subdural hematoma S06.5XAA Recurrent falls R29.6 Mild vascular dementia with other behavioral disturbance F01.A18 Dementia severity: mild Dementia behavioral or psychological symptom: with other behavioral disturbance Mild cognitive impairment G31.84 Gait disturbance R26.9 (3) Vascular dementia Dementia severity: mild Dementia behavioral or psychological symptom: with other behavioral disturbance Qualified Code(s): F01.A18 - Vascular dementia, mild, with other behavioral disturbance
[2024-10-01] MEDS: ACETAMINOPHEN 1000 MG/100 ML IV IV PRN (06:25)
[2024-10-01] MEDS ORDERED: hydrALAZINE HCL 20 MG/ML VIAL IV PRN (08:55)
--- NOTE | 2024-10-01 09:06 | CT Scan Report ---
CT head/brain wo con CLINICAL HISTORY: follow up subdural hematoma Technique: Contiguous axial CT images of the head were acquired from the base of the skull to the floridalma bro without intravenous contrast administration. Images were viewed in brain, subdural and bone [facility]. Automated dose lowering techniques and/or adjustment according to patient size were utilized for this exam. Comparison: Comparison is made to CT head 09/30/2024 Findings: Redemonstration of acute on chronic appearing right subdural hematoma measuring approximately 7 mm. A gain noted there is a small amount of relatively hyperdense fluid in the lateral aspect of this colle ction There is mild volume loss and no significant midline shift. Focal encephalomalacia is again not ed in the left parieto-occipital cortex. Left maxillary sinus mucous retention cyst is seen. The orbits appear normal. There are no acute frac tures of the calvaria or scalp swelling. Impression: Acute on chronic right subdural hematoma is seen without evidence of enlargement or increase in acute component. No midline shift is seen. ACT 112: Negative or not required by law. Electronically signed by: Rolan Campbell M.D. 10/01/2024 9:04 AM
--- NOTE | 2024-10-01 09:59 | Neurology Consultation ---
Date of Consultation October 01, 2024 Assessment & Plan (1) Subdural hematoma: History of Present Illness Attending Physician: Daniel Hong DO History of Present Illness pt this morning feeling little better. communicating well. CT head without change, rt SDH. chart reviewed. admission HPI: The patient was referred to the emergency department by his PCP, after presenting to the outpatient office with concerns regarding ongoing headaches, some blurry vision of the left eye after falling and striking his head about 2 weeks ago. The patient has been having increased frequency falls recently. CT scan of the head showed a subdural hematoma, and he was referred to the emergency department for further evaluation. Patient is noted to have some baseline dementia, and family reports that he has not had any change in mental functioning. He is presently on aspirin and Plavix for previous history of CVA Primary Care Provider: Wing William MD The patient is a 79-year-old male with past medical history including mild cognitive impairment, gait disturbance, mood disorder, Lyme disease, stroke, GERD, restless leg syndrome, lumbar disc disease with radiculopathy, polymyalgia, diabetes mellitus type 2, stenosis of left ICA, depression and history of episodic tobacco abuse. Patient had a CT scan of the head which showed a subdural hematoma, with trace amount of acute blood, and [facility] reported that the patient did not need to be transferred because no procedure would be indicated. Allergies Allergy/AdvReac Type Severity Reaction Status Date / Time latex Allergy Mild CONTACT Verified 09/30/24 14:34 DERMATITIS oxycodone AdvReac Severe GI SYMPTOMS Verified 09/30/24 14:34 Home Medications Medication Instructions Recorded Confirmed Type cyanocobalamin (vitamin B-12) 1,000 mcg PO NOON ##0 05/14/18 09/30/24 History 1,000 mcg capsule cholecalciferol (vitamin D3) 25 25 mcg PO QAM 11/16/21 09/30/24 History mcg (1,000 unit) capsule Wheeled Walker #1 ea 06/25/22 09/30/24 Rx famotidine 40 mg tablet 40 mg PO 1200 #90 tabs 08/01/23 09/30/24 Rx aspirin 81 mg chewable tablet 81 mg PO DAILY 03/10/24 09/30/24 History tramadol 50 mg tablet 50 mg PO Q6H PRN pain #120 tabs 04/22/24 09/30/24 Rx clonazepam 0.5 mg tablet 0.5 mg PO UD 07/08/24 09/30/24 History mupirocin 2 % topical ointment 1 applic topical BID PRN skin tears 07/08/24 09/30/24 History valsartan 40 mg tablet 40 mg PO HS #90 tabs 07/08/24 09/30/24 Rx cgrvtiojgz-wcarkycxzumbd-vqmuzbwm 2 tab PO Q4H PRN headaches #1,080 08/31/2411/23 Rx 50 mg-325 mg-40 mg tablet tabs canagliflozin 300 mg tablet 300 mg PO QAM 09/30/24 09/30/24 History (Invokana) cephalexin 500 mg capsule 500 mg PO QAM 09/30/24 09/30/24 History clopidogrel 75 mg tablet 75 mg PO QAM 09/30/24 09/30/24 History fluvoxamine 100 mg tablet 100 mg PO UD 09/30/24 09/30/24 History omeprazole 20 mg capsule,delayed 20 mg PO QAM 09/30/24 09/30/24 History release prednisone 5 mg tablet 10 mg PO QAM 09/30/24 09/30/24 History quetiapine 25 mg tablet (Seroquel) 25 mg PO Q OTHER DAY 09/30/24 09/30/24 History Patient History Medical History Fall Diverticulosis (08/10/12) Wedge compression fracture of t11-T12 vertebra, subsequent encounter for fracture with delayed healing Closed fracture of multiple ribs of left side Unintentional weight loss Hemopneumothorax on left Cellulitis Migraine Murmur, cardiac Stroke Chronic steroid use Hyperlipidemia GERD (gastroesophageal reflux disease) Anxiety Osteoarthritis Tonsillar abscess History of fibula fracture History of CVA (cerebrovascular accident) Airway compromise Surgical History History of nasal septoplasty History of carpal tunnel release History of herniorrhaphy History of cholecystectomy History of carotid endarterectomy Family History Mother Gallbladder cancer Father Diabetes Stroke Brother Leukemia Sister Epilepsia Aneurysm of gastric artery Liver disease Social History Smoking Status: Never smoker Tobacco Type: Cigarettes Age Started Using Tobacco: 20; packs per day: 0.50; Cigarettes Per Day: 10; Second Hand Exposure: No; Do You Dip or Chew Tobacco: No; Hx Alcohol Use: Yes Alcohol type: beer Hx Substance Use: No Preferred Language: Turkish Communication Ability: Effective Visual Impairment: Diminished Hearing Ability: Normal Fitting Room Supervisor Required: No Beliefs That Will Affect Care: None marital status: Current Living Situation: Spouse Current Living Situation Comment: With spouse, children and grandchildren nearby current occupational status: retired How many Children do You have: 2 Feels Safe at Home: Yes Childhood Exposure to Second-Hand Smoke: Yes Diet: regular caffeine: No Dental Care, Regularly: Yes Physical Activity Frequency: Does not Exercise Physical Activity Frequency Comment: active lifestyle Seatbelt Use: always Sunscreen Use: No Do you think of yourself as: straight/heterosexual Assistive Devices: Walker Review of Systems Review of Systems: All systems reviewed & are unremarkable except as noted in HPI & below and All systems reviewed & are unremarkable except as noted in Subjective Constitutional: as per Subjective / HPI Eyes: as per Subjective / HPI Ear, Nose, Mouth, Throat: as per Subjective / HPI Respiratory: as per Subjective / HPI Cardiovascular: as per Subjective / HPI Gastrointestinal: as per Subjective / HPI Musculoskeletal: as per Subjective / HPI Integumentary: as per Subjective / HPI Neurologic: as per Subjective / HPI Psychiatric: as per Subjective / HPI Endocrine: as per Subjective / HPI Hematologic / Lymphatic: as per Subjective / HPI Allergy / Immunological: as per Subjective / HPI Exam (Neuro) Physical Exam: HEENT: normocephalic Neuro: Mental: Alert, follows command well. fluent speech, normal comprehension, no apraxia, no L/R confusion, no neglect CN: PERRL, Full EOM, symmetric face, intact sensation t/o face Motor: No abnormal movements, normal tone and bulk, 5/5 t/o bilaterally Coord: intact Impression: 79 yo male with subacute rt SDH, stable on repeat CT head. neurosurgery recommend no intervention at this point. Pt clinically stable. Recommendations: 2. Hold all antiplatelet and anticoagula tions: For Patients who needs antiplatelet therapy, may consider restarting low dose ASA 81mg in about 2 weeks, after repeat CT head. 3. Images: repeat noncon CT head tomorro w morning and if stable, no need for further imaging. can have repeat CT head in about 2 weeks as outpt for follow up. 4. Strict BP control: for pt with SBP in 150-200, keep SBP goal range below 140. For pt with SBP above 210, keep SBP range 140-160. Avoid hypotension. *Close monitoring for increase ICP and electrolyte imbalance, especially hyponatremia. 6. Long-term SBP goal less than 130. 7. Plenty of hydration including IV flui d if possible (use isotonic solution) next 1-2 days. Avoid hypovolemia and hypotension. 8. Initiate DVT prevention therapy: pneu matic compression. Do not use Lovenox or anticoagulation meds until further notice. 9. Avoid hypoglycemia, serum glucose goa l during hospitalization: 140-180. 10. Long-term HgA1c goal less than 7. 11. Statin use: if pt was never on stati n, do not start statin now, wait until pt is being discharged and start statin on discharge day. Long-term LDL goal of less than 70. If pt was on statin as outpt, ok to continue statin during inpatient. *Avoid using gastric acid suppression meds (i.e. PPI, histamine-2 antagonists) as they are associated with increased risk of hospital-acquired pneumonia. 12. Head of bed up 30 degrees if possibl e. 13. telemetry monitoring 15. Fall precaution and aspiration preca ution. 16. Consult physical therapy for headache management, can use antiemetics (zofran ODT) and neurontin 100mg tid. he can follow with me as outpt once discharged in 2-3 weeks. call again if new question. Chart reviewed I have spent more than 50% educating patient about potential diagnosis and neurological evaluation and coordinating care with patient's treatment team. Total time spent (including chart review and coordination of care): 60 min (this includes chart review). Results & Data Vital Signs (Past 12 Hours) Vital Signs Pulse Pulse Resp BP BP Pulse Ox O2 Del Method 10/01/24 08:00 71 20 121/54 L 97 Room Air 10/01/24 07:43 93 H 10/01/24 07:30 73 13 112/57 L 93 Room Air 10/01/24 07:00 82 20 110/50 L 95 Room Air 10/01/24 06:00 73 22 101/37 L 93 10/01/24 05:00 70 18 121/56 L 95 10/01/24 04:30 137/66 10/01/24 04:00 76 18 120/58 L 95 10/01/24 02:42 75 14 131/61 95 10/01/24 02:11 54 L 10/01/24 02:00 54 L 18 136/104 H 94 Room Air 10/01/24 01:58 53 L 18 136/104 H 96 Room Air 10/01/24 01:00 53 L 18 156/72 H 98 Room Air 10/01/24 01:00 57 L 18 156/72 H 98 Room Air 10/01/24 00:00 55 L 18 149/79 H 97 Room Air 09/30/24 23:00 52 L 18 143/78 H 98 Room Air 09/30/24 23:00 52 L 18 143/78 H 98 Room Air 09/30/24 22:00 51 L 18 148/77 H 97 Room Air PG Care Time/CCT Total # of Minutes Spent Total Time Spent with Patient: Total time spent is greater than 50% in coordination of care (as documented) at patient's floor/unit and/or counseling patient: Coding Level of Care Code 88563 IN/OBS CONSULT LVL 4,60M Diagnoses Subdural hematoma S06.5XAA
--- NOTE | 2024-10-01 12:06 | Hospitalist Progress Note ---
Date of Service October 01, 2024 Assessment & Plan (1) Subdural hematoma: (2) Vascular dementia: (3) Mild cognitive impairment: (4) Recurrent falls: (5) Diabetes mellitus, type 2: Plan Subdural hematoma - CT head 09/30: Right convexity subdural collection measuring 7mm with trace amount of blood. No midline shift/herniation - CT head 10/01: Acute on chronic subdural hematoma; no enlargement/midline shift - Continue to hold Aspirin/plavix - Pain management: Tylenol PO 650 mg Q6H and Toradol 10mg PRN Q6H, Zofran/Neurontin as needed - Isotonic fluid support as necessary - Blood pressure management: Valsartan 40mg PO QHS - Continue telemetry monitoring - Consulted Neurology, recommend repeat head CT in 2 weeks, restart aspirin and neurology f/u 2-3 weeks Recurrent falls - Fall precautions - PT/OT consulted Chronic Problems Vascular dementia/Mild cognitive impairment - monitor for altered mental status in setting of vascular brain bleed T2DM - A1c: 6.7%, glucose: 86; hold SSI DVT prophylaxis: SCDs Dispo: med surg w/ tele Admission and Anticipated Discharge Date Admission Date: October 01, 2024 Supervising Physician Co-Signing Physician Notes I personally examined the patient and verified all robbins points of history and exam, discussed case, and agree with decision making with Dr Cho headachealthough it is a little bit hard to discern if it is regular headaches that he suffered with for 40 years or new/worse related to his subdural. No focal neurodeficits. Vitals noted, in general he is awake and alert pleasant no distress. Quite talkativehe does relate that he has mild dementia but is hard to tell how much he is confused versus how much he simply likes to talk and meander in the conversation. Certainly no focal neurodeficits noted daughter arrivesupdated her to the best my ability and to her satisfaction as well. Reviewed imaging. Show daughter CT head images. Subdural hematomafortunately appears stableheadachesalthough these may even be part of his chronic headache milieu. Fortunately no neuro deterioration, no clear indications to need transfer/neurosurgery. Off of antiplatelets. Hematoma appears smaller on follow-up imaging. Work on headache management. PT/OT eval and treat. Likely to need rehab. Hypertensiontitrate ARB DVT prophylaxispharmacologic obviously contraindicated due to his subdural hematoma. We utilize mechanical prophylaxis and ambulation. Subjective Raffi Bruner was seen today in the ED resting comfortably in bed. Patient endorses constant head pain 5/10 worst at his temples. Patient was recently admitted last night after he was found to have subdural hematoma on head CT. Patient denies chest pain, palpitations, nausea, vomiting, abdominal pain, dizziness, and fatigue. Patient is afebrile and hemodynamically stable. Physical Exam Physical Exam: General: patient resting comfortably, NAD, non-toxic in appearance, answers ques tions appropriately. Skin: warm, dry, intact HEENT: NC/AT, anicteric sclera, conjunctiva without injection, moist mucus membranes. Heart: +S1/S2, regular, no m/r/g Lungs: equal air entry bilaterally, no rales/rhonchi/wheezes Abd: +BS, soft, NT/ND Ext: warm, no clubbing/cyanosis or edema Neuro: nonfocal, speech intact, no facial droop, moving all extremities. Results & Data Results & Data Vital Signs (Past 12 Hours) Vital Signs Pulse Pulse Resp BP BP Pulse Ox O2 Del Method 10/01/24 08:00 71 20 121/54 L 97 Room Air 10/01/24 07:43 93 H 10/01/24 07:30 73 13 112/57 L 93 Room Air 10/01/24 07:00 82 20 110/50 L 95 Room Air 10/01/24 06:00 73 22 101/37 L 93 10/01/24 05:00 70 18 121/56 L 95 10/01/24 04:30 137/66 10/01/24 04:00 76 18 120/58 L 95 10/01/24 02:42 75 14 131/61 95 10/01/24 02:11 54 L 10/01/24 02:00 54 L 18 136/104 H 94 Room Air 10/01/24 01:58 53 L 18 136/104 H 96 Room Air 10/01/24 01:00 53 L 18 156/72 H 98 Room Air 10/01/24 01:00 57 L 18 156/72 H 98 Room Air Resident Activity Tracking Resident Involvement: Resident Care Provided Care Provided: Adult [facility] Medicine (2) Vascular dementia Dementia severity: mild Dementia behavioral or psychological symptom: with other behavioral disturbance Qualified Code(s): F01.A18 - Vascular dementia, mild, with other behavioral disturbance
--- NOTE | 2024-10-01 14:52 | Electrocardiogram Report ---
Test Reason : Blood Pressure : */* mmHG Vent. Rate : 53 BPM Atrial Rate : 53 BPM P-R Int : 128 ms QRS Dur : 92 ms QT Int : 424 ms P-R-T Axes : 53 -3 61 degrees QTcB Int : 397 ms Poor data quality, interpretation may be adversely affected Sinus bradycardia Otherwise normal ECG When compared with ECG of 10-Mar-2024 17:30, No significant change was found Confirmed by Anthony Bailey ([id number]) on 10/01/2024 2:52:40 PM Referred By: REFERRED SELF Confirmed By: Anthony Bailey
[2024-10-01] MEDS ORDERED: KETOROLAC TROMETHAMINE 15 MG/ML VIAL IV PRN (14:59)
[2024-10-01] MEDS: KETOROLAC TROMETHAMINE 15 MG/ML VIAL IV ONE (15:00)
[2024-10-01] MEDS: ACETAMINOPHEN 325 MG TAB PO SCH (16:32)
[2024-10-01] MEDS: VALSARTAN 80 MG TAB PO STA (16:32)
[2024-10-01] MEDS: ONDANSETRON INJ 2 MG/ML 2 ML VIAL IV PRN (19:20)
[2024-10-01] MEDS ORDERED: VALSARTAN 80 MG TAB PO SCH (21:00)
[2024-10-01] MEDS: MELATONIN 3 MG TAB PO PRN (23:03)
--- NOTE | 2024-10-02 02:56 | Communication Note ---
Date of Service: October 02, 2024 Notified by nursing of concern for increased headache, nausea/emesis. Saw pt at bedside and was awake, alert, answering questions appropriately. No focal neurological deficits -> CN II-XII intact, moving all extremities. Repeat Head CT with Predominantly subacute extra-axial hematoma is noted along the right fronto-parietal convexity. Few acute blood products are also noted in it. Maximum thickness measures 8 mm. No significant interval change compared to the prior study. Toradol held. Would not given any antiplatelet or anticoagulant. Add neuro checks. Blood pressure remains elevated 180s/80s; per neurology SBP goal of less than 140. Will give dose of labetalol and monitor.
--- NOTE | 2024-10-02 04:12 | CT Scan Report ---
EXAM: CT head/brain wo con CLINICAL HISTORY: headache, vomiting, visual disturbances TECHNIQUE: Multiple axial images are obtained from the skull base to the vertex without contrast. CT scan was performed according to ALARA (as low as reasonable achievable). COMPARISON: 09/30/2024 21:56:40 GENERATOR REBUILDER FINDINGS: Redemonstration of focal encephalomalacia with adjacent gliosis noted involving left parietooccipital lobe cortex, subcortical and periventricular white matter causing ex vacuo dilatation of adjacent left lateral ventricle.- sequelae of previous insult. Predominantly subacute extra-axial hematoma is noted along the right fronto-parietal convexity. Few acute blood products are also noted in this region. Maximum thickness measures 8 mm. No significant interval change compared to the prior study. No mass effect is seen.There is cerebral atrophy. There are scattered periventricular hypodensities as can be seen with chronic microvascular ischemic changes. The mckeon-white matter differentiation is preserved. Visualized paranasal sinuses and mastoid air cells are well aerated. Orbital contents are within normal limits. Bony structures are intact. Rest of the findings are unchanged compared to the previous CT scan. IMPRESSION: 1. No evidence of acute intracranial abnormality is demonstrated. 2. Chronic microvascular ischemic changes. 3. Cerebral atrophy. 4. Predominantly subacute extra-axial hematoma is noted along the right fronto-parietal convexity. Few acute blood products are also noted in it. Maximum thickness measures 8 mm. No significant interval change compared to the prior study. 5. Redemonstration of focal encephalomalacia with adjacent gliosis noted involving left parietooccipital lobe cortex, subcortical and periventricular white matter causing ex vacuo dilatation of adjacent left lateral ventricle.- sequelae of previous insult. Electronically signed by Yovani Robertson 10-02-2024 04:12 AM
[2024-10-02] MEDS: ACETAMINOPHEN 1,000 MG/100 ML VIAL IV STA (05:14)
[2024-10-02] MEDS: LABETALOL HCL IV 5 MG/ML 20ML IV STA ×3 (05:34→09:52)
[2024-10-02] MEDS: hydrALAZINE HCL 20 MG/ML VIAL IV ONE (06:42)
[2024-10-02 07:57] LABS: Basophils # (auto) 0.02 K/uL (0.00-0.20); Basophils % (auto) 0.2 %; Hematocrit (blood only) 38.5 % (42.0-52.0); Hemoglobin 12.5 g/dl (14.0-18.0); Immature Granulocytes # (auto) 0.03 K/uL (0.01-0.20); Immature Granulocytes % (auto) 0.4 %; Lymphocytes % (auto) 8.4 %; Mean Corpuscular Hemoglobin 27.9 pg (25.0-34.0); Mean Corpuscular Hgb Conc 32.5 g/dL (32.0-36.0); Mean Corpuscular Volume 85.9 fL (80.0-100.0); Mean Platelet Volume 9.9 fL (9.4-12.4); Monocytes # (auto) 0.58 K/uL (0.11-0.59); Neutrophils # (auto) 6.97 K/uL (1.40-6.50); Platelet Count 237 K/uL (130-400); RDW Coefficient of Variation 15.9 % (11.5-14.5); RDW Standard Deviation 49.5 fL (36.4-46.3); Red Blood Count 4.48 M/uL (4.70-6.10)
[2024-10-02 08:34] LABS: BUN Creatinine Ratio 27.1 (10-20); Calcium 9.3 mg/dl (8.6-10.3); Creatinine Clr Calc Pharmacy 61.4 ml/min; Potassium 4.1 mmol/L (3.5-5.1)
[2024-10-02] MEDS: amLODIPine BESYLATE 5 MG TAB PO SCH (09:02)
[2024-10-02] MEDS: MoRPHine SULFATE 2 MG/ML CARP IV STA (10:41)
[2024-10-02] MEDS: ONDANSETRON INJ 2 MG/ML 2 ML VIAL IV STA (12:10)
--- NOTE | 2024-10-02 12:40 | Hospitalist Progress Note ---
Date of Service October 02, 2024 Assessment & Plan (1) Subdural hematoma: (2) Vascular dementia: (3) Mild cognitive impairment: (4) Recurrent falls: (5) Diabetes mellitus, type 2: Plan Subdural hematoma - CT head 09/30: Right convexity subdural collection measuring 7mm with trace amount of blood. No midline shift/herniation - CT head 10/01: Acute on chronic subdural hematoma; no enlargement/midline shift - CT head 10/02: Shows no significant change from CT on 10/01 - Consulted Neurology, recommend repeat head CT in 2 weeks, restart aspirin and neurology f/u 2-3 weeks - Continue to hold Aspirin/Plavix -Patient complained of miserable headache today morning. Chronic headache, uncontrolled hypertension and SDH all contributing - Pain management: Tylenol PO 650 mg Q6H; Fioricet 2 tab PO q4 , Magnesium sulphate 1gm in 100 ml(3 bags given) - Stop Toradol - IV Morphine 2mg stat given - Patient takes Fioricet at home. Continue Fioricet -Zofran/Neurontin as needed - Isotonic fluid support as necessary - Blood pressure management: Valsartan dose increased to 80 from 40 QHS; Amlodipine 5mg PO QAM ; Will increase Amlodipine to 10 mg QAM; Labetalol PRN. In the setting of chronic migraine headache, non selective B alyse may be benefi cial for him. - Continue telemetry monitoring. -Patient also not able to sleep at night. Added melatonin 6 mg QHS. -Not having BM since Friday. Added Miralax 17gm PO Daily PRN Recurrent falls - Fall precautions - PT/OT consultation pending -Patient likely to go to inpatient rehabilitation/ Outpatient therapy Vascular dementia/Mild cognitive impairment - Patient is in delirium. With the baseline dementia, his age and recent hospitalization ,suspect there is less likely that anything else is contributing for his delirium. SDH is also Stable. T2DM - A1c: 6.7%, glucose: 86; hold SSI DVT prophylaxis: SCDs Dispo: med surg w/ tele Admission and Anticipated Discharge Date Admission Date: October 01, 2024 Supervising Physician Co-Signing Physician Notes I personally examined the patient and verified all robbins points of history and exam, discussed case, and agree with decision making with Dr Russ Was a bit delirious this morningseeing snakes and cats in the room. Not now. and daughter present at the bedside. Updated although the best my ability. While his headaches were also worse earlier, they seem to be doing better now. Chronic headaches for 40 years. Vitals noted, in general he is awake and alert easily confused and tangentialwith his family at the bedside they give the distinct impression that this is his normal demeanorno distress. He has some degree of suboccipital tightness although it is not exquisitely tender his left-sided C-spine paraspinals are somewhat high tone and tender. Breathing unlabored no accessory muscle use good effort. Skin without rashes pallor or icterus. Neuro without focal deficits. Labs and imaging noted. Subdural hematomafortunately appears stable And definitely suspicious that the bulk of his headaches are more of his chronic headaches than anything to do with the bleeding, or hypertension. Obviously managing all of this in concert, but my clinical suspicion is that the subdural is minimally symptomatic, the hypertension is probably reactive to the headache and the hospital environment, and the delirium is likely much more related to his age/dementia/hospital stay/subdural then any type of hypertensive encephalopathy. Obviously having to manage as though the bleed/blood pressure/delirium/headache all run together, but clinically he looks too well for this to be likely. Hypertensiontitrate ARB, Initiated amlodipine chronic headachessuspect there is a heavy biomechanical/cervical component. Suspect he would probably do well with either regular OMT or regular myofascial type management. There is actually an interventional pain clinic more or less across the street from him nowwill try to get him referred to them as an outpatient; barring this, there are several DO's who work with his PCP who do OMT regularlycould easily ask to get him in with one of them instead. Weakness/frequent fallsPT/OT eval and treat. As I am resuming his home meds, I am trying to minimize some of the ones that could be sedating and followfor now holding off on Seroquel and clonazepam, reduced the dose of fluvoxamine. DVT prophylaxispharmacologic obviously contraindicated due to his subdural hematoma. We utilize mechanical prophylaxis and ambulation. Subjective Patient was experiencing hallucinations. Seeing snakes, cats and his closet in the room. He also complained of miserable headache in moravian area which was little better after he received morphine.No new Focal Neurological Deficits. Patient didn't sleep well yesterday night . Wants some medication for sleep. Review of Systems Review of Systems: per HPI Physical Exam Physical Exam: General: patient resting comfortably, NAD, non-toxic in appearance, Delirious Skin: warm, dry, intact HEENT: NC/AT, anicteric sclera, conjunctiva without injection, moist mucus membranes. Heart: +S1/S2, regular, no m/r/g Lungs: equal air entry bilaterally, no rales/rhonchi/wheezes Abd: +BS, soft, NT/ND Ext: warm, no clubbing/cyanosis or edema Neuro: nonfocal, speech intact, no facial droop, moving all extremities. Results & Data Results & Data Vital Signs (Past 12 Hours) Vital Signs Temp Pulse Pulse Resp BP BP BP 10/02/24 12:15 36.8 C 72 18 169/80 H 10/02/24 10:36 179/68 H 10/02/24 10:34 179/68 H 10/02/24 09:52 78 180/73 H 10/02/24 09:09 180/73 H 10/02/24 07:12 173/65 H 10/02/24 05:45 62 177/69 H 10/02/24 05:34 178/75 H 10/02/24 03:08 36.2 C L 81 16 189/81 H Pulse Ox O2 Del Method 10/02/24 12:15 97 Room Air 10/02/24 10:36 10/02/24 10:34 10/02/24 09:52 10/02/24 09:09 10/02/24 07:12 10/02/24 05:45 10/02/24 05:34 10/02/24 03:08 97 Room Air (2) Vascular dementia Dementia behavioral or psychological symptom: with other behavioral disturbance Dementia severity: mild Qualified Code(s): F01.A18 - Vascular dementia, mild, with other behavioral disturbance
[2024-10-02] MEDS: BUTALBITAL/ACETAMIN/CAFFEINE TAB PO PRN (15:24)
[2024-10-02] MEDS: amLODIPine BESYLATE 5 MG TAB PO ONE (15:30)
[2024-10-02] MEDS: MAGNESIUM SULFATE / D5W 1 GM/100 ML BAG IV SCH (16:14)
--- NOTE | 2024-10-02 17:43 | Billing Data ---
Date of Service October 02, 2024 Coding Level of Care Code 50255 SUB INP/OBS CARE
[2024-10-02] MEDS ORDERED: VALSARTAN 80 MG TAB PO SCH (21:00)
[2024-10-02] MEDS: fluvoxaMINE MALEATE 50 MG TAB PO SCH (22:00)
[2024-10-02] MEDS: VALSARTAN 80 MG TAB PO SCH (22:00)
[2024-10-03] MEDS: MELATONIN 3 MG TAB PO PRN (00:42)
[2024-10-03] MEDS: LABETALOL HCL IV 5 MG/ML 20ML IV STA ×3 (00:42→10:59)
[2024-10-03] MEDS: hydrALAZINE HCL 20 MG/ML VIAL IV STA (02:15)
--- NOTE | 2024-10-03 04:23 | CT Scan Report ---
EXAM: CT abd pelvis wo con CLINICAL HISTORY: vomiting TECHNIQUE: Contiguous axial images were obtained from the level of the diaphragm to the pubic symphysis without intravenous or oral contrast. Coronal and sagittal reconstructions were likewise performed and indicated to increase the sensitivity for detecting clinically relevant pathology. CT scan was performed according to ALARA (as low as reasonable achievable). COMPARISON: 09/24/2021 13:58:39 MEDICAL SUPERINTENDENT FINDINGS: The visualized lung bases are clear. Evaluation of the abdominal and pelvic visceral organs is limited without intravenous contrast. The unenhanced liver, spleen, pancreas, and adrenal glands are grossly unremarkable. Surgically removed gallbladder. The kidneys are normal in size and attenuation without obvious calcification. There is no hydronephrosis. Moderate bilateral perinephric stranding. Few simple cortical cysts in both kidneys. Largest of size 1.5 x 29mm in interpolar region of left kidney. The ureters are normal in caliber. No adenopathy or fluid collections are seen. No evidence of focal or diffuse bowel wall thickening or evidence of bowel obstruction is seen. The appendix is visualized in the right lower quadrant and appears within normal limits. The aorta is normal in caliber. The urinary bladder is normal in contour. Pelvic viscera are grossly unremarkable. No aggressive appearing osseous lesions are identified. Diffuse idiopathic skeletal hyperostosis noted. IMPRESSION: 1. Moderate bilateral perinephric stranding. (New finding) Suggest- Serum creatinine correlation. 2. Few hypodense bilateral renal cortical cysts. Largest of size 1.5 x 29mm in interpolar region of left kidney. Electronically signed by Yovani Robertson 10-03-2024 04:23 AM
--- NOTE | 2024-10-03 04:38 | CT Scan Report ---
EXAM: CT head/brain wo con CLINICAL HISTORY: sdh, vomiting TECHNIQUE: Multiple axial images are obtained from the skull base to the vertex without contrast. CT scan was performed according to ALARA (as low as reasonable achievable). COMPARISON: 10/02/2024 03:08:08 COMMISSIONER OF INTERNAL REVENUE FINDINGS: Predominantly liquified chronic extra-axial hematoma of attenuation 18-19HU is noted along the right frontal convexity with few dependant hyperdense 55-60HU attenuation acute blood products within. Maximum thickness measures 7.3 mm. No mass effect is seen. Redemonstration of focal encephalomalacia with adjacent gliosis involving left parietooccipital lobe cortex, subcortical and periventricular white matter causing ex vacuo dilatation of adjacent left lateral ventricle.- sequelae of previous insult. There is cerebral atrophy. No evidence of mass effect, midline shift, or hydrocephalus is noted. Basal cisterns are symmetric and normal in size and configuration. There are scattered periventricular hypodensities as can be seen with chronic microvascular ischemic changes. The mckeon-white matter differentiation is preserved. Visualized paranasal sinuses and mastoid air cells are well aerated. Orbital contents are within normal limits. Bony structures are intact. IMPRESSION: 1. No evidence of acute intracranial abnormality is demonstrated. 2. Chronic microvascular ischemic changes. 3. Cerebral atrophy. 4. Subacute to chronic right frontal extra-axial hematoma of maximum thickness 7.3mm with few dependant blood clots within. Mild reduction in thickness compared to the prior study. 5. Redemonstration of focal encephalomalacia with adjacent gliosis noted involving left parietooccipital lobe cortex, subcortical and periventricular white matter causing ex vacuo dilatation of adjacent left lateral ventricle.- sequelae of previous insult. Electronically signed by Yovani Robertson 10-03-2024 04:37 AM
[2024-10-03 06:31] LABS: Basophils # (auto) 0.03 K/uL (0.00-0.20); Basophils % (auto) 0.2 %; Eosinophils # (auto) 0.01 K/uL (0.00-0.50); Eosinophils % (auto) 0.1 %; Hematocrit (blood only) 41.3 % (42.0-52.0); Hemoglobin 13.5 g/dl (14.0-18.0); Immature Granulocytes # (auto) 0.05 K/uL (0.01-0.20); Immature Granulocytes % (auto) 0.4 %; Lymphocytes # (auto) 1.24 K/uL (1.20-3.40); Lymphocytes % (auto) 9.5 %; Mean Corpuscular Hemoglobin 28.2 pg (25.0-34.0); Mean Corpuscular Hgb Conc 32.7 g/dL (32.0-36.0); Mean Corpuscular Volume 86.2 fL (80.0-100.0); Mean Platelet Volume 10.4 fL (9.4-12.4); Monocytes # (auto) 1.22 K/uL (0.11-0.59); Monocytes % (auto) 9.3 %; Neutrophils # (auto) 10.51 K/uL (1.40-6.50); Neutrophils % (auto) 80.5 %; Platelet Count 275 K/uL (130-400); RDW Standard Deviation 50.4 fL (36.4-46.3); Red Blood Count 4.79 M/uL (4.70-6.10); White Blood Count 13.06 K/ul (4.8-10.8)
[2024-10-03] MEDS ORDERED: LABETALOL HCL IV 5 MG/ML 20ML IV PRN (06:42)
[2024-10-03] MEDS: predniSONE 10 MG TABLET PO SCH (08:13)
[2024-10-03] MEDS: amLODIPine BESYLATE 5 MG TAB PO SCH (08:13)
[2024-10-03] MEDS: CYANOCOBALAMIN (B-12) 500 MCG TABLET PO SCH (08:14)
--- NOTE | 2024-10-03 14:01 | Hospitalist Progress Note ---
Date of Service October 03, 2024 Assessment & Plan (1) Subdural hematoma: (2) Vascular dementia: (3) Mild cognitive impairment: (4) Recurrent falls: (5) Diabetes mellitus, type 2: Plan Subdural hematoma - CT head 09/30: Right convexity subdural collection measuring 7mm with trace amount of blood. No midline shift/herniation - CT head 10/01: Acute on chronic subdural hematoma; no enlargement/midline shift - CT head 10/02: Shows no significant change from CT on 10/01 - CT head 10/03: Mild reduction in thickness compared to 10/02. Otherwise no changes - Consulted Neurology, recommend repeat head CT in 2 weeks, restart aspirin and neurology f/u 2-3 weeks - Continue to hold Aspirin/Plavix - Pain management: Tylenol PO 650 mg Q6H; Fioricet 2 tab PO Q4H - Patient taking Fioricet at home. Has chronic headache since past 40 years. Fioricet helps him for his pain. -Zofran/Neurontin as needed - Isotonic fluid support as necessary - Blood pressure management: Valsartan dose increased to 80 from 40 QHS; Amlodipine increased to 10mg QAM from 5mg QAM [id number] mg IV PRN(if SBP>180 and DBP>100) . In the setting of chronic migraine headache, non selective B alyse may be beneficial for him. - Continue telemetry monitoring. - had bilious vomiting midnight. CT Abd and Pelvis was done. Shows moderate bilateral perinephric stranding and few bilateral renal cortical cysts. Otherwise normal findings. Chronic Headache -Has chronic headache for past 40 year. Home med Fioricet resumed from yesterday. Pain is better than yesterday with it. -He has some degree of occipital tightness; not exquisitely tender. Left sided C spine paraspinals are somewhat high tone and tender. -He probably will do well with either regular OMT or regular myofascial type management -Will try to get referred him to the interventional pain clinic across the street of his home as an outpatient. Weakness/Recurrent falls - Fall precautions - PT/OT consultation pending -Patient likely to go to inpatient rehabilitation/ Outpatient therapy. To be evaluated by PT/OT. -Minimize sedating home meds. Hold off home meds Seroquel and Clonazepam. Will reduce dose of fluvoxamine Vascular dementia/Mild cognitive impairment - Patient is in delirium. With the baseline dementia, his age and recent hospitalization ,suspect there is less likely that anything else is contributing for his delirium. SDH is also Stable. T2DM - A1c: 6.7%, glucose: 86; hold SSI DVT prophylaxis: SCDs( Pharmacologic: Contraindicated due to SDH) Dispo: med surg w/ tele Admission and Anticipated Discharge Date Admission Date: October 01, 2024 Supervising Physician Co-Signing Physician Notes I personally examined the patient and verified all robbins points of history and exam, discussed case, and agree with decision making with Dr Russ a little more delirious again today. Although still remembers me and remembers that we live fairly close to each other. Family present. Updated the best my ability and to their satisfaction, answered all questions to the best my ability as well. Vitals noted, in general he is awake and alert a bit restless and meanders with his conversations, but seems to recognize his meandering, and actually even briefly expresses a little bit of frustration about being able to remember old events but not necessarily current ones. Breathing unlabored no accessory muscle use good effort. Skin without rashes pallor or icterus. Subdural hematomafortunately appears stable and definitely suspicious that the bulk of his headaches are more of his chronic headaches than anything to do with the bleeding, or hypertension. Obviously managing all of this in concert, but my clinical suspicion is that the subdural is minimally symptomatic, the hypertension is probably reactive to the headache (more of the chronic headache) and the hospital environment, and the delirium is likely much more related to his age/dementia/hospital stay/subdural then any type of hypertensive encephalopathy. Obviously having to manage as though the bleed/blood pressure/delirium/headache all run together, but clinically he looks too well for this to be likely. Hypertensiontitrate ARB, titrate amlodipine chronic headachessuspect there is a heavy biomechanical/cervical component. Suspect he would probably do well with either regular OMT or regular myofascial type management. There is actually an interventional pain clinic more or less across the street from him nowwill try to get him referred to them as an outpatient; barring this, there are several DO's who work with his PCP who do OMT regularlycould easily ask to get him in with one of them instead. nurse navigator messaged to assist with this Weakness/frequent fallsPT/OT eval and treat. As I am resuming his home meds, I am trying to minimize some of the ones that could be sedating and followfor now holding off on Seroquel and clonazepam, reduced the dose of fluvoxamine. anticipate need for rehab DVT prophylaxispharmacologic obviously contraindicated due to his subdural hematoma. will utilize mechanical prophylaxis and ambulation (as possible). Subjective Patient is experiencing delirium, exhibiting disorganized speech, but not in acute distress. he reports that his headache has improved compared to yesterday. No episodes of vomiting after midnight. Review of Systems Review of Systems: per HPI Physical Exam Physical Exam: General: patient in delirium , resting, NAD, non-toxic in appearance Skin: warm, dry, intact HEENT: NC/AT, anicteric sclera, conjunctiva without injection, moist mucus membranes. Heart: +S1/S2, regular, no m/r/g Lungs: equal air entry bilaterally, no rales/rhonchi/wheezes Abd: +BS, soft, NT/ND Ext: warm, no clubbing/cyanosis or edema Neuro: nonfocal, speech intact, no facial droop, moving all extremities. Results & Data Results & Data Vital Signs (Past 12 Hours) Vital Signs Temp Pulse Pulse Pulse Resp BP BP 10/03/24 10:47 36.8 C 86 18 180/73 H 10/03/24 08:12 183/78 H 10/03/24 08:00 89 10/03/24 08:00 10/03/24 07:37 36.8 C 83 18 177/78 H 196/78 H 10/03/24 02:52 36.6 C 79 16 168/66 H 10/03/24 02:40 167/68 H 10/03/24 02:16 190/69 H Pulse Ox O2 Del Method 10/03/24 10:47 95 Room Air 10/03/24 08:12 10/03/24 08:00 10/03/24 08:00 Room Air 10/03/24 07:37 95 Room Air 10/03/24 02:52 92 Room Air 10/03/24 02:40 10/03/24 02:16 (2) Vascular dementia Dementia behavioral or psychological symptom: with other behavioral disturbance Dementia severity: mild Qualified Code(s): F01.A18 - Vascular dementia, mild, with other behavioral disturbance
--- NOTE | 2024-10-03 17:14 | Billing Data ---
Date of Service October 03, 2024 Coding Level of Care Code 91898 SUB INP/OBS CARE MIN
[2024-10-03] MEDS: OLANZapine 10 MG/2.1 ML SDV IM STA (22:26)
--- NOTE | 2024-10-03 22:34 | Communication Note ---
Date of Service: October 03, 2024 Contacted by nursing, initially patient refusing PO meds. Later contacted that patient was becoming increasingly agitated. One to one was ordered. Again c ontacted that patient was now spitting on staff. Patient seen and not oriented or redirectable. Patient given 5mg Zyprexa. Continue 1:1 as necessary. Update 10/04/24: again contacted by nursing. Patient again agitated and attempting to remove his benitez catheter. Will give another dose of Zyprexa. Will order UA in setting of benitez catheter and leukocytosis on labs from 10/03. Resident Activity Tracking Resident Involvement: Resident Care Provided Care Provided: Adult Hospital Medicine
[2024-10-04] MEDS: OLANZapine 10 MG/2.1 ML SDV IM ONE (00:53)
[2024-10-04] MEDS: OLANZapine 10 MG/2.1 ML SDV IM STA (00:55)
[2024-10-04 02:30] LABS: Appearance Urine Clear (Clear); Bacteria Urine Automated None Seen (None Seen); Bilirubin Urine Negative (Negative); Blood Urine 3+ (Negative); Color Urine Yellow; Glucose Urine UA 3+ (Negative); Hyaline Casts Urine Present /lpf (None Presnt); Ketones Urine 1+ (Negative); Leukocyte Esterase Urine Trace (Negative); Nitrite Urine Negative (Negative); Protein Urine 2+ (Negative); RBC Urine Automated >20 /hpf (0-2); Specific Gravity Urine 1.028 (1.000-1.030); Urobilinogen Urine Negative (Negative)
--- NOTE | 2024-10-04 06:53 | Hospitalist Progress Note ---
Date of Service October 04, 2024 Assessment & Plan (1) Subdural hematoma: (2) Vascular dementia: (3) Mild cognitive impairment: (4) Recurrent falls: (5) Diabetes mellitus, type 2: Plan Mr. Bruner is 79 year old admitted with Subdural hematoma ware P/M/H of Vascular dementia, Fall, Mild cognitive dysfunction, Gait disturbance, Mood disorder, Lyme, Stroke , Chronic daily headache, Lumbar disc disease, HTN, Hyperlipidemia, Depression, tobacco use. #Subdural hematoma Stable , with mild reduction in thickness on serial CT head. - CT head 09/30: Right convexity subdural collection measuring 7mm with trace amount of blood. No midline shift/herniation 10/01: Acute on chronic subdural hematoma; no enlargement/midline shift 10/02: Shows no significant change from CT on 10/01 10/03: Mild reduction in thickness compared to 10/02. Otherwise no changes - Neurology, recs repeat head ad CT in 2 weeks, restart aspirin and neurology f/u 2-3 weeks - Continue to hold Aspirin/Plavix. Pain management: Tylenol PO 650 mg Q6H; Fioricet 2 tab PO Q4H. Fioricet at home. Has chronic headache since past 40 years. Fioricet helps him for his pain. Blood pressure management: Valsartan 80 QHS/ Amlodipine increased to 10mg QAM /[id number] mg IV PRN (if SBP>180 and DBP>100). In the setting of chronic migraine headache, non selective B alyse may be beneficial for him. CT AP : Not concerning for vomiting. #Chronic Headache -Chronic headache X 40 year. Home med Fioricet resumed. -He has some degree of occipital tightness; not exquisitely tender. Left sided C spine paraspinals are somewhat high tone and tender. -He probably will do well with either regular OMT or regular myofascial type man agement -Will try to get referred him to the interventional pain clinic across the street of his home as an outpatient. Weakness/Recurrent falls - Fall precautions - PT/OT: Recs Rehab - Held off home meds Seroquel and Clonazepam. Reduced dose of fluvoxamine Vascular dementia/Mild cognitive impairment - Patient is in delirium. With the baseline dementia, his age and recent hospitalization ,suspect there is less likely that anything else is contributing for his delirium. SDH is also stable. T2DM - A1c: 6.7%, glucose: 86; hold SSI DVT prophylaxis: SCDs( Pharmacologic: Contraindicated due to SDH) Dispo: OT/PT recs Rehab Admission and Anticipated Discharge Date Admission Date: October 01, 2024 Supervising Physician Co-Signing Physician Notes Attending Physician Supervision Note: I independently interviewed and examined the patient and verified the robbins history and physical, reviewed labs and image studies and agree with findings and care plan noted above. Persistent delirium. Unable to give PO meds Vitals noted, restless in bed. says yes on calling his name but no further conversation. Breathing unlabored no accessory muscle use good effort. Skin wit hout rashes pallor or icterus. Subdural hematoma improving on CT images. continue to keep BP at goal <140 - Added IV hydralazine scheduled while unable to take PO meds due to delirum. Delirium with underlying mild vascular dementia - likely from hospital stay. continue supportive care. Hypertensiontitrate ARB, titrate amlodipine, Added IV hydralazine scheduled while unable to take PO meds due to delirum. chronic headaches sec to cervical disc ds. consider outpatient f/u with DO physician Weakness/frequent fallsPT/OT eval and treat. for now holding off on Seroquel and clonazepam and reduced the dose of fluvoxamine. anticipate need for rehab DVT prophylaxispharmacologic obviously contraindicated due to his subdural hematoma. will utilize mechanical prophylaxis and ambulation (as possible). Subjective This AM Mr. Bruner was sedated. Did not have communication with him. Nurse mentioned no concern of vomiting this AM. Last time he had complained of headache or vomiting was 2 days ago per nurse. Review of Systems Review of Systems: As per HPI Physical Exam Physical Exam: Constitutional: Sedated HEENT: Atraumatic, Normocephalic CVS: S1 S2 no murmur, Regular Rhythm, no LE edema Respiratory: BL equal air entry with NVBS. No rhonchi, wheezes, or crackles. No increased work of breathing GI: Soft, Nondistended, Nontender, Normal Bowel sounds + MSK: Sedated, Muscle power exam not plausible Skin: Warm, Dry, No rashes Results & Data Results & Data Vital Signs (Past 12 Hours) Vital Signs Temp Pulse Pulse Resp BP Pulse Ox O2 Del Method 10/04/24 03:17 37 C 72 18 166/70 H 95 Room Air 10/03/24 23:27 37.0 C 91 H 18 177/100 H 96 Room Air 10/03/24 22:53 99 H 10/03/24 19:25 36.8 C 90 18 161/73 H 96 Room Air Resident Activity Tracking Resident Involvement: Resident Care Provided Care Provided: Adult Hospital Medicine (2) Vascular dementia Dementia behavioral or psychological symptom: with other behavioral disturbance Dementia severity: mild Qualified Code(s): F01.A18 - Vascular dementia, mild, with other behavioral disturbance
[2024-10-04 09:24] LABS: Basophils # (auto) 0.02 K/uL (0.00-0.20); Basophils % (auto) 0.2 %; Eosinophils # (auto) 0.06 K/uL (0.00-0.50); Eosinophils % (auto) 0.6 %; Hematocrit (blood only) 42.7 % (42.0-52.0); Hemoglobin 13.8 g/dl (14.0-18.0); Immature Granulocytes # (auto) 0.04 K/uL (0.01-0.20); Immature Granulocytes % (auto) 0.4 %; Lymphocytes # (auto) 1.06 K/uL (1.20-3.40); Lymphocytes % (auto) 10.6 %; Mean Corpuscular Hemoglobin 27.8 pg (25.0-34.0); Mean Corpuscular Hgb Conc 32.3 g/dL (32.0-36.0); Mean Corpuscular Volume 85.9 fL (80.0-100.0); Mean Platelet Volume 10.2 fL (9.4-12.4); Monocytes # (auto) 1.23 K/uL (0.11-0.59); Monocytes % (auto) 12.3 %; Neutrophils # (auto) 7.62 K/uL (1.40-6.50); Neutrophils % (auto) 75.9 %; Platelet Count 254 K/uL (130-400); RDW Coefficient of Variation 16.1 % (11.5-14.5); Red Blood Count 4.97 M/uL (4.70-6.10); White Blood Count 10.03 K/ul (4.8-10.8)
[2024-10-04] MEDS: LABETALOL HCL IV 5 MG/ML 20ML IV STA (11:55)
[2024-10-04] MEDS: hydrALAZINE HCL 20 MG/ML VIAL IV SCH (22:30)
[2024-10-05 07:29] LABS: Basophils # (auto) 0.03 K/uL (0.00-0.20); Basophils % (auto) 0.2 %; Eosinophils % (auto) 0.7 %; Hematocrit (blood only) 43.1 % (42.0-52.0); Hemoglobin 13.8 g/dl (14.0-18.0); Immature Granulocytes # (auto) 0.05 K/uL (0.01-0.20); Immature Granulocytes % (auto) 0.4 %; Lymphocytes # (auto) 1.08 K/uL (1.20-3.40); Lymphocytes % (auto) 7.7 %; Mean Corpuscular Hemoglobin 28.1 pg (25.0-34.0); Mean Corpuscular Volume 87.8 fL (80.0-100.0); Mean Platelet Volume 10.2 fL (9.4-12.4); Monocytes # (auto) 1.72 K/uL (0.11-0.59); Monocytes % (auto) 12.3 %; Neutrophils % (auto) 78.7 %; Platelet Count 269 K/uL (130-400); RDW Coefficient of Variation 16.5 % (11.5-14.5); Red Blood Count 4.91 M/uL (4.70-6.10); White Blood Count 13.98 K/ul (4.8-10.8)
[2024-10-05 07:42] LABS: Calcium 9.5 mg/dl (8.6-10.3); Creatinine Clr Calc Pharmacy 64.7 ml/min
--- NOTE | 2024-10-05 08:24 | Electrocardiogram Report ---
Test Reason : Blood Pressure : */* mmHG Vent. Rate : 86 BPM Atrial Rate : 86 BPM P-R Int : 126 ms QRS Dur : 90 ms QT Int : 372 ms P-R-T Axes : 82 -27 52 degrees QTcB Int : 445 ms Poor data quality, interpretation may be adversely affected Normal sinus rhythm Possible Old Inferior infarct Abnormal ECG When compared with ECG of 30-Sep-2024 21:19, Vent. rate has increased by 33 bpm Criteria for Old Inferior infarct is now Present Confirmed by Sam Brush ([id number]) on 10/05/2024 8:23:51 AM Referred By: REFERRED SELF Confirmed By: Sam Brush
--- NOTE | 2024-10-05 09:47 | Hospitalist Progress Note ---
Date of Service October 05, 2024 Assessment & Plan (1) Subdural hematoma: (2) Vascular dementia: (3) Mild cognitive impairment: (4) Recurrent falls: (5) Diabetes mellitus, type 2: Plan Mr. Bruner is 79 year old admitted with Subdural hematoma ware P/M/H of Vascular dementia, Fall, Mild cognitive dysfunction, Gait disturbance, Mood disorder, Lyme, Stroke , Chronic daily headache, Lumbar disc disease, HTN, Hyperlipidemia, Depression, tobacco use. #Subdural hematoma Stable , with mild reduction in thickness on serial CT head. - Last CT head on 10/04. - Neurology, recs repeat head ad CT in 2 weeks, restart aspirin and neurology f/u 2-3 weeks - Continue to hold Aspirin/Plavix. Pain management: Tylenol PO 650 mg Q6H; Fioricet 2 tab PO Q4H Blood pressure management: Switched to Hydralazine 5 mg IV QID(oral meds on hold d/t sedation) CT AP : Not concerning for vomiting. #Chronic Headache Stable now, no complain of headache recently -Chronic headache X 40 year. Home med Fioricet resumed. -Some occipital tightness; not exquisitely tender. Left sided C spine paraspinals tout per previous providers. OMT or regular myofascial type management/ Interventional pain clinic on [place]. Weakness/Recurrent falls - Fall precautions - PT/OT: Recs Rehab - Held off home meds Seroquel and Clonazepam. Reduced dose of fluvoxamine Vascular dementia/Mild cognitive impairment - Patient is in delirium. With the baseline dementia, his age and recent hospitalization ,suspect there is less likely that anything else is contributing for his delirium. SDH is also stable. T2DM - A1c: 6.7%, glucose: 125; hold SSI DVT prophylaxis: SCDs( Pharmacologic: Contraindicated due to SDH) Dispo: OT/PT recs Rehab Admission and Anticipated Discharge Date Admission Date: October 01, 2024 Supervising Physician Co-Signing Physician Notes Attending Physician Supervision Note: I independently interviewed and examined the patient and verified the robbins history and physical, reviewed labs and image studies and agree with findings and care plan noted above. Daughter at bedside. Per report- was able to walk around with therapy yesterday. Delirious again this am. Didn't receive PO meds yesterday due to delirium. Vitals noted, restless in bed. says yes on calling his name but no further conversation. Breathing unlabored no accessory muscle use good effort. Skin without rashes pallor or icterus. Subdural hematoma improving on CT images. continue to keep BP at goal <140 - IV hydralazine scheduled while unable to take PO meds due to delirum. Delirium with underlying mild vascular dementia - likely from hospital stay. continue supportive care - frequent reorientation. Hypertension Only on Valsartan 40mgs daily - Titrating dose and added amlodipine -unable to take PO meds. Hydralazine IV able to control BP well. chronic headaches sec to cervical disc ds. consider outpatient f/u with DO physician Weakness/frequent fallsPT/OT eval and treat. for now holding off on Seroquel and clonazepam and reduced the dose of fluvoxamine. anticipate need for rehab DVT prophylaxispharmacologic obviously contraindicated due to his subdural hematoma. will utilize mechanical prophylaxis and ambulation (as possible). Subjective This AM Mr. Bruner was still sedated and not replying back to my question. He opens his eye partially in response to my sound but not able to talk. Breathing well, looks well perfused. Vitals reassuring. Did not have communication with him. Her daughter was on bedside, I had long conversation with her. She told me Raffi was really talkative before and she has not seen him delirious like this. Answered all her queries at best and counseled my best. Review of Systems Review of Systems: As per HPI Physical Exam Physical Exam: Constitutional: Sedated HEENT: Atraumatic, Normocephalic CVS: S1 S2 no murmur, Regular Rhythm, no LE edema Respiratory: BL equal air entry with NVBS. No rhonchi, wheezes, or crackles. No increased work of breathing GI: Soft, Nondistended, Nontender, Normal Bowel sounds + MSK: Sedated, Muscle power exam not plausible Skin: Warm, Dry, No rashes Results & Data Results & Data Vital Signs (Past 12 Hours) Vital Signs Temp Pulse Resp BP Pulse Ox O2 Del Method 10/05/24 07:42 37.2 C 102 H 18 121/73 94 Room Air 10/05/24 02:01 37.0 C 86 22 135/71 93 Room Air 10/04/24 22:31 37.1 C 87 24 159/60 H 95 Room Air Resident Activity Tracking Resident Involvement: Resident Care Provided Care Provided: Adult Hospital Medicine (2) Vascular dementia Dementia behavioral or psychological symptom: with other behavioral disturbance Dementia severity: mild Qualified Code(s): F01.A18 - Vascular dementia, mild, with other behavioral disturbance
--- NOTE | 2024-10-05 11:58 | Electrocardiogram Report ---
Test Reason : Blood Pressure : */* mmHG Vent. Rate : 109 BPM Atrial Rate : 109 BPM P-R Int : 124 ms QRS Dur : 92 ms QT Int : 350 ms P-R-T Axes : 77 -27 61 degrees QTcB Int : 471 ms Sinus tachycardia with occasional Premature ventricular complexes Otherwise normal ECG When compared with ECG of 04-Oct-2024 19:56, Premature ventricular complexes are now Present Criteria for Inferior infarct no longer present Confirmed by Sam Brush ([id number]) on 10/05/2024 11:57:26 AM Referred By: REFERRED SELF Confirmed By: Sam Brush
--- NOTE | 2024-10-06 07:29 | Hospitalist Progress Note ---
Date of Service October 06, 2024 Assessment & Plan (1) Subdural hematoma: (2) Vascular dementia: (3) Mild cognitive impairment: (4) Recurrent falls: (5) Diabetes mellitus, type 2: Plan Mr. Bruner is 79 year old admitted with Subdural hematoma ware P/M/H of Vascular dementia, Fall, Mild cognitive dysfunction, Gait disturbance, Mood disorder, Lyme, Stroke , Chronic daily headache, Lumbar disc disease, HTN, Hyperlipidemia, Depression, tobacco use. #Subdural hematoma Stable , with mild reduction in thickness on serial CT head. - Last CT head on 10/04. - Repeat head ad CT in 2 weeks, restart aspirin and neurology f/u 2-3 weeks - Continue to hold Aspirin/Plavix. Pain management: Tylenol PO 650 mg Q6H; Fioricet 2 tab PO Q4H Blood pressure management: Switched to Hydralazine 5 mg IV QID (oral meds on hold d/t sedation) CT AP : Not concerning for vomiting. #Chronic Headache Stable now, no complain of headache recently -Chronic headache X 40 year. Home med Fioricet resumed. -OMT or regular myofascial type management/ Interventional pain clinic on DC. Weakness/Recurrent falls - Fall precautions - PT/OT: Recs Rehab - Held off home meds Seroquel and Clonazepam. Reduced dose of fluvoxamine Vascular dementia/Mild cognitive impairment - Patient is in delirium. With the baseline dementia, his age and recent hospitalization ,suspect there is less likely that anything else is contributing for his delirium. SDH is also stable. T2DM - A1c: 6.7%, glucose: 125; hold SSI DVT prophylaxis: SCDs( Pharmacologic: Contraindicated due to SDH) Dispo: OT/PT recs Rehab Stable medically for placement; pending placement. Admission and Anticipated Discharge Date Admission Date: October 01, 2024 Supervising Physician Co-Signing Physician Notes Attending Physician Supervision Note: I independently interviewed and examined the patient and verified the robbins history and physical, reviewed labs and image studies and agree with findings and care plan noted above. Alert and sitting in bed this am. at bedside. Alert but not completely coherent. Vitals noted, restless in bed. Breathing unlabored no accessory muscle use good effort. Skin without rashes pallor or icterus. CTA, RRR Subdural hematoma last CT with improving findings. Maitaining SBP <140. Delirium - improved. Mild vascular dementia - supportive care. Hypertension Only on Valsartan 40mgs daily at home. d/t high readings - valsartan increased to 80mgs and amlodipine added. -cut amlodipine to 5mgs since systolic now running lower. follow chronic headaches sec to cervical disc ds. consider outpatient f/u with DO physician Weakness/frequent fallsPT/OT eval and treat. holding off on Seroquel and clonazepam and reduced the dose of fluvoxamine. needs rehab DVT prophylaxispharmacologic obviously contraindicated due to his subdural hematoma. will utilize mechanical prophylaxis and ambulation (as possible). Subjective This AM Mr. Bruner is back to his baseline. Still not fully oriented, looks confused. there on bedside, helping him reorient. She is happy to take him to [facility] or [facility]. Review of Systems Review of Systems: As per HPI Physical Exam Physical Exam: Constitutional: Sedated HEENT: Atraumatic, Normocephalic CVS: S1 S2 no murmur, Regular Rhythm, no LE edema Respiratory: BL equal air entry with NVBS. No rhonchi, wheezes, or crackles. No increased work of breathing GI: Soft, Nondistended, Nontender, Normal Bowel sounds + MSK: Sedated, Muscle power exam not plausible Skin: Warm, Dry, Bruises over IV site. Results & Data Results & Data Vital Signs (Past 12 Hours) Vital Signs Temp Pulse Pulse Resp BP Pulse Ox O2 Del Method 10/06/24 03:05 36.5 C 80 18 138/62 94 Room Air 10/05/24 22:32 36.9 C 95 H 18 110/66 95 Room Air 10/05/24 22:01 94 H 10/05/24 19:39 37.2 C 93 H 18 114/61 95 Room Air Resident Activity Tracking Resident Involvement: Resident Care Provided Care Provided: Adult Hospital Medicine (2) Vascular dementia Dementia behavioral or psychological symptom: with other behavioral disturbance Dementia severity: mild Qualified Code(s): F01.A18 - Vascular dementia, mild, with other behavioral disturbance
[2024-10-06 08:28] LABS: Hematocrit (blood only) 41.1 % (42.0-52.0); Hemoglobin 13.3 g/dl (14.0-18.0); Mean Corpuscular Hemoglobin 28.2 pg (25.0-34.0); Mean Corpuscular Hgb Conc 32.4 g/dL (32.0-36.0); Mean Corpuscular Volume 87.3 fL (80.0-100.0); Mean Platelet Volume 10.2 fL (9.4-12.4); Platelet Count 234 K/uL (130-400); RDW Coefficient of Variation 16.4 % (11.5-14.5); RDW Standard Deviation 52.3 fL (36.4-46.3); Red Blood Count 4.71 M/uL (4.70-6.10); White Blood Count 12.53 K/ul (4.8-10.8)
[2024-10-06 08:47] LABS: BUN Creatinine Ratio 66.7 (10-20); Calcium 9.4 mg/dl (8.6-10.3); Creatinine Clr Calc Pharmacy 57.7 ml/min; Potassium 3.8 mmol/L (3.5-5.1)
[2024-10-06] MEDS: POLYETHYLENE (MIRALAX) 17 GM PACK PO PRN (20:02)
[2024-10-07] MEDS: amLODIPine BESYLATE 5 MG TAB PO SCH (07:49)
[2024-10-07 08:25] LABS: Basophils # (auto) 0.03 K/uL (0.00-0.20); Basophils % (auto) 0.2 %; Eosinophils # (auto) 0.05 K/uL (0.00-0.50); Eosinophils % (auto) 0.3 %; Hematocrit (blood only) 39.2 % (42.0-52.0); Hemoglobin 12.9 g/dl (14.0-18.0); Immature Granulocytes # (auto) 0.23 K/uL (0.01-0.20); Immature Granulocytes % (auto) 1.2 %; Lymphocytes # (auto) 0.42 K/uL (1.20-3.40); Lymphocytes % (auto) 2.2 %; Mean Corpuscular Hgb Conc 32.9 g/dL (32.0-36.0); Mean Platelet Volume 10.1 fL (9.4-12.4); Monocytes # (auto) 1.68 K/uL (0.11-0.59); Monocytes % (auto) 8.7 %; Neutrophils # (auto) 16.86 K/uL (1.40-6.50); Neutrophils % (auto) 87.4 %; Platelet Count 222 K/uL (130-400); RDW Coefficient of Variation 15.9 % (11.5-14.5); RDW Standard Deviation 49.3 fL (36.4-46.3); Red Blood Count 4.61 M/uL (4.70-6.10); White Blood Count 19.27 K/ul (4.8-10.8)
[2024-10-07 08:57] LABS: BUN Creatinine Ratio 52.7 (10-20); Calcium 9.2 mg/dl (8.6-10.3); Creatinine Clr Calc Pharmacy 53.5 ml/min; Potassium 3.5 mmol/L (3.5-5.1)
[2024-10-07] MEDS: SODIUM CHLORIDE 0.9% 1,000 ML IV SCH (09:40)
--- NOTE | 2024-10-07 10:07 | Hospitalist Progress Note ---
Date of Service October 07, 2024 Assessment & Plan (1) Subdural hematoma: (2) Vascular dementia: (3) Mild cognitive impairment: (4) Recurrent falls: (5) Diabetes mellitus, type 2: Plan Mr. Bruner is 79 year old admitted with Subdural hematoma ware P/M/H of Vascular dementia, Fall, Mild cognitive dysfunction, Gait disturbance, Mood disorder, Lyme, Stroke , Chronic daily headache, Lumbar disc disease, HTN, Hyperlipidemia, Depression, tobacco use. #Subdural hematoma Stable , with mild reduction in thickness on serial CT head. - Last CT head on 10/04. - Repeat head ad CT in 2 weeks, restart aspirin and neurology f/u 2-3 weeks - Continue to hold Aspirin/Plavix. Pain management: Tylenol PO 650 mg Q6H; Fioricet 2 tab PO Q4H Blood pressure management: Hydralazine stopped today, oral meds resumed per previous. BP: as low as 89/45 this AM. Hoping for gain after holding Hydralazine. #Chronic Headache -Chronic headache X 40 year. Stable now. -Home med Fioricet resumed. -OMT on DC. Weakness/Recurrent falls - Fall precautions - PT/OT: Recs Rehab; pending placement - Held off home meds Seroquel and Clonazepam. Reduced dose of fluvoxamine Vascular dementia/Mild cognitive impairment - Patient is in delirium. With the baseline dementia, his age and recent ho spitalization ,suspect there is less likely that anything else is contributing for his delirium. SDH is also stable. T2DM - A1c: 6.7%, glucose: 125; hold SSI DVT prophylaxis: SCDs( Pharmacologic: Contraindicated due to SDH) Dispo: OT/PT recs Rehab Stable medically for placement; pending placement. Admission and Anticipated Discharge Date Admission Date: October 01, 2024 Supervising Physician Co-Signing Physician Notes Attending Physician Supervision Note: I independently interviewed and examined the patient and verified the robbins history and physical, reviewed labs and image studies and agree with findings and care plan noted above. Alertness improving. conversing. Alert but not completely coherent. Year - 1999 Vitals noted, restless in bed. Breathing unlabored no accessory muscle use good effort. Skin without rashes pallor or icterus. CTA, RRR Subdural hematoma last CT with improving findings. Maitaining SBP <140. Delirium - improving. holding Seroquel and clonazepam - may need to d/c them. continue reduced dose of fluvoxamine. Mild vascular dementia - supportive care. Hypertension Only on Valsartan 40mgs daily at home. d/t high readings - valsartan increased to 80mgs and amlodipine added. -now hypotensive - d/c amlodipine. valsartan on hold. Urinary retention - after removal of benitez - benitez placed again. consider voiding trial once mentation back to baseline/at rehab facility. chronic headaches sec to cervical disc ds. consider outpatient f/u with DO physician Weakness/frequent fallsPT/OT eval and treat. needs rehab DVT prophylaxispharmacologic contraindicated due to subdural hematoma. utilize mechanical prophylaxis and ambulation (as possible). Subjective This AM Mr. Bruner is back to his baseline. Still not fully oriented, looks confused. Talked to his there on bedside, helping him reorient. She is happy to take him to [facility] or [facility]. Review of Systems Review of Systems: As per HPI Physical Exam Physical Exam: Constitutional: Sedated HEENT: Atraumatic, Normocephalic CVS: S1 S2 no murmur, Regular Rhythm, no LE edema Respiratory: BL equal air entry with NVBS. No rhonchi, wheezes, or crackles. No increased work of breathing GI: Soft, Nondistended, Nontender, Normal Bowel sounds + MSK: Sedated, Muscle power exam not plausible Skin: Warm, Dry, Bruises over IV site. Results & Data Results & Data Vital Signs (Past 12 Hours) Vital Signs Temp Pulse Pulse Resp BP Pulse Ox O2 Del Method 10/07/24 07:40 36.7 C 99 H 19 89/45 L 91 Room Air 10/07/24 07:22 102 H 10/07/24 04:56 37.7 C H 106 H 16 121/61 93 Room Air 10/06/24 23:35 36.7 C 77 16 137/70 98 Room Air Resident Activity Tracking Resident Involvement: Resident Care Provided Care Provided: Adult Hospital Medicine (2) Vascular dementia Dementia behavioral or psychological symptom: with other behavioral disturbance Dementia severity: mild Qualified Code(s): F01.A18 - Vascular dementia, mild, with other behavioral disturbance
--- NOTE | 2024-10-08 07:00 | Hospitalist Progress Note ---
Date of Service October 08, 2024 Assessment & Plan (1) Subdural hematoma: (2) Vascular dementia: (3) Mild cognitive impairment: (4) Recurrent falls: (5) Diabetes mellitus, type 2: Plan Mr. Bruner is 79 year old admitted with Subdural hematoma ware P/M/H of Vascular dementia, Fall, Mild cognitive dysfunction, Gait disturbance, Mood disorder, Lyme, Stroke , Chronic daily headache, Lumbar disc disease, HTN, Hyperlipidemia, Depression, tobacco use. #Subdural hematoma Stable , with mild reduction in thickness on serial CT head. - Last CT head on 10/04. - Repeat head ~ CT in 2 weeks, neurology f/u 2-3 weeks - Continue to hold Aspirin/Plavix. Pain management: Tylenol PO 650 mg Q6H; Fioricet 2 tab PO Q4H Blood pressure management: Hydralazine stopped today, amlodipine d/c, home medication is 40mg Valsartan; currently on hold due to hypotension. Restart home valsartan when blood pressure can tolerate #Chronic Headache -Chronic headache X 40 year. Stable now. -Home med Fioricet resumed. -OMT on DC. Urinary Retention - failed trial of voiding - consider voiding trial once mentation back to baseline/at rehab facility. Leukocytosis - on chronic prednisone - no other signs of infection - down to 7.3 10/08 - continue to trend CBC Weakness/Recurrent falls - Fall precautions - PT/OT: Recs Rehab; pending placement - Held off home meds Seroquel and Clonazepam. Reduced dose of fluvoxamine 100mg daily Vascular dementia/Mild cognitive impairment - Patient is in delirium. With the baseline dementia, his age and recent hospitalization ,suspect there is less likely that anything else is contributing for his delirium. SDH is also stable. T2DM - A1c: 6.7%, glucose: 125; hold SSI DVT prophylaxis: SCDs( Pharmacologic: Contraindicated due to SDH) Dispo: OT/PT recs Rehab Stable medically for placement; pending placement. Admission and Anticipated Discharge Date Admission Date: October 01, 2024 Supervising Physician Co-Signing Physician Notes I personally examined the patient and verified robbins points of history and exam, discussed case, and agree with decision making and plan documented by Dr. Grady. Will restart quetiapine 25 mg nightly due to patient reporting sleep difficulties. Reduced Fioricet dose to two tablets twice daily from three times daily. Added clonazepam 0.5 mg prn for anxiety as patient on chronic regimen. Discussed with patient and family plan for discharge to inpatient rehab, patient has been accepted, awaiting bed. Subjective No complaints this morning, no events overnight. Alert and conversational, but remains confused. Unable to answer questions appropriately, but following commands. Denies headache. Review of Systems Review of Systems: As per above Physical Exam Physical Exam: Constitutional: well-appearing, no acute distress HEENT: NCAT, no conjunctival injection, PERRLA, EOMI CV: regular rhythm, no murmur appreciated, extremities well-perfused, no LE edema Resp: CTABL, no wheezes/rales/rhonchi appreciated, no increased work of breathing GI: soft, nondistended, nontender MSK: no gross deformities appreciated Skin: warm, dry, no rash appreciated Neuro: alert, no focal neurologic deficit appreciated, CN II-XII intact Results & Data Results & Data Vital Signs (Past 12 Hours) Vital Signs Temp Pulse Pulse Resp BP Pulse Ox O2 Del Method 10/08/24 02:39 36.5 C 91 H 18 101/65 96 Room Air 10/07/24 23:20 73 10/07/24 22:48 37.0 C 80 17 115/55 L 96 Room Air 10/07/24 19:49 36.5 C 72 16 115/67 95 Room Air 10/07/24 19:27 Room Air Resident Activity Tracking Resident Involvement: Resident Care Provided Care Provided: Adult Hospital Medicine (2) Vascular dementia Dementia behavioral or psychological symptom: with other behavioral disturbance Dementia severity: mild Qualified Code(s): F01.A18 - Vascular dementia, mild, with other behavioral disturbance
[2024-10-08 07:07] LABS: Basophils # (auto) 0.01 K/uL (0.00-0.20); Basophils % (auto) 0.1 %; Eosinophils # (auto) 0.01 K/uL (0.00-0.50); Eosinophils % (auto) 0.1 %; Hematocrit (blood only) 36.6 % (42.0-52.0); Hemoglobin 11.9 g/dl (14.0-18.0); Immature Granulocytes # (auto) 0.05 K/uL (0.01-0.20); Immature Granulocytes % (auto) 0.7 %; Lymphocytes # (auto) 0.42 K/uL (1.20-3.40); Lymphocytes % (auto) 5.7 %; Mean Corpuscular Hemoglobin 28.2 pg (25.0-34.0); Mean Corpuscular Hgb Conc 32.5 g/dL (32.0-36.0); Mean Corpuscular Volume 86.7 fL (80.0-100.0); Mean Platelet Volume 10.3 fL (9.4-12.4); Monocytes % (auto) 8.2 %; Neutrophils # (auto) 6.24 K/uL (1.40-6.50); Neutrophils % (auto) 85.2 %; Platelet Count 182 K/uL (130-400); RDW Coefficient of Variation 15.8 % (11.5-14.5); RDW Standard Deviation 50.1 fL (36.4-46.3); Red Blood Count 4.22 M/uL (4.70-6.10); White Blood Count 7.33 K/ul (4.8-10.8)
[2024-10-08 07:16] LABS: Calcium 8.8 mg/dl (8.6-10.3); Creatinine Clr Calc Pharmacy 73.6 ml/min; Potassium 3.6 mmol/L (3.5-5.1)
[2024-10-08] MEDS: BUTALBITAL/ACETAMIN/CAFFEINE TAB PO PRN (18:03)
[2024-10-08] MEDS: clonazePAM 0.5 MG TAB PO PRN (18:31)
[2024-10-08] MEDS: QUEtiapine FUMARATE 25 MG TABLET PO SCH (21:21)
[2024-10-08] MEDS: MELATONIN 3 MG TAB PO SCH (21:21)
--- NOTE | 2024-10-09 07:13 | Hospitalist Progress Note ---
Date of Service October 09, 2024 Assessment & Plan (1) Subdural hematoma: (2) Vascular dementia: (3) Mild cognitive impairment: (4) Recurrent falls: (5) Diabetes mellitus, type 2: Plan Mr. Bruner is 79 year old admitted with Subdural hematoma ware P/M/H of Vascular dementia, Fall, Mild cognitive dysfunction, Gait disturbance, Mood disorder, Lyme, Stroke , Chronic daily headache, Lumbar disc disease, HTN, Hyperlipidemia, Depression, tobacco use. #Subdural hematoma Stable , with mild reduction in thickness on serial CT head. - Last CT head on 10/04. - Repeat head ~ CT in 2 weeks, neurology f/u 2-3 weeks - Continue to hold Aspirin/Plavix. Pain management: Tylenol PO 650 mg Q6H; Fioricet 2 tab changed to BID PRN. PDMP review seems concerning, He is on Fioricet, tramadol, and other Meds prone for dependance. Plan to taper Fioricet and wean off. Plan to hold Tramadol. Would recommend Triptans trial instead of multi- regimen opioids, since it could be potential cause of recurrent fall as well. Would rec PCP to follow on DC. Blood pressure: Resumed Home meds. BP stable now( 128/70) #Chronic Headache -Chronic headache X 40 year. Stable now. - Fioricet decreased to BID PRN. -OMT on DC. Urinary Retention - failed trial of voiding - consider voiding trial once mentation back to baseline/at rehab facility. Leukocytosis Improved, Non specific ? Dehydration Weakness/Recurrent falls Cause: Polypharmacy vs deconditioning vs Dementia vs acute delerium. - Likely back to baseline Cognition - Fall precautions - PT/OT: Recs Rehab; pending placement - Resumed home meds Seroquel and Clonazepam PRN. - Reduced dose of fluvoxamine 100mg daily Vascular dementia/Mild cognitive impairment - With the baseline dementia, his age and recent hospitalization SDH is also stable. T2DM - A1c: 6.7%, glucose: 125; hold SSI DVT prophylaxis: SCDs( Pharmacologic: Contraindicated due to SDH) Dispo: OT/PT recs Rehab Stable medically for placement; pending placement. Admission and Anticipated Discharge Date Admission Date: October 01, 2024 Subjective Complains of some neck pain this morning, no events overnight. Alert and conversational, but remains confused. Unable to answer questions appropriately, but following commands. Denies headache/ vomiting/ nausea. Review of Systems Review of Systems: As per above Physical Exam Physical Exam: Constitutional: Sedated HEENT: Atraumatic, Normocephalic CVS: S1 S2 no murmur, Regular Rhythm, no LE edema Respiratory: BL equal air entry with NVBS. No rhonchi, wheezes, or crackles. No increased work of breathing GI: Soft, Nondistended, Nontender, Normal Bowel sounds + MSK: Sedated, Muscle power exam not plausible Skin: Warm, Dry, Bruises over IV site. Results & Data Results & Data Vital Signs (Past 12 Hours) Vital Signs Temp Pulse Resp BP BP Pulse Ox O2 Del Method 10/09/24 03:00 36.5 C 68 20 128/70 93 Room Air 10/08/24 23:00 36.1 C L 75 20 129/55 L 94 Room Air Resident Activity Tracking Resident Involvement: Resident Care Provided Care Provided: Adult Hospital Medicine (2) Vascular dementia Dementia behavioral or psychological symptom: with other behavioral disturbance Dementia severity: mild Qualified Code(s): F01.A18 - Vascular dementia, mild, with other behavioral disturbance
[2024-10-09 08:40] LABS: Basophils # (auto) 0.03 K/uL (0.00-0.20); Basophils % (auto) 0.5 %; Eosinophils # (auto) 0.08 K/uL (0.00-0.50); Eosinophils % (auto) 1.2 %; Hematocrit (blood only) 38.2 % (42.0-52.0); Hemoglobin 12.3 g/dl (14.0-18.0); Immature Granulocytes # (auto) 0.06 K/uL (0.01-0.20); Immature Granulocytes % (auto) 0.9 %; Lymphocytes # (auto) 1.06 K/uL (1.20-3.40); Lymphocytes % (auto) 16.2 %; Mean Corpuscular Hemoglobin 27.7 pg (25.0-34.0); Mean Corpuscular Hgb Conc 32.2 g/dL (32.0-36.0); Mean Platelet Volume 10.4 fL (9.4-12.4); Monocytes # (auto) 1.01 K/uL (0.11-0.59); Monocytes % (auto) 15.4 %; Neutrophils # (auto) 4.32 K/uL (1.40-6.50); Neutrophils % (auto) 65.8 %; Platelet Count 194 K/uL (130-400); RDW Coefficient of Variation 15.6 % (11.5-14.5); Red Blood Count 4.44 M/uL (4.70-6.10); White Blood Count 6.56 K/ul (4.8-10.8)
[2024-10-09 09:00] LABS: BUN Creatinine Ratio 34.2 (10-20); Calcium 8.8 mg/dl (8.6-10.3); Creatinine Clr Calc Pharmacy 77.5 ml/min; Potassium 3.7 mmol/L (3.5-5.1)
[2024-10-09 11:32] VITALS: RESP 18
--- NOTE | 2024-10-09 14:00 | Discharge Summary ---
Date of Service October 09, 2024 Admission HPI Per Admitting Provider The patient is a 79-year-old male with past medical history including mild cognitive impairment, gait disturbance, mood disorder, Lyme disease, stroke, GERD, restless leg syndrome, lumbar disc disease with radiculopathy, polymyalgia, diabetes mellitus type 2, stenosis of left ICA, depression and history of episodic tobacco abuse. Patient had a CT scan of the head which showed a subdural hematoma, with trace amount of acute blood, and was referred for evaluation for [facility] after [facility] neurosurgery reported that the patient did not need to be transferred because no procedure would be indicated. Admission Exam Per Admitting Provider The patient is awake, alert and oriented 3, well developed and well nourished, normocephalic and atraumatic, lying in bed and in no acute distress. HEENT--PERRL, EOMI, mucous membranes and oropharynx normal Neck--supple. No JVD. No bruits. Thyroid normal, trachea midline, no adenopathy. Heart--normal S1 and S2. No murmurs, rubs or gallops. Lungs--clear bilaterally, no respiratory distress, no accessory muscle use. Abdomen--normal bowel sounds and soft. Nontender. Nondistended, no hernias or masses, no organomegaly. Extremities--no cyanosis or clubbing. No edema. There are good distal pulses b/l. Dermatologic--normal skin turgor, normal color, no abnormal lymph nodes, no rash. Neurologic--cranial nerves II through XII grossly intact. Rheumatologic--normal range of motion. Psychiatric--normal affect. 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 No rhonchi, wheezes, or crackles. No increased work of breathing GI: Soft, Nondistended, Nontender, Normal Bowel sounds + MSK: Sedated, Muscle power exam not plausible Skin: Warm, Dry, Bruises over IV site. Discharge Data Allergies Allergy/AdvReac Type Severity Reaction Status Date / Time latex Allergy Mild CONTACT Verified 09/30/24 14:34 DERMATITIS oxycodone AdvReac Severe GI SYMPTOMS Verified 09/30/24 14:34 Consultations 10/01/24 00:41 ED Decision to Admit Stat 10/01/24 04:59 Consult Neurology Routine Ordered Studies 09/30/24 21:22 CT head/brain wo con Stat 10/01/24 09:00 CT head/brain wo con Routine 10/02/24 02:[address] [CT head/brain wo con] Stat 10/03/24 01:05 CT head/brain wo con Stat 10/03/24 01:16 CT Abdomen and Pelvis [CT abd pelvis wo con] Stat Hospital Course (1) Subdural hematoma: (2) Vascular dementia: (3) Mild cognitive impairment: (4) Recurrent falls: (5) Diabetes mellitus, type 2: Plan Mr. Bruner is 79 year old was admitted with Subdural hematoma ware P/M/H of Vascular dementia, Fall, Mild cognitive dysfunction, Gait disturbance, Mood disorder, Lyme, Stroke , Chronic daily headache, Lumbar disc disease, HTN, Hyperlipidemia, Depression, tobacco use. #Subdural hematoma Stable , with mild reduction in thickness on serial CT head. - Last CT head on 10/04. - Repeat head ~ CT in 2 weeks, neurology f/u 1-3 weeks - Continue to hold Aspirin/Plavix until repeat CT, Pain management: Tylenol PO 650 mg Q6H; Fioricet 2 tab changed to BID PRN. PDMP review seems concerning, He is on Fioricet, tramadol, and other Meds prone for dependance. Plan to taper Fioricet and wean off. Plan to hold Tramadol. Would recommend Triptans trial instead of multi- regimen opioids, since it could be potential cause of recurrent fall as well. Would rec PCP to follow on DC. #Chronic Headache -Chronic headache X 40 year. Stable now. - Fioricet decreased to BID PRN. -OMT on DC. Urinary Retention - failed trial of voiding - consider voiding trial once mentation back to baseline/at rehab facility. Weakness/Recurrent falls RFs: Polypharmacy vs deconditioning vs Dementia vs acute delerium. - Back to baseline Cognition on DC. - PT/OT: Recs Rehab; pending placement - Resumed home meds Seroquel and Clonazepam PRN. - Reduced dose of fluvoxamine 100mg daily. - Recommend to decrease and wean off Fioricet on PCP follow up as this is concerning for recurrent fall in 78 years. T2DM - A1c: 6.7%, glucose: 125. - Home med resumed. Plan: DC to [facility]. Total Time Total Time Spent Total Time Spent (In Minutes): See attending's attestation. Discharge Plan Discharge Items Patient Disposition: Transfer Inpatient Rehab Fac Reason For Visit: SUBDURAL HEMATOMA, WITH ACUTE Discharge Diagnosis: Resolving SDH Dementia Activity: Resume your previous activity Non-emergency contact: Primary Care Provider Call non-emergency contact if: your symptoms worsen, your pain is not controlled and your pain is worsening Follow-up/Referrals: Wing William MD [Primary Care Provider] - Diet: Carb Consistent or DM2 Addtl Attending Provider Instructions: You were admitted to the hospital for Subdural hematoma, cognitive dysfunction and fall. You were treated with physical therapy and occupational therapy evaluation. They recommend you rehabilitation placement for getting you more strong before you go home. Your regular home medication are readjusted as well. A discharge summary will be sent to your primary care physician to ensure continuity of care. Please bring this discharge summary with you to your next office appointment so that your provider can review it at that time. Medications: Your medication list has been reviewed and reconciled upon discharge to ensure accuracy and continuity of care. An updated list of all your medications is included with your hospital discharge paperwork. Please review this list closely and make note of any changes to your medications. 1. Fioricet has been readjusted to twice daily as needed from previous dose. 2. Clonazepam has be restarted on 0.25 mg once daily at night time. Follow up appointments: - Make a follow up appointment with your PCP within the next week. It is very important that you follow up with them shortly after discharge from the hospital. - Make a follow up appointment with DO doctor for OMT of neck and paraspinal muscles. - Follow up neurology in 1-2 weeks as well. - Keep all of your follow up appointments as already scheduled. If you cannot make an appointment, notify your provider. CONTACT YOUR PRIMARY CARE PROVIDER if you experience any of the following: - Difficulty following your treatment plan - Difficulty taking any of your medications CALL 911 OR GO TO THE EMERGENCY DEPARTMENT if you experience any of the following: - Repeated fall, Loss of consciousness, recurrent projectile vomiting. - Sudden, severe abdominal pain or nausea/vomiting - Severe chest pain or chest pain that radiates to your jaw or arm - Sudden, severe shortness of breath or difficulty breathing Addtl Network Systems Consultant Provider Instructions: 1. Plan to repeat CT in 1 week ( per neuro rec) 2. Fioricet has been decreased in dose on reviewing PDMP record, polypharmacy and recurrent fall is concerning. Our plan is to wean off from Fioricet ultimately. Kindly follow up with PCP for further continuation of plan. 3. Would consider other Migraine medication like triptans for headaches instead of opioids. 4. Clonazepam 0.25 restarted on this admission. 5. Tramadol held for now due to concern of polypharmacy and multiple opioids. 6. Follow up neurology in 1-2 weeks as well. Pending Studies at Discharge: No Stand-Alone Forms: My [facility] Skilled Items Patient informed of condition?: Yes DNR: No Discharge Level of Care: Acute rehab Communicable Disease: No Discharge Prognosis: Stable Lines: None Urinary Catheter: Yes Medications and DC Order Prescriptions: New ofdaxrqnsu-vauvoteuokcdb-kclo [Fioricet] 50-300-40 mg capsule 2 cap PO BID 10 Days Qty: 40 0RF Continued cyanocobalamin (vitamin B-12) 1,000 mcg Capsule 1,000 mcg PO NOON Qty: 0 (DME) Wheeled Walker Misc See Rx Instructions .Route Qty: 1 0RF Rx Instructions: with seat and hand brakes. Duration 999 cholecalciferol (vitamin D3) 25 mcg (1,000 unit) capsule 25 mcg PO QAM famotidine 40 mg tablet 40 mg PO 1200 Qty: 90 3RF mupirocin 2 % ointment 1 applic topical BID PRN (Reason: skin tears) clonazepam 0.5 mg tablet 0.5 mg PO UD Rx Instructions: take 1 tablet at noon and take 2 tablets at bedtime valsartan 40 mg tablet 40 mg PO HS Qty: 90 3RF quetiapine [Seroquel] 25 mg tablet 25 mg PO Q OTHER DAY Rx Instructions: take at 6pm Invokana 300 mg tablet 300 mg PO QAM fluvoxamine 100 mg tablet 100 mg PO UD Rx Instructions: take 1 tablet in afternoon and 2 tablets at bedtime prednisone 5 mg tablet 10 mg PO QAM omeprazole 20 mg capsule,delayed release(DR/EC) 20 mg PO QAM Held clopidogrel 75 mg tablet 75 mg PO QAM Hold Instructions: Resume on 10/16/24. After repeat CT if SDH shrinking aspirin 81 mg Tablet,Chewable 81 mg PO DAILY Hold Instructions: Resume on 10/16/24. [address] repeat CT Discontinued tramadol 50 mg tablet 50 mg PO Q6H PRN (Reason: pain) Qty: 120 5RF bvaxvlmnpn-gprpwcesbjegp-sfdu 50-325-40 mg tablet 2 tab PO Q4H PRN (Reason: headaches) Qty: 1080 1RF cephalexin 500 mg capsule 500 mg PO QAM Discharge Orders: Discharge Order (Routine); Ordered 10/09/24 Ordered By: Dasia uHerta/Other Patient Handouts: A Sample Walking Program, Fall Prevention Assessing Risk, Falls Prevent Adjust Living Space, ED Mechanical Fall Admission Data Admit Date/Time: 10/01/24 01:32 Attending Provider: Triny Quach Admit Provider: Lisandro Ramirez Primary Care Provider: Wing William Other Providers: Lisandro Ramirez; Rikki Gibbons; [facility]; Lashonda Ortiz [facility] Resident Activity Tracking Resident Involvement: Resident Care Provided Care Provided: Adult Hospital Medicine
--- NOTE | 2024-10-09 14:33 | Hospitalist Progress Note ---
Date of Service October 09, 2024 Assessment & Plan (1) Subdural hematoma: (2) Vascular dementia: (3) Mild cognitive impairment: (4) Recurrent falls: (5) Diabetes mellitus, type 2: Plan: Mr. Bruner is 79 year old admitted with Subdural hematoma ware P/M/H of Vascular dementia, Fall, Mild cognitive dysfunction, Gait disturbance, Mood disorder, Lyme, Stroke , Chronic daily headache, Lumbar disc disease, HTN, Hyperlipidemia, Depression, tobacco use. #Subdural hematoma Stable , with mild reduction in thickness on serial CT head. - Last CT head on 10/04. - Repeat head ~ CT in 2 weeks, neurology f/u 2-3 weeks - Continue to hold Aspirin/Plavix. Pain management: Tylenol PO 650 mg Q6H. Fioricet decreased to 2 tab BID PRN dose from Q4 hour. His PDMP review is concerning with polypharmacy, especially in setting of recurrent fall. This could be potent cause of fall for him. Hence would plan to reduce Fioricet, taper and wean off. 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 Follow up with PCP for proceeding with the plan. Blood pressure management: BP meds on hold due to Hypotension. BP today: 128/70, follow trend and possible restart of home meds. #Chronic Headache -Chronic headache X 40 year. Stable now. -Fioricet reduced to BID PRN dose. -OMT on DC. Urinary Retention - failed trial of voiding - consider voiding trial once mentation back to baseline/at rehab facility. Leukocytosis Resolved Weakness/Recurrent falls - Fall precautions - PT/OT: Recs Rehab; pending placement - Restarted Seroquel and Clonazepam. -Reduced dose of fluvoxamine 100mg daily Vascular dementia/Mild cognitive impairment - Patient is in delirium. With the baseline dementia, his age and recent hospitalization ,suspect there is less likely that anything else is contributing for his delirium. SDH is also stable. T2DM - A1c: 6.7%, glucose: 125; hold SSI DVT prophylaxis: SCDs( Pharmacologic: Contraindicated due to SDH) Dispo: OT/PT recs Rehab Stable medically for placement; pending placement. Admission and Anticipated Discharge Date Admission Date: October 01, 2024 Supervising Physician Co-Signing Physician Notes I personally examined the patient and verified robbins points of history and exam, discussed case, and agree with decision making and plan documented by Dr. Grady. Reviewed weaning of fioricet and clonazepam with patient, improved mentation today. Anticipate discharge to [facility] tomorrow morning. Subjective This AM Mr. Bruner is stable, at his baseline cognition. Confused, not oriented, talks here and there. Endorsed some neck pain and stiffness, no new headache, nausea, vomiting. Wanted to get discharged and join family, explained him that he is going to rehab for getting stronger before he goes home. Review of Systems Review of Systems: as per HPI Physical Exam Physical Exam: Constitutional: well-appearing, no acute distress CV: regular rhythm, no murmur appreciated, extremities well-perfused, no LE edema Resp: CTABL, no wheezes/rales/rhonchi appreciated, no increased work of breathing GI: soft, nondistended, nontender Skin: warm, dry, bruises around his IV site Neuro: alert, no focal neurologic deficit appreciated.t Results & Data Results & Data Vital Signs (Past 12 Hours) Vital Signs Temp Pulse Pulse Resp BP BP Pulse Ox 10/09/24 11:31 36.9 C 79 18 120/77 95 10/09/24 08:00 72 10/09/24 07:46 36.6 C 74 19 157/78 H 92 10/09/24 03:00 36.5 C 68 20 128/70 93 O2 Del Method 10/09/24 11:31 Room Air 10/09/24 08:00 10/09/24 07:46 Room Air 10/09/24 03:00 Room Air Resident Activity Tracking Resident Involvement: Resident Care Provided Care Provided: Adult Hospital Medicine (2) Vascular dementia Dementia behavioral or psychological symptom: with other behavioral disturbance Dementia severity: mild Qualified Code(s): F01.A18 - Vascular dementia, mild, with other behavioral disturbance
--- NOTE | 2024-10-09 14:38 | Pulmonology Progress Note ---
Date of Service October 09, 2024 Assessment & Plan Admission and Anticipated Discharge Date Admission Date: October 01, 2024 Results & Data Results & Data Vital Signs (Past 12 Hours) Vital Signs Temp Pulse Pulse Resp BP BP Pulse Ox 10/09/24 11:31 36.9 C 79 18 120/77 95 10/09/24 08:00 72 10/09/24 07:46 36.6 C 74 19 157/78 H 92 10/09/24 03:00 36.5 C 68 20 128/70 93 O2 Del Method 10/09/24 11:31 Room Air 10/09/24 08:00 10/09/24 07:46 Room Air 10/09/24 03:00 Room Air
[2024-10-10 07:41] VITALS: TEMP 97.5; O2SAT 92
[2024-10-10 09:35] VITALS: BP 128/70; PULSE 79
--- NOTE | 2024-10-10 10:57 | Discharge Summary ---
Date of Service October 10, 2024 Admission HPI Per Admitting Provider The patient was referred to the emergency department by his PCP, after presenting to the outpatient office with concerns regarding ongoing headaches, some blurry vision of the left eye after falling and striking his head about 2 weeks ago. The patient has been having increased frequency falls recently. CT scan of the head showed a subdural hematoma, and he was referred to the emergency department for further evaluation. Patient is noted to have some baseline dementia, and family reports that he has not had any change in mental functioning. He is presently on aspirin and Plavix for previous history of CVA Primary Care Provider: Wnig William MD The patient is a 79-year-old male with past medical history including mild cognitive impairment, gait disturbance, mood disorder, Lyme disease, stroke, GERD, restless leg syndrome, lumbar disc disease with radiculopathy, polymyalgia, diabetes mellitus type 2, stenosis of left ICA, depression and history of episodic tobacco abuse. Patient had a CT scan of the head which showed a subdural hematoma, with trace amount of acute blood, and was referred for evaluation for admission to [facility] after [facility] neurosurgery reported that the patient did not need to be transferred because no procedure would be indicated Admission Exam Per Admitting Provider The patient is awake, alert and oriented 3, well developed and well nourished, normocephalic and atraumatic, lying in bed and in no acute distress. HEENT--PERRL, EOMI, mucous membranes and oropharynx normal Neck--supple. No JVD. No bruits. Thyroid normal, trachea midline, no adenopathy. Heart--normal S1 and S2. No murmurs, rubs or gallops. Lungs--clear bilaterally, no respiratory distress, no accessory muscle use. Abdomen--normal bowel sounds and soft. Nontender. Nondistended, no hernias or masses, no organomegaly. Extremities--no cyanosis or clubbing. No edema. There are good distal pulses b/l. Dermatologic--normal skin turgor, normal color, no abnormal lymph nodes, no rash. Neurologic--cranial nerves II through XII grossly intact. Rheumatologic--normal range of motion. Psychiatric--normal affect. Principal Diagnosis Recurrent fall Subdural hematoma. Discharge Exam Constitutional: well-appearing, no acute distress CV: regular rhythm, no murmur appreciated, extremities well-perfused, no LE edema Resp: CTABL, no wheezes/rales/rhonchi appreciated, no increased work of breathing GI: soft, nondistended, nontender Skin: warm, dry, bruises around his IV site Neuro: alert, no focal neurologic deficit appreciated.t Discharge Data Allergies Allergy/AdvReac Type Severity Reaction Status Date / Time latex Allergy Mild CONTACT Verified 09/30/24 14:34 DERMATITIS oxycodone AdvReac Severe GI SYMPTOMS Verified 09/30/24 14:34 Consultations 10/01/24 00:41 ED Decision to Admit Stat 10/01/24 04:59 Consult Neurology Routine Ordered Studies 09/30/24 21:22 CT head/brain wo con Stat 10/01/24 09:00 CT head/brain wo con Routine 10/02/24 02:[address] [CT head/brain wo con] Stat 10/03/24 01:05 CT head/brain wo con Stat 10/03/24 01:16 CT Abdomen and Pelvis [CT abd pelvis wo con] Stat Hospital Course (1) Subdural hematoma: (2) Vascular dementia: (3) Mild cognitive impairment: (4) Recurrent falls: (5) Diabetes mellitus, type 2: Plan Mr. Bruner is 79 year old admitted with Subdural hematoma ware P/M/H of Vascular dementia, Fall, Mild cognitive dysfunction, Gait disturbance, Mood disorder, Lyme, Stroke , Chronic daily headache, Lumbar disc disease, HTN, Hyperlipidemia, Depression, tobacco use. #Subdural hematoma Stable , with mild reduction in thickness on serial CT head. - Last CT head on 10/04. - Repeat head ~ CT in 1 week, neurology f/u 1-2 weeks - Continue to hold Aspirin/Plavix until repeat CT. #Chronic headache -Chronic headache X 40 year. Stable now. -Rec Tylenol PO 650 mg Q6H. -Fioricet decreased to 2 tab BID PRN dose from Q4 hour. -His PDMP review is concerning for polypharmacy, especially in setting of recurrent fall. This could be potent cause of fall for him. Hence would plan to reduce Fioricet to BID PRN now, Once daily then and ultimately taper and wean off. -I would recommend trial of Triptans for Migraine instead of chronic machine long goods helper Fioricet use along with tramadol. Follow up with PCP for continuation with the plan. -Recommend OMT evaluation on DC. His paraspinal and neck muscle are tensed, could be one of the potential cause of chronic headache. Urinary Retention -Failed trial of voiding on admission. -Consider voiding trial at rehab facility. No apparent indication for machine long goods helper catheterization, though. Weakness/Recurrent falls Polypharmacy is concerning for his recurrent fall and weakness. Med rec done as per prescription. (Fioricet and clonazepam reduced frequency, tramadol stopped) Short term rehab per OT/PT Vascular dementia/Mild cognitive impairment - Acute delirium improved, back to baseline. T2DM - A1c: 6.7%; RBS stable during admission. - Continue home med Total Time Total Time Spent Total Time Spent (In Minutes): See attending's attestation Discharge Plan Discharge Items Patient Disposition: Transfer Inpatient Rehab Fac Reason For Visit: SUBDURAL HEMATOMA, WITH ACUTE Discharge Diagnosis: Resolving SDH Dementia Activity: Resume your previous activity Non-emergency contact: Primary Care Provider Call non-emergency contact if: your symptoms worsen, your pain is not controlled and your pain is worsening Follow-up/Referrals: Wing William MD [Primary Care Provider] - Diet: Carb Consistent or DM2 Addtl Attending Provider Instructions: You were admitted to the hospital for Subdural hematoma, cognitive dysfunction and fall. You were treated with physical therapy and occupational therapy evaluation. They recommend you rehabilitation placement for getting you more strong before you go home. Your regular home medication are readjusted as well. A discharge summary will be sent to your primary care physician to ensure continuity of care. Please bring this discharge summary with you to your next office appointment so that your provider can review it at that time. Medications: Your medication list has been reviewed and reconciled upon discharge to ensure accuracy and continuity of care. An updated list of all your medications is included with your hospital discharge paperwork. Please review this list closely and make note of any changes to your medications. 1. Fioricet has been readjusted to twice daily as needed from previous dose. 2. Clonazepam has be restarted on 0.25 mg once daily at night time. Follow up appointments: - Make a follow up appointment with your PCP within the next week. It is very important that you follow up with them shortly after discharge from the hospital. - Make a follow up appointment with DO doctor for OMT of neck and paraspinal muscles. - Follow up neurology in 1-2 weeks as well. - Keep all of your follow up appointments as already scheduled. If you cannot make an appointment, notify your provider. CONTACT YOUR PRIMARY CARE PROVIDER if you experience any of the following: - Difficulty following your treatment plan - Difficulty taking any of your medications CALL 911 OR GO TO THE EMERGENCY DEPARTMENT if you experience any of the following: - Repeated fall, Loss of consciousness, recurrent projectile vomiting. - Sudden, severe abdominal pain or nausea/vomiting - Severe chest pain or chest pain that radiates to your jaw or arm - Sudden, severe shortness of breath or difficulty breathing Addtl Termite Helper Provider Instructions: 1. Plan to repeat CT in 1 week ( per neuro rec) 2. Fioricet has been decreased in dose on reviewing PDMP record, polypharmacy and recurrent fall is concerning. Our recommendation is to wean off from Fioricet ultimately. Kindly follow up with PCP for further continuation of plan. 3. Would consider other medication like triptans for migraine headaches instead of opioids. 4. Clonazepam tapered to 0.5 BID PRN. 5. Tramadol held for now due to concern of polypharmacy and multiple opioids. 6. Follow up neurology in 1-2 weeks as well. 7. Aspirin and clopidogrel held for SDH, consider re-starting after repeat CT scan. Pending Studies at Discharge: No Stand-Alone Forms: My [facility] Skilled Items Patient informed of condition?: Yes DNR: No Discharge Level of Care: Acute rehab Communicable Disease: No Discharge Prognosis: Stable Lines: None Urinary Catheter: Yes Medications and DC Order Prescriptions: New zoaxhvwmcl-gcwvateuqqsqm-ykqz [Fioricet] 50-300-40 mg capsule 2 cap PO BID 10 Days Qty: 40 0RF clonazepam 0.5 mg tablet 0.5 mg PO Q12H PRN (Reason: anxiety) 7 Days Qty: 20 0RF Continued cyanocobalamin (vitamin B-12) 1,000 mcg Capsule 1,000 mcg PO NOON Qty: 0 (DME) Wheeled Walker Misc See Rx Instructions .Route Qty: 1 0RF Rx Instructions: with seat and hand brakes. Duration 999 cholecalciferol (vitamin D3) 25 mcg (1,000 unit) capsule 25 mcg PO QAM famotidine 40 mg tablet 40 mg PO 1200 Qty: 90 3RF mupirocin 2 % ointment 1 applic topical BID PRN (Reason: skin tears) valsartan 40 mg tablet 40 mg PO HS Qty: 90 3RF quetiapine [Seroquel] 25 mg tablet 25 mg PO Q OTHER DAY Rx Instructions: take at 6pm Invokana 300 mg tablet 300 mg PO QAM fluvoxamine 100 mg tablet 100 mg PO UD Rx Instructions: take 1 tablet in afternoon and 2 tablets at bedtime prednisone 5 mg tablet 10 mg PO QAM omeprazole 20 mg capsule,delayed release(DR/EC) 20 mg PO QAM Held clopidogrel 75 mg tablet 75 mg PO QAM Hold Instructions: Resume on 10/16/24. After repeat CT if SDH shrinking aspirin 81 mg Tablet,Chewable 81 mg PO DAILY Hold Instructions: Resume on 10/16/24. [address] repeat CT Discontinued tramadol 50 mg tablet 50 mg PO Q6H PRN (Reason: pain) Qty: 120 5RF clonazepam 0.5 mg tablet 0.5 mg PO UD Rx Instructions: take 1 tablet at noon and take 2 tablets at bedtime upjajjzjcd-lqstgwrxdkcwl-fdsh 50-325-40 mg tablet 2 tab PO Q4H PRN (Reason: headaches) Qty: 1080 1RF cephalexin 500 mg capsule 500 mg PO QAM Discharge Orders: Discharge Order (Routine); Ordered 10/10/24 Ordered By: Dasia Huerta/Other Patient Handouts: A Sample Walking Program, Fall Prevention Assessing Risk, Falls Prevent Adjust Living Space, ED Mechanical Fall Admission Data Admit Date/Time: 10/01/24 01:32 Attending Provider: Triny Quach Admit Provider: Lisandro Ramirez Primary Care Provider: Wing William Other Providers: Lisandro Ramirez; Rikki Gibbons; [facility]; [facility] Other Interventions: Discharge Summary Assessment (RN) Last Done: 10/10/24 09:33 Supervising Physician Co-Signing Physician Notes I personally examined the patient and verified robbins points of history and exam, discussed case, and agree with decision making and plan documented by Dr. Russ. Patient discharged to rehab for deconditioning. Recommend continued weaning of fioricet and clonazepam as able and discontinuing tramadol if able due to concerns of polypharmacy. Patient had improved mentation and denied exacerbation of pain during hospitalization. Resident Activity Tracking Resident Involvement: Resident Care Provided Care Provided: Adult Hospital Medicine
== END 2024-10-10 10:08 | DRG 83 ==
LOC: ED 20:50 → SUATTDRO 10-01 01:32 → EDINP 10-01 01:32 → 2S 10-01 15:34

== ENCOUNTER 2024-12-25 12:27 | Observation (INO) ==
--- OUTSIDE RECORDS SUMMARY | 2024-12-25 12:34 | External Medical Summary | Continuity of Care Document ---
Author Name Unknown Organization [facility] [address] [facility] Address [address] [place], [place] [id number] Care Team Providers Care Stretching Press Operator Name Role Phone Wing William Primary Care Physician [phone] [id number] Date(s): 11/30/24 - 11/30/24 [facility] [address], [address] [place] [address] [phone] Discharge Disposition: Home or Self Care Attending Physician: MINERVA Norris Lynn Referring Physician: MINERVA Norris Lynn Encounter Type: Clinic Allergies, Adverse Reactions, Alerts Substance Criticality Severity Reaction Reaction Severity Status Adhesive bandage Rash Act hiro Medications aspirin 81 mg oral delayed release tablet Start: 03/06/17 12:59:00 PM EDT, 1 tab, PO, Daily Start Date: 03/06/17 Status: Ordered Repeat number: 1 cloNAZepam Start: 03/11/12 1:29:00 PM EDT, 0.5 mg =, PO, bid Start Date: 03/11/12 Status: Ordered Repeat number: 1 famotidine 40 mg oral tablet TAKE 1 TABLET BY MOUTH AT NOON Start Date: 11/30/24 Status: Ordered Repeat number: 1 Farxiga 5 mg oral tablet Start: 04/14/17 3:23:00 PM EDT, 1 tab, PO, Daily Start Date: 04/14/17 Status: Ordered Repeat number: 1 Fioricet oral tablet Start: 03/11/12 1:30:00 PM EDT, 2 tab, PO, q4h, PRN: as needed for headache Start Date: 03/11/12 Status: Ordered Repeat number: 1 fluvoxaMINE 100 mg oral tablet Start: 04/14/17 3:24:00 PM EDT, See Instructions, 1 tab po q supper and 2 tabs po q HS Start Date: 04/14/17 Status: Ordered Repeat number: 1 Invokana 300 mg oral tablet TAKE 1 TABLET BY MOUTH ONCE DAILY Start Date: 11/30/24 Status: Ordered Repeat number: 1 ketoconazole 2% topical cream Start: 04/06/18 1:56:00 PM EDT, 1 appl, topical, bid, Disp# 30 g, Refills: 2, To red scaly fungal areas( rihgt evans) BID 2 weeks, Pharmacy: [facility] [id number] Start Date: 04/06/18 Status: Ordered Quantity: 30.0 Unit: g Repeat number: 3 predniSONE 5 mg oral tablet Start: 03/11/12 1:30:00 PM EDT, 1 tab, PO, bid Start Date: 03/11/12 Status: Ordered Repeat number: 1 QUEtiapine 25 mg oral tablet TAKE 1 TABLET BY MOUTH ONCE DAILY AT NIGHT Start Date: 11/30/24 Status: Ordered Repeat number: 1 tamsulosin 0.4 mg oral capsule Start: 11/30/24 2:27:00 PM EST, 1 cap, PO, Daily Start Date: 11/30/24 Status: Ordered Repeat number: 1 valsartan 40 mg oral tablet TAKE 1 TABLET BY MOUTH AT BEDTIME Start Date: 11/30/24 Status: Ordered Repeat number: 1 Vitamin B12 Start: 04/06/18 1:35:00 PM EDT, 1 tab, PO, Daily Start Date: 04/06/18 Status: Ordered Repeat number: 1 Vitamin D3 5000 intl units oral capsule Start: 10/28/17 12:44:00 PM EST, 1 cap, PO, Daily Start Date: 10/28/17 Status: Ordered Repeat number: 1 Problem List Condition Confirmation Course Effective Dates Status H ealth Status Informant Bilateral carotid artery stenosis Confirmed Active Carotid stenosis Confirmed Active Elevated cholesterol Confirmed Active Headaches, cluster Confirmed Active S/p carotid endarterectomy Confirmed Active History of cellulitis Confirmed Active Hypertension Confirmed Active Seborrheic keratosis Confirmed Active Tobacco abuse Confirmed Active Type 2 diabetes mellitus Confirmed Active Procedures Procedure Date Related Diagnosis Body Site Status Left CEA - Carotid endarterectomy 02/19/17 Completed Carpal tunnel 2005 Completed Surgery 1995 Completed 1nose/throat Results Radiology Reports * Exam Date Time Procedure Performing Provider Status 11/30/24 3:00 PM VL Carotid Duplex Bilateral Flavio Chavez ae; Final Notes: (VL Carotid Duplex Bilateral) Reason For Exam: margaret VL Carotid Duplex Bilateral [facility] FINAL REPORT Name: JOVITA REYES : 1945 Visit: [id number] Date: 30 Nov 2024 TYPE OF TEST: Cerebrovascular Duplex REASON FOR TEST Known carotid stenosis, Left CEA INTERPRETATION/FINDINGS Duplex imaging performed of the bilateral extracranial arteries: 1. 70-79% stenosis in the right internal carotid artery. 2. Patent left carotid artery endarterectomy without restenosis. 3. No significant stenosis in the bilateral external carotid arteries. 4. Antegrade flow in the bilateral vertebral arteries. 5. Normal flow in the innominate artery. 50-74% stenosis of the proximal right subclavian artery. 6. Normal flow in the left proximal subclavian artery. Plaque Morphology: 1. Complex, calcified plaque in the right bulb and internal carotid artery. Compared to the previous study performed 12/01/2023, there is no significant change. IMPRESSION/COMMENTS I have personally reviewed the data relevant to the interpretation of this study. TECHNOLOGIST: Alexandra Chavez , RDCS, RVT PHYSICIAN: Nancy Martinez M.D. Signed: 12/01/2024 09:52 AM Final Dictated by:MD Martinez Kristine L Dictated DT/TM:12/01/2024 9:52 Signed by:MD Martinez Kristine L Signed (Electronic Signature):12/01/2024 9:52 a Transcribed by:ASHLY Social History Social History Type Response Tobacco Current every day sm oker, Cigarettes Smoking Status Current every day li ght smoker Sex Male Sex Representation Male (finding) Patient Care team information Care Team Personnel Name: MINERVA Norris Lynn Position: Physician Network Project Manager Exempt - Vasc Surg Member Role: Lifetime Relationship [address]: [address] [place] [address] [address] [place] [address] Telecom: [phone] Name: MD William Stephen J Position: Referring Member Role: Primary Care Provider Address: [facility] [address] [address] Telecom: [phone] Care Team Related Persons Name: CARTER REYES Insurance Providers Guarantor name: JOVITA REYES Health Plan Information #: 1 Payer: [employer] PPO Member Number: [id number] Policy Number: NA Group Number: [id number] Health Plan Information #: 2 Payer: [employer] PPO Member Number: [id number] Policy Number: NA Group Number: NA
--- OUTSIDE RECORDS SUMMARY | 2024-12-25 12:34 | External Medical Summary | Continuity of Care Document ---
Author Name Unknown Organization [facility] [address] [facility] Address [address] [place], [place] [id number] Care Team Providers Care Director Of Cardiology Service Line Name Role Phone Wing William Primary Care Physician [phone] Encounter [facility] [id number] Date(s): 11/30/24 - 11/30/24 [facility] [address] [facility] [address] [facility], [address] [place] [address] [phone] Encounter Diagnosis Bilateral carotid artery stenosis(Discharge Diagnosis) - 11/30/24 Discharge Disposition: Home or Self Care Attending Physician: MD Joyce Eugene J Referring Physician: MD William Stephen J Encounter Type: Clinic Allergies, Adverse Reactions, Alerts Substance Criticality Severity Reaction Reaction Severity Status Adhesive bandage Rash Act hiro Assessment and Plan Extracted from: Title:Clinical Document Author:IMNERVA Norris Lynn Date:11/30/24 [facility] OUTPATIENT NOTE Name: JOVITA BRUNER Patient Number: [id number] : 1945 Date of Service: 11/30/2024 Chief Complaint: _Follow-up for carotid stenosis HPI: _Mr. Bruner is an elderly male who presents to Dr. Joyce's vascular surgery clinic today for an annual follow-up visit regarding his history of carotid stenosis. As you may remember, patient is status post left carotid endarterectomy performed Dr. Joyce in 2017. Patient continues to deny any new symptoms of cerebrovascular insufficiency including amaurosis, unilateral extremity weakness numbness or tingling, difficulty speaking or swallowing, facial droop, sudden onset of confusion. He does state that he unfortunately suffered a fall at home a few months ago after tripping over the dogs which resulted in a subdural hematoma, from which he is continuing to recover. His primary care doctor did stop his Plavix, but he has remained on his ASA. His carotid ultrasound performed prior to today's appointment continues demonstrate about 70% stenosis of the right ICA, with peak systolic velocities and diastolic velocities that are nearly identical to previous imaging, with ICA/CCA ratio of 5.4. His left CEA site is widely patent without any evidence of restenosis. Current Home Meds: (Last Updated 11/30 14:29) APAP/butalbital/caffeine (Fioricet oral tablet) 2 tab PO q4h PRN: as needed for headache QUEtiapine (QUEtiapine 25 mg oral tablet) TAKE 1 TABLET BY MOUTH ONCE DAILY AT NIGHT aspirin (aspirin 81 mg oral delayed release tablet) 81 mg PO Daily canagliflozin (Invokana 300 mg oral tablet) TAKE 1 TABLET BY MOUTH ONCE DAILY cholecalciferol (Vitamin D3 5000 intl units oral capsule) 5,000 Int_Unit PO Daily clonazePAM (cloNAZepam) 0.5 mg PO bid cyanocobalamin (Vitamin B12) 1 tab PO Daily dapagliflozin (Farxiga 5 mg oral tablet) 5 mg PO Daily famotidine (famotidine 40 mg oral tablet) TAKE 1 TABLET BY MOUTH AT NOON fluvoxaMINE (fluvoxaMINE 100 mg oral tablet) 1 tab po q supper and 2 tabs po q HS ketoconazole topical (ketoconazole 2% topical cream) 1 appl topical bid To red scaly fungal areas( rihgt evans) BID 2 weeks predniSONE (predniSONE 5 mg oral tablet) 5 mg PO bid tamsulosin (tamsulosin 0.4 mg oral capsule) 0.4 mg PO Daily valsartan (valsartan 40 mg oral tablet) TAKE 1 TABLET BY MOUTH AT BEDTIME Allergies and Sensitivities: Adhesive bandage(Rash) Past Medical History: Problems: Bilateral carotid artery stenosis S/p carotid endarterectomy Carotid stenosis Seborrheic keratosis History of cellulitis Type 2 diabetes mellitus Elevated cholesterol Hypertension Tobacco abuse Headaches, cluster OBJECTIVE Vitals: Last Updated 11/30/24 14:53 Date Temp BP Location Pulse RR SpO2 Pain 11/30/24 146/62 Right Arm 11/30/24 142/62 Left Arm 62 98 0 12/01/23 136/58 Left Arm 55 97 0 Vital Signs are the last 3 documented. No Orthostatic Data Available Height and Weight: Last Updated 11/30/20 11:45 Date BMI Wt(kg) Wt(lb) Method Ht(cm) (ft-in) Method 11/30/20 89.6 197 Standing Scale 11/18/19 32.39 93.8 206 Standing Scale 170.18 5-7 10/28/17 32.21 96.1 211 Standing Scale 172.72 5-8 Heights and Weights are the last 3 documented. Physical Exam Constitutional: In general patient is a healthy-appearing well-nourished well-developed elderly male in no distress. He does ambulate with a rolling walker. His right carotid does demonstrate a bruit, as does his left. His heart is regular, lungs are decreased throughout but clear. Abdomen is soft nontender with no active bowel sounds in all 4 quadrants. Brachial and radial pulses are +3. Lower extremity distal pulses are +2. He has brisk capillary refill and no sign of distal ischemia. There is no significant edema. ASSESSMENT: _ PLAN: _ 1 ) _carotid stenosis Patient does have bilateral carotid stenosis, having undergone a left carotid endarterectomy in 2017, and having a stable right ICA stenosis of 70% since that time. There is no appear to be any significant worsening in the velocities in his right ICA, although he does have a slight increase in his ICA/CCA ratio. He remains asymptomatic from this, we recommend that he return to our office annually with a new carotid ultrasound at that time. Patient is advised call our office if he has any new questions or concerns. He is advised to go to the nearest emergency department if he should develop any of the aforementioned symptoms. He is agreeable to this plan. Thank you for letting us participate in the care of this patient. I have personally mrmbg33__ minutes performing jzoh-sq-edut and jen-apix-er-face activities on this date of service.Time does not include separately reported services. Activities Include: x__ review of the medical record x_ obtaining a history x__ physical exam/evaluation __ review labs __ review radiology reports _x_ counseling/educating patient/family/caregiver __ discussion/referral to other healthcare professional _x_ documenting care in the medical record __ independent interpretation of results x__ communication of results to patient/family/caregiver x__ coordination of care Medications aspirin 81 mg oral delayed release [...] areas( rihgt evans) BID 2 weeks, Pharmacy: [facility] Start Date: 04/06/18 Status: Ordered Quantity: [...] Date: 10/28/17 Status: Ordered Repeat number: 1 Mental Status 11/30/24 Barriers to Learning one year None evide nt Mandatory Health Literacy Documentation Yes Health Literacy Communication Barriers N ever Primary Language Icelandic Problem List Condition Confirmation Course Effective Dates Status H ealth Status Informant Bilateral carotid artery stenosis Confirmed Active Carotid stenosis Confirmed Active Elevated cholesterol Confirmed Active Headaches, cluster Confirmed Active S/p carotid endarterectomy Confirmed Active History of cellulitis Confirmed Active Hypertension Confirmed Active Seborrheic keratosis Confirmed Active Tobacco abuse Confirmed Active Type 2 diabetes mellitus Confirmed Active Diagnosis Diagnosis Type Effective Dates Health Status Cl inical Service Informant Bilateral carotid artery stenosis Discharge Diagnosis 11/30/24 Procedures Procedure Date Related Diagnosis Body Site Status Left CEA - Carotid endarterectomy 02/19/17 Completed Carpal tunnel 2005 Completed Surgery 1 1995 Completed 1nose/throat Vital Signs Most recent to oldest [Reference Range]: 1 2 Heart Rate 62 bpm (11/30/24 2:30 PM) Blood Pressure 146/62mmHg (11/30/24 2:53 PM) 142/62mmHg (11/30/24 2:30 PM) Cuff Pulse Pressure 84 mmHg (11/30/24 2:53 PM) 80 mmHg (11/30/24 2:30 PM) BP Location # 1 Right Arm (11/30/24 2:53 PM) Left Arm (11/30/24 2:30 PM) Social History Social History Type Response Tobacco Current every day sm oker, Cigarettes Smoking Status Current every day li ght smoker Sex Male Sex Representation Male (finding) [facility] Outpt Note * MINERVA Norris Lynn: PERFORM Event Display: [facility] Outpt Note Authored Date: [id number] [facility] OUTPATIENT NOTE Name: JOVITA BRUNER Patient Number: [id number] : 1945 Date of Service: 11/30/2024 Chief Complaint: _Follow-up for carotid stenosis HPI: _Mr. Bruner is an elderly male who presents to Dr. Joyce's vascular surgery clinic today for an annual follow-up visit regarding his history of carotid stenosis. As you may remember, patient isstatus post left carotid endarterectomy performed Dr. Joyce in 2017. Patient continues to deny anynew symptoms of cerebrovascular insufficiency including amaurosis, unilateral extremity weakness numbness or tingling, difficulty speaking or swallowing, facial droop, sudden onset of confusion. He does state that he unfortunately suffered a fall at home a few months ago after tripping over the dogs which resulted in a subdural hematoma, from which he is continuing to recover. His primary care doctor did stop his Plavix, but he has remained on his ASA. His carotid ultrasound performed prior to today's appointment continues demonstrate about 70% stenosis of the right ICA, with peak systolic velocities and diastolic velocities that are nearly identical to previous imaging, with ICA/CCA ratio of 5.4. His left CEA site is widely patent without any evidence of restenosis. Current Home Meds: (Last Updated 11/30 14:29) APAP/butalbital/caffeine (Fioricet oral tablet) 2 tab PO q4h PRN: as needed for headache QUEtiapine (QUEtiapine 25 mg oral tablet) TAKE 1 TABLET BY MOUTH ONCE DAILY AT NIGHT aspirin (aspirin 81 mg oral delayed release tablet) 81 mg PO Daily canagliflozin (Invokana 300 mg oral tablet) TAKE 1 TABLET BY MOUTH ONCE DAILY cholecalciferol (Vitamin D3 5000 intl units oral capsule) 5,000 Int_Unit PO Daily clonazePAM (cloNAZepam) 0.5 mg PO bid cyanocobalamin (Vitamin B12) 1 tab PO Daily dapagliflozin (Farxiga 5 mg oral tablet) 5 mg PO Daily famotidine (famotidine 40 mg oral tablet) TAKE 1 TABLET BY MOUTH AT NOON fluvoxaMINE (fluvoxaMINE 100 mg oral tablet) 1 tab po q supper and 2 tabs po q HS ketoconazole topical (ketoconazole 2% topical cream) 1 appl topical bid To red scaly fungal areas( rihgt evans) BID 2 weeks predniSONE (predniSONE 5 mg oral tablet) 5 mg PO bid tamsulosin (tamsulosin 0.4 mg oral capsule) 0.4 mg PO Daily valsartan (valsartan 40 mg oral tablet) TAKE 1 TABLET BY MOUTH AT BEDTIME Allergies and Sensitivities: Adhesive bandage(Rash) Past Medical History: Problems: Bilateral carotid artery stenosis S/p carotid endarterectomy Carotid stenosis Seborrheic keratosis History of cellulitis Type 2 diabetes mellitus Elevated cholesterol Hypertension Tobacco abuse Headaches, cluster OBJECTIVE Vitals: Last Updated 11/30/24 14:53 Date Temp BP Location Pulse RR SpO2 Pain 11/30/24 146/62 Right Arm 11/30/24 142/62 Left Arm 62 98 0 12/01/23 136/58 Left Arm 55 97 0 Vital Signs are the last 3 documented. No Orthostatic Data Available Height and Weight: Last Updated 11/30/20 11:45 Date BMI Wt(kg) Wt(lb) Method Ht(cm) (ft-in) Method 11/30/20 89.6 197 Standing Scale 11/18/19 32.39 93.8 206 Standing Scale 170.18 5-7 10/28/17 32.21 96.1 211 Standing Scale 172.72 5-8 Heights and Weights are the last 3 documented. Physical Exam Constitutional: In general patient is a healthy-appearing well-nourished well- developed elderly male in no distress. He does ambulate with a rolling walker. His right carotid does demonstrate a bruit, as does his left. His heart is regular, lungs are decreased throughout but clear. Abdomen is soft nontender with no active bowel sounds in all 4 quadrants. Brachial and radial pulses are +3. Lower extremity distal pulses are +2. He has brisk capillary refill and no sign of distal ischemia. There is no significant edema. ASSESSMENT: _ PLAN: _ 1 ) _carotid stenosis Patient does have bilateral carotid stenosis, having undergone a left carotid endarterectomy in 2017, and having a stable right ICA stenosis of 70% since that time. There is no appear to be any significant worsening in the velocities in his right ICA, although he does have a slight increase in his ICA/CCA ratio. He remains asymptomatic from this, we recommend that he return to our office annuallywith a new carotid ultrasound at that time. Patient is advised call our office if he has any new questions or concerns. He is advised to go to the nearest emergency department if he should develop any of the aforementioned symptoms. He is agreeable to this plan. Thank you for letting us participatein the care of this patient. I have personally crpqr53__ minutes performing vvyr-tl-fumq and dic-bhsd-ss-face activities on this date of service.Time does not include separately reported services. Activities Include: x__ review of the medical record x_ obtaining a history x__ physical exam/evaluation __ review labs __ review radiology reports _x_ counseling/educating patient/family/caregiver __ discussion/referral to other healthcare professional _x_ documenting care in the medical record __ independent interpretation of results x__ communication of results to patient/family/caregiver x__ coordination of care Electronic Signature on File CC: Wing William MD [facility] [address] [address] * Electronically Reviewed/Signed by: Elen Norris PA-C Author Signature Dt/Tm:11/30/2024 03:09 PM [facility] [place] [place] [address] Patient Care team information Care Team Personnel Name: MINERVA Norris Lynn Position: Physician Practice Specialist Exempt - Vasc Surg Member Role: Lifetime Relationship Address: [address] [place] [address] [address] [place] [address] [place] Telecom: [phone] Name: MD William Stephen J Position: Referring Member Role: Primary Care Provider Address: [facility] [address] [address] [place] Telecom: [phone] Care Team Related Persons Name: CARTER BRUNER Insurance Providers Guarantor name: JOVITA BRUNER Health Plan Information #: 1 Payer: [employer] Member Number: [id number] Policy Number: NA Group Number: [id number] Health Plan Information #: 2 Payer: [employer] Member Number: [id number] Policy Number: NA Group Number: [id number]
[2024-12-25 13:41] LABS: Basophils # (auto) 0.05 K/uL (0.00-0.20); Basophils % (auto) 0.6 %; Eosinophils # (auto) 0.03 K/uL (0.00-0.50); Eosinophils % (auto) 0.4 %; Hematocrit (blood only) 35.8 % (42.0-52.0); Hemoglobin 11.3 g/dl (14.0-18.0); Immature Granulocytes # (auto) 0.02 K/uL (0.01-0.20); Immature Granulocytes % (auto) 0.3 %; Lymphocytes # (auto) 1.45 K/uL (1.20-3.40); Lymphocytes % (auto) 18.3 %; Mean Corpuscular Hemoglobin 27.5 pg (25.0-34.0); Mean Corpuscular Hgb Conc 31.6 g/dL (32.0-36.0); Mean Corpuscular Volume 87.1 fL (80.0-100.0); Mean Platelet Volume 10.5 fL (9.4-12.4); Monocytes # (auto) 0.67 K/uL (0.11-0.59); Monocytes % (auto) 8.5 %; Neutrophils % (auto) 71.9 %; Platelet Count 288 K/uL (130-400); RDW Coefficient of Variation 15.8 % (11.5-14.5); RDW Standard Deviation 50.7 fL (36.4-46.3); Red Blood Count 4.11 M/uL (4.70-6.10); White Blood Count 7.92 K/ul (4.8-10.8)
--- NOTE | 2024-12-25 13:51 | CT Scan Report ---
HISTORY: Trauma due to fall. TECHNIQUE: CT of the head without contrast. Images are presented in axial, sagittal, and coronal reformats. COMPARISON: Head CT dated 10/19/2024. FINDINGS: No evidence of intracranial hemorrhage, abnormal extra axial fluid collection, mass effect, or midline shift. 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 Mild volume loss and presumed chronic microvascular ischemic changes. Intracranial atherosclerotic vascular calcifications. Ventricular caliber is appropriate. Fourth ventricle is midline. Basal cisterns are patent.Cormier-white differentiation is maintained. Globes and orbits are unremarkable.Soft tissues about the skull base and scalp are unremarkable.Paranasal sinuses and mastoid air cells are clear. No calvarial fracture. IMPRESSION: * No acute intracranial findings. 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 * Mild volume loss and presumed chronic microvascular ischemic changes. Electronically signed by Rikki Pagan 12-25-2024 13:50 PM
--- NOTE | 2024-12-25 13:54 | CT Scan Report ---
HISTORY: Trauma due to fall with neck pain. TECHNIQUE: CT imaging of the cervical spine without IV contrast. Images are presented in axial, sagittal, coronal reformats. COMPARISON: None. FINDINGS: Mild cervical dextrocurvature.No significant listhesis.Vertebral body heights are preserved without compression deformity.No acute fractures identified. Moderate multilevel degenerative disc disease. No high-grade osseous central canal stenosis. Uncovertebral and facet arthrosis resulting in bilateral neural foraminal stenosis, which is most pronounced and severe on the left at C4-5, C5-6, and C6-7. No prevertebral edema or hematoma. Atherosclerotic calcifications are present at the carotid bifurcations. Emphysematous changes involving the lung apices. IMPRESSION: 1. No evidence of acute cervical spine fracture. 2. Moderate degenerative spondylosis of the cervical spine 3. Additional chronic and/or incidental findings as above. Electronically signed by Rikki Pagan 12-25-2024 13:54 PM
[2024-12-25 13:55] LABS: Albumin Globulin Ratio 1.4 (0.9-2); Albumin Level 4.4 gm/dl (3.4-5.0); BUN Creatinine Ratio 13.8 (10-20); Bilirubin,Total 0.4 mg/dl (0.2-1.0); Calcium 9.3 mg/dl (8.6-10.3); Creatinine Clr Calc Pharmacy 67.7 ml/min; Globulin 3.2 gm/dl (2.5-4.0); Potassium 4.1 mmol/L (3.5-5.1); Total Protein 7.6 gm/dl (6.0-8.3)
--- NOTE | 2024-12-25 13:59 | CT Scan Report ---
HISTORY: Trauma due to fall with right shoulder pain. TECHNIQUE: CT imaging of the chest was performed . Images are presented in axial, sagittal, and coronal reformats. COMPARISON: None. FINDINGS: Lungs: Mild emphysema. No pneumothorax. 0.3 cm right upper lobe pulmonary nodule on series 9 image 31. Mild atelectasis or scarring at the lung bases. There are a few additional scattered sub-6 mm pulmonary micronodules. The central tracheobronchial tree is patent. Heart/Mediastinum: Normal heart size. Coronary artery calcifications are present with severe multivessel disease. Mild aortic valvular calcification. Included thyroid gland is unremarkable. Thoracic esophagus is unremarkable. No suspicious mediastinal or hilar lymph nodes. Vasculature: Mild atherosclerotic vascular disease involving the aorta and arch vessels. No thoracic aortic aneurysm. Main pulmonary artery is normal in caliber. Soft Tissues: The soft tissues of the chest wall are unremarkable. Upper Abdomen: Included upper abdomen is unremarkable. Bones: Degenerative changes of the shoulders. Remote healed left lateral rib fractures.Diffuse idiopathic skeletal hyperostosis. No acute osseous abnormality. Mild degenerative changes of the spine. T11 chronic appearing compression deformity with 50% anterior vertebral body height loss. IMPRESSION: 1. No CT evidence of acute trauma in the chest. 2. Sub-6 mm pulmonary micronodules. Follow-up chest CT is recommended in 12 months based on Fleischner Society criteria. 3. Mild emphysema. 4. Coronary artery calcifications are present with severe multivessel disease. 5. Additional chronic and/or incidental findings as above. ACT 112: Positive. There are findings on this exam that require communication between the performing entity and the patient following Patient Test Result Information Act ([place] ACT 112) guidelines. Electronically signed by Rikki Pagan 12-25-2024 13:59 PM
[2024-12-25 14:03] LABS: Troponin I High Sensitivity 22.9 pg/ml (0-20)
--- NOTE | 2024-12-25 14:17 | XRay Report ---
INDICATION: Pain and injury. TECHNIQUE: 4 views of the right shoulder. COMPARISON: No relevant priors. FINDINGS: No acute fracture or dislocation. No lytic or blastic bony lesions seen. Mild to moderate glenohumeral and acromioclavicular joint space loss. Inferior AC joint spurring 0.5 cm. Soft tissues appear unremarkable. IMPRESSION: No acute osseous abnormality evident. Mild to moderate glenohumeral and acromioclavicular joint space loss. Inferior AC joint spurring 0.5 cm. Electronically signed by Noah Navarrete 12-25-2024 2:16 PM
--- NOTE | 2024-12-25 15:33 | History & Physical Report ---
Date of Service December 25, 2024 Assessment & Plan (1) Elevated troponin: (2) Rib injury: (3) Recurrent falls: (4) Gait instability: (5) Restless leg syndrome: (6) Diabetes mellitus, type 2: (7) History of CVA (cerebrovascular accident): (8) Hypertension: (9) Vascular dementia: Plan This is a 79-year-old male with a history of subdural hematoma, now resolved, previous CVA, chronic daily headache, type 2 diabetes, mood disorder, who presents to the hospital today following a mechanical fall. Some of the history was obtained from the daughter who was also by the bedside. According to reports, patient said he was sitting close to his walker yesterday when he fell and bumped his chest into a table close by. He said he also injured his right arm and the right rib in the process. For some reason he did not come to the hospital yesterday but presents today with pain. In the emergency department, CT scan of the head was negative and also imaging did not show any evidence of fracture or dislocation. However troponin was mildly elevated at 29 and for this reason patient will be admitted to the hospital for observation. Of note, according to the daughter and also according to PCP reports, patient has been following frequently over the past several weeks. 1. Elevated troponin: Could be due to demand ischemia, patient admitted falling yesterday and bumping his chest on a nearby table Troponin on admission 29, no EKG changes Will trend troponin, monitor patient on telemetry Also obtain 2D echo to rule out any structural heart abnormality 2.Frequent falls: According to the daughter and also the PCP, patient has been following a few times in the past. This could be due to orthostatic blood pressure changes, however will rule out arrhythmias Obtain orthostatic blood pressure, monitor patient on telemetry, order 2D echo Also could be due to gait abnormality given his previous strokes Physical therapy 3.Type 2 diabetes: Blood glucose under good control, last hemoglobin A1c 6.6 On Invokana at home, will hold, add insulin sliding scale 4.Mild cognitive impairment, vascular dementia 5.Chronic daily headache Patient on Fioricet, will continue Admit to [facility] with telemetry Full code DVT prophylaxis SCDs History of Present Illness Chief Complaint: fall, chest pain Primary Care Provider: Wing William MD This is a 79-year-old male with a history of subdural hematoma, now resolved, previous CVA, chronic daily headache, type 2 diabetes, mood disorder, who presents to the hospital today following a mechanical fall. Some of the history was obtained from the daughter who was also by the bedside. According to reports, patient said he was sitting close to his walker yesterday when he fell and bumped his chest into a table close by. He said he also injured his right arm and the right rib in the process. For some reason he did not come to the hospital yesterday but presents today with pain. In the emergency department, CT scan of the head was negative and also imaging did not show any evidence of fracture or dislocation. However troponin was mildly elevated at 29 and for this reason patient will be admitted to the hospital for observation. Of note, according to the daughter and also according to PCP reports, patient has been following frequently over the past several weeks. Allergies Allergy/AdvReac Type Severity Reaction Status Date / Time latex Allergy Mild CONTACT Verified 11/17/24 14:38 DERMATITIS oxycodone AdvReac Severe GI SYMPTOMS Verified 11/17/24 14:38 Home Medications Medication Instructions Recorded Confirmed Type cyanocobalamin (vitamin B-12) 1,000 mcg PO NOON ##0 05/14/18 12/25/24 History 1,000 mcg capsule cholecalciferol (vitamin D3) 25 25 mcg PO QAM 11/16/21 12/25/24 History mcg (1,000 unit) capsule Wheeled Walker #1 ea 06/25/22 11/17/24 Rx mupirocin 2 % topical ointment 1 applic topical BID PRN skin tears 07/08/24 12/25/24 History canagliflozin 300 mg tablet 300 mg PO QAM 09/30/24 12/25/24 History (Invokana) omeprazole 20 mg capsule,delayed 20 mg PO QAM 09/30/24 12/25/24 History release prednisone 5 mg tablet 10 mg PO QAM 09/30/24 12/25/24 History aspirin 81 mg chewable tablet 81 mg PO DAILY #30 tabs 10/20/24 12/25/24 Rx ondansetron 4 mg disintegrating 4 mg PO Q6H 10/20/24 12/25/24 History tablet djjhltllnm-wffziygnfispw-uoigpocc 2 tab PO Q4H PRN Headache 10/25/24 12/25/24 History 50 mg-325 mg-40 mg tablet quetiapine 25 mg tablet (Seroquel) 25 mg PO HS 10/25/24 12/25/24 History fluvoxamine 100 mg tablet 100 mg PO TID #90 tabs 10/27/24 12/25/24 Rx nystatin-triamcinolone 100,000 1 applic topical BID #60 grams 11/09/24 12/25/24 Rx unit/g-0.1 % topical cream cephalexin 500 mg capsule 500 mg PO QAM #90 caps 11/17/24 12/25/24 Rx tamsulosin 0.4 mg capsule 0.4 mg PO DAILY #30 caps 11/17/24 12/25/24 Rx clonazepam 0.5 mg tablet 0.5 - 1 mg PO UD 12/25/24 12/25/24 History famotidine 40 mg tablet 40 mg PO UD 12/25/24 12/25/24 History valsartan 40 mg tablet 40 mg PO BID 12/25/24 12/25/24 History Past Med/Surg History Problem List (Updated 12/25/24 @ 15:27 by Prakash Contreras MD) Elevated troponin Hospital discharge follow-up Subdural hematoma (Acute) Recurrent falls (Acute) Vascular dementia Fall Mild cognitive impairment Gait disturbance Rib injury Postconcussion syndrome 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) Lyme disease Generalized muscle weakness (Acute) Fall (Acute) Stroke-like symptoms (Acute) Stroke-like symptoms Rash Impacted cerumen, bilateral Sinusitis Rotator cuff syndrome Gait instability Chronic daily headache Stroke GERD (gastroesophageal reflux disease) Mood disorder Restless leg syndrome Lumbar disc disease with radiculopathy Polymyalgia Diabetes mellitus, type 2 Mixed hyperlipidemia Hypertension Carpal tunnel syndrome, right Ulnar neuropathy at elbow of right upper extremity Tobacco abuse, episodic Nocturnal hypoxemia Depression 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 Medical History Fall Diverticulosis (08/10/12) Wedge compression fracture of t11-T12 vertebra, subsequent encounter for fracture with delayed healing Closed fracture of multiple ribs of left side Unintentional weight loss Hemopneumothorax on left Cellulitis Migraine Murmur, cardiac Stroke Chronic steroid use Hyperlipidemia GERD (gastroesophageal reflux disease) Anxiety Osteoarthritis Tonsillar abscess History of fibula fracture History of CVA (cerebrovascular accident) Airway compromise Surgical History History of nasal septoplasty History of carpal tunnel release History of herniorrhaphy History of cholecystectomy History of carotid endarterectomy Family History Mother Gallbladder cancer Father Diabetes Stroke Brother Leukemia Sister Epilepsia Aneurysm of gastric artery Liver disease Social History Smoking Status: Current every day smoker Tobacco Type: Cigarettes Age Started Using Tobacco: 20; packs per day: 0.25; Cigarettes Per Day: 1/2 pk per day; Second Hand Exposure: No; Do You Dip or Chew Tobacco: No; Hx Alcohol Use: No Hx Substance Use: No Preferred Language: Nepalese Communication Ability: Effective Visual Impairment: Diminished Hearing Ability: Normal Open Hearth Helper Required: No Beliefs That Will Affect Care: None marital status: Current Living Situation: Spouse Current Living Situation Comment: With spouse, children and grandchildren nearby current occupational status: retired How many Children do You have: 2 Feels Safe at Home: Yes Childhood Exposure to Second-Hand Smoke: Yes Diet: regular caffeine: No Dental Care, Regularly: Yes Physical Activity Frequency: Does not Exercise Physical Activity Frequency Comment: active lifestyle Seatbelt Use: always Sunscreen Use: No Do you think of yourself as: straight/heterosexual Assistive Devices: Walker Review of Systems Review of Systems: All systems reviewed are negative, apart from the ones contained in the history. Physical Exam Physical Exam: The patient is awake, alert and oriented 3, well developed and well nourished, normocephalic and atraumatic, lying in bed and in no acute distress. HEENT--PERRL, EOMI, mucous membranes and oropharynx mildly dry Neck--supple. No JVD. No bruits. Thyroid normal, trachea midline, no adenopathy. Heart--normal S1 and S2. No murmurs, rubs or gallops. Lungs--clear bilaterally, no respiratory distress, no accessory muscle use. Abdomen--normal bowel sounds and soft. Extremities--no cyanosis or clubbing. No edema. Dermatologic--normal skin turgor, normal color, no abnormal lymph nodes, no rash. Neurologic--cranial nerves II through XII grossly intact. Rheumatologic--normal range of motion. Psychiatric--normal affect. Results & Data Results & Data Vital Signs (Past 12 Hours) Vital Signs Temp Pulse Pulse Resp BP BP Pulse Ox 12/25/24 14:55 52 L 12/25/24 14:30 56 L 16 132/60 99 12/25/24 12:27 97.9 F 67 18 134/74 99 PG Care Time/CCT Total # of Minutes Spent Total Time Spent with Patient: Total time spent is greater than 50% in coordination of care (as documented) at patient's floor/unit and/or counseling patient: Coding Level of Care Code 63947 INT INP/OBS CARE MIN Diagnoses Elevated troponin R79.89 Rib injury S29.9XXA Recurrent falls R29.6 Gait instability R26.81 Restless leg syndrome G25.81 Diabetes mellitus, type 2 E11.9 History of CVA (cerebrovascular accident) Z86.73 Hypertension I10 Mild vascular dementia with other behavioral disturbance F01.A18 Dementia severity: mild Dementia behavioral or psychological symptom: with other behavioral disturbance Time Spent (min) 75 (9) Vascular dementia Dementia severity: mild Dementia behavioral or psychological symptom: with other behavioral disturbance Qualified Code(s): F01.A18 - Vascular dementia, mild, with other behavioral disturbance
[2024-12-25] MEDS: BUTALBITAL/ACETAMIN/CAFFEINE TAB PO STA (15:51)
--- NOTE | 2024-12-25 17:20 | Emergency Department Note ---
History of Present Illness General Chief complaint: Arm Pain Stated complaint: ARM/RIB PAIN, FALL Time Seen by Provider: 12/25/24 12:42 History of Present Illness Maximum Pain Intensity: 10 This 79-year-old male presents today with his daughter, for evaluation of right-sided rib discomfort after falling yesterday. The patient states he was sitting in his rolling walker seat, and leaned to the right. He fell over, striking his right shoulder and right chest on the table leg. He is unsure if there was any chest pain at the time of the fall. He denies any shortness of breath. He admits to having dementia and has a poor memory. He states his thinks he struck his head on the table as well as he fell. He does not believe there was any loss of consciousness. He currently denies any headache. He does remember that he had an intracranial bleed in 2020 associated with stroke. He was on anticoagulants at that time. He states he has been taken off of them and has not resumed them. He denies taking any Plavix. He thought his symptoms would get better over the course of today, but they did not. Because of this, he reports to the ED for evaluation. He notes some neck pain when looking to the left. He has chronic neck pain and is unsure if today's neck pain is any different than usual. No nausea, vomiting, shortness of breath, change in vision, speech, or hearing, or additional difficulty ambulating. States he falls frequently, and admits to falling 3 times so far this week. He did not seek treatment for any of the other falls. No other treatment. He denies any pain in his pelvis or lower extremities. No pain in the left arm. No additional complaints. The patient's history was augmented with discussion with his daughter at bedside. Home Medications Medication Instructions Recorded Confirmed Type cyanocobalamin (vitamin B-12) 1,000 mcg PO NOON ##0 05/14/18 12/25/24 History 1,000 mcg capsule cholecalciferol (vitamin D3) 25 25 mcg PO QAM 11/16/21 12/25/24 History mcg (1,000 unit) capsule Wheeled Walker #1 ea 06/25/22 11/17/24 Rx mupirocin 2 % topical ointment 1 applic topical BID PRN skin tears 07/08/24 12/25/24 History canagliflozin 300 mg tablet 300 mg PO QAM 09/30/24 12/25/24 History (Invokana) omeprazole 20 mg capsule,delayed 20 mg PO QAM 09/30/24 12/25/24 History release prednisone 5 mg tablet 10 mg PO QAM 09/30/24 12/25/24 History aspirin 81 mg chewable tablet 81 mg PO DAILY #30 tabs 10/20/24 12/25/24 Rx ondansetron 4 mg disintegrating 4 mg PO Q6H 10/20/24 12/25/24 History tablet bavzoovfsi-xsiirgrtkzgzc-jvyybckb 2 tab PO Q4H PRN Headache 10/25/24 12/25/24 History 50 mg-325 mg-40 mg tablet quetiapine 25 mg tablet (Seroquel) 25 mg PO HS 10/25/24 12/25/24 History fluvoxamine 100 mg tablet 100 mg PO TID #90 tabs 10/27/24 12/25/24 Rx nystatin-triamcinolone 100,000 1 applic topical BID #60 grams 11/09/24 12/25/24 Rx unit/g-0.1 % topical cream cephalexin 500 mg capsule 500 mg PO QAM #90 caps 11/17/24 12/25/24 Rx tamsulosin 0.4 mg capsule 0.4 mg PO DAILY #30 caps 11/17/24 12/25/24 Rx clonazepam 0.5 mg tablet 0.5 - 1 mg PO UD 12/25/24 12/25/24 History famotidine 40 mg tablet 40 mg PO UD 12/25/24 12/25/24 History valsartan 40 mg tablet 40 mg PO BID 12/25/24 12/25/24 History Allergies Allergy/AdvReac Type Severity Reaction Status Date / Time latex Allergy Mild CONTACT Verified 11/17/24 14:38 DERMATITIS oxycodone AdvReac Severe GI SYMPTOMS Verified 11/17/24 14:38 Past Med/Surg History Problem List (Updated 12/26/24 @ 06:47 by Pradip Olmos PA-C) Elevated troponin (Acute) Hospital discharge follow-up Subdural hematoma (Acute) Recurrent falls (Acute) Vascular dementia Fall Mild cognitive impairment Gait disturbance (Acute) Rib injury (Acute) Postconcussion syndrome 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) Lyme disease Generalized muscle weakness (Acute) Fall (Acute) Stroke-like symptoms (Acute) Stroke-like symptoms Rash Impacted cerumen, bilateral Sinusitis Rotator cuff syndrome Gait instability Chronic daily headache Stroke GERD (gastroesophageal reflux disease) Mood disorder Restless leg syndrome Lumbar disc disease with radiculopathy Polymyalgia Diabetes mellitus, type 2 Mixed hyperlipidemia Hypertension Carpal tunnel syndrome, right Ulnar neuropathy at elbow of right upper extremity Tobacco abuse, episodic Nocturnal hypoxemia Depression 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 Migraine MIGRANES AND CLUSTER HEADACHES S/T SKULL FX A CHILD. Murmur, cardiac MONITORED BY PCP Stroke HX OF 02/04/17, SOME RESIDUAL WEAKNESS IN RT ARM, SHORT TERM MEMORY LOSS, UNSTEADY GAID, FOLLOWS WITH DR. ONEAL. Chronic steroid use Hyperlipidemia GERD (gastroesophageal reflux disease) Anxiety Osteoarthritis Tonsillar abscess History of fibula fracture History of CVA (cerebrovascular accident) Airway compromise Surgical History History of nasal septoplasty THROAT/NOSE SURGERY History of carpal tunnel release History of herniorrhaphy UMBILICAL HERNIA REPAIR History of cholecystectomy History of carotid endarterectomy LEFT Family History Mother Gallbladder cancer Father Diabetes Stroke Brother Leukemia Sister Epilepsia Aneurysm of gastric artery Liver disease Social History Smoking Status: Current every day smoker Tobacco Type: Cigarettes Age Started Using Tobacco: 20; packs per day: 0.25; Cigarettes Per Day: 6; Second Hand Exposure: No; Do You Dip or Chew Tobacco: No; Hx Alcohol Use: No Hx Substance Use: No Preferred Language: [place]al[place] Communication Ability: Effective Visual Impairment: Diminished Hearing Ability: Normal Disc Jockey Required: No Beliefs That Will Affect Care: None marital status: Current Living Situation: Spouse Current Living Situation Comment: lives at home with and pets current occupational status: retired How many Children do You have: 2 Feels Safe at Home: Yes Childhood Exposure to Second-Hand Smoke: Yes Diet: regular caffeine: No Dental Care, Regularly: Yes Physical Activity Frequency: Does not Exercise Physical Activity Frequency Comment: active lifestyle Seatbelt Use: always Sunscreen Use: No Do you think of yourself as: straight/heterosexual Assistive Devices: Hospital Bed and Walker Review of Systems A total of 10 systems reviewed and were otherwise negative Physical Exam Vital Signs Vital Signs - 24 hr 12/25/24 12:27 12/25/24 14:30 12/25/24 14:55 Temperature 36.6 C Temperature Source Temporal Artery Scan Pulse Rate 67 52 L Pulse Rate [Left Finger] 56 L Respiratory Rate 18 16 Blood Pressure 134/74 Blood Pressure [Left Arm] 132/60 Blood Pressure Mean 94 Blood Pressure Mean [Left Arm] 84 Pulse Oximetry 99 99 Sepsis Recent Fever Within 48 Hours No Sepsis New/Unexplained Change in Mental Status N/A Sepsis Action Taken by Nursing No Action Required General: Well-developed, well-nourished, elderly male, in no acute distress. Laying in bed. Alert and oriented to place. He does not appear in 10/10 pain. He is quite conversive. Skin: Warm and dry with good turgor. No rashes. He has multiple areas of ecchymosis present on his upper extremities. There is a small skin tear present over the right tricep, covered with a Band-Aid. No intra-articular effusions. Numerous actinic keratoses are present. HEENT: Normocephalic atraumatic. Eyes PERRLA, EOMI. No conjunctiva or scleral injection. Ears TMs intact bilaterally with good light reflexes. No erythema or bulging. No hemotympanum. Canals are patent. Nares patent bilaterally without turbinate enlargement. No significant drainage. No epistaxis. Oropharynx without erythema or exudate. Uvula midline, oral mucosa moist. No lesions present. Heart: Heart RRR. No MGR. Peripheral pulses are 2+. Lungs: Lungs are clear to auscultation. No crackles rhonchi or wheezing. Good air movement. The patient is able to take a deep breath. Abdomen: Abdomen was inspected, auscultated, and palpated. Bowel sounds present x 4. Soft, nontender to palpation. No hepato-splenomegaly. No masses noted. No rebound. No pain over McBurney's point. No CVA tenderness. Musculoskeletal: Gross motor function of the upper and lower extremities is intact and unremarkable. He complains of right shoulder pain with motion of the shoulder. He is able to reach overhead with forward flexion of 160 degrees and abduction of 160 degrees. External rotation of 40 degrees with his elbow at the side. Full elbow and wrist motion. Neck examination reveals no obvious deformity. He has no discomfort with palpation over the cervical spine. There is left trapezius discomfort when looking to the left. No right trapezius discomfort when looking to the right. There is also left-sided discomfort when forward flexing and extending the neck. No pain with axial load. Intact motor function of the lower extremities bilaterally without discomfort. Neurologic: Gross sensation is intact across the upper and lower extremities by soft touch. Cranial nerves II through XII are intact. Course Administered Medications Acetaminophen/Butalbital/Caffeine (Butalbital/Acetamin/Caffeine Tab) 2 tab PO Q4H PRN PRN Reason: Headache Stop: 01/24/25 17:38 Last Admin: 12/25/24 22:54 Dose: 2 tab Documented By: MED Clonazepam (Clonazepam 1 Mg Tab) 1 mg PO HS KATIE Stop: 01/24/25 20:59 Last Admin: 12/25/24 20:39 Dose: 1 mg Documented By: MED Fluvoxamine Maleate (Fluvoxamine Maleate 50 Mg Tab) 100 mg PO TID KATIE Stop: 01/24/25 20:59 Last Admin: 12/25/24 20:40 Dose: 100 mg Documented By: MED Quetiapine Fumarate (Quetiapine Fumarate 25 Mg Tablet) 25 mg PO DAILY@1800 KATIE Stop: 01/24/25 17:59 Last Admin: 12/25/24 20:40 Dose: 25 mg Documented By: MED Discontinued Medications Acetaminophen/Butalbital/Caffeine (Butalbital/Acetamin/Caffeine Tab) 1 tab PO NOW STA Stop: 12/25/24 15:21 Last Admin: 12/25/24 15:51 Dose: Not Given Documented By: ADELIA Medical Decision Making Differential Diagnosis acute AL, ACS, intracranial bleed, dizziness, electrolyte abnormality, syncope Medical Records Attestation: I reviewed the patient's medical records. Home Medications Current Medication List: was personally reviewed by me Laboratory Data CBC obtained today shows a normal white count. Mildly low H&H at 11.3 and 35.8. Normal platelets. Chemistry panel shows normal electrolytes. Normal BUN and creatinine. Glucose mildly elevated at 135. Normal bilirubin. Essentially normal LFTs. Troponin is elevated at 22.9. This is significantly different when compared to his previous levels from September. 12/25/24 13:13 12/25/24 13:13 Lab Results 12/25/24 Range/Units 13:13 WBC 7.92 (4.8-10.8) K/ul RBC 4.11 L (4.70-6.10) M/uL Hgb 11.3 L (14.0-18.0) g/dl Hct 35.8 L (42.0-52.0) % MCV 87.1 (80.0-100.0) fL MCH 27.5 (25.0-34.0) pg MCHC 31.6 L (32.0-36.0) g/dL RDW Std Deviation 50.7 H (36.4-46.3) fL RDW Coeff of Chandrakant 15.8 H (11.5-14.5) % Plt Count 288 (130-400) K/uL MPV 10.5 (9.4-12.4) fL Immature Gran % (Auto) 0.3 % Neut % (Auto) 71.9 % Lymph % (Auto) 18.3 % Bath % (Auto) 8.5 % Eos % (Auto) 0.4 % Baso % (Auto) 0.6 % Neut # (Auto) 5.70 (1.40-6.50) K/uL Lymph # (Auto) 1.45 (1.20-3.40) K/uL Bath # (Auto) 0.67 H (0.11-0.59) K/uL Eos # (Auto) 0.03 (0.00-0.50) K/uL Baso # (Auto) 0.05 (0.00-0.20) K/uL Immature Gran # (Auto) 0.02 (0.01-0.20) K/uL Sodium 138 (136-145) mmol/L Potassium 4.1 (3.5-5.1) mmol/L Chloride 104 (98-107) mmol/L Carbon Dioxide 26 (21-32) mmol/L Anion Gap 8 (3-11) BUN 12 (6-23) mg/dl Creatinine 0.87 (0.6-1.4) mg/dl Est Cr Clr Drug Dosing 67.7 ml/min eGFR 88.32 BUN/Creatinine Ratio 13.8 (10-20) Glucose 135 H (70-99(Fasting)) mg/dl Calcium 9.3 (8.6-10.3) mg/dl Total Bilirubin 0.4 (0.2-1.0) mg/dl Direct Bilirubin 0.0 (0-0.2) mg/dl AST 11 L (13-39) U/L ALT 8 (7-52) U/L Alkaline Phosphatase 84 (34-104) U/L Troponin I High Sens 22.9 H (0-20) pg/ml Total Protein 7.6 (6.0-8.3) gm/dl Albumin 4.4 (3.4-5.0) gm/dl Globulin 3.2 (2.5-4.0) gm/dl Albumin/Globulin Ratio 1.4 (0.9-2) Imaging Data My Impression: CT scan imaging of the head, cervical spine, and chest was obtained. These were interpreted by me and read by radiology. He has arthritic changes within the cervical spine but no acute fracture or cord edema. Severe neuroforaminal stenosis is noted at numerous levels. Intracranial imaging shows no acute bleed. encephalomalacia is present given his remote infarct. Volume loss is noted. CT of the chest shows no evidence of acute trauma. No evidence of rib fracture. Multiple small nodules are present in the lungs. These will require follow-up and reimaging in 12 months. Radiographic imaging obtained today of the right shoulder was also interpreted by me and read by radiology. He has osteoarthritic changes and suggestion of subacromial impingement. No evidence of fracture or dislocation. Radiologist's Impression: Cervical Spine CT 12/25/24 12:58 HISTORY: Trauma due to fall with neck pain. TECHNIQUE: CT imaging of the cervical spine without IV contrast. Images are presented in axial, sagittal, coronal reformats. COMPARISON: None. FINDINGS: Mild cervical dextrocurvature.No significant listhesis.Vertebral body heights are preserved without compression deformity.No acute fractures identified. Moderate multilevel degenerative disc disease. No high-grade osseous central canal stenosis. Uncovertebral and facet arthrosis resulting in bilateral neural foraminal stenosis, which is most pronounced and severe on the left at C4-5, C5-6, and C6-7. No prevertebral edema or hematoma. Atherosclerotic calcifications are present at the carotid bifurcations. Emphysematous changes involving the lung apices. IMPRESSION: 1. No evidence of acute cervical spine fracture. 2. Moderate degenerative spondylosis of the cervical spine 3. Additional chronic and/or incidental findings as above. Electronically signed by Rikki Pagan 12-25-2024 13:[address] 12/25/24 12:58 HISTORY: Trauma due to fall with right shoulder pain. TECHNIQUE: CT imaging of the chest was performed . Images are presented in axial, sagittal, and coronal reformats. COMPARISON: None. FINDINGS: Lungs: Mild emphysema. No pneumothorax. 0.3 cm right upper lobe pulmonary nodule on series 9 image 31. Mild atelectasis or scarring at the lung bases. There are a few additional scattered sub-6 mm pulmonary micronodules. The central tracheobronchial tree is patent. Heart/Mediastinum: Normal heart size. Coronary artery calcifications are present with severe multivessel disease. Mild aortic valvular calcification. Included thyroid gland is unremarkable. Thoracic esophagus is unremarkable. No suspicious mediastinal or hilar lymph nodes. Vasculature: Mild atherosclerotic vascular disease involving the aorta and arch vessels. No thoracic aortic aneurysm. Main pulmonary artery is normal in caliber. Soft Tissues: The soft tissues of the chest wall are unremarkable. Upper Abdomen: Included upper abdomen is unremarkable. Bones: Degenerative changes of the shoulders. Remote healed left lateral rib fractures.Diffuse idiopathic skeletal hyperostosis. No acute osseous abnormality. Mild degenerative changes of the spine. T11 chronic appearing compression deformity with 50% anterior vertebral body height loss. IMPRESSION: 1. No CT evidence of acute trauma in the chest. 2. Sub-6 mm pulmonary micronodules. Follow-up chest CT is recommended in 12 months based on Fleischner Society criteria. 3. Mild emphysema. 4. Coronary artery calcifications are present with severe multivessel disease. 5. Additional chronic and/or incidental findings as above. ACT 112: Positive. There are findings on this exam that require communication between the performing entity and the patient following Patient Test Result Information Act ([place] ACT 112) guidelines. Electronically signed by Rikki Pagan 12-25-2024 13:[address] 12/25/24 12:58 HISTORY: Trauma due to fall. TECHNIQUE: CT of the head without contrast. Images are presented in axial, sagittal, and coronal reformats. COMPARISON: Head CT dated 10/19/2024. FINDINGS: No evidence of intracranial hemorrhage, abnormal extra axial fluid collection, mass effect, or midline shift. 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 Mild volume loss and presumed chronic microvascular ischemic changes. Intracranial atherosclerotic vascular calcifications. Ventricular caliber is appropriate. Fourth ventricle is midline. Basal cisterns are patent.Cormier-white differentiation is maintained. Globes and orbits are unremarkable.Soft tissues about the skull base and scalp are unremarkable.Paranasal sinuses and mastoid air cells are clear. No calvarial fracture. IMPRESSION: * No acute intracranial findings. 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 * Mild volume loss and presumed chronic microvascular ischemic changes. Electronically signed by Rikki Pagan 12-25-2024 13:50 PM Shoulder X-Ray 12/25/24 12:58 INDICATION: Pain and injury. TECHNIQUE: 4 views of the right shoulder. COMPARISON: No relevant priors. FINDINGS: No acute fracture or dislocation. No lytic or blastic bony lesions seen. Mild to moderate glenohumeral and acromioclavicular joint space loss. Inferior AC joint spurring 0.5 cm. Soft tissues appear unremarkable. IMPRESSION: No acute osseous abnormality evident. Mild to moderate glenohumeral and acromioclavicular joint space loss. Inferior AC joint spurring 0.5 cm. Electronically signed by Noah Navarrete 12-25-2024 2:16 PM ECG Data Additional Comments: EKG obtained today shows a sinus bradycardia with left axis deviation. Rate of 55. No acute ST or T wave changes. This was reviewed with Dr. Olson. Blood Pressure Blood Pressure Findings: Elevated blood pressure Blood Pressure Disposition: further management by hospitalist ANTONIO Rudd The patient was evaluated in room C1. Conservative care measures were discussed. He was placed on a pulpwood dealer and remained in a normal sinus rhythm with a rate in the 50s and 60s. IV was established. Labs were obtained. CT scan imaging of the head, neck, and chest was also obtained. Labs were unremarkable except for his troponin, which was notably elevated. The CT scan imaging of the head, neck, and chest was unremarkable for acute injury. Though he had significant right-sided rib pain, no fracture was noted. Given the patient's poor memory and lack of accurate history, in addition to his elevated troponin, admission was recommended. His daughter is in agreement. Hospitalist service was consulted. Please see that dictation for final management. The patient remained stable while in the ED. He had no episodes of chest pain during his stay. Care plan was discussed with Dr. Olson. Impression & Plan Elevated troponin, Recurrent falls, Rib injury, Gait disturbance Admission to the [facility] hospitalist service. Discharge Plan Visit Data Chief Complaint: Arm Pain Stated Complaint: ARM/RIB PAIN, FALL ED Provider: Hope Olson ED Midlevel Provider: Pradip Olmos Discharge Problem: Elevated troponin, Recurrent falls, Rib injury, Gait disturbance Patient Disposition: Admitted As Inpatient Discharge Instructions Interventions: ED Discharge Assessment Last Done: 12/25/24 16:50
[2024-12-25] MEDS ORDERED: ONDANSETRON INJ 2 MG/ML 2 ML VIAL IV PRN (17:39)
[2024-12-25] MEDS: clonazePAM 1 MG TAB PO SCH (20:39)
[2024-12-25] MEDS: QUEtiapine FUMARATE 25 MG TABLET PO SCH (20:40)
[2024-12-25] MEDS: fluvoxaMINE MALEATE 50 MG TAB PO SCH (20:40)
[2024-12-25] MEDS: BUTALBITAL/ACETAMIN/CAFFEINE TAB PO PRN (22:54)
[2024-12-26 08:08] LABS: Hematocrit (blood only) 34.5 % (42.0-52.0); Hemoglobin 10.9 g/dl (14.0-18.0); Mean Corpuscular Hemoglobin 27.5 pg (25.0-34.0); Mean Corpuscular Hgb Conc 31.6 g/dL (32.0-36.0); Mean Corpuscular Volume 87.1 fL (80.0-100.0); Mean Platelet Volume 10.2 fL (9.4-12.4); Platelet Count 238 K/uL (130-400); RDW Coefficient of Variation 15.9 % (11.5-14.5); RDW Standard Deviation 50.4 fL (36.4-46.3); Red Blood Count 3.96 M/uL (4.70-6.10); White Blood Count 7.83 K/ul (4.8-10.8)
[2024-12-26 08:23] LABS: BUN Creatinine Ratio 17.9 (10-20); Calcium 9.1 mg/dl (8.6-10.3); Creatinine Clr Calc Pharmacy 75.5 ml/min; Potassium 4.2 mmol/L (3.5-5.1)
[2024-12-26 08:31] LABS: Troponin I High Sensitivity 34.3 pg/ml (0-20)
[2024-12-26] MEDS: predniSONE 10 MG TABLET PO SCH (08:40)
[2024-12-26] MEDS: TAMSULOSIN HCL 0.4 MG CAP PO SCH (08:40)
[2024-12-26] MEDS: ASPIRIN 81 MG CHEW PO SCH (09:24)
[2024-12-26] MEDS: VALSARTAN 80 MG TAB PO SCH (09:24)
[2024-12-26] MEDS: clonazePAM 0.5 MG TAB PO SCH (10:48)
--- NOTE | 2024-12-26 10:55 | Hospitalist Progress Note ---
Date of Service December 26, 2024 Assessment & Plan (1) Elevated troponin: (2) Rib injury: (3) Recurrent falls: (4) Gait instability: (5) Restless leg syndrome: (6) Diabetes mellitus, type 2: (7) History of CVA (cerebrovascular accident): (8) Hypertension: (9) Vascular dementia: Plan This is a 79-year-old male with a history of subdural hematoma, now resolved, previous CVA, chronic daily headache, type 2 diabetes, mood disorder, who presents to the hospital today following a mechanical fall. Some of the history was obtained from the daughter who was also by the bedside. According to reports, patient said he was sitting close to his walker yesterday when he fell and bumped his chest into a table close by. He said he also injured his right arm and the right rib in the process. For some reason he did not come to the hospital yesterday but presents today with pain. In the emergency department, CT scan of the head was negative and also imaging did not show any evidence of fracture or dislocation. However troponin was mildly elevated at 29 and for this reason patient will be admitted to the hospital for observation. Of note, according to the daughter and also according to PCP reports, patient has been following frequently over the past several weeks. 1. Elevated troponin: Could be due to demand ischemia, Troponin on admission 29, trendedd to 34, and has plateaued, no EKG changes Will continue to monitor patient on telemetry Also obtain 2D echo to rule out any structural heart abnormality 2.Frequent falls: According to the daughter and also the PCP, patient has been following a few times in the past. Orthostatic blood pressure was negative monitor patient on telemetry, order 2D echo Also could be due to gait abnormality given his previous strokes Physical therapy 3.Type 2 diabetes: Blood glucose under good control, last hemoglobin A1c 6.6 On Invokana at home, will hold, add insulin sliding scale 4.Mild cognitive impairment, vascular dementia 5.Chronic daily headache Patient on Fioricet, will continue 6 Chest pain He bumped his chest on the table when he fell most likely musculoskeletal pain although trop is mildly bumped, no EKG changes ECHO is pending Admit to [facility] with telemetry Full code DVT prophylaxis SCDs Admission and Anticipated Discharge Date Admission Date: December 26, 2024 Subjective Patient seen and examined this morning, denies chest pain or shortness of breath, feels overall better Review of Systems Review of Systems: All systems reviewed are negative, apart from the ones contained in the history. Physical Exam Physical Exam: The patient is awake, alert and oriented 3, well developed and well nourished, normocephalic and atraumatic, lying in bed and in no acute distress. HEENT--PERRL, EOMI, mucous membranes and oropharynx mildly dry Neck--supple. No JVD. No bruits. Thyroid normal, trachea midline, no adenopathy. Heart--normal S1 and S2. No murmurs, rubs or gallops. Lungs--clear bilaterally, no respiratory distress, no accessory muscle use. Abdomen--normal bowel sounds and soft. Extremities--no cyanosis or clubbing. No edema. Dermatologic--normal skin turgor, normal color, no abnormal lymph nodes, no rash. Neurologic--cranial nerves II through XII grossly intact. Rheumatologic--normal range of motion. Psychiatric--normal affect. Results & Data Results & Data Vital Signs (Past 12 Hours) Vital Signs Temp Pulse Pulse Resp BP Pulse Ox O2 Del Method 12/26/24 10:14 Room Air 12/26/24 07:58 98.2 F 64 16 160/73 H 93 Room Air 12/26/24 07:24 59 L 12/26/24 01:59 98.2 F 56 L 16 152/66 H 97 Room Air 12/25/24 23:11 Room Air PG Care Time/CCT Total # of Minutes Spent Total Time Spent with Patient: Total time spent is greater than 50% in coordination of care (as documented) at patient's floor/unit and/or counseling patient: Coding Level of Care Code 15593 SUB INP/OBS CARE 2/35MIN Diagnoses Elevated troponin R79.89 Rib injury S29.9XXA Recurrent falls R29.6 Gait instability R26.81 Restless leg syndrome G25.81 Diabetes mellitus, type 2 E11.9 History of CVA (cerebrovascular accident) Z86.73 Hypertension I10 Mild vascular dementia with other behavioral disturbance F01.A18 Dementia severity: mild Dementia behavioral or psychological symptom: with other behavioral disturbance Time Spent (min) 35 (9) Vascular dementia Dementia severity: mild Dementia behavioral or psychological symptom: with other behavioral disturbance Qualified Code(s): F01.A18 - Vascular dementia, mild, with other behavioral disturbance
--- NOTE | 2024-12-26 14:03 | Electrocardiogram Report ---
Test Reason : Blood Pressure : */* mmHG Vent. Rate : 55 BPM Atrial Rate : 55 BPM P-R Int : 138 ms QRS Dur : 94 ms QT Int : 418 ms P-R-T Axes : 78 -40 65 degrees QTcB Int : 399 ms Sinus bradycardia Left axis deviation Abnormal ECG When compared with ECG of 05-Oct-2024 11:05, Premature ventricular complexes are no longer Present Vent. rate has decreased by 54 bpm T wave amplitude has decreased in Anterior leads QT has shortened Confirmed by Jessica Trent ([id number]) on 12/26/2024 2:03:01 PM Referred By: REFERRED SELF Confirmed By: Jessica Trent
[2024-12-26 19:52] VITALS: RESP 18
[2024-12-27] MEDS: ACETAMINOPHEN 325 MG TAB PO PRN (01:29)
[2024-12-27 07:27] LABS: BUN Creatinine Ratio 24.1 (10-20); Creatinine Clr Calc Pharmacy 67.4 ml/min; Potassium 3.9 mmol/L (3.5-5.1)
--- NOTE | 2024-12-27 09:36 | Hospitalist Progress Note ---
Date of Service December 27, 2024 Assessment & Plan (1) Elevated troponin: (2) Rib injury: (3) Recurrent falls: (4) Gait instability: (5) Restless leg syndrome: (6) Diabetes mellitus, type 2: (7) History of CVA (cerebrovascular accident): (8) Hypertension: (9) Vascular dementia: Plan This is a 79-year-old male with a history of subdural hematoma, now resolved, previous CVA, chronic daily headache, type 2 diabetes, mood disorder, who presents to the hospital today following a mechanical fall. Some of the history was obtained from the daughter who was also by the bedside. According to reports, patient said he was sitting close to his walker yesterday when he fell and bumped his chest into a table close by. He said he also injured his right arm and the right rib in the process. For some reason he did not come to the hospital yesterday but presents today with pain. In the emergency department, CT scan of the head was negative and also imaging did not show any evidence of fracture or dislocation. However troponin was mildly elevated at 29 and for this reason patient will be admitted to the hospital for observation. Of note, according to the daughter and also according to PCP reports, patient has been following frequently over the past several weeks. 1. Elevated troponin: Could be due to demand ischemia, Troponin on admission 29, trendedd to 34, and has plateaued, now trended down, no EKG changes Will continue to monitor patient on telemetry Also obtain 2D echo to rule out any structural heart abnormality 2.Frequent falls: According to the daughter and also the PCP, patient has fallen a few times in the past. Orthostatic blood pressure was negative monitor patient on telemetry, 2D echo pending Also could be due to gait abnormality given his previous strokes Physical therapy 3.Type 2 diabetes: Blood glucose under good control, last hemoglobin A1c 6.6 On Invokana at home, will hold, add insulin sliding scale 4.Mild cognitive impairment, vascular dementia 5.Chronic daily headache Patient on Fioricet, will continue 6 Chest pain He bumped his chest on the table when he fell most likely musculoskeletal pain although trop is mildly bumped, no EKG changes ECHO is pending Admit to [facility] with telemetry Full code DVT prophylaxis SCDs Disposition: PT eval is pending, Admission and Anticipated Discharge Date Admission Date: December 26, 2024 Subjective Patient seen and examined this morning, denies chest pain or shortness of breath, feels overall better Review of Systems Review of Systems: All systems reviewed are negative, apart from the ones contained in the history. Physical Exam Physical Exam: The patient is awake, alert and oriented 3, well developed and well nourished, normocephalic and atraumatic, lying in bed and in no acute distress. HEENT--PERRL, EOMI, mucous membranes and oropharynx mildly dry Neck--supple. No JVD. No bruits. Thyroid normal, trachea midline, no adenopathy. Heart--normal S1 and S2. No murmurs, rubs or gallops. Lungs--clear bilaterally, no respiratory distress, no accessory muscle use. Abdomen--normal bowel sounds and soft. Extremities--no cyanosis or clubbing. No edema. Dermatologic--normal skin turgor, normal color, no abnormal lymph nodes, no rash. Neurologic--cranial nerves II through XII grossly intact. Rheumatologic--normal range of motion. Psychiatric--normal affect. Results & Data Results & Data Vital Signs (Past 12 Hours) Vital Signs Temp Pulse Pulse Pulse Resp BP BP 12/27/24 07:22 98.1 F 59 L 18 123/62 12/27/24 07:04 58 L 12/27/24 02:49 98.2 F 55 L 18 135/66 12/26/24 22:40 12/26/24 22:16 98.1 F 59 L 18 120/65 12/26/24 21:47 59 L Pulse Ox O2 Del Method 12/27/24 07:22 97 Room Air 12/27/24 07:04 12/27/24 02:49 95 Room Air 12/26/24 22:40 Room Air 12/26/24 22:16 95 Room Air 12/26/24 21:47 PG Care Time/CCT Total # of Minutes Spent Total Time Spent with Patient: Total time spent is greater than 50% in coordination of care (as documented) at patient's floor/unit and/or counseling patient: Coding Level of Care Code 67005 SUB INP/OBS CARE 2/35MIN Diagnoses Elevated troponin R79.89 Rib injury S29.9XXA Recurrent falls R29.6 Gait instability R26.81 Restless leg syndrome G25.81 Diabetes mellitus, type 2 E11.9 History of CVA (cerebrovascular accident) Z86.73 Hypertension I10 Mild vascular dementia with other behavioral disturbance F01.A18 Dementia severity: mild Dementia behavioral or psychological symptom: with other behavioral disturbance Time Spent (min) 35 (9) Vascular dementia Dementia severity: mild Dementia behavioral or psychological symptom: with other behavioral disturbance Qualified Code(s): F01.A18 - Vascular dementia, mild, with other behavioral disturbance
--- NOTE | 2024-12-27 10:56 | Cardiology Consultation ---
Date of Consultation December 27, 2024 Assessment & Plan (1) Elevated troponin: (2) Fall: (3) Rib injury: (4) Hypertension: Plan 79-year-old man with no prior cardiac history who has had several falls of uncertain etiology, possibly syncopal. Although quetiapine and tamsulosin can both cause orthostatic hypotension, he was not orthostatic on my exam today. Blood pressure was initially mild to moderately hypertensive, over the last 24 hours he has had a low normal blood pressure. Given the possibility of orthostasis causing syncope, and the fact that he is not persistently hypertensive, would allow for some degree of permissive hypertension. Would discontinue valsartan for now, could add back at a lower dose if he demonstrates persistent hypertension. He does have follow-up with Dr. Ma in 2 days. He is trivial troponin elevation is inconsequential, very common finding in vascular patients (history of CVA) when faced with physiologic stress, likely form of very mild demand ischemia. No specific workup necessary in the absence of chest pain, ECG changes, or significant troponin elevation in peak indicate pattern. Telemetry unremarkable except for relative bradycardia, not on any negative chronotropic medications. Okay for discharge from my standpoint, his notes that he is anxious to return to the familiar environment of home (has moderate dementia and hospital environment is disorienting). Recommend MCOT monitor upon discharge to exclude dysrhythmia or heart block as a potential cause of syncope, will arrange for his to pick this up upon discharge (which should be sometime mid afternoon so that he can stop by our office). History of Present Illness Reason for Consultation: elevated trop Requesting Physician: Prakash Contreras MD Attending Physician: Prakash Contreras MD History of Present Illness 79-year-old male with no prior cardiac history but history of prior CVA, resolved subdural hematoma, DM, who had a fall or syncopal episode on 12/24/2024 and was admitted to the hospital the following day, mild troponin elevation (29) noted on admission. Patient did have a fall 3 months ago while walking into the kitchen, he fell face forward and did note some injuries, he had no recollection of any symptoms or prodrome occurring around that episode. At the time of his fall a few days ago, he again noted no prodrome or subsequent symptoms, he was uncertain if he fell or passed out. Denies confusion, incontinence, chest pain, dyspnea, or palpitations. He had been sitting in a wheeled walker and feels that it may have shifted under him, he fell into a heavy table and struck his right chest. He has pain and tenderness right side of his chest, but chest CT showed no obvious fractures. Cardiac data: Admission ECG showed sinus bradycardia at 55 bpm, left axis deviation, otherwise unremarkable. Compared with ECG 10/05/2024, PVCs no longer present, rate has decreased by 54 bpm, QT has shortened. Current echocardiogram showed EF 55 to 60% with mild LVH and no wall motion abnormalities, grade 1 diastolic dysfunction, no significant valvular disease. Troponin value was 22, 33, 34, and 24. Chest CT showed severe coronary artery calcifications. Overnight telemetry showed sinus bradycardia at 50 to 60 bpm with sporadic PVCs but no dysrhythmias. At the time of my evaluation this morning he noted some right-sided chest discomfort which increased somewhat on inspiration, no other somatic complaints. Allergies Allergy/AdvReac Type Severity Reaction Status Date / Time latex Allergy Mild CONTACT Verified 11/17/24 14:38 DERMATITIS oxycodone AdvReac Severe GI SYMPTOMS Verified 11/17/24 14:38 Home Medications Medication Instructions Recorded Confirmed Type cyanocobalamin (vitamin B-12) 1,000 mcg PO NOON ##0 05/14/18 12/25/24 History 1,000 mcg capsule cholecalciferol (vitamin D3) 25 25 mcg PO QAM 11/16/21 12/25/24 History mcg (1,000 unit) capsule Wheeled Walker #1 ea 06/25/22 11/17/24 Rx mupirocin 2 % topical ointment 1 applic topical BID PRN skin tears 07/08/24 12/25/24 History canagliflozin 300 mg tablet 300 mg PO QAM 09/30/24 12/25/24 History (Invokana) omeprazole 20 mg capsule,delayed 20 mg PO QAM 09/30/24 12/25/24 History release prednisone 5 mg tablet 10 mg PO QAM 09/30/24 12/25/24 History aspirin 81 mg chewable tablet 81 mg PO DAILY #30 tabs 10/20/24 12/25/24 Rx ondansetron 4 mg disintegrating 4 mg PO Q6H 10/20/24 12/25/24 History tablet nuytdzzvfa-wsqeejpbxifcr-nycvrbls 2 tab PO Q4H PRN Headache 10/25/24 12/25/24 History 50 mg-325 mg-40 mg tablet quetiapine 25 mg tablet (Seroquel) 25 mg PO HS 10/25/24 12/25/24 History fluvoxamine 100 mg tablet 100 mg PO TID #90 tabs 10/27/24 12/25/24 Rx nystatin-triamcinolone 100,000 1 applic topical BID #60 grams 11/09/24 12/25/24 Rx unit/g-0.1 % topical cream cephalexin 500 mg capsule 500 mg PO QAM #90 caps 11/17/24 12/25/24 Rx tamsulosin 0.4 mg capsule 0.4 mg PO DAILY #30 caps 11/17/24 12/25/24 Rx clonazepam 0.5 mg tablet 0.5 - 1 mg PO UD 12/25/24 12/25/24 History famotidine 40 mg tablet 40 mg PO UD 12/25/24 12/25/24 History valsartan 40 mg tablet 40 mg PO BID 12/25/24 12/25/24 History Patient History Medical History Fall Diverticulosis (08/10/12) Wedge compression fracture of t11-T12 vertebra, subsequent encounter for fracture with delayed healing Closed fracture of multiple ribs of left side Unintentional weight loss Hemopneumothorax on left Cellulitis B/L LOWER EXTREMITIES. Migraine MIGRANES AND CLUSTER HEADACHES S/T SKULL FX A CHILD. Murmur, cardiac MONITORED BY PCP Stroke HX OF 02/04/17, SOME RESIDUAL WEAKNESS IN RT ARM, SHORT TERM MEMORY LOSS, UNSTEADY GAID, FOLLOWS WITH DR. ONEAL. Chronic steroid use Hyperlipidemia GERD (gastroesophageal reflux disease) Anxiety Osteoarthritis Tonsillar abscess History of fibula fracture History of CVA (cerebrovascular accident) Airway compromise Surgical History History of nasal septoplasty THROAT/NOSE SURGERY History of carpal tunnel release History of herniorrhaphy UMBILICAL HERNIA REPAIR History of cholecystectomy History of carotid endarterectomy LEFT Family History Mother Gallbladder cancer Father Diabetes Stroke Brother Leukemia Sister Epilepsia Aneurysm of gastric artery Liver disease Social History Smoking Status: Current every day smoker Tobacco Type: Cigarettes Age Started Using Tobacco: 20; packs per day: 0.25; Cigarettes Per Day: 6; Second Hand Exposure: No; Do You Dip or Chew Tobacco: No; Hx Alcohol Use: No Hx Substance Use: No Preferred Language: Turkish Communication Ability: Effective Visual Impairment: Diminished Hearing Ability: Normal Inspector Aligning Required: No Beliefs That Will Affect Care: None marital status: Current Living Situation: Spouse Current Living Situation Comment: lives at home with and pets current occupational status: retired How many Children do You have: 2 Feels Safe at Home: Yes Safety Concerns: Feels Safe At This Time Childhood Exposure to Second-Hand Smoke: Yes Diet: regular caffeine: No Dental Care, Regularly: Yes Physical Activity Frequency: Does not Exercise Physical Activity Frequency Comment: active lifestyle Seatbelt Use: always Sunscreen Use: No Do you think of yourself as: straight/heterosexual Assistive Devices: Hospital Bed and Walker Physical Exam Physical Exam: No distress. BP by MD 118/60 mmHg lying down, no orthostatic change upon sitting or standing (no symptoms). Pulse 59 bpm and regular. Respirations 18 unlabored. Skin: no ecchymoses or generalized lesions. HEENT: unremarkable. Neck: JVP at the clavicle at 90 degrees, no carotid bruits. Chest: Tenderness right anterolateral thorax, no deformity. Lungs: clear. Cardiac: regular rhythm, normal S1-2, no murmur. Abdomen: benign. Extremities: no edema, pulses intact. Neurologic: normal affect and conversation, nonfocal. Results & Data Vital Signs (Past 12 Hours) Vital Signs Temp Pulse Pulse Pulse Resp BP Pulse Ox 12/27/24 07:22 98.1 F 59 L 18 123/62 97 12/27/24 07:04 58 L 12/27/24 02:49 98.2 F 55 L 18 135/66 95 O2 Del Method 12/27/24 07:22 Room Air 12/27/24 07:04 12/27/24 02:49 Room Air PG Care Time/CCT Total # of Minutes Spent Total Time Spent with Patient: Total time spent is greater than 50% in coordination of care (as documented) at patient's floor/unit and/or counseling patient: Coding Level of Care Code 63144 IN/OBS CONSULT LVL 4,60M Diagnoses Elevated troponin R79.89 Fall W19.XXXA Rib injury S29.9XXA Hypertension I10
[2024-12-27 11:25] VITALS: TEMP 97.9; O2SAT 95
--- NOTE | 2024-12-27 12:25 | Discharge Summary ---
Date of Service December 27, 2024 Admission HPI Per Admitting Provider This is a 79-year-old male with a history of subdural hematoma, now resolved, previous CVA, chronic daily headache, type 2 diabetes, mood disorder, who presents to the hospital today following a mechanical fall. Some of the history was obtained from the daughter who was also by the bedside. According to reports, patient said he was sitting close to his walker yesterday when he fell and bumped his chest into a table close by. He said he also injured his right arm and the right rib in the process. For some reason he did not come to the hospital yesterday but presents today with pain. In the emergency department, CT scan of the head was negative and also imaging did not show any evidence of fracture or dislocation. However troponin was mildly elevated at 29 and for this reason patient will be admitted to the hospital for observation. Of note, according to the daughter and also according to PCP reports, patient has been following frequently over the past several weeks. Admission Exam (Per Admitting) Constitutional The patient is awake, alert and oriented 3, well developed and well nourished, normocephalic and atraumatic, lying in bed and in no acute distress. HEENT--PERRL, EOMI, mucous membranes and oropharynx mildly dry Neck--supple. No JVD. No bruits. Thyroid normal, trachea midline, no adenopathy. Heart--normal S1 and S2. No murmurs, rubs or gallops. Lungs--clear bilaterally, no respiratory distress, no accessory muscle use. Abdomen--normal bowel sounds and soft. Extremities--no cyanosis or clubbing. No edema. Dermatologic--normal skin turgor, normal color, no abnormal lymph nodes, no rash. Neurologic--cranial nerves II through XII grossly intact. Rheumatologic--normal range of motion. Psychiatric--normal affect. Discharge Data Consultations 12/25/24 14:54 ED Decision to Admit Stat 12/26/24 10:59 Consult Cardiology Routine Hospital Course (1) Elevated troponin: (2) Rib injury: (3) Recurrent falls: (4) Gait instability: (5) Restless leg syndrome: (6) Diabetes mellitus, type 2: (7) History of CVA (cerebrovascular accident): (8) Hypertension: (9) Vascular dementia: Plan This is a 79-year-old male with a history of subdural hematoma, now resolved, previous CVA, chronic daily headache, type 2 diabetes, mood disorder, who presents to the hospital today following a mechanical fall. Some of the history was obtained from the daughter who was also by the bedside. According to reports, patient said he was sitting close to his walker yesterday when he fell and bumped his chest into a table close by. He said he also injured his right arm and the right rib in the process. For some reason he did not come to the hospital yesterday but presents today with pain. In the emergency department, CT scan of the head was negative and also imaging did not show any evidence of fracture or dislocation. However troponin was mildly elevated at 29 and for this reason patient will be admitted to the hospital for observation. Of note, according to the daughter and also according to PCP reports, patient has been following frequently over the past several weeks. 1. Elevated troponin: Could be due to demand ischemia, Troponin on admission 29, trendedd to 34, and has plateaued, now trended down, no EKG changes Will continue to monitor patient on telemetry 2 d ECHO reveiwed Per cardiology, discharge on quality assurance monitor body 2.Frequent falls: According to the daughter and also the PCP, patient has fallen a few times in the past. Orthostatic blood pressure was negative monitor patient on telemetry, 2D echo pending Also could be due to gait abnormality given his previous strokes Physical therapy 3.Type 2 diabetes: Blood glucose under good control, last hemoglobin A1c 6.6 On Invokana at home, will hold, add insulin sliding scale 4.Mild cognitive impairment, vascular dementia 5.Chronic daily headache Patient on Fioricet, will continue 6 Chest pain He bumped his chest on the table when he fell most likely musculoskeletal pain although trop is mildly bumped, no EKG changes ECHO is pending Admit to [facility] with telemetry Full code DVT prophylaxis SCDs Disposition:discharge home, stop by cardiology to hook you up with a monitor Coding Level of Care Code 64713 INP/OBS DISCH >30 MIN Diagnoses Elevated troponin R79.89 Rib injury S29.9XXA Recurrent falls R29.6 Gait instability R26.81 Restless leg syndrome G25.81 Diabetes mellitus, type 2 E11.9 History of CVA (cerebrovascular accident) Z86.73 Hypertension I10 Mild vascular dementia with other behavioral disturbance F01.A18 Dementia severity: mild Dementia behavioral or psychological symptom: with other behavioral disturbance Time Spent (min) 35
[2024-12-27 12:38] VITALS: BP 123/62; PULSE 55
== END 2024-12-27 13:00 | disposition home or self-care (01) ==
LOC: 2N 12:27 → ED 12:27 → 2N 16:50

== ENCOUNTER 2025-09-01 09:21 | Observation (INO) ==
[2025-09-01 09:54] LABS: Hematocrit (blood only) 44.6 % (42.0-52.0); Hemoglobin 14.7 g/dL (14.0-18.0); Immature Granulocytes # (auto) 0.01 K/uL (0.01-0.20); Immature Granulocytes % (auto) 0.2 %; Mean Corpuscular Hemoglobin 28.4 pg (25.0-34.0); Mean Corpuscular Volume 86.1 fL (80.0-100.0); Platelet Count 205 K/uL (130-400); RDW Standard Deviation 43.7 fL (36.4-46.3); Red Blood Count 5.18 M/uL (4.70-6.10); White Blood Count 6.12 K/ul (4.8-10.8)
[2025-09-01 10:13] LABS: Base Excess VBG 5.7 mEq/L; HCO3 VBG 33 mmol/L; Oxygen Saturation VBG < 60.0 %; PCO2 VBG 55 mmHg (38-50); PO2 VBG 26 mmHg; pH VBG 7.38 (7.36-7.41)
[2025-09-01 10:13] LABS: Alanine Aminotransferase 8.0 U/L (7-52); Albumin Globulin Ratio 1.5 (0.9-2); Albumin Level 4.6 gm/dl (3.4-5.0); Alkaline Phosphatase 86.0 U/L (34-104); Anion Gap 8.0 (3-11); Bilirubin,Total 0.7 mg/dl (0.2-1.0); Blood Urea Nitrogen 19.0 mg/dl (6-23); Calcium 10.2 mg/dl (8.6-10.3); Carbon Dioxide 32.0 mmol/L (21-32); Chloride 100.0 mmol/L (98-107); Creatinine Clr Calc Pharmacy 55.8 ml/min; Globulin 3.1 gm/dl (2.5-4.0); Glucose 98.0 mg/dl (70-99(Fasting)); Magnesium 2.1 mg/dl (1.7-2.4); Potassium 3.9 mmol/L (3.5-5.1); Sodium 140.0 mmol/L (136-145); Total Protein 7.7 gm/dl (6.0-8.3)
[2025-09-01 10:22] LABS: INR 1.0 (0.9-1.1); Prothrombin Time 10.9 Seconds (9.0-12.0)
--- NOTE | 2025-09-01 10:22 | XRay Report ---
XR chest 1V portable CLINICAL HISTORY: Weakness. COMPARISON STUDY: Chest radiograph July 27, 2025. Chest CT December 25, 2024. FINDINGS: The patient is mildly rotated. There is no pneumothorax or pleural effusion. Blunting of th e left costophrenic angle is chronic. Cardiomediastinal silhouette is stable. There is no evidence fo r pulmonary edema. There is no pneumothorax or pleural effusion. No consolidation to suggest pneumoni a. There are several old bilateral rib fractures. IMPRESSION: No acute cardiopulmonary findings. No significant change in appearance of the chest. ACT 112: Negative or not required by law. Electronically signed by: Angel rBown M.D. 09/01/2025 10:21 AM
[2025-09-01 10:27] LABS: Thyroid Stimulating Hormone 2.06 uIu/ml (0.300-4.500)
--- NOTE | 2025-09-01 10:37 | CT Scan Report ---
CT SCAN OF THE CERVICAL SPINE CLINICAL HISTORY: Altered mental status. COMPARISON STUDY: Cervical spine CT March 01, 2025. TECHNIQUE: CT scan of the cervical spine is performed from the skull base to the upper thoracic spine . Images are reviewed in the axial, sagittal, and coronal planes. IV contrast was not administered fo r this examination. A dose lowering technique was utilized adhering to the principles of ALARA. FINDINGS: Skeletal structures: There is no evidence of fracture or subluxation involving the cervical spine. Ve rtebral body height and alignment are maintained. The odontoid process and lateral masses are intact . The atlantoaxial articulation is preserved. The spinous processes appear intact. There is moderate multilevel facet arthrosis and degenerative disc disease within the cervical spine. Soft tissues: The prevertebral and paraspinous soft tissues are within normal limits. Calvarium: The visualized calvarium at the skull base appears intact. Brain parenchyma: Partially visualized brain parenchyma at the skull base is within normal limits. Lung apices: Clear as visualized. IMPRESSION: No acute cervical spine fracture or subluxation. ACT 112: Negative or not required by law. Electronically signed by: Angel Brown M.D. 09/01/2025 10:34 AM
--- NOTE | 2025-09-01 10:50 | CT Scan Report ---
CT OF THE CHEST WITHOUT IV CONTRAST CLINICAL HISTORY: fall rib pain COMPARISON STUDY: Chest x-ray dated 09/01/2025 , chest CT dated 12/25/2024 CT DOSE: TECHNIQUE: Axial images of the chest were obtained without IV contrast. Images were reviewed in the axial, sagittal, and coronal planes. IV contrast was not administered for this examination. Automat ed exposure control was utilized for the study. A dose lowering technique was utilized adhering to t he principles of ALARA. FINDINGS: Thyroid gland is unremarkable in appearance. No pathologically enlarged axillary, mediastinal, or hilar lymph nodes are visualized. The visualized portions the upper abdomen reveal a surgically absent gallbladder. There is a 35mm lef t renal cyst. There are no adrenal masses. There is trace pericardial fluid. There are coronary artery calcifications. There are no pleural effusions. There is no pneumothorax. There is debris within the trachea. There are are a few scattered calcified granulomas present. There are multiple scattered sub-5 mm pul monary nodules. The largest is located on image #[id number] measuring 5 mm. This area was obscured on th e prior study due to atelectatic change. There is mild apical emphysema. There are multiple healing right-sided rib fractures. Addition there are multiple old healed left-alexandrea ed rib fractures. No acute fractures are visualized. Degenerative changes are present within the dorsal spine. There is an old lower thoracic compression deformity. There are bridging calcifications of the anterior longitudinal ligament. IMPRESSION: 1. Mild emphysema 2. Multiple old healing rib fractures. No acute rib fractures identified 3. Multiple sub-5 mm pulmonary nodules redemonstrated. ACT 112: Negative or not required by law. Electronically signed by: Dylan Hobbs M.D. 09/01/2025 10:47 AM
--- NOTE | 2025-09-01 10:52 | CT Scan Report ---
CT OF THE THORACIC SPINE CLINICAL HISTORY: Back pain following fall. COMPARISON STUDY: Chest CT December 25, 2024. Thoracic spine CT July 25, 2021. TECHNIQUE: Helical axial images of the thoracic spine were obtained. Sagittal and coronal reconstru ctions were viewed. Automated exposure control was utilized for the study. A dose lowering techniqu e was utilized adhering to the principles of ALARA. FINDINGS: Alignment of the thoracic spine is anatomic. There is an old fracture along the inferior en dplate of T11. This is chronic. No acute thoracic spine fractures are present. There is extensive ant erior osteophytosis of the thoracic spine. Facet joints are intact. Please note that the chest CT thea l be reported separately. Multiple healing rib fractures are better depicted on that exam. IMPRESSION: 1. No acute thoracic spine fracture or subluxation. 2. No change in an old T11 fracture. ACT 112: Negative or not required by law. Electronically signed by: Agnel Brown M.D. 09/01/2025 10:51 AM
--- NOTE | 2025-09-01 11:04 | CT Scan Report ---
CT head/brain wo con CLINICAL HISTORY: 79 years-old Male with AMS. Acutely altered mental status TECHNIQUE: Multiple axial CT images of the head were obtained without contrast. A dose lowering tech nique was utilized adhering to the principles of ALARA. CT DOSE: 2044.72 mGy.cm COMPARISON: 06/13/2025 FINDINGS: No acute intracranial hemorrhage, midline shift, intracranial mass, hydrocephalus, territorial ischem ia or abnormal extra-axial collection. Involutional changes with chronic microvascular ischemic disea se. Left parieto-occipital encephalomalacia again noted. Cerebrovascular calcifications The calvarium is intact. The paranasal sinuses, mastoid air cells, and middle ear cavities are clear . IMPRESSION: No acute intracranial abnormality. ACT 112: Negative or not required by law. The above report was generated using voice recognition software. It may contain grammatical, syntax o r spelling errors. Electronically signed by: Danilo Anand M.D. 09/01/2025 11:03 AM
--- NOTE | 2025-09-01 11:09 | CT Scan Report ---
CT lumbar spine wo con HISTORY: 79 years-old Male fall back pain acute low back pain status post fall COMPARISON: CT lumbar spine 07/25/2021, CT abdomen and pelvis 10/03/2024 TECHNIQUE: Multiple axial CT images of the lumbar spine were obtained without IV contrast. A dose low ering technique was used consistent with the principals of ROMMEL. FINDINGS: Demineralized appearance of the bones. Mild multilevel intervertebral disc space narrowing with mild to moderate spondylitic spurring and moderate facet arthrosis. Minimal superior endplate compression at L3 and L4 are chronic findings. There is no acute fracture, subluxation or endplate erosion. Mild degeneration of the SI joints. There is suboptimal evaluation of the central canal and neural foramen by CT technique. Moderate central canal stenosis at L4-L5 secondary to posterior disc osteophyte com plex, ligamentum flavum thickening and facet arthrosis. Severe right with moderate left neural forami nal narrowing at this level. Moderate bilateral foraminal stenosis at L5-S1. Atherosclerosis of the aorta and branch vessels. Distended urinary bladder. Moderate colonic fecal re tention. 4 mm nodular focus in the basal right lower lobe on image 18 of series 21 is new from prior and likely atelectatic. IMPRESSION: No acute fracture or subluxation identified. ACT 112: Negative or not required by law. The above report was generated using voice recognition software. It may contain grammatical, syntax o r spelling errors. Electronically signed by: Danilo Anand M.D. 09/01/2025 11:07 AM
[2025-09-01 11:45] LABS: Chlamydia pneumoniae PCR Not Detected (NotDetected); Coronavirus 229E PCR Not Detected (NotDetected); Coronavirus CoV-2 (COVID19)PCR Not Detected (NotDetected); Coronavirus HKU1 PCR Not Detected (NotDetected); Coronavirus NL63 PCR Not Detected (NotDetected); Coronavirus OC43PCR Not Detected (NotDetected); Human Metapneumovirus PCR Not Detected (NotDetected); Parainfluenza Virus 1 PCR Not Detected (NotDetected); Parainfluenza Virus 2 PCR Not Detected (NotDetected); Parainfluenza Virus 3 PCR Not Detected (NotDetected); Parainfluenza Virus 4 PCR Not Detected (NotDetected); Respiratory Syncytial VirusPCR Not Detected (NotDetected); Rhinovirus/Enterovirus PCR Not Detected (NotDetected)
[2025-09-01 11:59] LABS: Appearance Urine Clear (Clear); Bacteria Urine Automated None Seen (None Seen); Cast Urine Automated 0-2 /lpf (0-2); Epithelial Cell Urine Auto 0-2 /hpf (0-2); Glucose Urine UA Negative (Negative); RBC Urine Automated 0-2 /hpf (0-2); WBC Urine Automated 21-50 /hpf (0-5)
--- NOTE | 2025-09-01 12:30 | Emergency Department Note ---
History of Present Illness General Chief complaint: Weakness Stated complaint: Weakness Time Seen by Provider: 09/01/25 09:27 Source: patient and family Mode of arrival: EMS Limitations: no limitations History of Present Illness Patient is a 79-year-old male with history of hypertension, hyperlipidemia, vascular dementia, carotid stenosis, anxiety who presents for generalized fatigue and weakness. According to patient's daughter who was at bedside he did not get out of bed this morning to eat breakfast. This is a second day in a row he has been lying in his bed all day. He is normally able to ambulate with a walker. Patient daughter is also stating that she has had profound weight loss over the past few weeks. Patient's history is limited by his dementia. He does report he has an appetite and denies any nausea or vomiting. No fevers, chills, chest pain, shortness of breath, and abdominal pain. Patient daughter also notes he had 2 falls recently getting off the couch. She is concerned about his rapidly progressive decline. Home Medications Medication Instructions Recorded Confirmed Type cyanocobalamin (vitamin B-12) 1,000 mcg PO NOON ##0 05/14/18 09/01/25 History 1,000 mcg capsule cholecalciferol (vitamin D3) 25 25 mcg PO QAM 11/16/21 09/01/25 History mcg (1,000 unit) capsule Wheeled Walker #1 ea 06/25/22 08/12/25 Rx aspirin 81 mg chewable tablet 81 mg PO DAILY #30 tabs 10/20/24 09/01/25 Rx fluvoxamine 100 mg tablet 100 mg PO TID #90 tabs 10/27/24 09/01/25 Rx tamsulosin 0.4 mg capsule 0.4 mg PO DAILY #30 caps 11/17/24 09/01/25 Rx galantamine 4 mg tablet 4 mg PO BID #180 tabs 01/20/25 09/01/25 Rx aripiprazole 10 mg tablet 10 mg PO HS #30 tabs 06/27/25 09/01/25 Rx hydroxyzine HCl 25 mg tablet 25 mg PO QID #120 tabs 06/27/25 09/01/25 Rx tramadol 50 mg tablet 50 mg PO BID PRN pain #60 tabs 07/07/25 09/01/25 Rx cephalexin 500 mg capsule 500 mg PO BID #60 caps 07/11/25 09/01/25 Rx prednisone 5 mg tablet 10 mg (2 x 5 mg) PO QAM #30 tabs 08/08/25 09/01/25 Rx clonazepam 0.5 mg tablet 0.5 mg PO DAILY 08/12/25 09/01/25 History trazodone 50 mg tablet 25 mg (1/2 x 50 mg) PO HS PRN 08/12/25 09/01/25 Rx sleep #30 tabs Allergies Allergy/AdvReac Type Severity Reaction Status Date / Time latex Allergy Mild CONTACT Verified 08/12/25 12:57 DERMATITIS oxycodone AdvReac Severe GI SYMPTOMS Verified 08/12/25 12:57 Past Med/Surg History Problem List (Updated 09/01/25 @ 14:07 by Fernie Ghosh MD) Adult failure to thrive (Acute) Frailty syndrome in geriatric patient Headache Acute polymorphic psychotic disorder Weight loss Cellulitis Mental status alteration Head injury Cognitive and behavioral changes Sinus bradycardia Subdural hematoma (Acute) Recurrent falls (Acute) Vascular dementia (Acute) Fall Gait disturbance (Acute) Rib injury (Acute) Postconcussion syndrome 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) Lyme disease Generalized muscle weakness (Acute) Fall (Acute) Rash Impacted cerumen, bilateral Sinusitis Rotator cuff syndrome Gait instability Chronic daily headache Stroke GERD (gastroesophageal reflux disease) Restless leg syndrome Lumbar disc disease with radiculopathy Polymyalgia Diabetes mellitus, type 2 Mixed hyperlipidemia Hypertension Carpal tunnel syndrome, right Ulnar neuropathy at elbow of right upper extremity Tobacco abuse, episodic Nocturnal hypoxemia Depression Medical History (Updated 09/01/25 @ 14:07 by Fernie Ghosh MD) 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 Fall Diverticulosis (08/10/12) Wedge compression fracture of t11-T12 vertebra, subsequent encounter for fracture with delayed healing Closed fracture of multiple ribs of left side Unintentional weight loss Hemopneumothorax on left Migraine MIGRANES AND CLUSTER HEADACHES S/T SKULL FX A CHILD. Murmur, cardiac MONITORED BY PCP Stroke HX OF 02/04/17, SOME RESIDUAL WEAKNESS IN RT ARM, SHORT TERM MEMORY LOSS, UNSTEADY GAID, FOLLOWS WITH DR. ONEAL. Chronic steroid use Hyperlipidemia GERD (gastroesophageal reflux disease) Anxiety Osteoarthritis Tonsillar abscess History of fibula fracture Airway compromise Surgical History History of nasal septoplasty THROAT/NOSE SURGERY History of carpal tunnel release History of herniorrhaphy UMBILICAL HERNIA REPAIR History of cholecystectomy History of carotid endarterectomy LEFT Family History Mother Gallbladder cancer Father Diabetes Stroke Brother Leukemia Sister Epilepsia Aneurysm of gastric artery Liver disease Social History Smoking Status: Never smoker Tobacco Type: Cigarettes Age Started Using Tobacco: 20; packs per day: 0.25; Cigarettes Per Day: 6; Second Hand Exposure: No; Do You Dip or Chew Tobacco: No; Hx Alcohol Use: No Hx Substance Use: No Preferred Language: Japanese Communication Ability: Effective Visual Impairment: Diminished Hearing Ability: Normal Wrist Hemmer Required: No Beliefs That Will Affect Care: None marital status: Current Living Situation: Spouse Current Living Situation Comment: lives at home with and pets current occupational status: retired How many Children do You have: 2 Feels Safe at Home: Yes Childhood Exposure to Second-Hand Smoke: Yes Diet: regular caffeine: No Dental Care, Regularly: Yes Physical Activity Frequency: Does not Exercise Physical Activity Frequency Comment: active lifestyle Seatbelt Use: always Sunscreen Use: No Do you think of yourself as: straight/heterosexual Assistive Devices: Hospital Bed and Walker Review of Systems Review of systems negative outside of positive findings mentioned in HPI. Physical Exam Vital Signs Vital Signs - 24 hr 09/01/25 09:33 09/01/25 09:33 09/01/25 09:35 Temperature 36.3 C L 36.3 C L Temperature Source Oral Oral Pulse Rate 64 Pulse Rate [Apical] 64 Respiratory Rate 10 L 10 L Blood Pressure 137/80 Blood Pressure [Left Arm] 137/80 Blood Pressure Mean 99 Blood Pressure Mean [Left Arm] 99 Pulse Oximetry 97 97 97 Oxygen Delivery Method Room Air Room Air Room Air Sepsis Recent Fever Within 48 Hours No Sepsis New/Unexplained Change in Mental Status N/A Sepsis Action Taken by Nursing No Action Required 09/01/25 09:51 09/01/25 10:03 09/01/25 11:15 Temperature Temperature Source Pulse Rate 75 62 Pulse Rate [Apical] 70 Respiratory Rate 12 18 Blood Pressure Blood Pressure [Left Arm] 123/85 Blood Pressure Mean Blood Pressure Mean [Left Arm] 97 Pulse Oximetry 97 98 Oxygen Delivery Method Room Air Room Air Sepsis Recent Fever Within 48 Hours Sepsis New/Unexplained Change in Mental Status Sepsis Action Taken by Nursing 09/01/25 13:07 Temperature Temperature Source Pulse Rate Pulse Rate [Apical] 58 L Respiratory Rate 12 Blood Pressure Blood Pressure [Left Arm] 140/67 Blood Pressure Mean Blood Pressure Mean [Left Arm] 91 Pulse Oximetry 99 Oxygen Delivery Method Room Air Sepsis Recent Fever Within 48 Hours Sepsis New/Unexplained Change in Mental Status Sepsis Action Taken by Nursing See below Constitutional + cachectic and + frail appearing Eyes PERRL, conjunctivae normal, anicteric sclerae ENMT external ear and nose normal, oropharynx normal Dry mucous membranes Neck trachea midline, no thyromegaly Respiratory normal respiratory effort, lungs clear to auscultation Cardiovascular RRR, no murmur, no edema Chest (Breasts) normal inspection/palpation of breasts Gastrointestinal (Abdomen) normal bowel sounds, soft, nontender, no hepatosplenomegaly Musculoskeletal no cyanosis or clubbing, extremities motor strength 5/5 Skin no rashes, warm and dry Neurologic PERRL, EOMI, accommodation nl, no face palsy, no dysarthria awake and + confused; no focal motor deficit Course Administered Medications Discontinued Medications Acetaminophen (Ofirmev) 1,000 mg in 100 mls @ 400 mls/hr IV NOW STA Stop: 09/01/25 13:12 Last Infusion: 09/01/25 13:54 Dose: Infused Documented By: Admin: 09/01/25 13:12 Dose: 400 mls/hr Documented By: KARIN Ioversol (Optiray 320 100ml) 94 ml IV ONCE ONE Stop: 09/01/25 12:58 Last Admin: 09/01/25 12:57 Dose: 94 ml Documented By: LUBA Medical Decision Making Differential Diagnosis DDx includes but not limited to: Malignancy, progression of dementia, chronic inflammatory disease, chronic infectious disease, endocrine abnormality, advanced organ failure Medical Records Attestation: I reviewed the patient's medical records. Home Medications Current Medication List: was personally reviewed by me Laboratory Data Attestation: I reviewed the patient's lab results. 09/01/25 09:30 09/01/25 09:30 Lab Results 09/01/25 09/01/25 09/01/25 Range/Units 09:28 09:30 10:05 WBC 6.12 (4.8-10.8) K/ul RBC 5.18 (4.70-6.10) M/uL Hgb 14.7 (14.0-18.0) g/dL Hct 44.6 (42.0-52.0) % MCV 86.1 (80.0-100.0) fL MCH 28.4 (25.0-34.0) pg MCHC 33.0 (32.0-36.0) g/dL RDW Std Deviation 43.7 (36.4-46.3) fL RDW Coeff of Chandrakant 13.9 (11.5-14.5) % Plt Count 205 (130-400) K/uL MPV 9.9 (9.4-12.4) fL Immature Gran % (Auto) 0.2 % Neut % (Auto) 60.8 % Lymph % (Auto) 26.5 % [place] % (Auto) 10.0 % Eos % (Auto) 1.8 % Baso % (Auto) 0.7 % Neut # (Auto) 3.73 (1.40-6.50) K/uL Lymph # (Auto) 1.62 (1.20-3.40) K/uL [place] # (Auto) 0.61 H (0.11-0.59) K/uL Eos # (Auto) 0.11 (0.00-0.50) K/uL Baso # (Auto) 0.04 (0.00-0.20) K/uL Immature Gran # (Auto) 0.01 (0.01-0.20) K/uL PT 10.9 (9.0-12.0) Seconds INR 1.0 (0.9-1.1) VBG pH 7.38 (7.36-7.41) VBG pCO2 55 H (38-50) mmHg VBG pO2 26 mmHg VBG HCO3 33 mmol/L VBG O2 Saturation < 60.0 % VBG Base Excess 5.7 mEq/L Sodium 140 (136-145) mmol/L Potassium 3.9 (3.5-5.1) mmol/L Chloride 100 (98-107) mmol/L Carbon Dioxide 32 (21-32) mmol/L Anion Gap 8 (3-11) BUN 19 (6-23) mg/dl Creatinine 0.99 (0.6-1.4) mg/dl Est Cr Clr Drug Dosing 55.8 ml/min eGFR 77.97 BUN/Creatinine Ratio 19.2 (10-20) Glucose 98 (70-99(Fasting)) mg/dl POC Glucose 98 (70-99) mg/dl Lactate 1.1 (0.4-2.0) mmol/L Calcium 10.2 (8.6-10.3) mg/dl Magnesium 2.1 (1.7-2.4) mg/dl Total Bilirubin 0.7 (0.2-1.0) mg/dl AST 12 L (13-39) U/L ALT 8 (7-52) U/L Alkaline Phosphatase 86 (34-104) U/L Troponin I High Sens 11.5 (0-20) pg/ml Total Protein 7.7 (6.0-8.3) gm/dl Albumin 4.6 (3.4-5.0) gm/dl Globulin 3.1 (2.5-4.0) gm/dl Albumin/Globulin Ratio 1.5 (0.9-2) TSH 2.060 (0.300-4.500) uIu/ml Urine Color Urine Appearance (Clear) Urine pH (4.5-7.5) Ur Specific [place] (1.000-1.030) Urine Protein (Negative) Urine Glucose (UA) (Negative) Urine Ketones (Negative) Urine Blood (Negative) Urine Nitrite (Negative) Urine Bilirubin (Negative) Urine Urobilinogen (Negative) Ur Leukocyte Esterase (Negative) Urine WBC (Auto) (0-5) /hpf Urine RBC (Auto) (0-2) /hpf U Hyaline Cast (Auto) (0-2) /lpf U Epithel Cells (Auto) (0-2) /hpf Urine Bacteria (Auto) (None Seen) Urine Comment Adenovirus (PCR) (NotDetected) B. pertussis DNA (PCR) (NotDetected) B.parapertussis DNA PCR (NotDetected) C. pneumoniae DNA (PCR) (NotDetected) Coronavirus OC43 (PCR) (NotDetected) Coronavirus HKU1 (PCR) (NotDetected) Coronavirus 229E (PCR) (NotDetected) SARS-CoV-2 (PCR) (NotDetected) Coronavirus NL63 (PCR) (NotDetected) Human Metapneumovir PCR (NotDetected) Influenza Type A (PCR) (NotDetected) Influenza Type B (PCR) (NotDetected) M. pneumoniae (PCR) (NotDetected) Parainfluenza 1 (PCR) (NotDetected) Parainfluenza 2 (PCR) (NotDetected) Parainfluenza 3 (PCR) (NotDetected) Parainfluenza 4 (PCR) (NotDetected) RSV (PCR) (NotDetected) Entero/Rhino (PCR) (NotDetected) 09/01/25 09/01/25 Range/Units 11:34 Unknown WBC (4.8-10.8) K/ul RBC (4.70-6.10) M/uL Hgb (14.0-18.0) g/dL Hct (42.0-52.0) % MCV (80.0-100.0) fL MCH (25.0-34.0) pg MCHC (32.0-36.0) g/dL RDW Std Deviation (36.4-46.3) fL RDW Coeff of Chandrakant (11.5-14.5) % Plt Count (130-400) K/uL MPV (9.4-12.4) fL Immature Gran % (Auto) % Neut % (Auto) % Lymph % (Auto) % [place] % (Auto) % Eos % (Auto) % Baso % (Auto) % Neut # (Auto) (1.40-6.50) K/uL Lymph # (Auto) (1.20-3.40) K/uL [place] # (Auto) (0.11-0.59) K/uL Eos # (Auto) (0.00-0.50) K/uL Baso # (Auto) (0.00-0.20) K/uL Immature Gran # (Auto) (0.01-0.20) K/uL PT (9.0-12.0) Seconds INR (0.9-1.1) VBG pH (7.36-7.41) VBG pCO2 (38-50) mmHg VBG pO2 mmHg VBG HCO3 mmol/L VBG O2 Saturation % VBG Base Excess mEq/L Sodium (136-145) mmol/L Potassium (3.5-5.1) mmol/L Chloride (98-107) mmol/L Carbon Dioxide (21-32) mmol/L Anion Gap (3-11) BUN (6-23) mg/dl Creatinine (0.6-1.4) mg/dl Est Cr Clr Drug Dosing ml/min eGFR BUN/Creatinine Ratio (10-20) Glucose (70-99(Fasting)) mg/dl POC Glucose (70-99) mg/dl Lactate (0.4-2.0) mmol/L Calcium (8.6-10.3) mg/dl Magnesium (1.7-2.4) mg/dl Total Bilirubin (0.2-1.0) mg/dl AST (13-39) U/L ALT (7-52) U/L Alkaline Phosphatase (34-104) U/L Troponin I High Sens (0-20) pg/ml Total Protein (6.0-8.3) gm/dl Albumin (3.4-5.0) gm/dl Globulin (2.5-4.0) gm/dl Albumin/Globulin Ratio (0.9-2) TSH (0.300-4.500) uIu/ml Urine Color Yellow Urine Appearance Clear (Clear) Urine pH 5.5 (4.5-7.5) Ur Specific [place] 1.011 (1.000-1.030) Urine Protein Negative (Negative) Urine Glucose (UA) Negative (Negative) Urine Ketones Negative (Negative) Urine Blood Negative (Negative) Urine Nitrite Negative (Negative) Urine Bilirubin Negative (Negative) Urine Urobilinogen Negative (Negative) Ur Leukocyte Esterase 2+ H (Negative) Urine WBC (Auto) 21-50 H (0-5) /hpf Urine RBC (Auto) 0-2 (0-2) /hpf U Hyaline Cast (Auto) 0-2 (0-2) /lpf U Epithel Cells (Auto) 0-2 (0-2) /hpf Urine Bacteria (Auto) None Seen (None Seen) Urine Comment Adenovirus (PCR) Not Detected (NotDetected) B. pertussis DNA (PCR) Not Detected (NotDetected) B.parapertussis DNA PCR Not Detected (NotDetected) C. pneumoniae DNA (PCR) Not Detected (NotDetected) Coronavirus OC43 (PCR) Not Detected (NotDetected) Coronavirus HKU1 (PCR) Not Detected (NotDetected) Coronavirus 229E (PCR) Not Detected (NotDetected) SARS-CoV-2 (PCR) Not Detected (NotDetected) Coronavirus NL63 (PCR) Not Detected (NotDetected) Human Metapneumovir PCR Not Detected (NotDetected) Influenza Type A (PCR) Not Detected (NotDetected) Influenza Type B (PCR) Not Detected (NotDetected) M. pneumoniae (PCR) Not Detected (NotDetected) Parainfluenza 1 (PCR) Not Detected (NotDetected) Parainfluenza 2 (PCR) Not Detected (NotDetected) Parainfluenza 3 (PCR) Not Detected (NotDetected) Parainfluenza 4 (PCR) Not Detected (NotDetected) RSV (PCR) Not Detected (NotDetected) Entero/Rhino (PCR) Not Detected (NotDetected) Imaging Data Radiologist's Impression: Chest X-Ray 09/01/25 09:40 XR chest 1V portable CLINICAL HISTORY: Weakness. COMPARISON STUDY: Chest radiograph July 27, 2025. Chest CT December 25, 2024. FINDINGS: The patient is mildly rotated. There is no pneumothorax or pleural effusion. Blunting of the left costophrenic angle is chronic. Cardiomediastinal silhouette is stable. There is no evidence for pulmonary edema. There is no pneumothorax or pleural effusion. No consolidation to suggest pneumonia. There are several old bilateral rib fractures. IMPRESSION: No acute cardiopulmonary findings. No significant change in appearance of the chest. ACT 112: Negative or not required by law. Electronically signed by: Angel Brown M.D. 09/01/2025 10:[address] 09/01/25 09:41 CT head/brain wo con CLINICAL HISTORY: 79 years-old Male with AMS. Acutely altered mental status TECHNIQUE: Multiple axial CT images of the head were obtained without contrast. A dose lowering technique was utilized adhering to the principles of ALARA. CT DOSE: 2044.72 mGy.cm COMPARISON: 06/13/2025 FINDINGS: No acute intracranial hemorrhage, midline shift, intracranial mass, hydrocephalus, territorial ischemia or abnormal extra-axial collection. Involutional changes with chronic microvascular ischemic disease. Left parieto- occipital encephalomalacia again noted. Cerebrovascular calcifications The calvarium is intact. The paranasal sinuses, mastoid air cells, and middle ear cavities are clear. IMPRESSION: No acute intracranial abnormality. ACT 112: Negative or not required by law. The above report was generated using voice recognition software. It may contain grammatical, syntax or spelling errors. Electronically signed by: Danilo Anand M.D. 09/01/2025 11:[address] 09/01/25 09:54 CT SCAN OF THE CERVICAL SPINE CLINICAL HISTORY: Altered mental status. COMPARISON STUDY: Cervical spine CT March 01, 2025. TECHNIQUE: CT scan of the cervical spine is performed from the skull base to the upper thoracic spine. Images are reviewed in the axial, sagittal, and coronal planes. IV contrast was not administered for this examination. A dose lowering technique was utilized adhering to the principles of ALARA. FINDINGS: Skeletal structures: There is no evidence of fracture or subluxation involving the cervical spine. Vertebral body height and alignment are maintained. The odontoid process and lateral masses are intact. The atlantoaxial articulation is preserved. The spinous processes appear intact. There is moderate multilevel facet arthrosis and degenerative disc disease within the cervical spine. Soft tissues: The prevertebral and paraspinous soft tissues are within normal limits. Calvarium: The visualized calvarium at the skull base appears intact. Brain parenchyma: Partially visualized brain parenchyma at the skull base is within normal limits. Lung apices: Clear as visualized. IMPRESSION: No acute cervical spine fracture or subluxation. ACT 112: Negative or not required by law. Electronically signed by: Angle Brown M.D. 09/01/2025 10:[address] 09/01/25 09:54 CT OF THE CHEST WITHOUT IV CONTRAST CLINICAL HISTORY: fall rib pain COMPARISON STUDY: Chest x-ray dated 09/01/2025 , chest CT dated 12/25/2024 CT DOSE: TECHNIQUE: Axial images of the chest were obtained without IV contrast. Images were reviewed in the axial, sagittal, and coronal planes. IV contrast was not administered for this examination. Automated exposure control was utilized for the study. A dose lowering technique was utilized adhering to the principles of ALARA. FINDINGS: Thyroid gland is unremarkable in appearance. No pathologically enlarged axillary, mediastinal, or hilar lymph nodes are visualized. The visualized portions the upper abdomen reveal a surgically absent gallbladder. There is a 35mm left renal cyst. There are no adrenal masses. There is trace pericardial fluid. There are coronary artery calcifications. There are no pleural effusions. There is no pneumothorax. There is debris within the trachea. There are are a few scattered calcified granulomas present. There are multiple scattered sub-5 mm pulmonary nodules. The largest is located on image #[id number] measuring 5 mm. This area was obscured on the prior study due to atelectatic change. There is mild apical emphysema. There are multiple healing right-sided rib fractures. Addition there are multiple old healed left-sided rib fractures. No acute fractures are visualized. Degenerative changes are present within the dorsal spine. There is an old lower thoracic compression deformity. There are bridging calcifications of the anterior longitudinal ligament. IMPRESSION: 1. Mild emphysema 2. Multiple old healing rib fractures. No acute rib fractures identified 3. Multiple sub-5 mm pulmonary nodules redemonstrated. ACT 112: Negative or not required by law. Electronically signed by: Dylan Hobbs M.D. 09/01/2025 10:[address] 09/01/25 09:54 CT lumbar spine wo con HISTORY: 79 years-old Male fall back pain acute low back pain status post fall COMPARISON: CT lumbar spine 07/25/2021, CT abdomen and pelvis 10/03/2024 TECHNIQUE: Multiple axial CT images of the lumbar spine were obtained without IV contrast. A dose lowering technique was used consistent with the principals of ALARA. FINDINGS: Demineralized appearance of the bones. Mild multilevel intervertebral disc space narrowing with mild to moderate spondylitic spurring and moderate facet arthrosis. Minimal superior endplate compression at L3 and L4 are chronic findings. There is no acute fracture, subluxation or endplate erosion. Mild degeneration of the SI joints. There is suboptimal evaluation of the central canal and neural foramen by CT technique. Moderate central canal stenosis at L4- L5 secondary to posterior disc osteophyte complex, ligamentum flavum thickening and facet arthrosis. Severe right with moderate left neural foraminal narrowing at this level. Moderate bilateral foraminal stenosis at L5-S1. Atherosclerosis of the aorta and branch vessels. Distended urinary bladder. Moderate colonic fecal retention. 4 mm nodular focus in the basal right lower lobe on image 18 of series 21 is new from prior and likely atelectatic. IMPRESSION: No acute fracture or subluxation identified. ACT 112: Negative or not required by law. The above report was generated using voice recognition software. It may contain grammatical, syntax or spelling errors. Electronically signed by: Danilo Anand M.D. 09/01/2025 11:[address] 09/01/25 09:54 CT OF THE THORACIC SPINE CLINICAL HISTORY: Back pain following fall. COMPARISON STUDY: Chest CT December 25, 2024. Thoracic spine CT July 25, 2021. TECHNIQUE: Helical axial images of the thoracic spine were obtained. Sagittal and coronal reconstructions were viewed. Automated exposure control was utilized for the study. A dose lowering technique was utilized adhering to the principles of ALARA. FINDINGS: Alignment of the thoracic spine is anatomic. There is an old fracture along the inferior endplate of T11. This is chronic. No acute thoracic spine fractures are present. There is extensive anterior osteophytosis of the thoracic spine. Facet joints are intact. Please note that the chest CT will be reported separately. Multiple healing rib fractures are better depicted on that exam. IMPRESSION: 1. No acute thoracic spine fracture or subluxation. 2. No change in an old T11 fracture. ACT 112: Negative or not required by law. Electronically signed by: Angel Brown M.D. 09/01/2025 10:51 AM Abdomen/Pelvis CT 09/01/25 12:19 CT SCAN OF THE ABDOMEN AND PELVIS WITH IV CONTRAST CLINICAL HISTORY: Weakness. Failure to thrive. COMPARISON STUDY: CT of the abdomen and pelvis October 03, 2024. TECHNIQUE: Following the IV administration of 94 cc of Optiray 320, CT scan of the abdomen and pelvis is performed from the lung bases to the proximal femora. Images are reviewed in the axial, sagittal, and coronal planes. IV contrast was administered without complication. A dose lowering technique was utilized adhering to the principles of ALARA. CT DOSE: 568.53 mGy.cm FINDINGS: Emphysema is incidentally noted within the lower lungs. Multiple old bilateral rib fractures are present. There are also several healing rib fractures. No acute fractures within the visualized lower ribs are identified. There are no acute fractures within the lumbar spine, pelvis or hips. There are no suspicious hepatic lesions. There is no biliary ductal dilatation status post cholecystectomy. Spleen, adrenal glands and pancreas are unremarkable. No pancreatic ductal dilatation. Water attenuation bilateral renal lesions represent cysts. There is a 2 mm left renal calculus. There are no ureteral calculi. There is no hydronephrosis. There is no evidence for a bowel obstruction. The caliber and wall thickness of small and large bowel are normal. There is no lymphadenopathy. No fluid collections are present. There is extensive aortoiliac atherosclerotic plaque. Vessels are normal in caliber. IMPRESSION: 1. No acute process within the abdomen or pelvis. 2. No CT evidence for malignancy within the abdomen or pelvis. 3. 2 mm left renal calculus. No ureteral calculi. ACT 112: Negative or not required by law. Electronically signed by: Angel Brown M.D. 09/01/2025 1:08 PM MDM Narrative Patient is a 79-year-old male with history of vascular dementia who presents with generalized weakness and poor p.o. intake. He has been unable to get out of bed over the past 2 days according to his daughter who is at bedside. Patient is confused here today however awake and able to follow commands. Patient complains of a headache currently which is chronic according to the daughter. She did report he fell off the couch twice trying to get up however denies any head injury. Initially reported some back pain and neck pain to the resident and therefore CT imaging was ordered to rule out any traumatic abnormalities. Lab work was obtained and reviewed. No significant metabolic abnormality noted. No signs of infection. UA does show 21-50 white blood cells without any bacteria. I am unable to elicit any accurate clinical picture for urinary tract infection so we will wait until culture results return to initiate treatment. Because of patient's significant weight loss I did order a CT of the abdomen and pelvis to rule out any underlying malignancy or abdominal concerns related to his failure to thrive. CT of the abdomen pelvis shows no acute abnormalities at this time. Plan to admit for failure to thrive is likely secondary to progression of his dementia. Stable for admission to hospitalist service. Impression & Plan Adult failure to thrive Discharge Plan Visit Data Chief Complaint: Weakness Stated Complaint: Weakness ED Provider: Fernie Ghosh Discharge Problem: Adult failure to thrive Patient Disposition: Admitted As Inpatient Condition: Good Forms Stand Alone Forms: My [facility] Prescriptions Prescriptions: No Action cyanocobalamin (vitamin B-12) 1,000 mcg Capsule 1,000 mcg PO NOON Qty: 0 tramadol 50 mg tablet 50 mg PO BID PRN (Reason: pain) Qty: 60 5RF cephalexin 500 mg capsule 500 mg PO BID Qty: 60 11RF prednisone 5 mg tablet 10 mg PO QAM Qty: 30 5RF (DME) Wheeled Walker Misc See Rx Instructions .Route Qty: 1 0RF Rx Instructions: with seat and hand brakes. Duration 999 cholecalciferol (vitamin D3) 25 mcg (1,000 unit) capsule 25 mcg PO QAM aspirin 81 mg tablet,chewable 81 mg PO DAILY Qty: 30 3RF Hold Instructions: ON HOLD UNTIL 11/01 Rx Instructions: start on 11/01/24 galantamine 4 mg tablet 4 mg PO BID Qty: 180 3RF Rx Instructions: administer with AM and PM meals aripiprazole 10 mg tablet 10 mg PO HS Qty: 30 3RF hydroxyzine HCl 25 mg tablet 25 mg PO QID Qty: 120 4RF clonazepam 0.5 mg tablet 0.5 mg PO DAILY trazodone 50 mg tablet 25 mg PO HS PRN (Reason: sleep) Qty: 30 2RF fluvoxamine 100 mg tablet 100 mg PO TID Qty: 90 11RF tamsulosin 0.4 mg capsule 0.4 mg PO DAILY Qty: 30 11RF Referrals Referrals: Wing William MD [Primary Care Provider] -
[2025-09-01] MEDS: OPTIRAY 320 100ml IV ONE (12:57)
--- NOTE | 2025-09-01 13:10 | CT Scan Report ---
CT SCAN OF THE ABDOMEN AND PELVIS WITH IV CONTRAST CLINICAL HISTORY: Weakness. Failure to thrive. COMPARISON STUDY: CT of the abdomen and pelvis October 03, 2024. TECHNIQUE: Following the IV administration of 94 cc of Optiray 320, CT scan of the abdomen and pelvi s is performed from the lung bases to the proximal femora. Images are reviewed in the axial, sagittal , and coronal planes. IV contrast was administered without complication. A dose lowering technique wa s utilized adhering to the principles of ALARA. CT DOSE: 568.53 mGy.cm FINDINGS: Emphysema is incidentally noted within the lower lungs. Multiple old bilateral rib fracture s are present. There are also several healing rib fractures. No acute fractures within the visualized lower ribs are identified. There are no acute fractures within the lumbar spine, pelvis or hips. The re are no suspicious hepatic lesions. There is no biliary ductal dilatation status post cholecystecto my. Spleen, adrenal glands and pancreas are unremarkable. No pancreatic ductal dilatation. Water atte nuation bilateral renal lesions represent cysts. There is a 2 mm left renal calculus. There are no ur eteral calculi. There is no hydronephrosis. There is no evidence for a bowel obstruction. The caliber and wall thickness of small and large bowel are normal. There is no lymphadenopathy. No fluid collec tions are present. There is extensive aortoiliac atherosclerotic plaque. Vessels are normal in calibe r. IMPRESSION: 1. No acute process within the abdomen or pelvis. 2. No CT evidence for malignancy within the abdomen or pelvis. 3. 2 mm left renal calculus. No ureteral calculi. ACT 112: Negative or not required by law. Electronically signed by: Angel Brown M.D. 09/01/2025 1:08 PM
[2025-09-01] MEDS: ACETAMINOPHEN 1,000 MG/100 ML VIAL IV STA (13:12)
--- NOTE | 2025-09-01 13:20 | Electrocardiogram Report ---
Test Reason : Blood Pressure : */* mmHG Vent. Rate : 63 BPM Atrial Rate : 63 BPM P-R Int : 138 ms QRS Dur : 94 ms QT Int : 418 ms P-R-T Axes : 89 -5 77 degrees QTcB Int : 427 ms Normal sinus rhythm Possible Left atrial enlargement Borderline ECG When compared with ECG of 27-Jul-2025 22:21, Premature ventricular complexes are no longer Present Confirmed by Anthony Bailey ([id number]) on 09/01/2025 1:19:47 PM Referred By: REFERRED SELF Confirmed By: Anthony Bailey
--- NOTE | 2025-09-01 13:49 | History & Physical Report ---
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): (3) Recurrent falls: (4) Frailty syndrome in geriatric patient: Plan In summary this is a 79-year-old male who presents with progressive frailty, poor oral intake, and recurrent falls in the setting of vascular dementia #Progressive vascular dementia // Geriatric frailty and physical debility The patient's laboratory assessment is relatively unremarkable however on exam they are frankly malnourished, with temporal wasting, significant loss of normal fat pads, scaphoid abdomen, significant muscle loss; they are unable to feed themselves independently, nor just some cells to participate in any activities of daily living; there is a discussion at bedside regarding the patient's prognosis, and that his dementia is reasonable to have intervention with hospice and family is interested in pursuing this option; until they have further discussion however the family would like to maintain a full CODE STATUS. We did have a discussion at length regarding the patient's unlikely outcome of his successful resuscitation attempt given his multiple comorbidities and frailty however at this time, they would like to maintain this status; in order to assist with determination of placement at the time of discharge PT and OT consulted Continue home medication regimen with respect to dementia, pending further continuation based on goals of care as further pursued during his hospitalization Consultation with palliative care #First degree sacral decubitus ulcer New sacral decubitus ulcer; continue preventative care with frequent repositioning and sacral heart At this time, would recommend continuation of the patient's chronic medical regimen as his chronic conditions other than his dementia appear to be stable and well-controlled at this time; continuation of these medications can be further determined based on the patient's goals of care as they are further determined during their hospitalization History of Present Illness Chief Complaint: Geriatric frailty and physical debility Primary Care Provider: Wing William MD Mr. Bruner is a 79-year-old male whose active medical conditions include cognitive behavioral change status post CVA in addition to vascular dementia of an unspecified severity, type 2 diabetes mellitus not requiring insulin therapy, hyperlipidemia, hypertension, among other chronic medical conditions who presented to the [facility] on 09/01 by EMS due to progressive decline at home as reported by family who was not available with the patient at the time of EMS arrival. At the time my evaluation the patient is accompanied by his daughter and grandson at bedside; the patient is arousable to verbal stimuli but not able to participate in a meaningful history and physical. At minimum, they are able to deny any current pain, discomfort, or recent acute injuries. The patient's daughter is the primary historian at this time; she describes over the past several weeks patient has been having increasing difficulty navigating at home, decreased oral intake, increased fatigue, with family concerns the patient continuing to lose weight and not "thrive". The patient primarily lives at home with his spouse who is his primary caregiver with occasional help from his children as they are available. She reports the patient had a good week this past week as far as his cognitive abilities concerned, but has rapidly returned to his current state which is with intermittent episodes of confusion, profound fatigue, inability to feed or dress themselves independently. Allergies Allergy/AdvReac Type Severity Reaction Status Date / Time latex Allergy Mild CONTACT Verified 08/12/25 12:57 DERMATITIS oxycodone AdvReac Severe GI SYMPTOMS Verified 08/12/25 12:57 Home Medications Medication Instructions Recorded Confirmed Type cyanocobalamin (vitamin B-12) 1,000 mcg PO NOON ##0 05/14/18 09/01/25 History 1,000 mcg capsule cholecalciferol (vitamin D3) 25 25 mcg PO QAM 11/16/21 09/01/25 History mcg (1,000 unit) capsule Wheeled Walker #1 ea 06/25/22 08/12/25 Rx aspirin 81 mg chewable tablet 81 mg PO DAILY #30 tabs 10/20/24 09/01/25 Rx fluvoxamine 100 mg tablet 100 mg PO TID #90 tabs 10/27/24 09/01/25 Rx tamsulosin 0.4 mg capsule 0.4 mg PO DAILY #30 caps 11/17/24 09/01/25 Rx galantamine 4 mg tablet 4 mg PO BID #180 tabs 01/20/25 09/01/25 Rx aripiprazole 10 mg tablet 10 mg PO HS #30 tabs 06/27/25 09/01/25 Rx hydroxyzine HCl 25 mg tablet 25 mg PO QID #120 tabs 06/27/25 09/01/25 Rx tramadol 50 mg tablet 50 mg PO BID PRN pain #60 tabs 07/07/25 09/01/25 Rx cephalexin 500 mg capsule 500 mg PO BID #60 caps 07/11/25 09/01/25 Rx prednisone 5 mg tablet 10 mg (2 x 5 mg) PO QAM #30 tabs 08/08/25 09/01/25 Rx clonazepam 0.5 mg tablet 0.5 mg PO DAILY 08/12/25 09/01/25 History trazodone 50 mg tablet 25 mg (1/2 x 50 mg) PO HS PRN 08/12/25 09/01/25 Rx sleep #30 tabs Past Med/Surg History Problem List (Updated 09/01/25 @ 14:07 by Fernie Ghosh MD) Adult failure to thrive (Acute) Frailty syndrome in geriatric patient Headache Acute polymorphic psychotic disorder Weight loss Cellulitis Mental status alteration Head injury Cognitive and behavioral changes Sinus bradycardia Subdural hematoma (Acute) Recurrent falls (Acute) Vascular dementia (Acute) Fall Gait disturbance (Acute) Rib injury (Acute) Postconcussion syndrome 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) Lyme disease Generalized muscle weakness (Acute) Fall (Acute) Rash Impacted cerumen, bilateral Sinusitis Rotator cuff syndrome Gait instability Chronic daily headache Stroke GERD (gastroesophageal reflux disease) Restless leg syndrome Lumbar disc disease with radiculopathy Polymyalgia Diabetes mellitus, type 2 Mixed hyperlipidemia Hypertension Carpal tunnel syndrome, right Ulnar neuropathy at elbow of right upper extremity Tobacco abuse, episodic Nocturnal hypoxemia Depression Medical History (Updated 09/01/25 @ 14:07 by Fernie Ghosh MD) 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 Fall Diverticulosis (08/10/12) Wedge compression fracture of t11-T12 vertebra, subsequent encounter for fracture with delayed healing Closed fracture of multiple ribs of left side Unintentional weight loss Hemopneumothorax on left Migraine MIGRANES AND CLUSTER HEADACHES S/T SKULL FX A CHILD. Murmur, cardiac MONITORED BY PCP Stroke HX OF 02/04/17, SOME RESIDUAL WEAKNESS IN RT ARM, SHORT TERM MEMORY LOSS, UNSTEADY GAID, FOLLOWS WITH DR. ONEAL. Chronic steroid use Hyperlipidemia GERD (gastroesophageal reflux disease) Anxiety Osteoarthritis Tonsillar abscess History of fibula fracture Airway compromise Surgical History History of nasal septoplasty THROAT/NOSE SURGERY History of carpal tunnel release History of herniorrhaphy UMBILICAL HERNIA REPAIR History of cholecystectomy History of carotid endarterectomy LEFT Family History Mother Gallbladder cancer Father Diabetes Stroke Brother Leukemia Sister Epilepsia Aneurysm of gastric artery Liver disease Social History Smoking Status: Never smoker Tobacco Type: Cigarettes Age Started Using Tobacco: 20; packs per day: 0.25; Cigarettes Per Day: 6; Second Hand Exposure: No; Do You Dip or Chew Tobacco: No; Hx Alcohol Use: No Hx Substance Use: No Preferred Language: Bulgarian Communication Ability: Effective Visual Impairment: Diminished Hearing Ability: Normal Front End Architect Required: No Beliefs That Will Affect Care: None marital status: Current Living Situation: Spouse Current Living Situation Comment: lives at home with and pets current occupational status: retired How many Children do You have: 2 Feels Safe at Home: Yes Childhood Exposure to Second-Hand Smoke: Yes Diet: regular caffeine: No Dental Care, Regularly: Yes Physical Activity Frequency: Does not Exercise Physical Activity Frequency Comment: active lifestyle Seatbelt Use: always Sunscreen Use: No Do you think of yourself as: straight/heterosexual Assistive Devices: Hospital Bed and Walker Review of Systems Review of Systems: Review of constitutional, cardiovascular, pulmonary, gastrointestinal, genitourinary, neurologic systems was unremarkable except for pertinent positive and negative findings discussed above Physical Exam Physical Exam: General: Elderly male in no acute distress Vital Signs: Reviewed HEENT: Moist mucous membranes; extraocular motion intact, pupils equally round and reactive to light Pulmonary: Symmetric chest wall excursion without restriction, clear to auscultation bilaterally Cardiovascular: Regular rate and rhythm without murmurs, rubs, or gallops; S1 and S2 normal; right radial pulse 2+; no notable lower extremity edema Gastrointestinal: Scaphoid, nontender throughout with normal bowel sounds Musculoskeletal: Generalized anasarca and sarcopenia Neurologic: Unable to participate fully in a thorough neurologic exam; alert, oriented to self but not place nor time Skin: Stage I sacral decubitus ulcer Results & Data Results & Data Vital Signs (Past 12 Hours) Vital Signs Temp Pulse Pulse Resp BP BP Pulse Ox 09/01/25 13:07 58 L 12 140/67 99 09/01/25 11:15 70 18 123/85 98 09/01/25 10:03 62 09/01/25 09:51 75 12 97 09/01/25 09:35 36.3 C L 64 10 L 137/80 97 09/01/25 09:33 36.3 C L 64 10 L 137/80 97 09/01/25 09:33 97 O2 Del Method 09/01/25 13:07 Room Air 09/01/25 11:15 Room Air 09/01/25 10:03 09/01/25 09:51 Room Air 09/01/25 09:35 Room Air 09/01/25 09:33 Room Air 09/01/25 09:33 Room Air Code Status & VTE Plan Code Status Full Code VTE Prophylaxis Plan VTE Prophylaxis will be ordered: Yes PG Care Time/CCT Total # of Minutes Spent Total Time Spent with Patient: Total time spent is greater than 50% in coordination of care (as documented) at patient's floor/unit and/or counseling patient: Coding Level of Care Code 17022 INT INP/OBS CARE 2MIN Diagnoses Vascular dementia with other behavioral disturbance, unspecified dementia severity F01.518 Dementia behavioral or psychological symptom: with other behavioral disturbance Dementia severity: unspecified severity 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
[2025-09-01] MEDS ORDERED: GLUCOSE 10 TAB/TUBE PO PRN (15:41)
[2025-09-01] MEDS ORDERED: GLUCAGON FOR INJ 1 MG VIAL SQ PRN (15:41)
[2025-09-01] MEDS ORDERED: GLUCOSE 40% GEL 15 GM TUBE PO PRN (15:41)
[2025-09-01] MEDS ORDERED: PHARMACY GLYCEMIC MGMT CONSULT PRN (15:41)
[2025-09-01] MEDS ORDERED: DEXTROSE 50% 50 ML SYRINGE IV PRN (15:41)
[2025-09-01] MEDS ORDERED: CARBOHYDRATES FOR HYPOGLYCEMIA PO PRN (15:41)
--- NOTE | 2025-09-01 15:58 | Pharmacy Report ---
Pharmacy Glycemic Short Note 2 - Date of Service September 01, 2025 - Glycemic Short BSG Results (Last 24 hours): 09/01/25 09/01/25 09:28 09:30 Glucose 98 POC Glucose 98 OUTPATIENT ANTIDIABETIC REGIMEN: * None * Prednisone 10mg PO Daily - chronically * A1c 6.5% 10/27/24 - updated A1c ordered ASSESSMENT: * 79 yo M admitted with generalize weakness/fatigue and decline. Type 2 DM on no medications as outpatient at this time, but on chronic steroid therapy. * Blood sugars at goal, 98mg/dl on admission. Will hold basal at this time and start loose NovoLog coverage. PLAN FOR INPATIENT GLYCEMIC CONTROL: * Basal insulin * None at this time * Bolus insulin * NovoLog per scale ACHS or Q6hrs while NPO * Goal Range: Low 110 mg/dL - High 140 mg/dL * Correction Factor: 50 mg/dL/unit * Nutritional / Prandial insulin per carb ratio of 1 unit per 25 grams CHO consumed
[2025-09-01] MEDS: ENOXAPARIN INJ 40 MG/0.4 ML SYR SQ SCH (16:59)
[2025-09-01] MEDS: GALANTAMINE HYDROBROMIDE 4 MG TAB PO SCH (17:00)
[2025-09-01] MEDS: INSULIN ASPART PER UNIT CHARGE SC SCH (17:45)
[2025-09-01] MEDS ORDERED: LANTUS PER UNIT CHARGE SQ SCH (21:00)
[2025-09-02 00:55] VITALS: RESP 16
[2025-09-02 07:01] LABS: Hemoglobin A1C 6.0 % (4.5-5.6)
[2025-09-02 07:52] VITALS: O2SAT 96
--- NOTE | 2025-09-02 09:09 | Palliative Care Consultation ---
Date of Consultation September 02, 2025 Assessment & Plan (1) Adult failure to thrive: (2) Weight loss: (3) Weakness generalized: (4) Palliative care by specialist: Met with pt and his Bertha and daughter Teetee at bedside. Introduced Palliative Medicine and explained our role in advanced care planning, symptom management and navigation through the progression of life limiting disease. Patient and/or family were receptive to palliative services for goals of care discussions. Reviewed we are different from hospice, a home health nurse visiting service. (5) Counseling regarding advanced directives and goals of care: Spent 30 minutes today discussing pt's chronic and current health and goals of care. Patient lethargic and arousable, however was confused and minimally participated in discussion. Both Teetee and Bertha shared concern for the patient's recent rapid decline in cognitive function. They shared that he is typically a very active and impulsive person but for the last couple weeks he has been spending most of his days sleeping and had very poor PO intake. Teetee shared that he has also had some hallucinations of snakes and been talking with his mother. Bertha expressed concern for her own ability to care for him at home, but enforced desire to have him return home sharing that she would never have him go to SNF. Spent a substantial amount of time discussing the progressively debilitating nature of dementia. Explained that dementia is incurable and irreversible, and can include progressive/worsening memory loss, confusion, language difficulties/lack of comprehension skills/loss of verbal skills eventually, mood changes, impaired judgment, trouble with motor skills/coordination/balance issues, visual and spatial problems, hallucinations, and personality changes. The rate of progression in mixed dementia can vary widely from person to person. Factors such as the types of dementia involved, overall health, and genetics can influence the speed of progression. Some individuals experience a more gradual decline, while others may progress more rapidly through the stages. We discussed and differentiated dementia from delirium and helped family understand that they can co-exist. I reviewed Dementia as a terminal illness. Aggressive medical treatment for patients with advanced dementia is often inappropriate for medical reasons, has a low rate of success, and can have negative outcomes that hasten functional decline and . ([place] [employer] Ethics Committee and Clinical Practice and Models of Care Committee. J Am Geriatr Soc. 2014 Aug;62(8):1590-3 and Praneeth SL, Herbert JM, Woods [place], Mor V. A national study of the location of for older persons with dementia. J Am Geriatr Soc 2005; 53(2):299-305.). Helped them understand differences between dementia and delirium. Discussed typical progression of dementia and how it may be staged. Stage 1: Normal Functioning: In the early stage, individuals show no signs of dementia, and their cognitive function is normal Stage 2: Very Mild Cognitive Decline: Minor memory lapses and forgetfulness may occur but are often attributed to normal aging Stage 3: Mild Cognitive Decline: Early signs of dementia become more noticeable, such as memory problems and difficulty finding words Stage 4: Moderate Cognitive Decline: Memory loss becomes more pronounced, and individuals may struggle with tasks like managing finances and planning Stage 5: Moderately Severe Cognitive Decline: Daily functioning becomes challenging, and individuals may require assistance with tasks like dressing and bathing Stage 6: Severe Cognitive Decline: In this stage, individuals need substantial help with daily activities, and communication becomes increasingly difficult Stage 7: Very Severe Cognitive Decline: In the final stage, individuals may lose the ability to communicate, walk, and perform basic tasks. They require [id number] care. Given pt's advanced dementia, we discussed code status and helped them understand that CPR is only done after a person has and involves uncomfortable and invasive procedures that, even if successful, have high risk of multiple complications including but not limited to rib fractures, pneumo/hemothorax, EFRAIN, ventilator dependence, anoxic brain injury, and district operations manager/permanent cognitive and functional deficits. Bertha shared desire for DNR/DNI and Teetee questioned if hospice at home would be of benefit. Discussed hospice benefit: an interdisciplinary program offered by nurses, nurs es aides, social workers, chaplains and a medical scribe for patients with a terminal condition and a life expectancy of less than 6 months. This is covered by Medicare at 100%/no out of pocket expense to patient and all meds/supplies needed by patient for the reason they are on hospice are paid for/covered by hospice. Hospice care focuses on quality of life when a cure is no longer possible, or the burdens of treatment outweigh the benefits. Discussed that they will not receive curative treatments, but will receive medicine that enhances quality of life, such as treatment for high blood pressure, rapid heart rate, or anxiety. Hospice care includes pain and symptom management, emotional support, medications and medical supplies, coaching for caregivers, grief support, and may include special services like speech and physical therapy when needed. Hospice also provides a 24/7 call service. Hospice care will also make short-term inpatient care available when pain or symptoms become too difficult to manage at home or when caregivers need respite time. Hospice care can be provided wherever the patient lives, includingpersonal care homes or nursing homes. Hospice care is provided by a team that focuses on the patients needs. The team usually includes clergy, home health aides, hospice physicians, nurses, social workers, trained volunteers, and other specialized therapists if needed. A patients personal physician may also be included. Although hospice provides a lot of support, if the patient lives at home, the day-to-day care is provided by the [facility] or paid home health aides. They requested pt be discharged back to home with hospice. List of hospice agencies provided and CM notified of need for referral. (6) Comfort measures only status: Family in agreement to pursue comfort directed care. Comfort plan of care parameters: 1. Patient/Family want hospice added to their care. 2. NO rehab/PT/OT 3. Strictly End of Life care only 4. NO escalation of care: do not increase oxygen, escalate therapies, etc. The focus is on comfort through end of life, assure this is accomplished with aggressive symptom management (i.e. relief of dyspnea, pain, etc.) 5. NO return to hospital 6. NO labs, imaging, surgery 7. Oral intake as desired for comfort and pleasure: NO dietary restriction, Allow permissive aspiration, do not withhold food or drink for concern of aspiration and allow PO for pleasure and comfort. 8. If difficulty urinating/commode/bedpan, ok to place Garcia catheter for comfort/hygiene/skin protection AND/OR Continue Garcia catheter for comfort/hygiene/skin protection 9. NO: calorie counts, artificial nutrition, feeding tubes or IV fluids Medications to continue are noted on discharge summary. Provider to contact if any questions about comfort plan of care: Hospice Chiller Technician or designee EOL Symptom manamgement: Continue dementia/psych meds per primary Pain/dyspnea/tachypnea morphine 5mg PO PRN q3H Consider titratable morphine drip if pt requires >3 PRN doses in under two c onsecutive hours. Nausea/vomitting zofran 4mg IVP q4h PRN Agitation ativan 0.5mg IVP q4h PRN Hyperactive delirium haldol 5mg IVP q6h PRN Secretions - if repositioning not effective robinul 0.4mg IV q4h PRN atropine SL 3 drops Q1h PRN Nursing care: Discontinue all medications not directed towards comfort. Detether pt from IV tubing, monitor cables, and check vitals once per shift. Please continue HFNC and titrate down as able for patient comfort. Use medications above PRN for dyspnea/tachypnea and do not increase oxygen once titrated down. Assess q1h for pain/dyspnea and treat accordingly. Plan [employer], plan for discharge to home with hospice pending family selection of hospice agency. History of Present Illness Reason for Consultation: goals of care Requesting Physician: Rolan Heredia DO Attending Physician: Rolan Heredia DO History of Present Illness Mr. Bruner is a 79-year-old male whose active medical conditions include cognitive behavioral change status post CVA in addition to vascular dementia of an unspecified severity, type 2 diabetes mellitus not requiring insulin therapy, hyperlipidemia, hypertension, among other chronic medical conditions who presented to the [facility] on 09/[facility] by EMS due to progressive decline at home. Allergies Allergy/AdvReac Type Severity Reaction Status Date / Time latex Allergy Mild CONTACT Verified 08/12/25 12:57 DERMATITIS oxycodone AdvReac Severe GI SYMPTOMS Verified 08/12/25 12:57 Home Medications Medication Instructions Recorded Confirmed Type cyanocobalamin (vitamin B-12) 1,000 mcg PO NOON ##0 05/14/18 09/01/25 History 1,000 mcg capsule cholecalciferol (vitamin D3) 25 25 mcg PO QAM 11/16/21 09/01/25 History mcg (1,000 unit) capsule Wheeled Walker #1 ea 06/25/22 08/12/25 Rx aspirin 81 mg chewable tablet 81 mg PO DAILY #30 tabs 10/20/24 09/01/25 Rx fluvoxamine 100 mg tablet 100 mg PO TID #90 tabs 10/27/24 09/01/25 Rx tamsulosin 0.4 mg capsule 0.4 mg PO DAILY #30 caps 11/17/24 09/01/25 Rx galantamine 4 mg tablet 4 mg PO BID #180 tabs 01/20/25 09/01/25 Rx aripiprazole 10 mg tablet 10 mg PO HS #30 tabs 06/27/25 09/01/25 Rx hydroxyzine HCl 25 mg tablet 25 mg PO QID #120 tabs 06/27/25 09/01/25 Rx tramadol 50 mg tablet 50 mg PO BID PRN pain #60 tabs 07/07/25 09/01/25 Rx cephalexin 500 mg capsule 500 mg PO BID #60 caps 07/11/25 09/01/25 Rx prednisone 5 mg tablet 10 mg (2 x 5 mg) PO QAM #30 tabs 08/08/25 09/01/25 Rx clonazepam 0.5 mg tablet 0.5 mg PO DAILY 08/12/25 09/01/25 History trazodone 50 mg tablet 25 mg (1/2 x 50 mg) PO HS PRN 08/12/25 09/01/25 Rx sleep #30 tabs Patient History Medical History (Updated 09/02/25 @ 12:17 by WESLY Parks) 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 Fall Diverticulosis (08/10/12) Wedge compression fracture of t11-T12 vertebra, [facility] Closed fracture of multiple ribs of left side Unintentional weight loss Hemopneumothorax on left Migraine MIGRANES AND CLUSTER HEADACHES S/T SKULL FX A CHILD. Murmur, cardiac MONITORED BY PCP Stroke HX OF 02/04/17, SOME RESIDUAL WEAKNESS IN RT ARM, SHORT TERM MEMORY LOSS, UNSTEADY GAID, FOLLOWS WITH DR. ONEAL. Chronic steroid use Hyperlipidemia GERD (gastroesophageal reflux disease) Anxiety Osteoarthritis Tonsillar abscess History of fibula fracture Airway compromise Surgical History History of nasal septoplasty THROAT/NOSE SURGERY History of carpal tunnel release History of herniorrhaphy UMBILICAL HERNIA REPAIR History of cholecystectomy History of carotid endarterectomy LEFT Family History Mother Gallbladder cancer Father Diabetes Stroke Brother Leukemia Sister Epilepsia Aneurysm of gastric artery Liver disease Social History Smoking Status: Current every day smoker Tobacco Type: Cigarettes Age Started Using Tobacco: 20; packs per day: 0.25; Cigarettes Per Day: 4; Second Hand Exposure: No; Do You Dip or Chew Tobacco: No; Hx Alcohol Use: No Hx Substance Use: No Preferred Language: Turkmen Communication Ability: Effective Visual Impairment: Diminished Hearing Ability: Normal Cellophane Bath Mixer Required: No Beliefs That Will Affect Care: None marital status: Current Living Situation: Family Current Living Situation Comment: Lives with and daughter's part of the support system. Stays overnight current occupational status: retired How many Children do You have: 2 Other Information That Helps Us Care for You: No Feels Safe at Home: Yes Childhood Exposure to Second-Hand Smoke: Yes Diet: regular caffeine: No Dental Care, Regularly: Yes Physical Activity Frequency: Does not Exercise Physical Activity Frequency Comment: active lifestyle Seatbelt Use: always Sunscreen Use: No Do you think of yourself as: straight/heterosexual Assistive Devices: Walker Review of Systems Review of Systems: Unobtainable due to cognitive status Physical Exam Constitutional: well developed, + ill appearing, + cachectic, + frail appearing, comfortable and + lethargic Eyes: PERRL, conjunctivae normal, anicteric sclerae Neck: trachea midline, no thyromegaly Respiratory: normal respiratory effort, lungs clear to auscultation Cardiovascular: RRR, no murmur, no edema Gastrointestinal (Abdomen): normal bowel sounds, soft, nontender, no hepatosplenomegaly Skin: no rashes, warm and dry + turgor decreased and + pallor Neurologic: pt drowsy, arousable and confused per baseline, TENA, will selectively follow commands Psychiatric: Orientation: oriented to person Results & Data Vital Signs (Past 12 Hours) Vital Signs Temp Pulse Resp BP Pulse Ox O2 Del Method 09/02/25 07:52 36.5 C 74 16 159/80 H 96 Room Air 09/02/25 00:29 36.6 C 66 16 158/78 H 98 Room Air Laboratory Results Abnormal lab results 09/01/25 09/01/25 09/01/25 Range/Units 09:30 10:05 11:34 [place] # (Auto) 0.61 H (0.11-0.59) K/uL VBG pCO2 55 H (38-50) mmHg POC Glucose (70-99) mg/dl Hemoglobin A1c (4.5-5.6) % AST 12 L (13-39) U/L Ur Leukocyte Esterase 2+ H (Negative) Urine WBC (Auto) 21-50 H (0-5) /hpf 09/01/25 09/01/25 09/02/25 Range/Units 16:24 20:04 04:48 [place] # (Auto) (0.11-0.59) K/uL VBG pCO2 (38-50) mmHg POC Glucose 101 H 163 H (70-99) mg/dl Hemoglobin A1c 6.0 H (4.5-5.6) % AST (13-39) U/L Ur Leukocyte Esterase (Negative) Urine WBC (Auto) (0-5) /hpf 09/02/25 Range/Units 07:36 [place] # (Auto) (0.11-0.59) K/uL VBG pCO2 (38-50) mmHg POC Glucose 106 H (70-99) mg/dl Hemoglobin A1c (4.5-5.6) % AST (13-39) U/L Ur Leukocyte Esterase (Negative) Urine WBC (Auto) (0-5) /hpf Diagnostic Findings Chest X-Ray 09/01/25 09:40 XR chest 1V portable CLINICAL HISTORY: Weakness. COMPARISON STUDY: Chest radiograph July 27, 2025. Chest CT December 25, 2024. FINDINGS: The patient is mildly rotated. There is no pneumothorax or pleural effusion. Blunting of the left costophrenic angle is chronic. Cardiomediastinal silhouette is stable. There is no evidence for pulmonary edema. There is no pneumothorax or pleural effusion. No consolidation to suggest pneumonia. There are several old bilateral rib fractures. IMPRESSION: No acute cardiopulmonary findings. No significant change in appearance of the chest. ACT 112: Negative or not required by law. Electronically signed by: Angel Brown M.D. 09/01/2025 10:[address] 09/01/25 09:41 CT head/brain wo con CLINICAL HISTORY: 79 years-old Male with AMS. Acutely altered mental status TECHNIQUE: Multiple axial CT images of the head were obtained without contrast. A dose lowering technique was utilized adhering to the principles of ALARA. CT DOSE: 2044.72 mGy.cm COMPARISON: 06/13/2025 FINDINGS: No acute intracranial hemorrhage, midline shift, intracranial mass, hydrocephalus, territorial ischemia or abnormal extra-axial collection. Involutional changes with chronic microvascular ischemic disease. Left parieto- occipital encephalomalacia again noted. Cerebrovascular calcifications The calvarium is intact. The paranasal sinuses, mastoid air cells, and middle ear cavities are clear. IMPRESSION: No acute intracranial abnormality. ACT 112: Negative or not required by law. The above report was generated using voice recognition software. It may contain grammatical, syntax or spelling errors. Electronically signed by: Danilo Anand M.D. 09/01/2025 11:[address] 09/01/25 09:54 CT SCAN OF THE CERVICAL SPINE CLINICAL HISTORY: Altered mental status. COMPARISON STUDY: Cervical spine CT March 01, 2025. TECHNIQUE: CT scan of the cervical spine is performed from the skull base to the upper thoracic spine. Images are reviewed in the axial, sagittal, and coronal planes. IV contrast was not administered for this examination. A dose lowering technique was utilized adhering to the principles of ALARA. FINDINGS: Skeletal structures: There is no evidence of fracture or subluxation involving the cervical spine. Vertebral body height and alignment are maintained. The odontoid process and lateral masses are intact. The atlantoaxial articulation is preserved. The spinous processes appear intact. There is moderate multilevel facet arthrosis and degenerative disc disease within the cervical spine. Soft tissues: The prevertebral and paraspinous soft tissues are within normal limits. Calvarium: The visualized calvarium at the skull base appears intact. Brain parenchyma: Partially visualized brain parenchyma at the skull base is within normal limits. Lung apices: Clear as visualized. IMPRESSION: No acute cervical spine fracture or subluxation. ACT 112: Negative or not required by law. Electronically signed by: Angel Brown M.D. 09/01/2025 10:[address] 09/01/25 09:54 CT OF THE CHEST WITHOUT IV CONTRAST CLINICAL HISTORY: fall rib pain COMPARISON STUDY: Chest x-ray dated 09/01/2025 , chest CT dated 12/25/2024 CT DOSE: TECHNIQUE: Axial images of the chest were obtained without IV contrast. Images were reviewed in the axial, sagittal, and coronal planes. IV contrast was not administered for this examination. Automated exposure control was utilized for the study. A dose lowering technique was utilized adhering to the principles of ALARA. FINDINGS: Thyroid gland is unremarkable in appearance. No pathologically enlarged axillary, mediastinal, or hilar lymph nodes are visualized. The visualized portions the upper abdomen reveal a surgically absent gallbladder. There is a 35mm left renal cyst. There are no adrenal masses. There is trace pericardial fluid. There are coronary artery calcifications. There are no pleural effusions. There is no pneumothorax. There is debris within the trachea. There are are a few scattered calcified granulomas present. There are multiple scattered sub-5 mm pulmonary nodules. The largest is located on image #[id number] measuring 5 mm. This area was obscured on the prior study due to atelectatic c hange. There is mild apical emphysema. There are multiple healing right-sided rib fractures. Addition there are multiple old healed left-sided rib fractures. No acute fractures are visualized. Degenerative changes are present within the dorsal spine. There is an old lower thoracic compression deformity. There are bridging calcifications of the anterior longitudinal ligament. IMPRESSION: 1. Mild emphysema 2. Multiple old healing rib fractures. No acute rib fractures identified 3. Multiple sub-5 mm pulmonary nodules redemonstrated. ACT 112: Negative or not required by law. Electronically signed by: Dylan Hobbs M.D. 09/01/2025 10:[address] 09/01/25 09:54 CT lumbar spine wo con HISTORY: 79 years-old Male fall back pain acute low back pain status post fall COMPARISON: CT lumbar spine 07/25/2021, CT abdomen and pelvis 10/03/2024 TECHNIQUE: Multiple axial CT images of the lumbar spine were obtained without IV contrast. A dose lowering technique was used consistent with the principals of ALARA. FINDINGS: Demineralized appearance of the bones. Mild multilevel intervertebral disc space narrowing with mild to moderate spondylitic spurring and moderate facet arthrosis. Minimal superior endplate compression at L3 and L4 are chronic findings. There is no acute fracture, subluxation or endplate erosion. Mild degeneration of the SI joints. There is suboptimal evaluation of the central canal and neural foramen by CT technique. Moderate central canal stenosis at L4- L5 secondary to posterior disc osteophyte complex, ligamentum flavum thickening and facet arthrosis. Severe right with moderate left neural foraminal narrowing at this level. Moderate bilateral foraminal stenosis at L5-S1. Atherosclerosis of the aorta and branch vessels. Distended urinary bladder. Moderate colonic fecal retention. 4 mm nodular focus in the basal right lower lobe on image 18 of series 21 is new from prior and likely atelectatic. IMPRESSION: No acute fracture or subluxation identified. ACT 112: Negative or not required by law. The above report was generated using voice recognition software. It may contain grammatical, syntax or spelling errors. Electronically signed by: Danilo Anand M.D. 09/01/2025 11:[address] 09/01/25 09:54 CT OF THE THORACIC SPINE CLINICAL HISTORY: Back pain following fall. COMPARISON STUDY: Chest CT December 25, 2024. Thoracic spine CT July 25, 2021. TECHNIQUE: Helical axial images of the thoracic spine were obtained. Sagittal and coronal reconstructions were viewed. Automated exposure control was utilized for the study. A dose lowering technique was utilized adhering to the principles of ALARA. FINDINGS: Alignment of the thoracic spine is anatomic. There is an old fracture along the inferior endplate of T11. This is chronic. No acute thoracic spine fractures are present. There is extensive anterior osteophytosis of the thoracic spine. Facet joints are intact. Please note that the chest CT will be reported separately. Multiple healing rib fractures are better depicted on that exam. IMPRESSION: 1. No acute thoracic spine fracture or subluxation. 2. No change in an old T11 fracture. ACT 112: Negative or not required by law. Electronically signed by: Angel Brown M.D. 09/01/2025 10:51 AM Abdomen/Pelvis CT 09/01/25 12:19 CT SCAN OF THE ABDOMEN AND PELVIS WITH IV CONTRAST CLINICAL HISTORY: Weakness. Failure to thrive. COMPARISON STUDY: CT of the abdomen and pelvis October 03, 2024. TECHNIQUE: Following the IV administration of 94 cc of Optiray 320, CT scan of the abdomen and pelvis is performed from the lung bases to the proximal femora. Images are reviewed in the axial, sagittal, and coronal planes. IV contrast was administered without complication. A dose lowering technique was utilized adhering to the principles of ALARA. CT DOSE: 568.53 mGy.cm FINDINGS: Emphysema is incidentally noted within the lower lungs. Multiple old bilateral rib fractures are present. There are also several healing rib fractures. No acute fractures within the visualized lower ribs are identified. There are no acute fractures within the lumbar spine, pelvis or hips. There are no suspicious hepatic lesions. There is no biliary ductal dilatation status post cholecystectomy. Spleen, adrenal glands and pancreas are unremarkable. No pancreatic ductal dilatation. Water attenuation bilateral renal lesions represent cysts. There is a 2 mm left renal calculus. There are no ureteral calculi. There is no hydronephrosis. There is no evidence for a bowel obstruction. The caliber and wall thickness of small and large bowel are normal. There is no lymphadenopathy. No fluid collections are present. There is extensive aortoiliac atherosclerotic plaque. Vessels are normal in caliber. IMPRESSION: 1. No acute process within the abdomen or pelvis. 2. No CT evidence for malignancy within the abdomen or pelvis. 3. 2 mm left renal calculus. No ureteral calculi. ACT 112: Negative or not required by law. Electronically signed by: Angel Brown M.D. 09/01/2025 1:08 PM Medications Administered Current Inpatient Medications Aripiprazole (Aripiprazole 10 Mg Tab) 10 mg PO HS KATIE Stop: 10/01/25 20:59 Last Admin: 09/01/25 20:28 Dose: 10 mg Aspirin (Aspirin 81 Mg Chew) 81 mg PO DAILY KATIE Stop: 10/02/25 08:59 Clonazepam (Clonazepam 0.5 Mg Tab) 0.5 mg PO DAILY KATIE Stop: 10/02/25 08:59 Dextrose (Dextrose 50% 50 Ml Syringe) 25 - 50 ml IV UD PRN; Protocol PRN Reason: Hypoglycemia Protocol Stop: 10/01/25 15:40 Enoxaparin Sodium (Enoxaparin Inj 40 Mg/0.4 Ml Syr) 40 mg SQ Q24H KATIE Stop: 10/01/25 16:14 Last Admin: 09/01/25 16:59 Dose: 40 mg Fluvoxamine Maleate (Fluvoxamine Maleate 50 Mg Tab) 100 mg PO TID KATIE Stop: 10/01/25 15:40 Last Admin: 09/01/25 20:06 Dose: 100 mg Galantamine Hydrobromide (Galantamine Hydrobromide 4 Mg Tab) 4 mg PO BIDM KATIE Stop: 10/01/25 16:59 Last Admin: 09/01/25 17:00 Dose: 4 mg Glucagon (Glucagon For Inj 1 Mg Vial) 1 mg SQ UD PRN; Protocol PRN Reason: Hypoglycemia Protocol Stop: 10/01/25 15:40 Glucose (Glucose 40% Gel 15 Gm Tube) 15 - 30 gm PO UD PRN; Protocol PRN Reason: Hypoglycemia Protocol Stop: 10/01/25 15:40 Glucose (Glucose 10 Tab/Tube) 4 - 8 tab PO UD PRN; Protocol PRN Reason: Hypoglycemia Protocol Stop: 10/01/25 15:40 Insulin Aspart (Insulin Aspart Per Unit Charge) 0 units SC ACHS KATIE Stop: 10/01/25 16:29 Last Admin: 09/01/25 20:27 Dose: 1 units Miscellaneous (Carbohydrates For Hypoglycemia ) 15 - 30 gm PO UD PRN PRN Reason: Hypoglycemia Protocol Stop: 10/01/25 15:40 Miscellaneous Information (Pharmacy Glycemic Mgmt Consult) 1 each N/A UD PRN PRN Reason: Consult Stop: 10/01/25 15:40 Prednisone (Prednisone 10 Mg Tablet) 10 mg PO QAM [facility] Stop: 10/02/25 08:59 Tamsulosin HCl (Tamsulosin Hcl 0.4 Mg Cap) 0.4 mg PO DAILY [facility] Stop: 10/02/25 08:59 Tramadol HCl (Tramadol Hcl 50 Mg Tablet) 50 mg PO BID PRN PRN Reason: pain Stop: 10/01/25 15:40 PG Care Time/CCT Total # of Minutes Spent Total Time Spent with Patient: Total time spent is greater than 50% in coordination of care (as documented) at patient's floor/unit and/or counseling patient: Advanced Care Planning 10148 Advanced Care Planning 30 [place] [address] IN/OBS CONSULT LVL 4,60M Patient Type New History Expanded Problem Focused Exam Expanded Problem Focused Medical Decision Making Moderate Complexity Diagnoses Adult failure to thrive R62.7 Weight loss R63.4 Weakness generalized R53.1 Palliative care by specialist Z51.5 Counseling regarding advanced directives and goals of care Z71.89 Comfort measures only status Z51.5 Additional Codes Advanced Care Planning - 09757 Advanced Care Planning 30 Min: 38207 Advanced Care Planning 30 Min ([id number])
[2025-09-02] MEDS: TAMSULOSIN HCL 0.4 MG CAP PO SCH (09:12)
[2025-09-02] MEDS: ASPIRIN 81 MG CHEW PO SCH (09:23)
[2025-09-02] MEDS: clonazePAM 0.5 MG TAB PO SCH (09:23)
[2025-09-02] MEDS ORDERED: GLYCOPYRROLATE 0.2 MG/ML VIAL IV PRN (11:35)
[2025-09-02] MEDS ORDERED: HYOSCYAMINE SULFATE 0.125 MG TAB SL PRN (11:35)
[2025-09-02] MEDS ORDERED: ACETAMINOPHEN 325 MG TAB PO PRN (11:35)
[2025-09-02] MEDS ORDERED: LORazepam Inj 0.5 MG in SYRINGE 0.25 ML IV PRN ×2 (11:35→11:54)
[2025-09-02] MEDS ORDERED: ONDANSETRON INJ 2 MG/ML 2 ML VIAL IV PRN (11:35)
[2025-09-02] MEDS ORDERED: ONDANSETRON 4 MG OD TAB SL PRN (11:35)
[2025-09-02] MEDS ORDERED: ATROPINE SULFATE 1% OP SOLN 5 ML BTL SL PRN (11:35)
--- NOTE | 2025-09-02 12:46 | Hospitalist Progress Note ---
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): (3) Recurrent falls: (4) Frailty syndrome in geriatric patient: Plan In summary this is a 79-year-old male who presents with progressive frailty, poor oral intake, and recurrent falls in the setting of vascular dementia #Progressive vascular dementia // Geriatric frailty and physical debility FAST Stage VII dementia; further discussion had with family at bedside today with additional information and resources provided by Palliative Medicine; the patient's family have elected to pursue hospice care - Continue established medication regimen for the patient's dementia and associated mood disorders Consult Palliative Medicine and Case management to assist with coordination of home hospice #First degree sacral decubitus ulcer New sacral decubitus ulcer; continue preventative care with frequent repositioning and sacral heart Admission and Anticipated Discharge Date Admission Date: September 01, 2025 Subjective Mr. Bruner is a 79-year-old male whose active medical conditions include cognitive behavioral change status post CVA in addition to vascular dementia of an unspecified severity, type 2 diabetes mellitus not requiring insulin therapy, hyperlipidemia, hypertension, among other chronic medical conditions who presented to the [facility] on 09/01 by EMS due to progressive decline at home. No acute overnight events; family at bedside to discuss further goals of care Review of Systems Review of Systems: Review of constitutional, cardiovascular, pulmonary, gastrointestinal, genitourinary, neurologic systems was unremarkable except for pertinent positive and negative findings discussed above Physical Exam Physical Exam: General: Elderly male in no acute distress Vital Signs: Reviewed HEENT: Tacky mucous membranes Pulmonary: Symmetric chest wall excursion without restriction, clear to auscultation bilaterally Cardiovascular: Regular rate and rhythm without murmurs, rubs, or gallops; S1 and S2 normal; right radial pulse 2+; no notable lower extremity edema Gastrointestinal: Scaphoid, nontender throughout with normal bowel sounds Musculoskeletal: Generalized anasarca and sarcopenia Neurologic: Unable to participate fully in a thorough neurologic exam; alert, oriented to self but not place nor time Skin: Stage I sacral decubitus ulcer Results & Data Results & Data Vital Signs (Past 12 Hours) Vital Signs Temp Pulse Resp BP Pulse Ox O2 Del Method 09/02/25 07:52 36.5 C 74 16 159/80 H 96 Room Air PG Care Time/CCT Total # of Minutes Spent Total Time Spent with Patient: Total time spent is greater than 50% in coordination of care (as documented) at patient's floor/unit and/or counseling patient: Coding Level of Care Code 25041 SUB INP/OBS CARE MIN Diagnoses Vascular dementia with other behavioral disturbance, unspecified dementia severity F01.518 Dementia behavioral or psychological symptom: with other behavioral disturbance Dementia severity: unspecified severity 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
[2025-09-02 15:48] VITALS: BP 134/78; TEMP 97.9
[2025-09-02] MEDS: MoRPHine SULFATE 10 MG/0.5 ML UDP PO PRN (16:08)
[2025-09-03 15:20] VITALS: PULSE 62
--- NOTE | 2025-09-03 18:54 | Discharge Summary ---
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): (3) Recurrent falls: (4) Frailty syndrome in geriatric patient: Plan In summary this is a 79-year-old male who presents with progressive frailty, poor oral intake, and recurrent falls in the setting of vascular dementia #Progressive vascular dementia // Geriatric frailty and physical debility FAST Stage VII dementia; further discussion had with family at bedside today with additional information and resources provided by Palliative Medicine; the patient's family have elected to pursue hospice care - Continue established medication regimen for the patient's dementia and associated mood disorders Consult Palliative Medicine and Case management to assist with coordination of home hospice #First degree sacral decubitus ulcer New sacral decubitus ulcer; continue preventative care with frequent repositioning and sacral heart Discharged home with hospice after confirmation of DME supply arrival Admission HPI Per Admitting Provider Mr. Bruner is a 79-year-old male whose active medical conditions include cognitive behavioral change status post CVA in addition to vascular dementia of an unspecified severity, type 2 diabetes mellitus not requiring insulin therapy, hyperlipidemia, hypertension, among other chronic medical conditions who presented to the [facility] on 09/01 by EMS due to progressive decline at home as reported by family who was not available with the patient at the time of EMS arrival. At the time my evaluation the patient is accompanied by his daughter and grandson at bedside; the patient is arousable to verbal stimuli but not able to participate in a meaningful history and physical. At minimum, they are able to deny any current pain, discomfort, or recent acute injuries. The patient's daughter is the primary historian at this time; she describes over the past several weeks patient has been having increasing difficulty navigating at home, decreased oral intake, increased fatigue, with family concerns the patient continuing to lose weight and not "thrive". The patient primarily lives at home with his spouse who is his primary caregiver with occasional help from his children as they are available. She reports the patient had a good week this past week as far as his cognitive abilities concerned, but has rapidly returned to his current state which is with intermittent episodes of confusion, profound fatigue, inability to feed or dress themselves independently. Discharge Exam General: Elderly male in no acute distress Vital Signs: Reviewed HEENT: Tacky mucous membranes Pulmonary: Symmetric chest wall excursion without restriction, clear to auscultation bilaterally Cardiovascular: Regular rate and rhythm without murmurs, rubs, or gallops; S1 and S2 normal; right radial pulse 2+; no notable lower extremity edema Gastrointestinal: Scaphoid, nontender throughout with normal bowel sounds Musculoskeletal: Generalized anasarca and sarcopenia Neurologic: Unable to participate fully in a thorough neurologic exam; alert, oriented to self but not place nor time Skin: Stage I sacral decubitus ulcer Discharge Plan Discharge Items Patient Disposition: Hospice - Home Reason For Visit: GERIATRIC FRAILTY AND DEBILITY Discharge Diagnosis: End stage vascular dementia Condition on Discharge: Fair Activity: Per Instructions section Non-emergency contact: Primary Care Provider and Specialist Call non-emergency contact if: you have any medication questions and your symptoms worsen Follow-up/Referrals: Wing William MD [Primary Care Provider] - Diet: Other - See Diet Comment Diet Comment: Pleasure meals consistent with [employer] Addtl Attending Provider Instructions: You were admitted to [facility] for concerns of inadequate oral intake and progressive muscle atrophy, consequential of end-stage vascular dementia. After a prolonged discussion with multiple care providers, and through shared decision making it was determined transition your goals of care to comfort measures only, with initiation of hospice given the degree of severity of your vascular dementia and comorbid conditions. Home support has been established with [facility], and he will be discharged with continued assistance from them aligning with your current goals of care. Please contact [facility] as your primary emergency contact for assistance with emergent symptoms and unexpected changes in the patient's condition. They should be contacted prior to presentation to the emergency department. Thank you for choosing [facility] as your healthcare provider. Pending Studies at Discharge: No Stand-Alone Forms: My [facility] Medications and DC Order Prescriptions: Continued tramadol 50 mg tablet 50 mg PO BID PRN (Reason: pain) Qty: 60 5RF prednisone 5 mg tablet 10 mg PO QAM Qty: 30 5RF (DME) Wheeled Walker Misc See Rx Instructions .Route Qty: 1 0RF Rx Instructions: with seat and hand brakes. Duration 999 galantamine 4 mg tablet 4 mg PO BID Qty: 180 3RF Rx Instructions: administer with AM and PM meals aripiprazole 10 mg tablet 10 mg PO HS Qty: 30 3RF hydroxyzine HCl 25 mg tablet 25 mg PO QID Qty: 120 4RF clonazepam 0.5 mg tablet 0.5 mg PO DAILY trazodone 50 mg tablet 25 mg PO HS PRN (Reason: sleep) Qty: 30 2RF fluvoxamine 100 mg tablet 100 mg PO TID Qty: 90 11RF tamsulosin 0.4 mg capsule 0.4 mg PO DAILY Qty: 30 11RF Discontinued cyanocobalamin (vitamin B-12) 1,000 mcg Capsule 1,000 mcg PO NOON Qty: 0 cephalexin 500 mg capsule 500 mg PO BID Qty: 60 11RF cholecalciferol (vitamin D3) 25 mcg (1,000 unit) capsule 25 mcg PO QAM aspirin 81 mg tablet,chewable 81 mg PO DAILY Qty: 30 3RF Hold Instructions: ON HOLD UNTIL 11/01 Rx Instructions: start on 11/01/24 Discharge Orders: Discharge Order (Routine); Ordered 09/03/25 Ordered By: Rolan Heredia Admission Data Admit Date/Time: 09/01/25 13:47 Attending Provider: Rolan Heerdia Admit Provider: Rolan Heredia Primary Care Provider: Wing William Other Providers: Geovanna Barrios Other Interventions: Discharge Summary Assessment (RN) Last Done: 09/03/25 15:17 Hospital Stay Data Consultations 09/01/25 15:55 Consult Palliative Care Routine Diagnostic Imagining Performed 09/01/25 09:41 CT head/brain wo con Stat 09/01/25 09:54 CT cervical spine wo con Stat CT chest diagnostic wo con Stat CT lumbar spine wo con Stat CT thoracic spine wo con Stat 09/01/25 12:19 CT abd pelvis IV con only Stat Pending Results Patient Have Any Pending Studies at Discharge: No Discharge Instructions Given to Patient (Per Discharging Provider) You were admitted to [facility] for concerns of inadequate oral intake and progressive muscle atrophy, consequential of end-stage vascular dementia. After a prolonged discussion with multiple care providers, and through shared decision making it was determined transition your goals of care to comfort measures only, with initiation of hospice given the degree of severity of your vascular dementia and comorbid conditions. Home support has been established with [facility], and he will be discharged with continued assistance from them aligning with your current goals of care. Please contact [facility] as your primary emergency contact for assistance with emergent symptoms and unexpected changes in the patient's condition. They should be contacted prior to presentation to the emergency department. Thank you for choosing [facility] as your healthcare provider. 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
== END 2025-09-03 17:55 | disposition hospice, home (50) | DRG 884 ==
LOC: ED 09:21 → INTOOBSV 13:47 → 3E 13:47